=== PATIENT | male | born 1955 | race Hispanic/Latino ===

== ENCOUNTER 2017-11-28 17:10 | Inpatient (IN) | payer MEDICARE ==
[2017-11-28] MEDS ORDERED: Albuterol-Ipratrop 3 mg / 0.5 (3 ml) UD INH STA (17:42)
--- NOTE | 2017-11-28 18:03 | ED PDOC ---
HPI: SOB/CHF/COPD Time Seen by Provider: 11/28/17 17:31 Chief Complaint (Nursing): Shortness Of Breath Chief Complaint (Provider): Shortness of Breath History Per: Patient History/Exam Limitations: no limitations Onset/Duration Of Symptoms: Days (1 day ago) Current Symptoms Are (Timing): Still Present Current Respiratory Medications: Diuretic Additional Complaint(s): 62 y/o male with a history of asthma, CHF, heart block, HTN, and anxiety, presents to the ED complaining of worsened shortness of breath with associated dry cough, fever, chils, leg swelling, and malaise, onset of 1 day ago. Patient reports of using albuterol pump with minimal relief. Of note, patient saw his doctor earlier this week, who increased his diuretic due to the patient's leg edema. Past Medical History Reviewed: Historical Data, Nursing Documentation, Vital Signs Vital Signs: Last Vital Signs Temp 100.7 F H 11/28/17 17:15 Pulse 97 H 11/28/17 17:15 Resp 18 11/28/17 17:15 BP 140/63 11/28/17 17:15 Pulse Ox 100 11/28/17 17:45 - Medical History PMH: Anxiety, Asthma, Cardia Arrhythmia, CHF, HTN Denies: Chronic Kidney Disease - Surgical History Surgical History: Pacemaker Other surgeries: right hip replacement - Family History Other Family History: acute coronary syndrome - Social History Current smoker - smoking cessation education provided: No (tobacco) Ex-Smoker (has not smoked in the last 12 months): No Alcohol: > 2 Drinks/Day (3-4 beers daily) Drugs: Cannabis (occasional) - Home Medications Home Medications: Ambulatory Orders Medication Instructions Recorded Albuterol HFA [Ventolin HFA 90 2 puff IH BID 11/19/16 mcg/actuation (8 g)] Enalapril Maleate [Vasotec] 5 mg PO DAILY 11/19/16 clonazePAM [Klonopin] 0.5 mg PO TID PRN 11/19/16 Mometasone/Formoterol [Dulera] 2 puff IH BID 11/28/17 - Allergies Allergies/Adverse Reactions: Allergies Allergy/AdvReac Type Severity Reaction Status Date / Time No Known Allergies Allergy Verified 11/24/16 07:21 Review of Systems ROS Statement: Except As Marked, All Systems Reviewed And Found Negative Constitutional: Positive for: Fever, Chills, Malaise Respiratory: Positive for: Cough (dry ) Musculoskeletal: Positive for: Leg Pain (swelling) - ECG O2 Sat by Pulse Oximetry: 100 (RA) Pulse Ox Interpretation: Normal Medical Decision Making Medical Decision Making: Time: --17:41 Impression: --Shortness of Breath Differential: --Asthma Exacerbation, Pneumonia, CHF Exacerbation, Influena, Viral Syndrome, Acute Coronary Syndrome, Sepsis, Plan: --Blood Type and Screen --Venous blood gas shock panel --ECG --b-type natriuretic --labs --magnesium --phosphorous --Troponin I --Troponin I Q8H --ED urine Dip --prothrombin Time --PTT --Chest X-ray --Albuterol 9ml iNH --methylprednisolone 125 mg IVP --Tamiflu Cap 75 mg PO --Blood Culture --Welding Machine Operator Thermit --IV insertion --Glucose, blood, PoC --Peak flow pre/post tx --Influenza A B Reassess -- Scribe Attestation: Documented by Gregory Meza acting as a scribe for Sloane Edwards MD. Provider Attestation: All medical record entries made by the Scribe were at my direction and personally dictated by me. I have reviewed the chart and agree that the record accurately reflects my personal performance of the history, physical exam, medical decision making, and the department course for this patient. I have also personally directed, reviewed, and agree with the discharge instructions and disposition. Disposition - Disposition Condition: STABLE
[2017-11-28 18:08] LABS: VENOUS BLOOD GAS BASE EXCESS 4.5 mmol/L (0.0-2.0); VENOUS BLOOD GAS PCO2 50 mmHg (40-60); VENOUS BLOOD GAS PO2 17 mm/Hg (30-55); VENOUS BLOOD PH 7.39 (7.32-7.43)
[2017-11-28] MEDS ORDERED: Albuterol-Ipratrop 3 mg / 0.5 (3 ml) UD ONE ×2 (18:11→18:15)
[2017-11-28 18:19] LABS: BASO % 0.7 % (0.0-2.0); EOS % 0.7 % (0.0-4.0); HEMOGLOBIN 10.3 g/dL (12.0-18.0); LYMPH # 0.4 K/uL (1.0-4.3); LYMPH % 6.7 % (20.0-40.0); MEAN CELL VOLUME 109.8 fl (80.0-94.0); MEAN CORPUSCULAR HEMOGLOBIN 36.4 pg (27.0-31.0); MEAN CORPUSCULAR HGB CONC 33.1 g/dL (33.0-37.0); MONO # 0.4 K/uL (0.0-0.8); MONO % 6.7 % (0.0-10.0); NEUT # 5.5 K/uL (1.8-7.0); NEUT % 85.2 % (50.0-75.0); PLATELET COUNT 148 K/uL (130-400); RBC 2.82 Mil/uL (4.40-5.90); RED CELL DISTRIBUTION WIDTH 13.9 % (11.5-14.5); WHITE BLOOD COUNT 6.4 K/uL (4.8-10.8)
[2017-11-28 18:55] LABS: BLOOD UREA NITROGEN 19 mg/dl (9-20); GFR AFRICAN-AMERICAN > 60; GFR NON-AFRICAN AMERICAN > 60
[2017-11-28 18:56] LABS: ALB/GLOB RATIO 1.3 (1.0-2.1); ALBUMIN 4.3 g/dL (3.5-5.0); ALT/SGPT 54 U/L (21-72); AST/SGOT 48 U/L (17-59); B-TYPE NATRIURETIC PEPTIDE 4490 pg/ml (0-900); CALCIUM 10.2 mg/dL (8.4-10.2); MAGNESIUM 1.3 MG/DL (1.6-2.3)
[2017-11-28] MEDS ORDERED: Azithromycin 500 MG in Sodium Chloride 0.9% 250 ML IVPB ONE (19:30)
[2017-11-28] MEDS ORDERED: Piperacillin/Tazobact 4.5 GM in Sodium Chloride 0.9% 100 ML IVPB ONE (19:30)
[2017-11-28 19:34] LABS: PARTIAL THROMBOPLASTIN TIME 29.1 Seconds (25.6-37.1)
[2017-11-28] MEDS ORDERED: Azithromycin 500 MG IV IVPB ONE (19:37)
--- NOTE | 2017-11-28 20:46 | CP.PCM.CON ---
History of Present Illness - History of Present Illness History of Present Illness: CC: SOB, fever, cough, LE edema HPI: This is a 62 y/o male with asthma/COPD, CHF, HTN, and CHB s/p PPM who comes in with c/o SOB, f/c, and LE edema. Patient states symptoms started about a day ago. Patient has tried to use albuterol inh, but that did not help with his breathing. Patient did see his physician earlier this week, and his lasix dose was increased due to LE edema. Patient denies CP. Patient denies n/v/d. PCP: Juliana MHx: Asthma/COPD, CHF, HTN, Hx Hodgkins Lymphoma, b/l Avascular Necrosis of Femur SHx: R Hip replacement Allergies: NKDA Medications: As per med rec Family Hx: Reviewed, no relevant findings Social Hx: lives with, occ tobacco, quit tobacco > 10 years ago Past Patient History - Infectious Disease Hx of Infectious Diseases: None - Past Medical History & Family History Past Medical History?: Yes - Past Social History Alcohol: > 2 Drinks/Day (3-4 beers daily) Drugs: Cannabis (occasional) - CARDIAC Hx Cardia Arrhythmia: Yes Hx Congestive Heart Failure: Yes Hx Hypertension: Yes Hx Pacemaker: Yes - PULMONARY Hx Asthma: Yes - NEUROLOGICAL Hx Neurological Disorder: No - HEENT Hx HEENT Problems: No - RENAL Hx Chronic Kidney Disease: No - ENDOCRINE/METABOLIC Hx Endocrine Disorders: No - HEMATOLOGICAL/ONCOLOGICAL Hx Blood Disorders: Yes Hx Cancer: Yes (Hodgkin's) Other/Comment: Hodgkin's Lymphoma Stage 1- 1972- Radiation treatment. Hodgkin' s Lymphoma Stage 4- 1987- Chemo & Stem cell transplant - INTEGUMENTARY Hx Dermatological Problems: No - MUSCULOSKELETAL/RHEUMATOLOGICAL Hx Musculoskeletal Disorders: No Hx Falls: No - GASTROINTESTINAL Hx Hemorrhoids: Yes - GENITOURINARY/GYNECOLOGICAL Hx Genitourinary Disorders: No - PSYCHIATRIC Hx Anxiety: Yes - SURGICAL HISTORY Hx Surgeries: Yes Other/Comment: right hip replacement - ANESTHESIA Hx Anesthesia: No Meds Allergies/Adverse Reactions: Allergies Allergy/AdvReac Type Severity Reaction Status Date / Time No Known Allergies Allergy Verified 11/24/16 07:21 Physical Exam - Constitutional Appears: No Acute Distress - Head Exam Head Exam: ATRAUMATIC, NORMOCEPHALIC - Eye Exam Eye Exam: EOMI, PERRL - ENT Exam ENT Exam: Mucous Membranes Moist - Neck Exam Neck exam: Positive for: Full Rom - Respiratory Exam Respiratory Exam: Rales, Wheezes - Cardiovascular Exam Cardiovascular Exam: REGULAR RHYTHM, +S1, +S2 - GI/Abdominal Exam GI & Abdominal Exam: Normal Bowel Sounds, Soft - Extremities Exam Extremities exam: Positive for: full ROM, pedal edema - Neurological Exam Neurological exam: Alert, CN II-XII Intact, Oriented x3 - Psychiatric Exam Psychiatric exam: Normal Affect, Normal Mood - Skin Skin Exam: Dry, Warm Results - Vital Signs Recent Vital Signs: Last Vital Signs Temp 100.7 F H 11/28/17 17:15 Pulse 97 H 11/28/17 17:15 Resp 18 11/28/17 17:15 BP 140/63 11/28/17 17:15 Pulse Ox 100 11/28/17 18:16 - Labs Result Diagrams: 11/28/17 18:09 11/28/17 18:09 Labs: Laboratory Results - last 24 hr 11/28/17 11/28/17 11/28/17 17:56 18:06 18:09 WBC RBC Hgb Hct MCV MCH MCHC RDW Plt Count MPV Neut % (Auto) Lymph % (Auto) Kleberg % (Auto) Eos % (Auto) Baso % (Auto) Neut # Lymph # Kleberg # Eos # Baso # APTT pO2 17 L VBG pH 7.39 VBG pCO2 50 VBG HCO3 26.9 VBG Total CO2 31.8 H VBG O2 Sat (Calc) 27.6 L VBG Base Excess 4.5 H VBG Potassium 4.3 Sodium 128.0 L 131 L Chloride 90.0 L 88 L Glucose 160 H Lactate 2.6 H FiO2 21.0 Potassium 4.4 Carbon Dioxide 27 Anion Gap 20 BUN 19 Creatinine 0.7 L Est GFR ( Amer) > 60 Est GFR (Non-Af Amer) > 60 Random Glucose 157 H Calcium 10.2 Phosphorus 3.5 Magnesium 1.3 L Total Bilirubin 1.5 H AST 48 ALT 54 Alkaline Phosphatase 124 Troponin I < 0.0120 NT-Pro-B Natriuret Pep 4490 H Total Protein 7.7 Albumin 4.3 Globulin 3.4 Albumin/Globulin Ratio 1.3 Venous Blood Potassium 4.3 Influenza Typ A,B (EIA) BBK History Checked No verified bt 11/28/17 11/28/17 11/28/17 18:09 18:09 18:09 WBC 6.4 RBC 2.82 L Hgb 10.3 L D Hct 30.9 L MCV 109.8 H MCH 36.4 H MCHC 33.1 RDW 13.9 Plt Count 148 MPV 9.0 Neut % (Auto) 85.2 H Lymph % (Auto) 6.7 L Kleberg % (Auto) 6.7 Eos % (Auto) 0.7 Baso % (Auto) 0.7 Neut # 5.5 Lymph # 0.4 L Kleberg # 0.4 Eos # 0.0 Baso # 0.0 APTT 29.1 pO2 VBG pH VBG pCO2 VBG HCO3 VBG Total CO2 VBG O2 Sat (Calc) VBG Base Excess VBG Potassium Sodium Chloride Glucose Lactate FiO2 Potassium Carbon Dioxide Anion Gap BUN Creatinine Est GFR ( Amer) Est GFR (Non-Af Amer) Random Glucose Calcium Phosphorus Magnesium Total Bilirubin AST ALT Alkaline Phosphatase Troponin I NT-Pro-B Natriuret Pep Total Protein Albumin Globulin Albumin/Globulin Ratio Venous Blood Potassium Influenza Typ A,B (EIA) Negative for flu a/b BBK History Checked - EKG Data EKG Interpreted by: Myself - EKG Data EKG comments: A and V paced - Imaging and Cardiology Chest x-ray Status: Image reviewed by me (Volume overload, R sided effusion, ?infiltrate) Assessment & Plan (1) COPD exacerbation Assessment and Plan: 62 y/o male with multiple medical conditions who presents with fever, cough, SOB , and worsening LE edema. -Admit to ICU -Continue Ceftriaxone and Azithromycin IV -Continue duonebs q4h PRN -Patient rec'd 125 mg of Solumedrol in ER, reassess in AM and decide whether necessary to continue IV or switch PO -1 dose of Lasix IV 40 mg if BP is sufficient -Tylenol for fever -Lovenox for DVT PPx -Pulm consult (Joseph) AM -Card consult (Dallin) AM -Echo for AM Status: Acute (2) CAP (community acquired pneumonia) Status: Acute (3) Pleural effusion associated with pulmonary infection Status: Acute (4) CHF exacerbation Status: Acute (5) DVT prophylaxis Status: Acute
[2017-11-28 21:49] LABS: INR 1.35 (0.92-1.08); PROTHROMBIN TIME 15.3 SECONDS (9.7-12.2)
--- NOTE | 2017-11-28 22:06 | CT ---
EXAM: CT Chest Without Intravenous Contrast EXAM DATE/TIME: 11/28/2017 7:13 PM CLINICAL HISTORY: 62 years old, male; Signs and symptoms; Shortness of breath; Prior surgery; Surgery date: 6+ months; Surgery type: Pacemaker; Additional info: Right pleural effusion v empyema TECHNIQUE: Axial computed tomography images of the chest without intravenous contrast. All CT scans at this facility use one or more dose reduction techniques, viz.: automated exposure control; ma/kV adjustment per patient size (including targeted exams where dose is matched to indication; i.e. head); or iterative reconstruction technique. Coronal and sagittal reformatted images were created and reviewed. COMPARISON: CR - CHEST PORTABLE 2017-11-28 18:08 FINDINGS: Lungs and pleural spaces: Trachea and main bronchi are patent. There is a large right pleural effusion. There is a moderate left pleural effusion. Compressive atelectatic changes in the right upper lobe. There are peripheral right upper lobe calcifications. The There is partial right middle lobe atelectasis. There is almost complete right lower lobe atelectasis. There is compressive atelectasis in the left upper lobe. There is medial left upper lobe volume loss and just superior to the left hilum adjacent to the aorta. There is more extensive compressive atelectasis of the left lower lobe. Heart and vasculature: Heart size is normal. There are coronary artery calcifications. There is extensive calcification in the aorta. Aorta and main pulmonary artery are normal in caliber. Mediastinum: Esophagus is partially distended with air. There is a small hiatal hernia. There are shotty calcified and noncalcified mediastinal nodes. There are small calcified right hilar nodes Thyroid: Thyroid is not optimally demonstrated. Right lobe appears heterogeneous and nodular. Bones/joints: Bony structures are osteopenic. There degenerative changes. There are bridging osteophytes and syndesmophytes. There are Schmorl's nodes at multiple levels. Soft tissues: unremarkable Upper abdomen: There are no acute abnormalities in the visualized portion of the abdomen. There is a small amount of fluid in the left upper quadrant. Tubes, lines and devices: There is streak artifact from a pacemaker in the left chest wall. There is streak artifact from pacemaker There is streak artifact from pacemaker leads. IMPRESSION: Large right pleural effusion with almost complete right lower lobe atelectasis and less extensive right middle and upper lobe atelectasis; moderate left effusion with atelectatic changes greatest at the left base; extensive atherosclerotic disease; prior granulomatous disease Right empyema is suspected, suggest thoracentesis
--- NOTE | 2017-11-28 22:18 | CP.PCM.PN ---
Objective - Vital Signs/Intake and Output Vital Signs (last 24 hours): Temp Pulse Resp BP Pulse Ox 99 F 61 20 99/44 L 96 11/28/17 22:06 11/28/17 22:06 11/28/17 22:06 11/28/17 22:06 11/28/17 22:06 - Medications Medications: Current Medications Acetaminophen (Tylenol 325mg Tab) 650 mg PO Q6H PRN PRN Reason: Fever >100.4 F Albuterol/Ipratropium (Duoneb 3 Mg/0.5 Mg (3 Ml) Ud) 3 ml INH RQ4 PRN PRN Reason: Shortness of Breath Enoxaparin Sodium (Lovenox) 40 mg SC DAILY CLAUDIA PRN Reason: Protocol Azithromycin 500 mg/ Sodium (Chloride) 250 mls @ 250 mls/hr IVPB DAILY CLAUDIA PRN Reason: Protocol Ceftriaxone Sodium 1 gm/ (Sodium Chloride) 100 mls @ 100 mls/hr IVPB DAILY CLAUDIA PRN Reason: Protocol - Labs Labs: 11/28/17 18:09 11/28/17 18:09 PT 15.3 SECONDS (9.7-12.2) H 11/28/17 18:09 INR 1.35 (0.92-1.08) H 11/28/17 18:09 APTT 29.1 Seconds (25.6-37.1) 11/28/17 18:09
[2017-11-28 23:05] VITALS: BMI 22.4
[2017-11-28] MEDS: Albuterol-Ipratrop 3 mg / 0.5 (3 ml) UD INH PRN (23:41)
[2017-11-29 02:06] LABS: EOSINOPHIL 1 % (0-7); LYMPHOCYTE 3 % (20-50); MONOCYTE 6 % (0-10); NEUTROPHIL 90 % (42-75); NUCLEATED RED BLOOD CELL 1 % (0-0); PLATELET ESTIMATE NORMAL (NORMAL); TOTAL CELLS COUNTED 100
[2017-11-29 02:08] LABS: TARGET CELLS SLIGHT
[2017-11-29] MEDS: Albuterol-Ipratrop 3 mg / 0.5 (3 ml) UD INH PRN ×2 (04:13→07:20)
--- NOTE | 2017-11-29 04:22 | CP.PCM.HP ---
History of Present Illness - History of Present Illness History of Present Illness: 62 yo ,m, PMhx/o Asthma/COPD, HTN, Hx of Bilateral Avascular Necrosis of Femur, Anxiety, Hx of Hodgkin Lymphoma, Complete Heart Block s/p pacemeker 11/2016 presents to ED c/o SOB started 1 day ago, associated with wheezing, dry cough that does note alleviates with Ventolin pum used every 4 hours. Patient reports that he has chronic fatigue syndrome for about 1 year, weakness and states that his asthma and SOB has got worse since he was placed the pacemaker 11/2016, associated with orthopnea , SCOTT after walking 1 block and pedal edema. He denies fever, n,v,d, abd pain, chest pain. Patient was recent seen by his PMD and reports that Lasix was increase to 40 mg daily. PMD: Dr. Iglesias PMHx: Asthma/COPD, HTN, Hx of Bilateral Avascular Necrosis of Femur, Anxiety, Hx of Hodgkin Lymphoma PSHx: Rt. Hip replacement Social Hx: TOB- quit more than 10 years ago ETOH- 3-4 beers daily DRUG- Occasional Marijuana Allergies: NKDA Home Meds: Symbicort, Ventolin, Pulmicort, Lasix 40 mg daily Pharmacy: [facility] ED Course VS: Temp 100.7 BP 140/63 RR:18 O2 sat 100 Labs: CBC 6.4 >10.3/30.9<148 INR 1.35 CMP: 131/4.4 M.3, total bili 1.5 ProBMP 4490 influenza neg trop x 1 neg VBG PH: 7.39 PO2 17 PCO2 31,8 Imaging: CXR: righ pleural effusion, pending final report CTchest: Large pleural efusion with almost complete right lower lobe atelectasis and less extensive right middle and upper lobe atelectasis, moderate left effusion atelectatic changes greatest at the left base, extensive atherosclerotic disease, prior granulomatous diesease. right empyema is suspected, suggest thracentesis Meds: Vanco/Zosyn, tamiflu, methylprednisone 125 mg daily , lasix 40 mg 1 dosis , duoneb x 3 Present on Admission - Present on Admission Any Indicators Present on Admission: No History of DVT/PE: No History of Uncontrolled Diabetes: No Review of Systems - Cardiovascular Cardiovascular: As Per HPI - Respiratory Respiratory: As Per HPI - Gastrointestinal Gastrointestinal: As Per HPI Past Patient History - Infectious Disease Hx of Infectious Diseases: None - Past Medical History & Family History Past Medical History?: Yes - Past Social History Smoking Status: Former Smoker - CARDIAC Hx Cardia Arrhythmia: Yes Hx Congestive Heart Failure: Yes Hx Hypertension: Yes Hx Pacemaker: Yes - PULMONARY Hx Asthma: Yes Hx Bronchitis: Yes Hx Pneumonia: Yes Hx Respiratory Tract Infection: Yes - NEUROLOGICAL Hx Neurological Disorder: No - HEENT Hx HEENT Problems: No - RENAL Hx Chronic Kidney Disease: No - ENDOCRINE/METABOLIC Hx Endocrine Disorders: No - HEMATOLOGICAL/ONCOLOGICAL Hx Blood Disorders: Yes Hx AIDS: No Hx Cancer: Yes (Hodgkin's) Hx Human Immunodeficiency Virus (HIV): No Other/Comment: Hodgkin's Lymphoma Stage 1- 1972- Radiation treatment. Hodgkin' s Lymphoma Stage 4- 1987- Chemo & Stem cell transplant - INTEGUMENTARY Hx Dermatological Problems: No - MUSCULOSKELETAL/RHEUMATOLOGICAL Hx Musculoskeletal Disorders: No Hx Falls: Yes Other/Comment: Avascular necrosis led to right hip replacement - GASTROINTESTINAL Hx Hemorrhoids: Yes - GENITOURINARY/GYNECOLOGICAL Hx Genitourinary Disorders: No - PSYCHIATRIC Hx Anxiety: Yes Hx Substance Use: No - SURGICAL HISTORY Hx Surgeries: Yes Hx Orthopedic Surgery: Yes (Right THR) Hx Thyroidectomy: Yes (Left Lobe) Other/Comment: Left Pacemaker - ANESTHESIA Hx Anesthesia: No Hx Anesthesia Reactions: No Hx Malignant Hyperthermia: No Has any member of the family had a problem w/ anesthesia?: No Meds Allergies/Adverse Reactions: Allergies Allergy/AdvReac Type Severity Reaction Status Date / Time No Known Allergies Allergy Verified 11/24/16 07:21 Physical Exam - Constitutional Appears: Non-toxic, No Acute Distress - Head Exam Head Exam: ATRAUMATIC, NORMOCEPHALIC - Eye Exam Eye Exam: Normal appearance - ENT Exam ENT Exam: Mucous Membranes Moist - Neck Exam Neck exam: Positive for: Normal Inspection - Respiratory Exam Respiratory Exam: Decreased Breath Sounds, Rales, Wheezes Additional comments: decrease breath sound right lung base, scattered rales b/l scattered wheezing - Cardiovascular Exam Cardiovascular Exam: REGULAR RHYTHM, +S1, +S2 - GI/Abdominal Exam GI & Abdominal Exam: Normal Bowel Sounds, Soft. absent: Tenderness - Extremities Exam Extremities exam: Positive for: pedal edema (B/L 2+ legs) - Neurological Exam Neurological exam: Alert, Oriented x3 - Psychiatric Exam Psychiatric exam: Normal Affect, Normal Mood - Skin Skin Exam: Intact Results - Vital Signs Recent Vital Signs: Last Vital Signs Temp 98.5 F 11/29/17 00:00 Pulse 66 11/29/17 00:00 Resp 25 H 11/29/17 00:00 BP 127/57 L 11/29/17 00:00 Pulse Ox 96 11/29/17 00:00 - Labs Result Diagrams: 11/28/17 18:09 11/28/17 18:09 Labs: Laboratory Results - last 24 hr 11/28/17 11/28/17 11/28/17 17:56 18:06 18:09 WBC RBC Hgb Hct MCV MCH MCHC RDW Plt Count MPV Neut % (Auto) Lymph % (Auto) Vance % (Auto) Eos % (Auto) Baso % (Auto) Neut # Lymph # Vance # Eos # Baso # Neutrophils % (Manual) Lymphocytes % (Manual) Monocytes % (Manual) Eosinophils % (Manual) Nucleated RBC % Platelet Estimate Macrocytosis (manual) Target Cells PT INR APTT pO2 17 L VBG pH 7.39 VBG pCO2 50 VBG HCO3 26.9 VBG Total CO2 31.8 H VBG O2 Sat (Calc) 27.6 L VBG Base Excess 4.5 H VBG Potassium 4.3 Sodium 128.0 L 131 L Chloride 90.0 L 88 L Glucose 160 H Lactate 2.6 H FiO2 21.0 Potassium 4.4 Carbon Dioxide 27 Anion Gap 20 BUN 19 Creatinine 0.7 L Est GFR ( Amer) > 60 Est GFR (Non-Af Amer) > 60 Random Glucose 157 H Lactic Acid Calcium 10.2 Phosphorus 3.5 Magnesium 1.3 L Total Bilirubin 1.5 H AST 48 ALT 54 Alkaline Phosphatase 124 Troponin I < 0.0120 NT-Pro-B Natriuret Pep 4490 H Total Protein 7.7 Albumin 4.3 Globulin 3.4 Albumin/Globulin Ratio 1.3 Venous Blood Potassium 4.3 Influenza Typ A,B (EIA) Blood Type O POSITIVE Antibody Screen Negative BBK History Checked No verified bt 11/28/17 11/28/17 11/28/17 18:09 18:09 18:09 WBC 6.4 RBC 2.82 L Hgb 10.3 L D Hct 30.9 L MCV 109.8 H MCH 36.4 H MCHC 33.1 RDW 13.9 Plt Count 148 MPV 9.0 Neut % (Auto) 85.2 H Lymph % (Auto) 6.7 L Vance % (Auto) 6.7 Eos % (Auto) 0.7 Baso % (Auto) 0.7 Neut # 5.5 Lymph # 0.4 L Vance # 0.4 Eos # 0.0 Baso # 0.0 Neutrophils % (Manual) 90 H Lymphocytes % (Manual) 3 L Monocytes % (Manual) 6 Eosinophils % (Manual) 1 Nucleated RBC % 1 H Platelet Estimate Normal Macrocytosis (manual) Slight Target Cells Slight PT 15.3 H INR 1.35 H APTT 29.1 pO2 VBG pH VBG pCO2 VBG HCO3 VBG Total CO2 VBG O2 Sat (Calc) VBG Base Excess VBG Potassium Sodium Chloride Glucose Lactate FiO2 Potassium Carbon Dioxide Anion Gap BUN Creatinine Est GFR ( Amer) Est GFR (Non-Af Amer) Random Glucose Lactic Acid Calcium Phosphorus Magnesium Total Bilirubin AST ALT Alkaline Phosphatase Troponin I NT-Pro-B Natriuret Pep Total Protein Albumin Globulin Albumin/Globulin Ratio Venous Blood Potassium Influenza Typ A,B (EIA) Negative for flu a/b Blood Type Antibody Screen BBK History Checked 11/29/17 11/29/17 01:00 01:00 WBC RBC Hgb Hct MCV MCH MCHC RDW Plt Count MPV Neut % (Auto) Lymph % (Auto) Vance % (Auto) Eos % (Auto) Baso % (Auto) Neut # Lymph # Vance # Eos # Baso # Neutrophils % (Manual) Lymphocytes % (Manual) Monocytes % (Manual) Eosinophils % (Manual) Nucleated RBC % Platelet Estimate Macrocytosis (manual) Target Cells PT INR APTT pO2 VBG pH VBG pCO2 VBG HCO3 VBG Total CO2 VBG O2 Sat (Calc) VBG Base Excess VBG Potassium Sodium Chloride Glucose Lactate FiO2 Potassium Carbon Dioxide Anion Gap BUN Creatinine Est GFR ( Amer) Est GFR (Non-Af Amer) Random Glucose Lactic Acid 1.7 Calcium Phosphorus Magnesium Total Bilirubin AST ALT Alkaline Phosphatase Troponin I 0.0530 NT-Pro-B Natriuret Pep Total Protein Albumin Globulin Albumin/Globulin Ratio Venous Blood Potassium Influenza Typ A,B (EIA) Blood Type Antibody Screen BBK History Checked Assessment & Plan - Assessment and Plan (Free Text) Plan: 62 yo ,m, PMhx/o Asthma/COPD, HTN, Hx of Bilateral Avascular Necrosis of Femur, Anxiety, Hx of Hodgkin Lymphoma, Complete Heart Block s/p pacemeker 11/2016 admitted for CHF exacerbation, PNA, Plerural effusion. Assessment/Plan 1) CHF exacerbation -Orthopnea, SCOTT -ProBMP 4490 11/2017 -ProBnP 1030 11/2016 -Hx/o complete AV block and s/p pascemaker 2017 -f/u Echo -s/p Lasix 40 mg IV ED -Lasix 60 mg daily -Assembler Tubing consult suggested 2) COPD exacerbation -CXR right pleural effusion and right lobe atelectasia -s/p methylprednisone 125 mg daily -s/p duoneb x 3 -continue douneb Q4h PRN -solumedrol 40 mg IV BID -c/w symbicort -Coil Binder consult suggested 3) Pleural effusion associated with pulmonary infection -CXR 11/2017 right pleural effusion -CXR 11/21/16 normal -CT Chest CTchest: Large pleural efusion with almost complete right lower lobe atelectasis and less extensive right middle and upper lobe atelectasis, moderate left effusion atelectatic changes greatest at the left base, extensive atherosclerotic disease, prior granulomatous diesease. right empyema is suspected, suggest thoracentesis - s/p Vanco/Zosyn , azyhtromycin ED -continue Ceftriaxone, azythromycin -IR consult for thoracentesis 4) DVT Prophylaxis -Lovenox 40 mg sc daily
[2017-11-29 07:57] LABS: BLOOD UREA NITROGEN 23 mg/dl (9-20); GFR AFRICAN-AMERICAN > 60; GFR NON-AFRICAN AMERICAN > 60
[2017-11-29 07:59] LABS: BASO % 0.2 % (0.0-2.0); LYMPH # 0.1 K/uL (1.0-4.3); LYMPH % 1.7 % (20.0-40.0); MEAN CELL VOLUME 108.5 fl (80.0-94.0); MEAN CORPUSCULAR HEMOGLOBIN 36.9 pg (27.0-31.0); MONO # 0.2 K/uL (0.0-0.8); MONO % 3.4 % (0.0-10.0); NEUT # 4.4 K/uL (1.8-7.0); NEUT % 94.7 % (50.0-75.0); NRBC % 0.1 % (0.0-0.0); PLATELET COUNT 130 K/uL (130-400); RBC 2.72 Mil/uL (4.40-5.90); RED CELL DISTRIBUTION WIDTH 14.6 % (11.5-14.5); WHITE BLOOD COUNT 4.6 K/uL (4.8-10.8)
--- NOTE | 2017-11-29 08:00 | CP.CCUPN ---
CCU Subjective - Physician Review Events Since Last Encounter (Free Text): 11/29/17 07:57 Patient awake, no distress, no fever, no chest pain, on O2 supplement by nasal canula, events reviewed CCU Objective - Vital Signs / Intake & Output Vital Signs (Last 4 hours): Vital Signs Temp Pulse Resp BP Pulse Ox 11/29/17 06:00 67 32 H 109/57 L 97 11/29/17 04:00 98.5 F 66 23 126/53 L 97 Intake and Output (Last 8hrs): Intake & Output 11/28/17 11/29/17 11/29/17 22:59 06:59 14:59 Intake Total 755 Output Total 675 Balance 80 Weight 145 lb 147 lb 8 oz Intake: IV 630 Oral 125 Output: Urine 675 Urine, Voided 675 - Physical Exam Head: Positive for: Atraumatic, Normocephalic Pupils: Positive for: PERRL Extroacular Muscles: Positive for: EOMI Conjunctiva: Positive for: Normal Ears: Positive for: Normal Mouth: Positive for: Moist Mucous Membranes Nose (External): Positive for: Atraumatic Neck: Positive for: Normal Range of Motion Respiratory/Chest: Positive for: Rales Cardiovascular: Positive for: Regular Rate and Rhythm Abdomen: Positive for: Normal Bowel Sounds Upper Extremity: Positive for: Normal Inspection Lower Extremity: Positive for: Edema Neurological: Positive for: GCS=15, Speech Normal Psychiatric: Positive for: Alert, Oriented x 3 - Medications Active Medications: Active Medications Generic Name Dose Route Start Last Admin Trade Name Freq PRN Reason Stop Dose Admin Acetaminophen 650 mg 11/28/17 21:18 Tylenol 325mg Tab PO Q6H PRN Fever >100.4 F Albuterol/Ipratropium 3 ml 11/28/17 21:20 11/29/17 07:20 Duoneb 3 Mg/0.5 Mg (3 Ml) Ud INH 3 ml RQ4 PRN Administration Shortness of Breath Enoxaparin Sodium 40 mg 11/29/17 09:00 Lovenox SC DAILY [facility] Protocol Furosemide 60 mg 11/29/17 09:00 Lasix IV DAILY CLAUDIA Azithromycin 500 mg/ Sodium 250 mls @ 250 mls/hr 11/29/17 09:00 Chloride IVPB DAILY [facility] Protocol Ceftriaxone Sodium 1 gm/ 100 mls @ 100 mls/hr 11/29/17 09:00 Sodium Chloride IVPB DAILY CLAUDIA Protocol Methylprednisolone 40 mg 11/29/17 09:00 Solu-Medrol IVP BID CLAUDIA Fluticasone/Salmeterol 1 puff 11/29/17 09:00 Advair Diskus 250/50 INH Q12 CLAUDIA - Patient Studies Lab Studies: Lab Studies 11/29/17 11/29/17 11/28/17 Range/Units 01:00 01:00 18:09 WBC (4.8-10.8) K/uL RBC (4.40-5.90) Mil/uL Hgb (12.0-18.0) g/dL Hct (35.0-51.0) % MCV (80.0-94.0) fl MCH (27.0-31.0) pg MCHC (33.0-37.0) g/dL RDW (11.5-14.5) % Plt Count (130-400) K/uL MPV (7.2-11.7) fl Neut % (Auto) (50.0-75.0) % Lymph % (Auto) (20.0-40.0) % [place] % (Auto) (0.0-10.0) % Eos % (Auto) (0.0-4.0) % Baso % (Auto) (0.0-2.0) % Neut # (1.8-7.0) K/uL Lymph # (1.0-4.3) K/uL [place] # (0.0-0.8) K/uL Eos # (0.0-0.7) K/uL Baso # (0.0-0.2) K/uL Neutrophils % (Manual) (42-75) % Lymphocytes % (Manual) (20-50) % Monocytes % (Manual) (0-10) % Eosinophils % (Manual) (0-7) % Nucleated RBC % (0-0) % Platelet Estimate (NORMAL) Macrocytosis (manual) Target Cells PT (9.7-12.2) SECONDS INR (0.92-1.08) APTT (25.6-37.1) Seconds pO2 (30-55) mm/Hg VBG pH (7.32-7.43) VBG pCO2 (40-60) mmHg VBG HCO3 mmol/L VBG Total CO2 (22-28) mmol/L VBG O2 Sat (Calc) (40-65) % VBG Base Excess (0.0-2.0) mmol/L VBG Potassium (3.6-5.2) mmol/L Sodium (132-148) mmol/L Chloride (98-107) mmol/L Glucose (75-110) mg/dL Lactate (0.7-2.1) mmol/L FiO2 % Potassium (3.6-5.0) MMOL/L Carbon Dioxide (22-30) mmol/L Anion Gap (10-20) BUN (9-20) mg/dl Creatinine (0.8-1.5) mg/dl Est GFR ( Amer) Est GFR (Non-Af Amer) Random Glucose (75-110) mg/dL Lactic Acid 1.7 (0.7-2.1) MMOL/L Calcium (8.4-10.2) mg/dL Phosphorus (2.5-4.5) mg/dl Magnesium (1.6-2.3) MG/DL Total Bilirubin (0.2-1.3) mg/dl AST (17-59) U/L ALT (21-72) U/L Alkaline Phosphatase (38-126) U/L Troponin I 0.0530 (0.00-0.120) ng/mL NT-Pro-B Natriuret Pep (0-900) pg/ml Total Protein (6.3-8.2) G/DL Albumin (3.5-5.0) g/dL Globulin (2.2-3.9) gm/dL Albumin/Globulin Ratio (1.0-2.1) Venous Blood Potassium (3.6-5.2) mmol/L Influenza Typ A,B (EIA) Negative for flu a/b (NEGATIVE) Blood Type Blood Type Confirm Antibody Screen BBK History Checked 11/28/17 11/28/17 11/28/17 Range/Units 18:09 18:09 18:09 WBC 6.4 (4.8-10.8) K/uL RBC 2.82 L (4.40-5.90) Mil/uL Hgb 10.3 L D (12.0-18.0) g/dL Hct 30.9 L (35.0-51.0) % MCV 109.8 H (80.0-94.0) fl MCH 36.4 H (27.0-31.0) pg MCHC 33.1 (33.0-37.0) g/dL RDW 13.9 (11.5-14.5) % Plt Count 148 (130-400) K/uL MPV 9.0 (7.2-11.7) fl Neut % (Auto) 85.2 H (50.0-75.0) % Lymph % (Auto) 6.7 L (20.0-40.0) % [place] % (Auto) 6.7 (0.0-10.0) % Eos % (Auto) 0.7 (0.0-4.0) % Baso % (Auto) 0.7 (0.0-2.0) % Neut # 5.5 (1.8-7.0) K/uL Lymph # 0.4 L (1.0-4.3) K/uL [place] # 0.4 (0.0-0.8) K/uL Eos # 0.0 (0.0-0.7) K/uL Baso # 0.0 (0.0-0.2) K/uL Neutrophils % (Manual) 90 H (42-75) % Lymphocytes % (Manual) 3 L (20-50) % Monocytes % (Manual) 6 (0-10) % Eosinophils % (Manual) 1 (0-7) % Nucleated RBC % 1 H (0-0) % Platelet Estimate Normal (NORMAL) Macrocytosis (manual) Slight Target Cells Slight PT 15.3 H (9.7-12.2) SECONDS INR 1.35 H (0.92-1.08) APTT 29.1 (25.6-37.1) Seconds pO2 (30-55) mm/Hg VBG pH (7.32-7.43) VBG pCO2 (40-60) mmHg VBG HCO3 mmol/L VBG Total CO2 (22-28) mmol/L VBG O2 Sat (Calc) (40-65) % VBG Base Excess (0.0-2.0) mmol/L VBG Potassium (3.6-5.2) mmol/L Sodium 131 L (132-148) mmol/L Chloride 88 L (98-107) mmol/L Glucose (75-110) mg/dL Lactate (0.7-2.1) mmol/L FiO2 % Potassium 4.4 (3.6-5.0) MMOL/L Carbon Dioxide 27 (22-30) mmol/L Anion Gap 20 (10-20) BUN 19 (9-20) mg/dl Creatinine 0.7 L (0.8-1.5) mg/dl Est GFR ( Amer) > 60 Est GFR (Non-Af Amer) > 60 Random Glucose 157 H (75-110) mg/dL Lactic Acid (0.7-2.1) MMOL/L Calcium 10.2 (8.4-10.2) mg/dL Phosphorus 3.5 (2.5-4.5) mg/dl Magnesium 1.3 L (1.6-2.3) MG/DL Total Bilirubin 1.5 H (0.2-1.3) mg/dl AST 48 (17-59) U/L ALT 54 (21-72) U/L Alkaline Phosphatase 124 (38-126) U/L Troponin I < 0.0120 (0.00-0.120) ng/mL NT-Pro-B Natriuret Pep 4490 H (0-900) pg/ml Total Protein 7.7 (6.3-8.2) G/DL Albumin 4.3 (3.5-5.0) g/dL Globulin 3.4 (2.2-3.9) gm/dL Albumin/Globulin Ratio 1.3 (1.0-2.1) Venous Blood Potassium (3.6-5.2) mmol/L Influenza Typ A,B (EIA) (NEGATIVE) Blood Type Blood Type Confirm Antibody Screen BBK History Checked 11/28/17 11/28/17 11/28/17 Range/Units 18:06 17:56 16:24 WBC (4.8-10.8) K/uL RBC (4.40-5.90) Mil/uL Hgb (12.0-18.0) g/dL Hct (35.0-51.0) % MCV (80.0-94.0) fl MCH (27.0-31.0) pg MCHC (33.0-37.0) g/dL RDW (11.5-14.5) % Plt Count (130-400) K/uL MPV (7.2-11.7) fl Neut % (Auto) (50.0-75.0) % Lymph % (Auto) (20.0-40.0) % [place] % (Auto) (0.0-10.0) % Eos % (Auto) (0.0-4.0) % Baso % (Auto) (0.0-2.0) % Neut # (1.8-7.0) K/uL Lymph # (1.0-4.3) K/uL [place] # (0.0-0.8) K/uL Eos # (0.0-0.7) K/uL Baso # (0.0-0.2) K/uL Neutrophils % (Manual) (42-75) % Lymphocytes % (Manual) (20-50) % Monocytes % (Manual) (0-10) % Eosinophils % (Manual) (0-7) % Nucleated RBC % (0-0) % Platelet Estimate (NORMAL) Macrocytosis (manual) Target Cells PT (9.7-12.2) SECONDS INR (0.92-1.08) APTT (25.6-37.1) Seconds pO2 17 L (30-55) mm/Hg VBG pH 7.39 (7.32-7.43) VBG pCO2 50 (40-60) mmHg VBG HCO3 26.9 mmol/L VBG Total CO2 31.8 H (22-28) mmol/L VBG O2 Sat (Calc) 27.6 L (40-65) % VBG Base Excess 4.5 H (0.0-2.0) mmol/L VBG Potassium 4.3 (3.6-5.2) mmol/L Sodium 128.0 L (132-148) mmol/L Chloride 90.0 L (98-107) mmol/L Glucose 160 H (75-110) mg/dL Lactate 2.6 H (0.7-2.1) mmol/L FiO2 21.0 % Potassium (3.6-5.0) MMOL/L Carbon Dioxide (22-30) mmol/L Anion Gap (10-20) BUN (9-20) mg/dl Creatinine (0.8-1.5) mg/dl Est GFR ( Amer) Est GFR (Non-Af Amer) Random Glucose (75-110) mg/dL Lactic Acid (0.7-2.1) MMOL/L Calcium (8.4-10.2) mg/dL Phosphorus (2.5-4.5) mg/dl Magnesium (1.6-2.3) MG/DL Total Bilirubin (0.2-1.3) mg/dl AST (17-59) U/L ALT (21-72) U/L Alkaline Phosphatase (38-126) U/L Troponin I (0.00-0.120) ng/mL NT-Pro-B Natriuret Pep (0-900) pg/ml Total Protein (6.3-8.2) G/DL Albumin (3.5-5.0) g/dL Globulin (2.2-3.9) gm/dL Albumin/Globulin Ratio (1.0-2.1) Venous Blood Potassium 4.3 (3.6-5.2) mmol/L Influenza Typ A,B (EIA) (NEGATIVE) Blood Type O POSITIVE Blood Type Confirm O POSITIVE Antibody Screen Negative BBK History Checked No verified bt Laboratory Results - last 24 hr 11/28/17 11/28/17 11/28/17 16:24 17:56 18:06 WBC RBC Hgb Hct MCV MCH MCHC RDW Plt Count MPV Neut % (Auto) Lymph % (Auto) [place] % (Auto) Eos % (Auto) Baso % (Auto) Neut # Lymph # [place] # Eos # Baso # Neutrophils % (Manual) Lymphocytes % (Manual) Monocytes % (Manual) Eosinophils % (Manual) Nucleated RBC % Platelet Estimate Macrocytosis (manual) Target Cells PT INR APTT pO2 17 L VBG pH 7.39 VBG pCO2 50 VBG HCO3 26.9 VBG Total CO2 31.8 H VBG O2 Sat (Calc) 27.6 L VBG Base Excess 4.5 H VBG Potassium 4.3 Sodium 128.0 L Chloride 90.0 L Glucose 160 H Lactate 2.6 H FiO2 21.0 Potassium Carbon Dioxide Anion Gap BUN Creatinine Est GFR ( Amer) Est GFR (Non-Af Amer) Random Glucose Lactic Acid Calcium Phosphorus Magnesium Total Bilirubin AST ALT Alkaline Phosphatase Troponin I NT-Pro-B Natriuret Pep Total Protein Albumin Globulin Albumin/Globulin Ratio Venous Blood Potassium 4.3 Influenza Typ A,B (EIA) Blood Type O POSITIVE Blood Type Confirm O POSITIVE Antibody Screen Negative BBK History Checked No verified bt 11/28/17 11/28/17 11/28/17 18:09 18:09 18:09 WBC 6.4 RBC 2.82 L Hgb 10.3 L D Hct 30.9 L MCV 109.8 H MCH 36.4 H MCHC 33.1 RDW 13.9 Plt Count 148 MPV 9.0 Neut % (Auto) 85.2 H Lymph % (Auto) 6.7 L [place] % (Auto) 6.7 Eos % (Auto) 0.7 Baso % (Auto) 0.7 Neut # 5.5 Lymph # 0.4 L [place] # 0.4 Eos # 0.0 Baso # 0.0 Neutrophils % (Manual) 90 H Lymphocytes % (Manual) 3 L Monocytes % (Manual) 6 Eosinophils % (Manual) 1 Nucleated RBC % 1 H Platelet Estimate Normal Macrocytosis (manual) Slight Target Cells Slight PT 15.3 H INR 1.35 H APTT 29.1 pO2 VBG pH VBG pCO2 VBG HCO3 VBG Total CO2 VBG O2 Sat (Calc) VBG Base Excess VBG Potassium Sodium 131 L Chloride 88 L Glucose Lactate FiO2 Potassium 4.4 Carbon Dioxide 27 Anion Gap 20 BUN 19 Creatinine 0.7 L Est GFR ( Amer) > 60 Est GFR (Non-Af Amer) > 60 Random Glucose 157 H Lactic Acid Calcium 10.2 Phosphorus 3.5 Magnesium 1.3 L Total Bilirubin 1.5 H AST 48 ALT 54 Alkaline Phosphatase 124 Troponin I < 0.0120 NT-Pro-B Natriuret Pep 4490 H Total Protein 7.7 Albumin 4.3 Globulin 3.4 Albumin/Globulin Ratio 1.3 Venous Blood Potassium Influenza Typ A,B (EIA) Blood Type Blood Type Confirm Antibody Screen BBK History Checked 11/28/17 11/29/17 11/29/17 18:09 01:00 01:00 WBC RBC Hgb Hct MCV MCH MCHC RDW Plt Count MPV Neut % (Auto) Lymph % (Auto) [place] % (Auto) Eos % (Auto) Baso % (Auto) Neut # Lymph # [place] # Eos # Baso # Neutrophils % (Manual) Lymphocytes % (Manual) Monocytes % (Manual) Eosinophils % (Manual) Nucleated RBC % Platelet Estimate Macrocytosis (manual) Target Cells PT INR APTT pO2 VBG pH VBG pCO2 VBG HCO3 VBG Total CO2 VBG O2 Sat (Calc) VBG Base Excess VBG Potassium Sodium Chloride Glucose Lactate FiO2 Potassium Carbon Dioxide Anion Gap BUN Creatinine Est GFR ( Amer) Est GFR (Non-Af Amer) Random Glucose Lactic Acid 1.7 Calcium Phosphorus Magnesium Total Bilirubin AST ALT Alkaline Phosphatase Troponin I 0.0530 NT-Pro-B Natriuret Pep Total Protein Albumin Globulin Albumin/Globulin Ratio Venous Blood Potassium Influenza Typ A,B (EIA) Negative for flu a/b Blood Type Blood Type Confirm Antibody Screen BBK History Checked EKG/Cardiology Studies: Cardiology / EKG Studies 11/28/17 17:41 ELECTROCARDIOGRAM Stat Comment: Mode Of Transportation: Reason For Exam: sob Critical Care Progress Note - Nutrition Nutrition: Nutrition Category Date Time Status Heart Healthy Diet [DIET] Diets 11/28/17 Breakfast Active Assessment/Plan - Assessment and Plan (Free Text) Assessment: A/P Respiratory insufficiency, pneumonia, COPD/asthma, pleural effusion, CHF, s/p pacemaker, h/o HTN - O2 supplement - Continue meds - Pulmonary toilets - DVT prophylaxis
[2017-11-29] MEDS ORDERED: Albuterol 0.083% Inhal Sol (2.5 mg/3 mL) UD INH PRN (08:26)
--- NOTE | 2017-11-29 08:48 | CP.PCM.PN ---
Subjective - Date & Time of Evaluation Date of Evaluation: 11/29/17 Time of Evaluation: 08:48 - Subjective Subjective: Pt seen and examined at bedside with attending. 62M admitted for worsening SOB and peripheral edema. Currently he is denying any chest pain but has mild SOB and reports overall "feeling better" since admission. Otherwise, he has no complaints. Objective - Vital Signs/Intake and Output Vital Signs (last 24 hours): Temp Pulse Resp BP Pulse Ox 36.6 C 64 31 H 116/51 L 97 11/29/17 08:00 11/29/17 08:00 11/29/17 08:00 11/29/17 08:00 11/29/17 08:00 Intake and Output: 11/29/17 11/29/17 06:59 18:59 Intake Total 755 Output Total 675 Balance 80 - Medications Medications: Current Medications Acetaminophen (Tylenol 325mg Tab) 650 mg PO Q6H PRN PRN Reason: Fever >100.4 F Albuterol Sulfate (Albuterol 0.083% Inhal Vanesa (2.5 Mg/3 Ml) Ud) 2.5 mg INH RQ4 PRN PRN Reason: Shortness of Breath Albuterol/Ipratropium (Duoneb 3 Mg/0.5 Mg (3 Ml) Ud) 3 ml INH RQID CLAUDIA Enoxaparin Sodium (Lovenox) 40 mg SC DAILY CLAUDIA PRN Reason: Protocol Furosemide (Lasix) 60 mg IV DAILY [facility] Azithromycin 500 mg/ Sodium (Chloride) 250 mls @ 250 mls/hr IVPB DAILY CLAUDIA PRN Reason: Protocol Ceftriaxone Sodium 1 gm/ (Sodium Chloride) 100 mls @ 100 mls/hr IVPB DAILY CLAUDIA PRN Reason: Protocol Methylprednisolone (Solu-Medrol) 30 mg IVP Q12 CLAUDIA - Labs Labs: 11/29/17 06:55 11/29/17 06:55 PT 15.3 SECONDS (9.7-12.2) H 11/28/17 18:09 INR 1.35 (0.92-1.08) H 11/28/17 18:09 APTT 29.1 Seconds (25.6-37.1) 11/28/17 18:09 - Constitutional Appears: Non-toxic, No Acute Distress - Head Exam Head Exam: ATRAUMATIC, NORMAL INSPECTION - Eye Exam Eye Exam: EOMI, Normal appearance - ENT Exam ENT Exam: Mucous Membranes Dry, Normal Exam - Neck Exam Neck Exam: Normal Inspection. absent: Lymphadenopathy - Respiratory Exam Respiratory Exam: Decreased Breath Sounds (RLL), NORMAL BREATHING PATTERN. absent: Wheezes - Cardiovascular Exam Cardiovascular Exam: REGULAR RHYTHM (PACED) - GI/Abdominal Exam GI & Abdominal Exam: Soft, Normal Bowel Sounds. absent: Tenderness - Extremities Exam Extremities Exam: Normal Capillary Refill, Normal Inspection. absent: Pedal Edema Additional comments: 1+ pitting edema to proximal thighs bilaterally - Neurological Exam Neurological Exam: Alert, Awake - Psychiatric Exam Psychiatric exam: Normal Affect, Normal Mood - Skin Skin Exam: Dry, Warm Assessment and Plan - Assessment and Plan (Free Text) Assessment: 62M admitted for worsening shortness of breath with an elevated BNP and imaging significant for large RIGHT pleural effusion. Plan for IR tomorrow morning, echo to evaluate heart, and continue with empiric treatment for pneumonia. Discussed patient's wishes regarding resuscitation status and he was clear in indicating DNR/DNI. Plan: Pulmonary: Acute on chronic respiratory decompensation likely multi-factorial. Patient found to have a large right pleural effusion with infiltrate and atelectatic changes. These changes may have led to some mild volume overload. Leukocytosis increased from admission. - Pulmonary Consult (Dr Ruiz) appreciated: IR with pleural effusion studies, steroids, abx, diuretics, and bronchodilators - Comm Acq Pneumonia: Rocephin, Azithromycin - Sepsis due to pneumonia: Rocephin, Azithromycin, judicious fluid resuscitation as indicated - Right pleural effusion: Lasix, IR for thoracentesis w/ studies - COPD: steroids, bronchodilators Cardiovascular: Asymptomatic, stable with possible mild heart failure. - Cardiology Consult (Dr Zamarripa) appreciated: No anti-hypertensive, Echo, Nitropaste - Acute on Chronic diastolic HF: Lasix, repeat echo - HTN: controlled, medication held at this time GI: Stable - NPO after midnight - Resume Heart Healthy diet after IR procedure /Integumentary: No current problems Endocrine: Elevated glucose levels likely due to steroids. Will monitor DVT Prophylaxis: Lovenox 40mg, SC, Daily (held for IR procedure), SCDs, continuous bilateral
[2017-11-29] MEDS ORDERED: methylPREDNISolone 40 MG in Sodium Chloride 0.9% 50 ML IV SCH (09:00)
[2017-11-29] MEDS ORDERED: methylPREDNISolone 30 MG in Sodium Chloride 0.9% 50 ML IV SCH (09:00)
[2017-11-29] MEDS ORDERED: MethylPREDNISolone 40 mg Vial IVP SCH (09:00)
[2017-11-29] MEDS ORDERED: Enoxaparin 40 mg Syringe SC SCH (09:00)
[2017-11-29] MEDS ORDERED: Fluticasone-Salmeterol 250-50mcg Diskus INH SCH (09:00)
--- NOTE | 2017-11-29 09:10 | CP.PCM.CON ---
History of Present Illness - History of Present Illness History of Present Illness: This 62 year old male is known to me from the outpatient setting. He has a past history of asthma, but likely has an overla[ syndrome with COPD because of a history of heavy tobacco use, discontinued in 1993. He has noted increasing shortness of breath which has become less responsive to his traditional bronchodilator use. He was unaware of fever, but did have chills when he presented to the ER. He has had some cough which was dry, and there has been no hemoptysis. There has been some recent substernal burning discomfort recently as well as increasing dependant edema without calf tenderness. There has been discomfort in the posterior knees and thighs. He continues to take all his medications at home as prescribed. He hqs remained able to carruy out ADL's, but with more and more difficulty. He has had nocturnal awakenings with SOB. Review of Systems - Review of Systems All systems: reviewed and no additional remarkable complaints except - Constitutional Constitutional: Fatigue - Cardiovascular Cardiovascular: Chest Pain, Dyspnea on Exertion, Leg Edema - Respiratory Respiratory: Cough, Dyspnea on Exertion, Wheezing Past Patient History - Infectious Disease Hx of Infectious Diseases: None - Past Medical History & Family History Past Medical History?: Yes - Past Social History Smoking Status: Former Smoker Chewing Tobacco Use: No Cigar Use: No Alcohol: Social (was heavy in the past) Drugs: Cannabis Home Situation {Lives}: Alone - CARDIAC Hx Cardia Arrhythmia: Yes Hx Congestive Heart Failure: Yes Hx Hypertension: Yes Hx Pacemaker: Yes - PULMONARY Hx Asthma: Yes Hx Bronchitis: Yes Hx Pneumonia: Yes (1999) - NEUROLOGICAL Hx Neurological Disorder: No - HEENT Hx HEENT Problems: No - RENAL Hx Chronic Kidney Disease: No - ENDOCRINE/METABOLIC Hx Endocrine Disorders: No Other/Comment: Hyponatremia 2013 - HEMATOLOGICAL/ONCOLOGICAL Hx Blood Disorders: Yes Hx AIDS: No Hx Cancer: Yes (Hodgkin's lymphoma) Hx Chemotherapy: Yes Hx Human Immunodeficiency Virus (HIV): No Other/Comment: Hodgkin's Lymphoma Stage 1- 1972- Radiation treatment. Hodgkin' s Lymphoma Stage 4- 1987- Chemo & Stem cell transplant - INTEGUMENTARY Hx Dermatological Problems: No - MUSCULOSKELETAL/RHEUMATOLOGICAL Hx Falls: Yes Other/Comment: Avascular necrosis led to right hip replacement - GASTROINTESTINAL Hx Hemorrhoids: Yes - GENITOURINARY/GYNECOLOGICAL Hx Genitourinary Disorders: No - PSYCHIATRIC Hx Anxiety: Yes Hx Substance Use: Yes (cannabis) - SURGICAL HISTORY Hx Orthopedic Surgery: Yes (Right THR) Hx Thyroidectomy: Yes (Left Lobe) Other/Comment: Pacemaker - ANESTHESIA Hx Anesthesia: Yes Hx Anesthesia Reactions: No Hx Malignant Hyperthermia: No Has any member of the family had a problem w/ anesthesia?: No Meds Allergies/Adverse Reactions: Allergies Allergy/AdvReac Type Severity Reaction Status Date / Time No Known Allergies Allergy Verified 11/24/16 07:21 - Medications Medications: Current Medications Acetaminophen (Tylenol 325mg Tab) 650 mg PO Q6H PRN PRN Reason: Fever >100.4 F Albuterol Sulfate (Albuterol 0.083% Inhal Vanesa (2.5 Mg/3 Ml) Ud) 2.5 mg INH RQ4 PRN PRN Reason: Shortness of Breath Albuterol/Ipratropium (Duoneb 3 Mg/0.5 Mg (3 Ml) Ud) 3 ml INH RQID [facility] Enoxaparin Sodium (Lovenox) 40 mg SC DAILY [facility] PRN Reason: Protocol Furosemide (Lasix) 80 mg IV DAILY [facility] Azithromycin 500 mg/ Sodium (Chloride) 250 mls @ 250 mls/hr IVPB DAILY [facility] PRN Reason: Protocol Ceftriaxone Sodium 1 gm/ (Sodium Chloride) 100 mls @ 100 mls/hr IVPB DAILY [facility] PRN Reason: Protocol Methylprednisolone (Solu-Medrol) 30 mg IVP Q12 [facility] Physical Exam - Additional Findings Additional findings: Seated upright in bed, appears mildly dyspneic with simple conversation. 1+ ankle and foot edema bilaterally extending up to the mid-thighs posteriorly. DP/PT pulses feeble but present. Capillary refill ~ 2 sec. No cyanosis or palpable venous cords. No palpable lymphadenopathy. Neck is supple and trachea midline. No visible JVD. Pharynx is pink, mucous membranes moist, no exudate. Dullness on chest percussion posteriorly lower 1/3 right hemithorax. No bronchial breath sounds or egophony. Scattered expiratory wheezes on the right. Breath sounds are absent in the right lower chest and diminished at the left base. Heart sounds are distant, regular rhythm with systolic murmur at the apex. Abdomen is soft and non-tender with normal bowel sounds. No HJR, no CVA tenderness. Results - Vital Signs Recent Vital Signs: Last Vital Signs Temp 97.9 F 11/29/17 08:00 Pulse 64 11/29/17 08:00 Resp 31 H 11/29/17 08:00 BP 116/51 L 11/29/17 08:00 Pulse Ox 97 11/29/17 08:00 - Labs Result Diagrams: 11/29/17 06:55 11/29/17 06:55 Labs: Laboratory Results - last 24 hr 11/28/17 11/28/17 11/28/17 16:24 17:56 18:06 WBC RBC Hgb Hct MCV MCH MCHC RDW Plt Count MPV Neut % (Auto) Lymph % (Auto) Wheeler % (Auto) Eos % (Auto) Baso % (Auto) Neut # Lymph # Wheeler # Eos # Baso # Neutrophils % (Manual) Lymphocytes % (Manual) Monocytes % (Manual) Eosinophils % (Manual) Nucleated RBC % Platelet Estimate Macrocytosis (manual) Target Cells PT INR APTT pO2 17 L VBG pH 7.39 VBG pCO2 50 VBG HCO3 26.9 VBG Total CO2 31.8 H VBG O2 Sat (Calc) 27.6 L VBG Base Excess 4.5 H VBG Potassium 4.3 Sodium 128.0 L Chloride 90.0 L Glucose 160 H Lactate 2.6 H FiO2 21.0 Potassium Carbon Dioxide Anion Gap BUN Creatinine Est GFR ( Amer) Est GFR (Non-Af Amer) Random Glucose Lactic Acid Calcium Phosphorus Magnesium Total Bilirubin AST ALT Alkaline Phosphatase Troponin I NT-Pro-B Natriuret Pep Total Protein Albumin Globulin Albumin/Globulin Ratio Venous Blood Potassium 4.3 Influenza Typ A,B (EIA) Blood Type O POSITIVE Blood Type Confirm O POSITIVE Antibody Screen Negative BBK History Checked No verified bt 11/28/17 11/28/17 11/28/17 18:09 18:09 18:09 WBC 6.4 RBC 2.82 L Hgb 10.3 L D Hct 30.9 L MCV 109.8 H MCH 36.4 H MCHC 33.1 RDW 13.9 Plt Count 148 MPV 9.0 Neut % (Auto) 85.2 H Lymph % (Auto) 6.7 L Wheeler % (Auto) 6.7 Eos % (Auto) 0.7 Baso % (Auto) 0.7 Neut # 5.5 Lymph # 0.4 L Wheeler # 0.4 Eos # 0.0 Baso # 0.0 Neutrophils % (Manual) 90 H Lymphocytes % (Manual) 3 L Monocytes % (Manual) 6 Eosinophils % (Manual) 1 Nucleated RBC % 1 H Platelet Estimate Normal Macrocytosis (manual) Slight Target Cells Slight PT 15.3 H INR 1.35 H APTT 29.1 pO2 VBG pH VBG pCO2 VBG HCO3 VBG Total CO2 VBG O2 Sat (Calc) VBG Base Excess VBG Potassium Sodium 131 L Chloride 88 L Glucose Lactate FiO2 Potassium 4.4 Carbon Dioxide 27 Anion Gap 20 BUN 19 Creatinine 0.7 L Est GFR ( Amer) > 60 Est GFR (Non-Af Amer) > 60 Random Glucose 157 H Lactic Acid Calcium 10.2 Phosphorus 3.5 Magnesium 1.3 L Total Bilirubin 1.5 H AST 48 ALT 54 Alkaline Phosphatase 124 Troponin I < 0.0120 NT-Pro-B Natriuret Pep 4490 H Total Protein 7.7 Albumin 4.3 Globulin 3.4 Albumin/Globulin Ratio 1.3 Venous Blood Potassium Influenza Typ A,B (EIA) Blood Type Blood Type Confirm Antibody Screen BBK History Checked 11/28/17 11/29/17 11/29/17 18:09 01:00 01:00 WBC RBC Hgb Hct MCV MCH MCHC RDW Plt Count MPV Neut % (Auto) Lymph % (Auto) Wheeler % (Auto) Eos % (Auto) Baso % (Auto) Neut # Lymph # Wheeler # Eos # Baso # Neutrophils % (Manual) Lymphocytes % (Manual) Monocytes % (Manual) Eosinophils % (Manual) Nucleated RBC % Platelet Estimate Macrocytosis (manual) Target Cells PT INR APTT pO2 VBG pH VBG pCO2 VBG HCO3 VBG Total CO2 VBG O2 Sat (Calc) VBG Base Excess VBG Potassium Sodium Chloride Glucose Lactate FiO2 Potassium Carbon Dioxide Anion Gap BUN Creatinine Est GFR ( Amer) Est GFR (Non-Af Amer) Random Glucose Lactic Acid 1.7 Calcium Phosphorus Magnesium Total Bilirubin AST ALT Alkaline Phosphatase Troponin I 0.0530 NT-Pro-B Natriuret Pep Total Protein Albumin Globulin Albumin/Globulin Ratio Venous Blood Potassium Influenza Typ A,B (EIA) Negative for flu a/b Blood Type Blood Type Confirm Antibody Screen BBK History Checked 11/29/17 11/29/17 06:55 06:55 WBC 4.6 L RBC 2.72 L Hgb 10.0 L Hct 29.5 L MCV 108.5 H MCH 36.9 H MCHC 34.0 RDW 14.6 H Plt Count 130 MPV 9.0 Neut % (Auto) 94.7 H Lymph % (Auto) 1.7 L Wheeler % (Auto) 3.4 Eos % (Auto) 0.0 Baso % (Auto) 0.2 Neut # 4.4 Lymph # 0.1 L Wheeler # 0.2 Eos # 0.0 Baso # 0.0 Neutrophils % (Manual) Lymphocytes % (Manual) Monocytes % (Manual) Eosinophils % (Manual) Nucleated RBC % Platelet Estimate Macrocytosis (manual) Target Cells PT INR APTT pO2 VBG pH VBG pCO2 VBG HCO3 VBG Total CO2 VBG O2 Sat (Calc) VBG Base Excess VBG Potassium Sodium 130 L Chloride 90 L Glucose Lactate FiO2 Potassium 3.7 Carbon Dioxide 27 Anion Gap 17 BUN 23 H Creatinine 0.8 Est GFR ( Amer) > 60 Est GFR (Non-Af Amer) > 60 Random Glucose 192 H Lactic Acid Calcium 10.0 Phosphorus Magnesium Total Bilirubin AST ALT Alkaline Phosphatase Troponin I NT-Pro-B Natriuret Pep Total Protein Albumin Globulin Albumin/Globulin Ratio Venous Blood Potassium Influenza Typ A,B (EIA) Blood Type Blood Type Confirm Antibody Screen BBK History Checked Assessment & Plan (1) Pleural effusion Status: Acute Priority: High (2) Asthma Status: Chronic Priority: High Comment: 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 (3) Atelectasis Status: Acute Priority: High Comment: Right lower lobe. (4) Dependent edema Status: Acute Priority: High Comment: Both LE's. (5) Hyperglycemia Status: Acute Priority: High Comment: Likely a secondary effect of steroid treatment. - Assessment and Plan (Free Text) Plan: Continue current regimen with diuretics, bronchodilators but reduced dose of corticosteroids. Wheezing in large part is secondary to airways narrowing from the pleural effusion. Thoracentesis requested, non-emergent. Fluid analysis as routine. Empiric antibiotics for possible underlying pneumonia. Doubt presence of empyema. Discussed case with cardiology this morning. - Date & Time Date: 11/29/17 Time: 09:38
[2017-11-29] MEDS: MethylPREDNISolone 40 mg Vial IVP SCH ×2 (09:13→23:24)
[2017-11-29] MEDS: Azithromycin 500 MG in Sodium Chloride 0.9% 250 ML IVPB SCH (09:14)
--- NOTE | 2017-11-29 09:51 | RAD ---
HISTORY: sob COMPARISON: Comparison chest 11/20/2016 FINDINGS: LUNGS: Opacification right mid to lower lung field likely representing some combination of atelectasis or infiltrate and large effusion. Mild left basilar atelectasis with small left effusion. There appears to be mild cephalization of the pulmonary vasculature is well PLEURA: No significant pleural effusion identified, no pneumothorax apparent. CARDIOVASCULAR: Heart size is difficult to assess due to silhouetting right cardiac border. No change bipolar pacemaker OSSEOUS STRUCTURES: No significant abnormalities. VISUALIZED UPPER ABDOMEN: Normal. OTHER FINDINGS: None. IMPRESSION: Opacification right mid to lower lung field likely representing some combination of atelectasis or infiltrate and large effusion. Mild left basilar atelectasis with small left effusion. There appears to be mild cephalization of the pulmonary vasculature is well
--- NOTE | 2017-11-29 10:15 | CP.PCM.CON ---
History of Present Illness - History of Present Illness History of Present Illness: THE PATIENT IS A 62 YEAR OLD MALE WITH A HISTORY OF ASTHMA AND COPD FROM SMOKING , HYPERTENSION, HODGKIN'S LYMPHOMA IN THE PAST, SSS WITH COMPLETE HEART BLOCK NOVEMBER 2016 WITH INSERTION OF A DUAL CHAMBER PACEMAKER. HE ALSO HAS HAD LEG EDEMA FOR AT LEAST THE PAST YEAR BUT HE IS NOT VERY ACTIVE. HE HAS BEEN COMPLAINING OF INCREASED SOB LATELY BUT HE CLAIMS IT WAS WORSE YESTERDAY AND HE ALSO HAD CHILLS SO HE CAME TO THE ER AND WAS FOUND TO HAVE A LARGE RIGHT PLEURAL EFFUSION AND HE HAD AN ELEVATED PBNP SO HE WAS ADMITTED. HE HAS RECEIVE O2, IV FUROSEMIDE, BRONCHODILATORS AND ANTIBIOTICS AND STATES HE FEELS A LITTLE LESS SOB THIS AM. HE DENIES TYPICAL CHEST PAIN BUT STATES HE HAD SOME HEARTBURN YESTERDAY. CARDIOLOGY WAS ASKED TO SEE HIM. Past Patient History - Infectious Disease Hx of Infectious Diseases: None - Past Medical History & Family History Past Medical History?: Yes - Past Social History Smoking Status: Former Smoker Chewing Tobacco Use: No Cigar Use: No Alcohol: Social (was heavy in the past) Drugs: Cannabis Home Situation {Lives}: Alone - CARDIAC Hx Cardia Arrhythmia: Yes Hx Congestive Heart Failure: Yes Hx Hypertension: Yes Hx Pacemaker: Yes - PULMONARY Hx Asthma: Yes Hx Bronchitis: Yes Hx Pneumonia: Yes (1999) - NEUROLOGICAL Hx Neurological Disorder: No - HEENT Hx HEENT Problems: No - RENAL Hx Chronic Kidney Disease: No - ENDOCRINE/METABOLIC Hx Endocrine Disorders: No Other/Comment: Hyponatremia 2013 - HEMATOLOGICAL/ONCOLOGICAL Hx Blood Disorders: Yes Hx AIDS: No Hx Cancer: Yes (Hodgkin's lymphoma) Hx Chemotherapy: Yes Hx Human Immunodeficiency Virus (HIV): No Other/Comment: Hodgkin's Lymphoma Stage 1- 1972- Radiation treatment. Hodgkin' s Lymphoma Stage 4- 1987- Chemo & Stem cell transplant - INTEGUMENTARY Hx Dermatological Problems: No - MUSCULOSKELETAL/RHEUMATOLOGICAL Hx Falls: Yes Other/Comment: Avascular necrosis led to right hip replacement - GASTROINTESTINAL Hx Hemorrhoids: Yes - GENITOURINARY/GYNECOLOGICAL Hx Genitourinary Disorders: No - PSYCHIATRIC Hx Anxiety: Yes Hx Substance Use: Yes (cannabis) - SURGICAL HISTORY Hx Orthopedic Surgery: Yes (Right THR) Hx Thyroidectomy: Yes (Left Lobe) Other/Comment: Pacemaker - ANESTHESIA Hx Anesthesia: Yes Hx Anesthesia Reactions: No Hx Malignant Hyperthermia: No Has any member of the family had a problem w/ anesthesia?: No Meds Allergies/Adverse Reactions: Allergies Allergy/AdvReac Type Severity Reaction Status Date / Time No Known Allergies Allergy Verified 11/24/16 07:21 - Medications Medications: Current Medications Acetaminophen (Tylenol 325mg Tab) 650 mg PO Q6H PRN PRN Reason: Fever >100.4 F Albuterol Sulfate (Albuterol 0.083% Inhal Vanesa (2.5 Mg/3 Ml) Ud) 2.5 mg INH RQ4 PRN PRN Reason: Shortness of Breath Albuterol/Ipratropium (Duoneb 3 Mg/0.5 Mg (3 Ml) Ud) 3 ml INH RQID CLAUDIA Enoxaparin Sodium (Lovenox) 40 mg SC DAILY [facility] PRN Reason: Protocol Last Admin: 11/29/17 09:12 Dose: 40 mg Furosemide (Lasix) 80 mg IV DAILY [facility] Last Admin: 11/29/17 09:11 Dose: 80 mg Azithromycin 500 mg/ Sodium (Chloride) 250 mls @ 250 mls/hr IVPB DAILY [facility] PRN Reason: Protocol Last Admin: 11/29/17 09:14 Dose: 250 mls/hr Ceftriaxone Sodium 1 gm/ (Sodium Chloride) 100 mls @ 100 mls/hr IVPB DAILY [facility] PRN Reason: Protocol Last Admin: 11/29/17 09:12 Dose: 100 mls/hr Methylprednisolone (Solu-Medrol) 30 mg IVP Q12 [facility] Last Admin: 11/29/17 09:13 Dose: 30 mg Physical Exam - Respiratory Exam Additional comments: DECREASED BREATH SOUNDS AT THE RIGHT LOWER LUNG FIELD BILATERAL WHEEZING - Cardiovascular Exam Cardiovascular Exam: REGULAR RHYTHM, +S1, +S2 - Extremities Exam Extremities exam: Positive for: pedal edema - Additional Findings Additional findings: 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 NORMAL AV PACEMAKER FUNCTION TROPONIN NORMAL X2 PBNP [address] REPORTS REVIEWED PULMONARY NOTE REVIEWED Results - Vital Signs Recent Vital Signs: Last Vital Signs Temp 97.9 F 11/29/17 08:00 Pulse 64 11/29/17 08:00 Resp 31 H 11/29/17 08:00 BP 122/53 L 11/29/17 09:11 Pulse Ox 97 11/29/17 08:00 - Labs Result Diagrams: 12/01/17 05:00 12/01/17 05:00 Labs: Laboratory Results - last 24 hr 11/28/17 11/28/17 11/28/17 16:24 17:56 18:06 WBC RBC Hgb Hct MCV MCH MCHC RDW Plt Count MPV Neut % (Auto) Lymph % (Auto) [place] % (Auto) Eos % (Auto) Baso % (Auto) Neut # Lymph # [place] # Eos # Baso # Neutrophils % (Manual) Lymphocytes % (Manual) Monocytes % (Manual) Eosinophils % (Manual) Nucleated RBC % Platelet Estimate Macrocytosis (manual) Target Cells PT INR APTT pO2 17 L VBG pH 7.39 VBG pCO2 50 VBG HCO3 26.9 VBG Total CO2 31.8 H VBG O2 Sat (Calc) 27.6 L VBG Base Excess 4.5 H VBG Potassium 4.3 Sodium 128.0 L Chloride 90.0 L Glucose 160 H Lactate 2.6 H FiO2 21.0 Potassium Carbon Dioxide Anion Gap BUN Creatinine Est GFR ( Amer) Est GFR (Non-Af Amer) Random Glucose Lactic Acid Calcium Phosphorus Magnesium Total Bilirubin AST ALT Alkaline Phosphatase Troponin I NT-Pro-B Natriuret Pep Total Protein Albumin Globulin Albumin/Globulin Ratio Venous Blood Potassium 4.3 Influenza Typ A,B (EIA) Blood Type O POSITIVE Blood Type Confirm O POSITIVE Antibody Screen Negative BBK History Checked No verified bt 11/28/17 11/28/17 11/28/17 18:09 18:09 18:09 WBC 6.4 RBC 2.82 L Hgb 10.3 L D Hct 30.9 L MCV 109.8 H MCH 36.4 H MCHC 33.1 RDW 13.9 Plt Count 148 MPV 9.0 Neut % (Auto) 85.2 H Lymph % (Auto) 6.7 L [place] % (Auto) 6.7 Eos % (Auto) 0.7 Baso % (Auto) 0.7 Neut # 5.5 Lymph # 0.4 L [place] # 0.4 Eos # 0.0 Baso # 0.0 Neutrophils % (Manual) 90 H Lymphocytes % (Manual) 3 L Monocytes % (Manual) 6 Eosinophils % (Manual) 1 Nucleated RBC % 1 H Platelet Estimate Normal Macrocytosis (manual) Slight Target Cells Slight PT 15.3 H INR 1.35 H APTT 29.1 pO2 VBG pH VBG pCO2 VBG HCO3 VBG Total CO2 VBG O2 Sat (Calc) VBG Base Excess VBG Potassium Sodium 131 L Chloride 88 L Glucose Lactate FiO2 Potassium 4.4 Carbon Dioxide 27 Anion Gap 20 BUN 19 Creatinine 0.7 L Est GFR ( Amer) > 60 Est GFR (Non-Af Amer) > 60 Random Glucose 157 H Lactic Acid Calcium 10.2 Phosphorus 3.5 Magnesium 1.3 L Total Bilirubin 1.5 H AST 48 ALT 54 Alkaline Phosphatase 124 Troponin I < 0.0120 NT-Pro-B Natriuret Pep 4490 H Total Protein 7.7 Albumin 4.3 Globulin 3.4 Albumin/Globulin Ratio 1.3 Venous Blood Potassium Influenza Typ A,B (EIA) Blood Type Blood Type Confirm Antibody Screen BBK History Checked 11/28/17 11/29/17 11/29/17 18:09 01:00 01:00 WBC RBC Hgb Hct MCV MCH MCHC RDW Plt Count MPV Neut % (Auto) Lymph % (Auto) [place] % (Auto) Eos % (Auto) Baso % (Auto) Neut # Lymph # [place] # Eos # Baso # Neutrophils % (Manual) Lymphocytes % (Manual) Monocytes % (Manual) Eosinophils % (Manual) Nucleated RBC % Platelet Estimate Macrocytosis (manual) Target Cells PT INR APTT pO2 VBG pH VBG pCO2 VBG HCO3 VBG Total CO2 VBG O2 Sat (Calc) VBG Base Excess VBG Potassium Sodium Chloride Glucose Lactate FiO2 Potassium Carbon Dioxide Anion Gap BUN Creatinine Est GFR ( Amer) Est GFR (Non-Af Amer) Random Glucose Lactic Acid 1.7 Calcium Phosphorus Magnesium Total Bilirubin AST ALT Alkaline Phosphatase Troponin I 0.0530 NT-Pro-B Natriuret Pep Total Protein Albumin Globulin Albumin/Globulin Ratio Venous Blood Potassium Influenza Typ A,B (EIA) Negative for flu a/b Blood Type Blood Type Confirm Antibody Screen BBK History Checked 11/29/17 11/29/17 11/29/17 06:55 06:55 08:00 WBC 4.6 L RBC 2.72 L Hgb 10.0 L Hct 29.5 L MCV 108.5 H MCH 36.9 H MCHC 34.0 RDW 14.6 H Plt Count 130 MPV 9.0 Neut % (Auto) 94.7 H Lymph % (Auto) 1.7 L [place] % (Auto) 3.4 Eos % (Auto) 0.0 Baso % (Auto) 0.2 Neut # 4.4 Lymph # 0.1 L [place] # 0.2 Eos # 0.0 Baso # 0.0 Neutrophils % (Manual) Lymphocytes % (Manual) Monocytes % (Manual) Eosinophils % (Manual) Nucleated RBC % Platelet Estimate Macrocytosis (manual) Target Cells PT INR APTT pO2 VBG pH VBG pCO2 VBG HCO3 VBG Total CO2 VBG O2 Sat (Calc) VBG Base Excess VBG Potassium Sodium 130 L Chloride 90 L Glucose Lactate FiO2 Potassium 3.7 Carbon Dioxide 27 Anion Gap 17 BUN 23 H Creatinine 0.8 Est GFR ( Amer) > 60 Est GFR (Non-Af Amer) > 60 Random Glucose 192 H Lactic Acid 2.5 H Calcium 10.0 Phosphorus Magnesium Total Bilirubin AST ALT Alkaline Phosphatase Troponin I NT-Pro-B Natriuret Pep Total Protein Albumin Globulin Albumin/Globulin Ratio Venous Blood Potassium Influenza Typ A,B (EIA) Blood Type Blood Type Confirm Antibody Screen BBK History Checked Assessment & Plan - Assessment and Plan (Free Text) Assessment: LARGE RIGHT PLEURAL EFFUSION AND SMALL LEFT PLEURAL EFFUSION WITH ATELECTASIS AND POSSIBLE PNEUMONIA WITH UNDERLYING COPD POSSIBLE MILD CHF(WILL WAIT FOR ECHOCARDIOGRAM) SSS WITH DUAL CHAMBER PACEMAKER HYPERTENSION HISTORY HISTORY OF HODGKINS DISEASE Plan: THE PATIENT WAS ADMITTED TO THE ICU O2, IV ANTIBIOTICS, BRONCHODILATORS, NITROPASTE, METHYPREDNISOLONE, NITROPASTE WILL HOLD OFF ON ENALAPRIL FOR NOW BLOOD PRESSURE IS LOW NORMAL FOR RIGHT SIDED THORACENTESIS BY IR FOR ECHOCARDIOGRAM TO ASSESS LV FUNCTION AND RIGHT HEART/PULMONARY PRESSURES
[2017-11-29] MEDS: Albuterol-Ipratrop 3 mg / 0.5 (3 ml) UD INH SCH ×3 (11:06→19:10)
[2017-11-29 11:11] LABS: LYMPHOCYTE 5 % (20-50); MONOCYTE 5 % (0-10); NEUTROPHIL 90 % (42-75); PLATELET ESTIMATE SLIGHTLY DECREASED (NORMAL); TOTAL CELLS COUNTED 100
[2017-11-29 11:12] LABS: ANISOCYTOSIS SLIGHT; LARGE PLATELETS PRESENT; OVALOCYTES SLIGHT; SPHEROCYTES SLIGHT
[2017-11-29] MEDS: Nitroglycerin 2% Ointment Foilpak UD TOP SCH ×2 (17:01→21:47)
[2017-11-29] MEDS ORDERED: Magnesium Sulfate 1 gm in D5W 1 GM/100 ML BAG IVPB ONE (18:28)
[2017-11-29] MEDS ORDERED: Sodium Chloride 0.9% 1,000 ML IV SCH (19:30)
[2017-11-30] MEDS: Nitroglycerin 2% Ointment Foilpak UD TOP SCH ×4 (04:11→22:09)
[2017-11-30 05:34] LABS: BASO % 0.1 % (0.0-2.0); HEMOGLOBIN 9.8 g/dL (12.0-18.0); LYMPH # 0.3 K/uL (1.0-4.3); LYMPH % 2.6 % (20.0-40.0); MEAN CELL VOLUME 109.3 fl (80.0-94.0); MEAN CORPUSCULAR HEMOGLOBIN 37.2 pg (27.0-31.0); MEAN PLATELET VOLUME 8.6 fl (7.2-11.7); MONO # 0.6 K/uL (0.0-0.8); MONO % 6.4 % (0.0-10.0); NEUT # 8.8 K/uL (1.8-7.0); NEUT % 90.9 % (50.0-75.0); PLATELET COUNT 132 K/uL (130-400); RBC 2.65 Mil/uL (4.40-5.90); RED CELL DISTRIBUTION WIDTH 14.3 % (11.5-14.5); WHITE BLOOD COUNT 9.7 K/uL (4.8-10.8)
[2017-11-30 06:14] LABS: ALB/GLOB RATIO 1.2 (1.0-2.1); ALBUMIN 3.9 g/dL (3.5-5.0); ALT/SGPT 51 U/L (21-72); AST/SGOT 38 U/L (17-59); BLOOD UREA NITROGEN 32 mg/dl (9-20); GFR AFRICAN-AMERICAN > 60; GFR NON-AFRICAN AMERICAN > 60; MAGNESIUM 1.8 MG/DL (1.6-2.3)
[2017-11-30 06:37] LABS: PROTHROMBIN TIME 15.7 Seconds (9.8-13.1)
[2017-11-30 06:38] LABS: INR 1.4 (0.9-1.2)
[2017-11-30] MEDS: Albuterol-Ipratrop 3 mg / 0.5 (3 ml) UD INH SCH ×5 (08:14→19:08)
[2017-11-30] MEDS: MethylPREDNISolone 40 mg Vial IVP SCH ×2 (10:00→20:03)
[2017-11-30] MEDS: Azithromycin 500 MG in Sodium Chloride 0.9% 250 ML IVPB SCH (10:01)
--- NOTE | 2017-11-30 10:07 | CP.PCM.PN ---
<IdaniaVenkat zuñiga - Last Filed: 11/30/17 14:23> Subjective - Date & Time of Evaluation Date of Evaluation: 11/30/17 Time of Evaluation: 07:15 - Subjective Subjective: Patient seen and examined bedside. Reports mild SOB and occs not productive cough. He denies chest pain, n,v,abd pain, diarrhea. Patient aware will have thoracentesis today. Reports that has not been urinating frequent but legs are less swollen today . afebrile, using 02 NC, sat 94% Objective - Vital Signs/Intake and Output Vital Signs (last 24 hours): Temp Pulse Resp BP Pulse Ox 98.0 F 60 24 134/60 94 L 11/30/17 08:18 11/30/17 09:57 11/30/17 08:18 11/30/17 09:57 11/30/17 08:18 Intake and Output: 11/30/17 11/30/17 06:59 18:59 Intake Total 500 350 Output Total 380 Balance 120 350 - Medications Medications: Current Medications Acetaminophen (Tylenol 325mg Tab) 650 mg PO Q6H PRN PRN Reason: Fever >100.4 F Albuterol Sulfate (Albuterol 0.083% Inhal Vanesa (2.5 Mg/3 Ml) Ud) 2.5 mg INH RQ4 PRN PRN Reason: Shortness of Breath Albuterol/Ipratropium (Duoneb 3 Mg/0.5 Mg (3 Ml) Ud) 3 ml INH RQID [facility] Last Admin: 11/30/17 08:14 Dose: 3 ml Enoxaparin Sodium (Lovenox) 40 mg SC DAILY [facility]IA PRN Reason: Protocol Last Admin: 11/29/17 09:12 Dose: 40 mg Furosemide (Lasix) 40 mg IV Q12 [facility] Last Admin: 11/30/17 09:50 Dose: 40 mg Azithromycin 500 mg/ Sodium (Chloride) 250 mls @ 250 mls/hr IVPB DAILY [facility]UDIA PRN Reason: Protocol Last Admin: 11/30/17 10:01 Dose: 250 mls/hr Ceftriaxone Sodium 1 gm/ (Sodium Chloride) 100 mls @ 100 mls/hr IVPB DAILY [facility] PRN Reason: Protocol Last Admin: 11/30/17 09:58 Dose: 100 mls/hr Methylprednisolone (Solu-Medrol) 30 mg IVP Q12 [facility] Last Admin: 11/30/17 10:00 Dose: 30 mg Nitroglycerin (Nitro-Bid 2% Oint) 0.5 ea TOP Q6 [facility] Last Admin: 11/30/17 09:57 Dose: 0.5 ea - Labs Labs: 11/30/17 04:25 11/30/17 04:25 PT 15.7 Seconds (9.8-13.1) H 11/30/17 04:25 INR 1.4 (0.9-1.2) H 11/30/17 04:25 APTT 29.1 Seconds (25.6-37.1) 11/28/17 18:09 - Constitutional Appears: Non-toxic, No Acute Distress - Head Exam Head Exam: ATRAUMATIC, NORMOCEPHALIC - Eye Exam Eye Exam: Normal appearance - ENT Exam ENT Exam: Normal Exam - Neck Exam Neck Exam: Normal Inspection - Respiratory Exam Respiratory Exam: Decreased Breath Sounds, Rhonchi, Wheezes Additional comments: decreased breath sound right lung base - Cardiovascular Exam Cardiovascular Exam: REGULAR RHYTHM, +S1, +S2 - GI/Abdominal Exam GI & Abdominal Exam: Soft, Normal Bowel Sounds. absent: Tenderness - Extremities Exam Extremities Exam: Pedal Edema (b/l 2+). absent: Calf Tenderness - Neurological Exam Neurological Exam: Alert, Awake, Oriented x3 - Psychiatric Exam Psychiatric exam: Normal Mood - Skin Skin Exam: Intact Assessment and Plan - Assessment and Plan (Free Text) Plan: 62 yo m, admitted for worsening shortness of breath with an elevated BNP and imaging significant for large RIGHT pleural effusion. Plan for IR today early in the afternoon, empiric treatment for pneumonia. Discussed patient's wishes regarding resuscitation status and he was clear in indicating DNR/DNI. Plan: Pulmonary: Acute on chronic respiratory decompensation likely multi-factorial. Patient found to have a large right pleural effusion with infiltrate and atelectatic changes. These changes may have led to some mild volume overload. Leukocytosis increased from admission. - Pulmonary Consult (Dr Ruiz) appreciated: IR with pleural effusion studies, steroids, abx, diuretics, and bronchodilators - Comm Acq Pneumonia: c/w Rocephin, Azithromycin - Sepsis due to pneumonia: ( resolving) : c/w Rocephin, Azithromycin, judicious fluid resuscitation as indicated - Right pleural effusion: Lasix, IR for thoracentesis w/ studies today - COPD: steroids, bronchodilators Cardiovascular: Asymptomatic, stable with possible mild heart failure. - Cardiology Consult (Dr Zamarripa) appreciated: No anti-hypertensive, Echo, Nitropaste - Acute on Chronic diastolic HF: Lasix, repeat echo - HTN: controlled, medication held at this time GI: Stable - NPO - Resume Heart Healthy diet after IR procedure /Integumentary: No current problems Endocrine: Elevated glucose levels likely due to steroids. Will monitor DVT Prophylaxis: Lovenox 40mg, SC, Daily (held for IR procedure), SCDs, continuous bilateral <FavianMayuro A - Last Filed: 12/02/17 06:55> Objective - Vital Signs/Intake and Output Vital Signs (last 24 hours): Temp Pulse Resp BP Pulse Ox 97.8 F 65 33 H 125/64 95 12/02/17 04:00 12/02/17 05:58 12/02/17 05:58 12/02/17 05:58 12/02/17 05:58 Intake and Output: 12/01/17 12/02/17 18:59 06:59 Intake Total 750 100 Output Total 200 1200 Balance 550 -1100 - Medications Medications: Current Medications Acetaminophen (Tylenol 325mg Tab) 650 mg PO Q6H PRN PRN Reason: Fever >100.4 F Albuterol Sulfate (Albuterol 0.083% Inhal Vanesa (2.5 Mg/3 Ml) Ud) 2.5 mg INH RQ4 PRN PRN Reason: Shortness of Breath Albuterol/Ipratropium (Duoneb 3 Mg/0.5 Mg (3 Ml) Ud) 3 ml INH RQID [facility] Last Admin: 12/01/17 19:21 Dose: 3 ml Heparin Sodium (Porcine) (Heparin) 5,000 units SC Q8 [facility]UDIA PRN Reason: Protocol Last Admin: 12/02/17 00:06 Dose: 5,000 units Hydromorphone HCl (Dilaudid) 1 mg IVP Q4 PRN PRN Reason: Pain, moderate (4-7) Last Admin: 12/02/17 05:53 Dose: 1 mg Clindamycin Phosphate (Cleocin In Normal Saline) 600 mg in 50 mls @ 50 mls/hr IVPB Q8 [facility]UDIA PRN Reason: Protocol Last Admin: 12/02/17 00:01 Dose: 50 mls/hr Piperacillin Sod/Tazobactam (Sod 3.375 gm/ Sodium Chloride) 50 mls @ 50 mls/hr IVPB Q8@0200,1000,1800 [facility]UDIA PRN Reason: Protocol Last Admin: 12/02/17 01:08 Dose: 50 mls/hr Methylprednisolone (Solu-Medrol) 30 mg IVP Q12 [facility] Last Admin: 12/01/17 20:54 Dose: 30 mg Ondansetron HCl (Zofran Inj) 4 mg IVP Q6 PRN PRN Reason: Nausea/Vomiting Last Admin: 11/30/17 19:46 Dose: 4 mg - Labs Labs: 12/02/17 04:50 12/02/17 04:50 PT 15.7 Seconds (9.8-13.1) H 11/30/17 04:25 INR 1.4 (0.9-1.2) H 11/30/17 04:25 APTT 29.1 Seconds (25.6-37.1) 11/28/17 18:09 Attending/Attestation - Attestation I have personally seen and examined this patient.: Yes I have fully participated in the care of the patient.: Yes I have reviewed all pertinent clinical information, including history, physical exam and plan: Yes
--- NOTE | 2017-11-30 10:15 | CP.PCM.PN ---
Subjective - Date & Time of Evaluation Date of Evaluation: 11/30/17 Time of Evaluation: 10:12 - Subjective Subjective: Awaiting thoracentesis. There has been no real diuresis thus far, although the dependant edema in his LE 's has decreased. Today's chest x-ray does not show any decrease in the pleural fluid. His vital signs remain stable. His BUN has increased, but creatinine remains the same. No shortness of breath at rest, adequate oxygenation w/o dyspnea. Awaiting today's removal of fluid. Objective - Vital Signs/Intake and Output Vital Signs (last 24 hours): Temp Pulse Resp BP Pulse Ox 98.0 F 86 23 124/67 90 L 11/30/17 08:18 11/30/17 10:00 11/30/17 10:00 11/30/17 10:00 11/30/17 10:00 Intake and Output: 11/29/17 11/30/17 23:59 11:59 Intake Total 440 510 Output Total 680 0 Balance -240 510 - Medications Medications: Current Medications Acetaminophen (Tylenol 325mg Tab) 650 mg PO Q6H PRN PRN Reason: Fever >100.4 F Albuterol Sulfate (Albuterol 0.083% Inhal Vanesa (2.5 Mg/3 Ml) Ud) 2.5 mg INH RQ4 PRN PRN Reason: Shortness of Breath Albuterol/Ipratropium (Duoneb 3 Mg/0.5 Mg (3 Ml) Ud) 3 ml INH RQID [facility] Last Admin: 11/30/17 08:14 Dose: 3 ml Enoxaparin Sodium (Lovenox) 40 mg SC DAILY CLAUDIA PRN Reason: Protocol Last Admin: 11/29/17 09:12 Dose: 40 mg Furosemide (Lasix) 40 mg IV Q12 [facility] Last Admin: 11/30/17 09:50 Dose: 40 mg Azithromycin 500 mg/ Sodium (Chloride) 250 mls @ 250 mls/hr IVPB DAILY [facility] PRN Reason: Protocol Last Admin: 11/30/17 10:01 Dose: 250 mls/hr Ceftriaxone Sodium 1 gm/ (Sodium Chloride) 100 mls @ 100 mls/hr IVPB DAILY [facility] PRN Reason: Protocol Last Admin: 11/30/17 09:58 Dose: 100 mls/hr Methylprednisolone (Solu-Medrol) 30 mg IVP Q12 [facility] Last Admin: 11/30/17 10:00 Dose: 30 mg Nitroglycerin (Nitro-Bid 2% Oint) 0.5 ea TOP Q6 [facility] Last Admin: 11/30/17 09:57 Dose: 0.5 ea - Labs Labs: 11/30/17 04:25 11/30/17 04:25 PT 15.7 Seconds (9.8-13.1) H 11/30/17 04:25 INR 1.4 (0.9-1.2) H 11/30/17 04:25 APTT 29.1 Seconds (25.6-37.1) 11/28/17 18:09 Assessment and Plan (1) Pleural effusion Status: Acute (2) Asthma Status: Chronic (3) Atelectasis Status: Acute (4) Dependent edema Status: Acute (5) Hyperglycemia Status: Acute
[2017-11-30 10:40] LABS: BANDS 5 % (0-2); LYMPHOCYTE 4 % (20-50); MONOCYTE 5 % (0-10); NEUTROPHIL 86 % (42-75); PLATELET ESTIMATE NORMAL (NORMAL); TOTAL CELLS COUNTED 100
[2017-11-30 10:41] LABS: ANISOCYTOSIS SLIGHT; BURR CELLS SLIGHT; LARGE PLATELETS PRESENT; OVALOCYTES SLIGHT; POIKILOCYTOSIS SLIGHT; SCHISTOCYTES SLIGHT; TARGET CELLS SLIGHT
[2017-11-30 10:42] LABS: MICROCYTOSIS SLIGHT
--- NOTE | 2017-11-30 11:30 | CP.PCM.PN ---
Subjective - Date & Time of Evaluation Date of Evaluation: 11/30/17 Time of Evaluation: 11:10 - Subjective Subjective: NO CHEST PAIN STILL SOB BUT BETTER THAN THURSDAY Objective - Vital Signs/Intake and Output Vital Signs (last 24 hours): Temp Pulse Resp BP Pulse Ox 98.0 F 86 23 124/67 90 L 11/30/17 08:18 11/30/17 10:00 11/30/17 10:00 11/30/17 10:00 11/30/17 10:00 Intake and Output: 11/30/17 11/30/17 06:59 18:59 Intake Total 500 350 Output Total 380 Balance 120 350 - Medications Medications: Current Medications Acetaminophen (Tylenol 325mg Tab) 650 mg PO Q6H PRN PRN Reason: Fever >100.4 F Albuterol Sulfate (Albuterol 0.083% Inhal Vanesa (2.5 Mg/3 Ml) Ud) 2.5 mg INH RQ4 PRN PRN Reason: Shortness of Breath Albuterol/Ipratropium (Duoneb 3 Mg/0.5 Mg (3 Ml) Ud) 3 ml INH RQID [facility] Last Admin: 11/30/17 11:26 Dose: 3 ml Enoxaparin Sodium (Lovenox) 40 mg SC DAILY CLAUDIA PRN Reason: Protocol Last Admin: 11/29/17 09:12 Dose: 40 mg Furosemide (Lasix) 40 mg IV Q12 [facility] Last Admin: 11/30/17 09:50 Dose: 40 mg Azithromycin 500 mg/ Sodium (Chloride) 250 mls @ 250 mls/hr IVPB DAILY CLAUDIA PRN Reason: Protocol Last Admin: 11/30/17 10:01 Dose: 250 mls/hr Ceftriaxone Sodium 1 gm/ (Sodium Chloride) 100 mls @ 100 mls/hr IVPB DAILY [facility]UDIA PRN Reason: Protocol Last Admin: 11/30/17 09:58 Dose: 100 mls/hr Methylprednisolone (Solu-Medrol) 30 mg IVP Q12 [facility] Last Admin: 11/30/17 10:00 Dose: 30 mg Nitroglycerin (Nitro-Bid 2% Oint) 0.5 ea TOP Q6 [facility] Last Admin: 11/30/17 09:57 Dose: 0.5 ea - Labs Labs: 11/30/17 04:25 11/30/17 04:25 PT 15.7 Seconds (9.8-13.1) H 11/30/17 04:25 INR 1.4 (0.9-1.2) H 11/30/17 04:25 APTT 29.1 Seconds (25.6-37.1) 11/28/17 18:09 - Respiratory Exam Additional comments: DECREASED BREATH SOUNDS RIGHT LOWER LUNG FIELD - Cardiovascular Exam Cardiovascular Exam: REGULAR RHYTHM, +S1, +S2 - Extremities Exam Additional comments: DECREASE IN LE EDEMA Assessment and Plan - Assessment and Plan (Free Text) Assessment: LARGE RIGHT PLEURAL EFFUSION POSSIBLE CHF COPD S/P HODGKIN'S TREATMENT WITH BOTH RADIATION AND CHEMOTHERAPY(PATIENT DOESN'T KNOW WHAT CHEMO AGENTS WERE USED) HYPERTENSION Plan: FOR RIGHT THORACENTESIS TODAY FOR ECHOCARDIOGRAM TODAY TO ASSESS LV FUNCTION
[2017-11-30] MEDS ORDERED: Lidocaine 1% Inj (20ml) ONE (16:07)
--- NOTE | 2017-11-30 16:51 | RAD ---
PROCEDURE: CHEST RADIOGRAPH, 1 VIEW HISTORY: Rt pleural effusion COMPARISON: 11/28/2017 single-view chest. 11/28/2017 CT thorax FINDINGS: LUNGS: Compressive atelectasis primarily affecting right lower lobe, to lesser extent right middle lobe. PLEURA: Upper large, stable right pleural effusion. Trace left pleural effusion. CARDIOVASCULAR: No radiographic findings to suggest acute or significant cardiovascular disease. Position/ configuration of pacemaker device: Satisfactory. OSSEOUS STRUCTURES: No significant abnormalities. VISUALIZED UPPER ABDOMEN: Normal. OTHER FINDINGS: None. IMPRESSION: No significant interval change compared to the prior examination(s).
[2017-11-30 17:22] LABS: BODY FLUID TYPE PLEURAL/THORACENTESI
[2017-11-30 17:38] LABS: TOTAL PROTEIN,BODY FLUID 3.3 g/dL (NONE ESTABLISHED)
[2017-11-30] MEDS: Piperacillin/Tazobact 3.375 GM in Sodium Chloride 0.9% 100 ML IVPB SCH (18:29)
[2017-11-30 18:40] LABS: BF GROSS APPEARANCE CLEAR (CLEAR)
[2017-11-30 18:53] LABS: BODY FLUID MONO/MACROPHAGE 41 % (0-0)
[2017-11-30 18:54] LABS: BODY FLUID TOTAL COUNT 100 (0-0)
[2017-11-30] MEDS ORDERED: HYDROmorphone 1 mg/ml ISec IVP PRN (19:37)
[2017-12-01] MEDS: Clindamycin 600mg/50ml NS 600 MG/50 ML BAG IVPB SCH ×3 (00:34→16:22)
[2017-12-01] MEDS: Piperacillin/Tazobact 3.375 GM in Sodium Chloride 0.9% 100 ML IVPB SCH ×2 (01:03→09:08)
[2017-12-01] MEDS: Nitroglycerin 2% Ointment Foilpak UD TOP SCH ×2 (03:36→09:07)
[2017-12-01 05:39] LABS: BASO % 0.2 % (0.0-2.0); LYMPH # 0.3 K/uL (1.0-4.3); LYMPH % 1.9 % (20.0-40.0); MEAN CELL VOLUME 110.3 fl (80.0-94.0); MEAN CORPUSCULAR HEMOGLOBIN 36.7 pg (27.0-31.0); MEAN CORPUSCULAR HGB CONC 33.3 g/dL (33.0-37.0); MEAN PLATELET VOLUME 8.8 fl (7.2-11.7); MONO # 0.8 K/uL (0.0-0.8); MONO % 5.8 % (0.0-10.0); NEUT # 12.2 K/uL (1.8-7.0); NEUT % 92.1 % (50.0-75.0); RBC 3.27 Mil/uL (4.40-5.90); WHITE BLOOD COUNT 13.2 K/uL (4.8-10.8)
[2017-12-01 05:44] LABS: BLOOD UREA NITROGEN 35 mg/dl (9-20); CALCIUM 9.4 mg/dL (8.4-10.2); GFR AFRICAN-AMERICAN > 60; GFR NON-AFRICAN AMERICAN > 60
--- NOTE | 2017-12-01 06:07 | CON ---
DATE: INFECTIOUS DISEASE CONSULTATION LOCATION: Patient is presently in room 424, bed 1, in the ICU. HISTORY OF PRESENT ILLNESS: He is a 62-year-old male with a past history of asthma, Hodgkin lymphoma, COPD and a past history of heavy tobacco use. He was having increasing shortness of breath at home and was becoming less responsive to his bronchodilator use. He stated he had fever, but did not have chills. Initially, had a dry cough. Also, history of some substernal burning discomfort and increasing dependent edema without calf tenderness. When I saw the patient, he was immediately post thoracentesis by Interventional Radiology. Apparently, Radiology did not take out all the fluid and when I saw him, there was significant amount of fluid in the Pleur-evac and in fact it was filled and it had to be exchanged. Patient immediately was complaining of pain and significant discomfort. The hospitalist came in to evaluate him also and chest x-ray was ordered, which was improved Of significance, patient is now coughing up significant amount of sputum. Patient is alert and cooperative, but in mild distress and discomfort. PAST MEDICAL HISTORY: Includes cardiac arrhythmia, heart failure, hypertension and has a pacemaker. Also has asthma and bronchitis. 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 PHYSICAL EXAMINATION: GENERAL: Patient seems uncomfortable. HEENT: His pharynx is red. LUNGS: He has decreased breath sounds especially on the right side and mid right lung field and also there is absent breath sounds at the right lobe base. Left base, there are diminished, soon there will be improvement noted as the fluid has been evacuated. HEART: Regular sinus rhythm. ABDOMEN: Soft, nontender, with bowel sounds. EXTREMITIES: He has definitely 1+ to 2+ peripheral edema. LABORATORY DATA: Cultures are all pending. Creatinine is 0.7. GFR is greater than 60. Random glucose 158. LDH is 265. Liver functions are within normal limits. We will be awaiting results of the pleural fluid. He is negative for influenza A and B. IMPRESSION: Obstructive pneumonia with pleural effusion, asthma, atelectasis and dependent edema. I have discontinued azithromycin and Rocephin. I have started clindamycin 600 mg IV piggy back q. 8 and Zosyn 3.375 g IV piggy back q. 8. I have discussed the case with rn first assist, Dr. Khan, and also with career resource specialist, Dr. Ruiz. Cristian Chung MD [facility]
[2017-12-01] MEDS: Albuterol-Ipratrop 3 mg / 0.5 (3 ml) UD INH SCH ×4 (08:07→19:21)
--- NOTE | 2017-12-01 08:26 | CARD ---
APPROVED REPORT EXAM: Two-dimensional and M-mode echocardiogram with Doppler and color Doppler. Other Information Quality : GoodRhythm : Pacemaker INDICATION Dyspnea Peripheral Edema 2D DIMENSIONS IVSd0.79 (0.7-1.1cm)LVDd4.70 (3.9-5.9cm) LVOT Diameter1.79 (1.8-2.4cm)PWd0.90 (0.7-1.1cm) IVSs1.15 (0.8-1.2cm)LVDs3.89 (2.5-4.0cm) FS (%) 17.3 %PWs1.06 (0.8-1.2cm) M-Mode DIMENSIONS Left Atrium (MM)4.44 (2.5-4.0cm)IVSd0.85 (0.7-1.1cm) Aortic Root2.35 (2.2-3.7cm)LVDd5.03 (4.0-5.6cm) PWd0.74 (0.7-1.1cm)IVSs1.03 cm FS (%) 26 %LVDs3.71 (2.0-3.8cm) PWs1.21 cm Aortic Valve AoV Peak Tnwygenf676.2cm/sAoV VTI48.8cmAO Peak GR.19mmHg LVOT Peak Fvogvjvd86.0cm/sLVOT VTI13.69cmAO Mean GR.11mmHg DARIEL (VMAX)0.46uv9LCE (VTI)0.40cm2 Mitral Valve E/A ratio0.0 TDI E/Lateral E'0.0E/Medial E'0.0 Tricuspid Valve TR Peak [id number]/sRAP [id number] Peak Gr.43mmHg [id number] LEFT VENTRICLE The left ventricle is normal size. There is normal left ventricular wall thickness. Left ventricle systolic function is mildly impaired. The Ejection Fraction is 45-50%. Septal motion was abnormal due to V-paced rhythm Other segments had borderline contractility Transmitral Doppler flow pattern is Grade II-pseudonormal filling dynamics. RIGHT VENTRICLE The right ventricle is moderately dilated. There is normal right ventricular wall thickness. Systolic function is moderately reduced. ATRIA The left atrium size is normal. The right atrium is mildly dilated. AORTIC VALVE The aortic valve is moderately sclerotic/calcific. Pacing lead was seen traversing the tricuspid valve. No aortic regurgitation is present. There is mild to moderate valvular aortic stenosis. Calculated aortic valve maximum pressure gradient of 18 mmHg and mean pressure gradient of 11 mmHg. MITRAL VALVE The mitral valve is normal in structure. There is no evidence of mitral valve prolapse. There is no mitral valve stenosis. Mitral regurgitation is moderate. TRICUSPID VALVE The tricuspid valve is normal in structure. There is severe tricuspid regurgitation. Right ventricular systolic pressure is estimated at 55 mmHg. There is severe pulmonary hypertension. PULMONIC VALVE The pulmonary valve is normal in structure. There is no pulmonic valvular regurgitation. GREAT VESSELS The aortic root is normal in size. The IVC is dilated. PERICARDIAL EFFUSION The pericardium appears normal. <Conclusion> The left ventricle is normal size. There is normal left ventricular wall thickness. Septal motion was abnormal due to V-paced rhythm Other segments had borderline contractility Left ventricle systolic function is mildly impaired. The Ejection Fraction is 45-50%. Transmitral Doppler flow pattern is Grade II-pseudonormal filling dynamics. The right ventricle is moderately dilated. Systolic function is moderately reduced. The right atrium is mildly dilated. The aortic valve is moderately sclerotic/calcific. There is mild to moderate valvular aortic stenosis. Mitral regurgitation is moderate. There is severe tricuspid regurgitation. Right ventricular systolic pressure is estimated at 55 mmHg. There is severe pulmonary hypertension. The IVC is dilated.
--- NOTE | 2017-12-01 08:37 | CARD ---
APPROVED REPORT EKG Measurement Heart [id number] NH 170P [id number] <Conclusion> AV dual-paced rhythm Abnormal ECG
--- NOTE | 2017-12-01 08:46 | PN ---
DATE: 11/30/2017 CRITICAL CARE PROGRESS NOTE LOCATION: Patient in ICU, bed 433. TIME SPENT: 35 minutes. SUBJECTIVE: Patient is seen and evaluated at the bedside. Past medical, surgical, social history noted. A 62-year-old male, a reformed smoker, with history significant for chronic asthma/COPD overlap syndrome, status post permanent pacemaker insertion in the past. Known history of non-Hodgkin's lymphoma on the left side of the neck treated with radiation treatment and subsequently with recurrence and is status post treatment with chemo. Patient has been in his usual state of health until recently, noted to have increasing cough associated with chest congestion, and cough nonproductive. Patient was admitted on 11/28 with a large right pleural effusion. CT chest showed a large right pleural effusion, moderate left pleural effusion, compressive atelectasis changes in the right upper lobe, peripheral right upper lobe calcification, partial right middle lobe atelectasis, and near complete right lower lobe atelectasis. Patient was treated with bronchodilator and antibiotic. Overnight afebrile. Normotensive. Less short of breath, but still with persistent cough. PHYSICAL EXAMINATION: VITAL SIGNS: Temperature 97.5, heart rate 82, blood pressure 117/58, oxygen saturation 96% on 2 liters. Intake 1190, output 980, positive balance 210. Weight 147 pounds. HEAD, EYES, EARS, NOSE AND THROAT: Pupils reactive. Conjunctivae pink. Sclerae white. NECK: Supple. No lymphadenopathy. CHEST: Reduced breath sounds on the right. Fine crepitations at the bases. HEART: Rhythm regular. S1, S2 normal intensity. No S3, S4 gallop. No audible murmur. ABDOMEN: Bowel sounds present. Soft. EXTREMITIES: No clubbing, cyanosis. Trace edema, markedly diminished compared to on admission. NEUROLOGIC EXAMINATION: Alert and oriented to name, place, and time. No cranial nerve deficit. No sensory impairment. No motor deficit. CURRENT MEDICATIONS: Include Tylenol 650 q. 6 p.r.n., albuterol/Atrovent inhalation q. 4 p.r.n., ceftriaxone 1 g IV daily, Zithromax 500 mg IV daily, Lovenox 40 subcu daily, Lasix 40 IV q. 12 hours, Solu-Medrol 30 mg IV q. 12 hours, nitroglycerin 2% ointment 0.5 each topically q. 6 hours. LABORATORY DATA: WBC 9.7, hemoglobin 9.8, hematocrit 29, platelet count 132; neutrophils 90.9, lymphocytes 2.6, monocytes 6.4. PT 15.7, INR 1.4. SMA-7: Sodium 132, potassium 4, chloride 90, CO2 of 29, blood urea nitrogen 32, creatinine 0.7, random glucose 158, calcium 10, magnesium 1.8. Total bilirubin 0.9, AST 38, ALT 51, alkaline phosphatase 100, LDH 265. Troponin negative. Chest x-ray done this morning shows large right pleural effusion, minimal effusion on the left. No mediastinal shift. IMPRESSION: 1. Neurological: Alert, oriented to name, place and time. No acute issues noted. 2. Pulmonary: Admitted with cough, progressively worse, associated with shortness of breath. Chest x-ray and a CAT scan shows large right pleural effusion, unclear etiology. CT suggests partial obstruction of the right middle lobe and near total occlusion of right lower lobe. Concern, endobronchial obstruction with obstructive atelectasis. History of non-Hodgkin's lymphoma in the past status post chemo radiation treatment. Concern, recurrence of the tumor and/or a new lung lesion, rule out cardiomyopathy, congestive heart failure with pleural effusion. Echocardiogram done, report pending. Patient is scheduled for thoracentesis with right pigtail catheter insertion. Follow the pleural fluid for total protein, LDH, glucose, cell count with differential, cytology, and acid-fast bacillus. 3. Cardiac: Mild enlargement of the heart, status post permanent pacemaker insertion, probably related to sick sinus syndrome. Appreciate Cardiology followup. 4. GI: Normal liver function test, tolerating p.o. feeds. 5. Renal: Mild prerenal azotemia. We will make further plan of care after the thoracentesis, pleural fluid study, and we will discuss with Pulmonary regarding bronchoscopy and/or biopsy if there is any endobronchial lesion as noted in the CT chest. 6. Continue deep venous thrombosis and gastrointestinal prophylaxis. Darrell Khan MD
--- NOTE | 2017-12-01 09:05 | CP.PCM.PN ---
<Venkat Rogers - Last Filed: 12/01/17 10:54> Subjective - Date & Time of Evaluation Date of Evaluation: 12/01/17 Time of Evaluation: 07:15 - Subjective Subjective: Patient seen and examined bedside with Dr Sterling. Patient reports feeling better today and reports less SOB. Patient s/p thoracentesis yesterday, using O2 NC, sat 99. Denies chest pain, palpitation, n,v,abd pain, diarrhea. pedal edema improving. afebrile Right pigtail chest tube 750 ml drainage yesterday straw color Abx switched to Zosyn/Clinda Objective - Vital Signs/Intake and Output Vital Signs (last 24 hours): Temp Pulse Resp BP Pulse Ox 98.1 F 60 46 H 102/70 96 12/01/17 08:00 12/01/17 08:00 12/01/17 08:00 12/01/17 08:00 12/01/17 08:00 Intake and Output: 12/01/17 12/01/17 06:59 18:59 Intake Total 500 Output Total 2050 Balance -1550 - Medications Medications: Current Medications Acetaminophen (Tylenol 325mg Tab) 650 mg PO Q6H PRN PRN Reason: Fever >100.4 F Albuterol Sulfate (Albuterol 0.083% Inhal Vanesa (2.5 Mg/3 Ml) Ud) 2.5 mg INH RQ4 PRN PRN Reason: Shortness of Breath Albuterol/Ipratropium (Duoneb 3 Mg/0.5 Mg (3 Ml) Ud) 3 ml INH RQID [facility] Last Admin: 12/01/17 08:07 Dose: 3 ml Enoxaparin Sodium (Lovenox) 40 mg SC DAILY CLAUDIA PRN Reason: Protocol Last Admin: 11/29/17 09:12 Dose: 40 mg Furosemide (Lasix) 40 mg IV Q12 CLAUDIA Last Admin: 11/30/17 20:02 Dose: 40 mg Hydromorphone HCl (Dilaudid) 1 mg IVP Q4 PRN PRN Reason: Pain, moderate (4-7) Last Admin: 11/30/17 20:13 Dose: 1 mg Piperacillin Sod/Tazobactam (Sod 3.375 gm/ Sodium Chloride) 100 mls @ 100 mls/ hr IVPB Q8H CLAUDIA PRN Reason: Protocol Last Admin: 12/01/17 01:03 Dose: 100 mls/hr Clindamycin Phosphate (Cleocin In Normal Saline) 600 mg in 50 mls @ 50 mls/hr IVPB Q8 CLAUDIA PRN Reason: Protocol Last Admin: 12/01/17 00:34 Dose: 50 mls/hr Methylprednisolone (Solu-Medrol) 30 mg IVP Q12 CLAUDIA Last Admin: 11/30/17 20:03 Dose: 30 mg Nitroglycerin (Nitro-Bid 2% Oint) 0.5 ea TOP Q6 CLAUDIA Last Admin: 12/01/17 03:36 Dose: 0.5 ea Ondansetron HCl (Zofran Inj) 4 mg IVP Q6 PRN PRN Reason: Nausea/Vomiting Last Admin: 11/30/17 19:46 Dose: 4 mg - Labs Labs: 12/01/17 05:00 12/01/17 05:00 PT 15.7 Seconds (9.8-13.1) H 11/30/17 04:25 INR 1.4 (0.9-1.2) H 11/30/17 04:25 APTT 29.1 Seconds (25.6-37.1) 11/28/17 18:09 - Constitutional Appears: Non-toxic, No Acute Distress - Head Exam Head Exam: ATRAUMATIC, NORMOCEPHALIC - Eye Exam Eye Exam: Normal appearance - ENT Exam ENT Exam: Mucous Membranes Moist - Neck Exam Neck Exam: Normal Inspection - Respiratory Exam Respiratory Exam: Decreased Breath Sounds. absent: Rhonchi, Wheezes Additional comments: diminished breath sound right lung base - Cardiovascular Exam Cardiovascular Exam: REGULAR RHYTHM, +S1, +S2 - GI/Abdominal Exam GI & Abdominal Exam: Soft, Normal Bowel Sounds. absent: Tenderness - Extremities Exam Extremities Exam: Pedal Edema. absent: Calf Tenderness Additional comments: b/l pedal edema improving 1+ today - Neurological Exam Neurological Exam: Alert, Awake, Oriented x3 - Psychiatric Exam Psychiatric exam: Normal Affect, Normal Mood - Skin Skin Exam: absent: Petechiae, Urticaria, Vesicles Assessment and Plan - Assessment and Plan (Free Text) Plan: 62 yo ,m, PMhx/o Asthma/COPD, HTN, Hx of Bilateral Avascular Necrosis of Femur, Anxiety, Hx of Hodgkin Lymphoma, Complete Heart Block s/p pacemeker 11/2016 admitted for CHF exacerbation, PNA, Plerural effusion. Assessment/Plan 1) Diastolic CHF exacerbation -Orthopnea, SCOTT -ProBMP 4490 11/2017 -ProBnP 1030 11/2016 -Hx/o complete AV block and s/p zeus 2016 -Echo: EF: 45-50 %. Mild-mod Ao stenosis, Mod mitral regurgitation. Sev tricuspid regurg. Sev Pulmonary HTN -Lasix 40 mg IV daily -Bus Washer consult appreciated 2) Pleural effusion -CT Chest CTchest: Large pleural efusion with almost complete right lower lobe atelectasis and less extensive right middle and upper lobe atelectasis, moderate left effusion atelectatic changes greatest at the left base, extensive atherosclerotic disease, prior granulomatous diesease. right empyema is suspected, suggest thoracentesis -s/p Pigtail chest tube yesterday and draignage 750 ml -f/u pleural fluids results.so far seems transudate -ID consult appreciated: Azythro/Rocephin switched to Zosyn/Clindamycin. 3) CAP -Patient found to have a large right pleural effusion with infiltrate and atelectatic changes. -s/p Rocephin/Azithromycin -Pulmonology consult appreciated -ID consutl appreciated -Abx switched to Zosyn/Clindamycin 4) Sepsis -SIRS+ Lung infiltrates on admission -resolving -ID Consult appreciated: Zosyn/ Clindamycin 5) COPD exacerbation -CXR right pleural effusion and right lobe atelectasia -continue douneb Q4h PRN -solumedrol 30 mg IV BID -Drugless Doctor consult appreciated 6) Hx/o Hodgking Lymphoma -s/p treatment chemotherapy/radiotherapy -pt does not what agents were used 7) HTN -controlled, medication held at this time 8) DVT Prophylaxis -Heparin 5000 U Sc TID -pt with pigtail chest tube <Cj Sterling - Last Filed: 12/03/17 06:44> Objective - Vital Signs/Intake and Output Vital Signs (last 24 hours): Temp Pulse Resp BP Pulse Ox 98.5 F 60 21 132/63 99 12/03/17 05:00 12/03/17 05:00 12/03/17 01:00 12/03/17 05:00 12/03/17 05:00 Intake and Output: 12/02/17 12/03/17 18:59 06:59 Intake Total 300 150 Output Total 750 845 Balance -450 -695 - Medications Medications: Current Medications Acetaminophen (Tylenol 325mg Tab) 650 mg PO Q6H PRN PRN Reason: Fever >100.4 F Albuterol Sulfate (Albuterol 0.083% Inhal Vanesa (2.5 Mg/3 Ml) Ud) 2.5 mg INH RQ4 PRN PRN Reason: Shortness of Breath Last Admin: 12/03/17 04:40 Dose: 2.5 mg Albuterol/Ipratropium (Duoneb 3 Mg/0.5 Mg (3 Ml) Ud) 3 ml INH RQID [facility]UD[facility] Last Admin: 12/02/17 19:34 Dose: Not Given Heparin Sodium (Porcine) (Heparin) 5,000 units SC Q8 CLAUDIA PRN Reason: Protocol Last Admin: 12/03/17 01:29 Dose: 5,000 units Hydromorphone HCl (Dilaudid) 1 mg IVP Q4 PRN PRN Reason: Pain, moderate (4-7) Last Admin: 12/02/17 05:53 Dose: 1 mg Clindamycin Phosphate (Cleocin In Normal Saline) 600 mg in 50 mls @ 50 mls/hr IVPB Q8 CLAUDIA PRN Reason: Protocol Last Admin: 12/03/17 01:28 Dose: 50 mls/hr Piperacillin Sod/Tazobactam (Sod 3.375 gm/ Sodium Chloride) 50 mls @ 50 mls/hr IVPB Q8@0200,1000,1800 CLAUDIA PRN Reason: Protocol Last Admin: 12/03/17 01:28 Dose: 50 mls/hr Methylprednisolone (Solu-Medrol) 30 mg IVP Q12 [facility] Last Admin: 12/02/17 21:26 Dose: 30 mg Ondansetron HCl (Zofran Inj) 4 mg IVP Q6 PRN PRN Reason: Nausea/Vomiting Last Admin: 11/30/17 19:46 Dose: 4 mg - Labs Labs: 12/03/17 04:40 12/03/17 04:40 PT 15.7 Seconds (9.8-13.1) H 11/30/17 04:25 INR 1.4 (0.9-1.2) H 11/30/17 04:25 APTT 29.1 Seconds (25.6-37.1) 11/28/17 18:09 Attending/Attestation - Attestation I have personally seen and examined this patient.: Yes I have fully participated in the care of the patient.: Yes I have reviewed all pertinent clinical information, including history, physical exam and plan: Yes
[2017-12-01] MEDS: MethylPREDNISolone 40 mg Vial IVP SCH ×2 (09:07→20:54)
--- NOTE | 2017-12-01 09:43 | US ---
PROCEDURE: ULTRASOUND-GUIDED THORACOSTOMY TUBE PLACEMENT CLINICAL HISTORY: 62-year-old male with large symptomatic right pleural effusion is referred to Interventional Radiology for ultrasound-guided pigtail chest tube placement. COMPARISON: Correlations made to CT scan of the chest dated 11/28/2017 PROCEDURE: 1. Ultrasound-guided right pigtail chest tube placement. PRE-PROCEDURE FINDINGS: 1. Large volume pleural effusion. POST-PROCEDURE FINDINGS: 1. No evidence of post-procedural complication. INTERVENTIONAL RADIOLOGIST: Greg Edwards M.D. (the attending was present for the entire procedure) ANESTHESIA: None. MEDICATION: Lidocaine 1% for local subcutaneous analgesia. COMPLICATIONS: None. PROCEDURE DESCRIPTION AND FINDINGS: The risks, benefits, alternatives and possible complications of the procedure were fully discussed; all questions were answered and informed consent was obtained. The patient was brought into the interventional suite and a pre-procedure 'time-out' was performed. The patient was placed in the seated position. Preliminary ultrasound images of the right hemithorax demonstrate a large simple appearing pleural effusion. The right hemithorax was prepped and draped in the usual sterile fashion. Maximum sterile barrier precautions were maintained throughout the entire procedure. Following subcutaneous infiltration of lidocaine 1% for local analgesia, under ultrasound guidance, an 18 gauge single wall needle was advanced into right pleural space with real-time visualization of needle entry. The ultrasound images were permanently recorded and submitted to the PACS. An 0.035 guidewire was advanced via the needle into the pleural space. After serial dilatation, an 8 Syrian all purpose drainage pigtail catheter was advanced over the guidewire and formed within the right pleural space. A sample of fluid was sent to the laboratory for analysis. The drainage catheter was attached to Pleur-evac drainage system. A sterile adhesive bandage was placed over the puncture site. The patient tolerated the procedure well without immediate post-procedure complications and was transferred back to the floor in stable condition. IMPRESSION: SUCCESSFUL ULTRASOUND-GUIDED RIGHT THORACOSTOMY TUBE PLACEMENT.
--- NOTE | 2017-12-01 10:06 | CP.PCM.PN ---
Subjective - Date & Time of Evaluation Date of Evaluation: 12/01/17 Time of Evaluation: 10:04 - Subjective Subjective: Had thoracentesis done yesterday. Almost 3 liters of fluid have drained since. Chemistry suggests transudative effusion. Further labs are pending. WBC has increased to 13, and he was having productive cough last night. There has been no fever since the 100.7 on presentation to the emergency room. There is some residual dullness at the right base posteriorly. No subcutaneous emphysema. Rhonchi are present in the RLL region. No bronchial breath sounds or egophony. No rub. Chest tube appears to be functioning well, pale yellow fluid still draining. Heart sounds are slightly distant, systolic murmur at the apex. Abdomen is soft and non-tender. Trace residual dependant edema w/o cyanosis. Await further test results. Repeat CT chest w/o contrast (BUN 35) now that fluid has drained. Presently on empiric antibiotic therapy; continue. Will request V/Q lung scan as well because of the pulmonary hypertension. He is stable for transfer to telemetry. Objective - Vital Signs/Intake and Output Vital Signs (last 24 hours): Temp Pulse Resp BP Pulse Ox 98.1 F 66 22 132/83 96 12/01/17 08:00 12/01/17 10:00 12/01/17 10:00 12/01/17 10:00 12/01/17 10:00 Intake and Output: 11/30/17 12/01/17 23:59 11:59 Intake Total 50 1200 Output Total 3700 1850 Balance -3650 -650 - Medications Medications: Current Medications Acetaminophen (Tylenol 325mg Tab) 650 mg PO Q6H PRN PRN Reason: Fever >100.4 F Albuterol Sulfate (Albuterol 0.083% Inhal Vanesa (2.5 Mg/3 Ml) Ud) 2.5 mg INH RQ4 PRN PRN Reason: Shortness of Breath Albuterol/Ipratropium (Duoneb 3 Mg/0.5 Mg (3 Ml) Ud) 3 ml INH RQID [facility] Last Admin: 12/01/17 08:07 Dose: 3 ml Enoxaparin Sodium (Lovenox) 40 mg SC DAILY CLAUDIA PRN Reason: Protocol Last Admin: 11/29/17 09:12 Dose: 40 mg Furosemide (Lasix) 40 mg IV Q12 [facility] Last Admin: 12/01/17 09:06 Dose: 40 mg Hydromorphone HCl (Dilaudid) 1 mg IVP Q4 PRN PRN Reason: Pain, moderate (4-7) Last Admin: 11/30/17 20:13 Dose: 1 mg Piperacillin Sod/Tazobactam (Sod 3.375 gm/ Sodium Chloride) 100 mls @ 100 mls/ hr IVPB Q8H CLAUDIA PRN Reason: Protocol Last Admin: 12/01/17 09:08 Dose: 100 mls/hr Clindamycin Phosphate (Cleocin In Normal Saline) 600 mg in 50 mls @ 50 mls/hr IVPB Q8 CLAUDIA PRN Reason: Protocol Last Admin: 12/01/17 09:05 Dose: 50 mls/hr Methylprednisolone (Solu-Medrol) 30 mg IVP Q12 [facility] Last Admin: 12/01/17 09:07 Dose: 30 mg Nitroglycerin (Nitro-Bid 2% Oint) 0.5 ea TOP Q6 [facility] Last Admin: 12/01/17 09:07 Dose: 0.5 ea Ondansetron HCl (Zofran Inj) 4 mg IVP Q6 PRN PRN Reason: Nausea/Vomiting Last Admin: 11/30/17 19:46 Dose: 4 mg - Labs Labs: 12/01/17 05:00 12/01/17 05:00 PT 15.7 Seconds (9.8-13.1) H 11/30/17 04:25 INR 1.4 (0.9-1.2) H 11/30/17 04:25 APTT 29.1 Seconds (25.6-37.1) 11/28/17 18:09 Assessment and Plan (1) Pleural effusion Status: Acute (2) Asthma Status: Chronic (3) Atelectasis Status: Acute (4) Dependent edema Status: Acute (5) Hyperglycemia Status: Acute
--- NOTE | 2017-12-01 10:13 | RAD ---
PROCEDURE: CHEST RADIOGRAPH, 1 VIEW HISTORY: s/p right pigtail catheter insertion COMPARISON: 2017. Time of the most recent examination: 04:37. FINDINGS: LUNGS: Improved aeration of the right lung compared to prior studies. PLEURA: Substantial decrease right pleural effusion following pigtail catheter insertion. CARDIOVASCULAR: No radiographic findings to suggest acute or significant cardiovascular disease. Position/ configuration of pacemaker device: Satisfactory. OSSEOUS STRUCTURES: No significant abnormalities. VISUALIZED UPPER ABDOMEN: Normal. OTHER FINDINGS: None. IMPRESSION: Status post insertion of pigtail catheter right pleural space. Substantial reduction in right pleural effusion, commensurate improved aeration right lung.
--- NOTE | 2017-12-01 10:37 | CP.PCM.PN ---
Subjective - Date & Time of Evaluation Date of Evaluation: 12/01/17 Time of Evaluation: 10:00 - Subjective Subjective: HAD THORACENTESIS AND CATHETER DRAINAGE OF RIGHT PLEURAL EFFUSION AND IS BREATHING BETTER TODAY BROUGHT UP MUCH PHLEGM YESTERDAY AFTERNOON AFTER THE PROCEDURE Objective - Vital Signs/Intake and Output Vital Signs (last 24 hours): Temp Pulse Resp BP Pulse Ox 98.1 F 66 22 132/83 96 12/01/17 08:00 12/01/17 10:00 12/01/17 10:00 12/01/17 10:00 12/01/17 10:00 Intake and Output: 12/01/17 12/01/17 06:59 18:59 Intake Total 500 750 Output Total 2050 200 Balance -1550 550 - Medications Medications: Current Medications Acetaminophen (Tylenol 325mg Tab) 650 mg PO Q6H PRN PRN Reason: Fever >100.4 F Albuterol Sulfate (Albuterol 0.083% Inhal Vanesa (2.5 Mg/3 Ml) Ud) 2.5 mg INH RQ4 PRN PRN Reason: Shortness of Breath Albuterol/Ipratropium (Duoneb 3 Mg/0.5 Mg (3 Ml) Ud) 3 ml INH RQID [facility]UDIA Last Admin: 12/01/17 08:07 Dose: 3 ml Enoxaparin Sodium (Lovenox) 40 mg SC DAILY CLAUDIA PRN Reason: Protocol Last Admin: 11/29/17 09:12 Dose: 40 mg Furosemide (Lasix) 40 mg IVP DAILY [facility] Heparin Sodium (Porcine) (Heparin) 5,000 units SC Q8 CLAUDIA PRN Reason: Protocol Hydromorphone HCl (Dilaudid) 1 mg IVP Q4 PRN PRN Reason: Pain, moderate (4-7) Last Admin: 11/30/17 20:13 Dose: 1 mg Piperacillin Sod/Tazobactam (Sod 3.375 gm/ Sodium Chloride) 100 mls @ 100 mls/ hr IVPB Q8H CLAUDIA PRN Reason: Protocol Last Admin: 12/01/17 09:08 Dose: 100 mls/hr Clindamycin Phosphate (Cleocin In Normal Saline) 600 mg in 50 mls @ 50 mls/hr IVPB Q8 CLAUDIA PRN Reason: Protocol Last Admin: 12/01/17 09:05 Dose: 50 mls/hr Methylprednisolone (Solu-Medrol) 30 mg IVP Q12 CLAUDIA Last Admin: 12/01/17 09:07 Dose: 30 mg Nitroglycerin (Nitro-Bid 2% Oint) 0.5 ea TOP Q6 CLAUDIA Last Admin: 12/01/17 09:07 Dose: 0.5 ea Ondansetron HCl (Zofran Inj) 4 mg IVP Q6 PRN PRN Reason: Nausea/Vomiting Last Admin: 11/30/17 19:46 Dose: 4 mg - Labs Labs: 12/01/17 05:00 12/01/17 05:00 PT 15.7 Seconds (9.8-13.1) H 11/30/17 04:25 INR 1.4 (0.9-1.2) H 11/30/17 04:25 APTT 29.1 Seconds (25.6-37.1) 11/28/17 18:09 - Respiratory Exam Additional comments: RIGHT LUNG AIR ENTRY IS MUCH IMPROVED TODAY STILL WITH SOME DECREASED BREATH SOUNDS AT THE RIGHT BASE - Cardiovascular Exam Cardiovascular Exam: REGULAR RHYTHM, +S1, +S2 - Extremities Exam Additional comments: CLEARING OF LE EDEMA - Additional Findings Additional findings: PLEURAL FLUID IS A CLEAR TRANSUDATE WITH LDH OF 121, 49 LYMPHOCYTES FURTHER STUDIES PENDING POST THORACENTESIS WITH DECREASE IN RIGHT PLEURAL EFFUSION, HAZZINESS AT RIGHT BASE ECHO LVEF ~ 45%, MILD , MILD RVE AND GELA, SEVERE TR, PASP OF 55 BUN/CR 19/0.7 11/28/17 BUN/CR TODAY 35/0.7 Assessment and Plan - Assessment and Plan (Free Text) Assessment: PROBABLE RIGHT PNEUMONIA WITH LARGE PLEURAL EFFUSION SSS WITH DUAL CHAMBER PACEMAKER THE PATIENT PROBABLY DID NOT HAVE CHF THE LVEF IS GOOD AND THE ELEVATED PBNP WAS PROBABLY FROM THE DILATATION OF THE RIGHT HEART COPD PULMONARY HYPERTENSION ~ MODERATE TO HIGH Plan: CONTINUE ANTIBIOTICS, O2, HEPARIN, BRONCHODILATORS WILL STOP FUROSEMIDE LVEF IS GOOD AND PATIENT IS BECOMING PRE-RENAL WILL STOP NITROPASTE ALSO CONTINUE CHEST TUBE DRAINAGE
[2017-12-01] MEDS ORDERED: Piperacillin/Tazobact 3.375 GM in Sodium Chloride 0.9% 50 ML IVPB SCH (11:00)
--- NOTE | 2017-12-01 11:04 | CP.CCUPN ---
<Krys Darling - Last Filed: 12/01/17 11:11> CCU Subjective - Physician Review Subjective (Free Text): 12/01/17 11:02 Patient seen sitting up in bed. Tolerated regular breakfast, swallowing without difficulty. No complaints this morning. No pain or dyspnea reported. Breathing is better. Right Pigtail catheter placement yesterday by IR, drained about 2L upon insertion. Right Pigtail Catheter: 750 cc output overnight. 2750cc total output. All Vital signs, Labs, I/Os and imaging reviewed. CCU Objective - Vital Signs / Intake & Output Vital Signs (Last 4 hours): Vital Signs Temp Pulse Resp BP Pulse Ox 12/01/17 10:00 66 22 132/83 96 12/01/17 09:07 61 122/75 12/01/17 09:06 122/75 12/01/17 08:00 98.1 F 60 46 H 102/70 96 Intake and Output (Last 8hrs): Intake & Output 11/30/17 12/01/17 12/01/17 22:59 06:59 14:59 Intake Total 50 450 750 Output Total 3300 1650 200 Balance -3250 -1200 550 Intake: Intake, Piggyback 150 150 Oral 50 200 600 Tube Feeding 100 Output: Chest Tube Drainage 2000 750 Right Posterior Chest 2000 750 Urine 1300 900 200 Urine, Voided 1300 900 200 Other: # Voids Urine, Voided 1 # Bowel Movements 0 - Physical Exam Head: Positive for: Atraumatic, Normocephalic Pupils: Positive for: PERRL Extroacular Muscles: Positive for: EOMI Conjunctiva: Positive for: Normal Ears: Positive for: Normal Mouth: Positive for: Moist Mucous Membranes Nose (External): Positive for: Atraumatic Neck: Positive for: Normal Range of Motion Respiratory/Chest: Positive for: Clear to Auscultation (left lung), Rales ( right mid lung and base, ant/posteriorly. ). Negative for: Respiratory Distress , Wheezes, Tachypneic Cardiovascular: Positive for: Regular Rate and Rhythm Abdomen: Positive for: Normal Bowel Sounds. Negative for: Tenderness, Distention Upper Extremity: Positive for: Normal Inspection Lower Extremity: Negative for: Edema Neurological: Positive for: GCS=15, Speech Normal Psychiatric: Positive for: Alert, Oriented x 3, Normal Concentration, Normal Mood - Medications Active Medications: Active Medications Generic Name Dose Route Start Last Admin Trade Name Freq PRN Reason Stop Dose Admin Acetaminophen 650 mg 11/28/17 21:18 Tylenol 325mg Tab PO Q6H PRN Fever >100.4 F Albuterol Sulfate 2.5 mg 11/29/17 08:26 Albuterol 0.083% Inhal Vanesa (2.5 Mg/3 Ml) Ud INH RQ4 PRN Shortness of Breath Albuterol/Ipratropium 3 ml 11/29/17 12:00 12/01/17 08:07 Duoneb 3 Mg/0.5 Mg (3 Ml) Ud INH 3 ml RQID CLAUDIA Administration Heparin Sodium (Porcine) 5,000 units 12/01/17 10:32 Heparin SC Q8 CLAUDIA Protocol Hydromorphone HCl 1 mg 11/30/17 20:15 11/30/17 20:13 Dilaudid IVP 1 mg Q4 PRN Administration Pain, moderate (4-7) Clindamycin Phosphate 600 mg in 50 mls @ 50 mls/hr 12/01/17 01:00 12/01/17 09 :05 Cleocin In Normal Saline IVPB 50 mls/hr Q8 CLAUDIA Administration Protocol Piperacillin Sod/Tazobactam 50 mls @ 50 mls/hr 12/01/17 18:00 Sod 3.375 gm/ Sodium Chloride IVPB Q8@0200,1000,1800 CLAUDIA Protocol Methylprednisolone 30 mg 11/29/17 09:00 12/01/17 09:07 Solu-Medrol IVP 30 mg Q12 CLAUDIA Administration Ondansetron HCl 4 mg 11/30/17 19:29 11/30/17 19:46 Zofran Inj IVP 4 mg Q6 PRN Administration Nausea/Vomiting - Patient Studies Lab Studies: Microbiology Studies 11/28/17 18:00 Blood Culture - Preliminary Blood NO GROWTH AFTER 48 HOURS 11/28/17 10:50 MRSA Culture (Admit) - Final Naris MRSA NOT DETECTED Lab Studies 12/01/17 12/01/17 11/30/17 Range/Units 05:00 05:00 17:15 WBC 13.2 H (4.8-10.8) K/uL RBC 3.27 L (4.40-5.90) Mil/uL Hgb 12.0 D (12.0-18.0) g/dL Hct 36.0 (35.0-51.0) % MCV 110.3 H (80.0-94.0) fl MCH 36.7 H (27.0-31.0) pg MCHC 33.3 (33.0-37.0) g/dL RDW 14.0 (11.5-14.5) % Plt Count 157 (130-400) K/uL MPV 8.8 (7.2-11.7) fl Neut % (Auto) 92.1 H (50.0-75.0) % Lymph % (Auto) 1.9 L (20.0-40.0) % Cloud % (Auto) 5.8 (0.0-10.0) % Eos % (Auto) 0.0 (0.0-4.0) % Baso % (Auto) 0.2 (0.0-2.0) % Neut # 12.2 H (1.8-7.0) K/uL Lymph # 0.3 L (1.0-4.3) K/uL Cloud # 0.8 (0.0-0.8) K/uL Eos # 0.0 (0.0-0.7) K/uL Baso # 0.0 (0.0-0.2) K/uL Total Counted Cancelled Neutrophils % (Manual) Cancelled Band Neutrophils % Cancelled Lymphocytes % (Manual) Cancelled Reactive Lymphs % Cancelled Monocytes % (Manual) Cancelled Eosinophils % (Manual) Cancelled Basophils % (Manual) Cancelled Metamyelocytes % Cancelled Myelocytes % Cancelled Promyelocytes % Cancelled Blast Cells % Cancelled Plasma Cell % (Manual) Cancelled Nucleated RBC % Cancelled Hypersegmented Polys Cancelled Smudge Cells Cancelled Toxic Granulation Cancelled Dohle Bodies Cancelled Ammy Rods Cancelled Platelet Estimate Cancelled Plt Clumps, EDTA Cancelled Large Platelets Cancelled Giant Platelets Cancelled RBC Morphology Cancelled Polychromasia Cancelled Hypochromasia (manual) Cancelled Poikilocytosis (manual Cancelled Basophilic Stippling Cancelled Anisocytosis (manual) Cancelled Microcytosis (manual) Cancelled Macrocytosis (manual) Cancelled Spherocytes Cancelled Sickle Cells Cancelled Target Cells Cancelled Tear Drop Cells Cancelled Ovalocytes Cancelled Stomatocytes Cancelled Helmet Cells Cancelled [place] Bodies Cancelled Dylan Cells Cancelled Acanthocytes (Spur) Cancelled Rouleaux Cancelled Schistocytes Cancelled Sodium 136 (132-148) mmol/l Potassium 3.7 (3.6-5.0) MMOL/L Chloride 90 L (98-107) mmol/L Carbon Dioxide 34 H (22-30) mmol/L Anion Gap 16 (10-20) BUN 35 H (9-20) mg/dl Creatinine 0.7 L (0.8-1.5) mg/dl Est GFR ( Amer) > 60 Est GFR (Non-Af Amer) > 60 Random Glucose 165 H (75-110) mg/dL Calcium 9.4 (8.4-10.2) mg/dL Procalcitonin (0.19-0.49) NG/ML Fluid Source Pleural/thoracentesi Fluid Appearance Clear (CLEAR) Fluid WBC 52.0 (0.0-300.0) /mm3 Fluid RBC 450.0 H (0.0-0.0) /mm3 Fluid Tot Cell Count 100 H (0-0) Fluid Neutrophils 10.0 H (0-0) % Fluid Lymphocytes 49.0 H (0-0) % Fld Monocyte/Macrophag 41 H (0-0) % Fluid Glucose (NONE ESTABLISHED) mg/dL Fluid Total Protein (NONE ESTABLISHED) g/dL Fluid LDH (NONE ESTABLISHED) IU Fluid Comment Lt. yellow 11/30/17 11/30/17 11/30/17 Range/Units 17:15 17:15 04:25 WBC (4.8-10.8) K/uL RBC (4.40-5.90) Mil/uL Hgb (12.0-18.0) g/dL Hct (35.0-51.0) % MCV (80.0-94.0) fl MCH (27.0-31.0) pg MCHC (33.0-37.0) g/dL RDW (11.5-14.5) % Plt Count (130-400) K/uL MPV (7.2-11.7) fl Neut % (Auto) (50.0-75.0) % Lymph % (Auto) (20.0-40.0) % Cloud % (Auto) (0.0-10.0) % Eos % (Auto) (0.0-4.0) % Baso % (Auto) (0.0-2.0) % Neut # (1.8-7.0) K/uL Lymph # (1.0-4.3) K/uL Cloud # (0.0-0.8) K/uL Eos # (0.0-0.7) K/uL Baso # (0.0-0.2) K/uL Total Counted Neutrophils % (Manual) Band Neutrophils % Lymphocytes % (Manual) Reactive Lymphs % Monocytes % (Manual) Eosinophils % (Manual) Basophils % (Manual) Metamyelocytes % Myelocytes % Promyelocytes % Blast Cells % Plasma Cell % (Manual) Nucleated RBC % Hypersegmented Polys Smudge Cells Toxic Granulation Dohle Bodies Ammy Rods Platelet Estimate Plt Clumps, EDTA Large Platelets Giant Platelets RBC Morphology Polychromasia Hypochromasia (manual) Poikilocytosis (manual Basophilic Stippling Anisocytosis (manual) Microcytosis (manual) Macrocytosis (manual) Spherocytes Sickle Cells Target Cells Tear Drop Cells Ovalocytes Stomatocytes Helmet Cells [place] Bodies Dylan Cells Acanthocytes (Spur) Rouleaux Schistocytes Sodium (132-148) mmol/l Potassium (3.6-5.0) MMOL/L Chloride (98-107) mmol/L Carbon Dioxide (22-30) mmol/L Anion Gap (10-20) BUN (9-20) mg/dl Creatinine (0.8-1.5) mg/dl Est GFR ( Amer) Est GFR (Non-Af Amer) Random Glucose (75-110) mg/dL Calcium (8.4-10.2) mg/dL Procalcitonin 0.72 H (0.19-0.49) NG/ML Fluid Source Fluid Appearance (CLEAR) Fluid WBC (0.0-300.0) /mm3 Fluid RBC (0.0-0.0) /mm3 Fluid Tot Cell Count (0-0) Fluid Neutrophils (0-0) % Fluid Lymphocytes (0-0) % Fld Monocyte/Macrophag (0-0) % Fluid Glucose 151 (NONE ESTABLISHED) mg/dL Fluid Total Protein 3.3 (NONE ESTABLISHED) g/dL Fluid LDH 121 (NONE ESTABLISHED) IU Fluid Comment Laboratory Results - last 24 hr 11/30/17 11/30/17 11/30/17 04:25 17:15 17:15 WBC RBC Hgb Hct MCV MCH MCHC RDW Plt Count MPV Neut % (Auto) Lymph % (Auto) Cloud % (Auto) Eos % (Auto) Baso % (Auto) Neut # Lymph # Cloud # Eos # Baso # Total Counted Neutrophils % (Manual) Band Neutrophils % Lymphocytes % (Manual) Reactive Lymphs % Monocytes % (Manual) Eosinophils % (Manual) Basophils % (Manual) Metamyelocytes % Myelocytes % Promyelocytes % Blast Cells % Plasma Cell % (Manual) Nucleated RBC % Hypersegmented Polys Smudge Cells Toxic Granulation Dohle Bodies Ammy Rods Platelet Estimate Plt Clumps, EDTA Large Platelets Giant Platelets RBC Morphology Polychromasia Hypochromasia (manual) Poikilocytosis (manual Basophilic Stippling Anisocytosis (manual) Microcytosis (manual) Macrocytosis (manual) Spherocytes Sickle Cells Target Cells Tear Drop Cells Ovalocytes Stomatocytes Helmet Cells [place] Bodies Dylan Cells Acanthocytes (Spur) Rouleaux Schistocytes Sodium Potassium Chloride Carbon Dioxide Anion Gap BUN Creatinine Est GFR ( Amer) Est GFR (Non-Af Amer) Random Glucose Calcium Procalcitonin 0.72 H Fluid Source Fluid Appearance Fluid WBC Fluid RBC Fluid Tot Cell Count Fluid Neutrophils Fluid Lymphocytes Fld Monocyte/Macrophag Fluid Glucose 151 Fluid Total Protein 3.3 Fluid LDH 121 Fluid Comment 11/30/17 12/01/17 12/01/17 17:15 05:00 05:00 WBC 13.2 H RBC 3.27 L Hgb 12.0 D Hct 36.0 MCV 110.3 H MCH 36.7 H MCHC 33.3 RDW 14.0 Plt Count 157 MPV 8.8 Neut % (Auto) 92.1 H Lymph % (Auto) 1.9 L Cloud % (Auto) 5.8 Eos % (Auto) 0.0 Baso % (Auto) 0.2 Neut # 12.2 H Lymph # 0.3 L Cloud # 0.8 Eos # 0.0 Baso # 0.0 Total Counted Cancelled Neutrophils % (Manual) Cancelled Band Neutrophils % Cancelled Lymphocytes % (Manual) Cancelled Reactive Lymphs % Cancelled Monocytes % (Manual) Cancelled Eosinophils % (Manual) Cancelled Basophils % (Manual) Cancelled Metamyelocytes % Cancelled Myelocytes % Cancelled Promyelocytes % Cancelled Blast Cells % Cancelled Plasma Cell % (Manual) Cancelled Nucleated RBC % Cancelled Hypersegmented Polys Cancelled Smudge Cells Cancelled Toxic Granulation Cancelled Dohle Bodies Cancelled Ammy Rods Cancelled Platelet Estimate Cancelled Plt Clumps, EDTA Cancelled Large Platelets Cancelled Giant Platelets Cancelled RBC Morphology Cancelled Polychromasia Cancelled Hypochromasia (manual) Cancelled Poikilocytosis (manual Cancelled Basophilic Stippling Cancelled Anisocytosis (manual) Cancelled Microcytosis (manual) Cancelled Macrocytosis (manual) Cancelled Spherocytes Cancelled Sickle Cells Cancelled Target Cells Cancelled Tear Drop Cells Cancelled Ovalocytes Cancelled Stomatocytes Cancelled Helmet Cells Cancelled [place] Bodies Cancelled [place] Cells Cancelled Acanthocytes (Spur) Cancelled Rouleaux Cancelled Schistocytes Cancelled Sodium 136 Potassium 3.7 Chloride 90 L Carbon Dioxide 34 H Anion Gap 16 BUN 35 H Creatinine 0.7 L Est GFR ( Amer) > 60 Est GFR (Non-Af Amer) > 60 Random Glucose 165 H Calcium 9.4 Procalcitonin Fluid Source Pleural/thoracentesi Fluid Appearance Clear Fluid WBC 52.0 Fluid RBC 450.0 H Fluid Tot Cell Count 100 H Fluid Neutrophils 10.0 H Fluid Lymphocytes 49.0 H Fld Monocyte/Macrophag 41 H Fluid Glucose Fluid Total Protein Fluid LDH Fluid Comment Lt. yellow Critical Care Progress Note - Nutrition Nutrition: Nutrition Category Date Time Status Heart Healthy Diet [DIET] Diets 12/01/17 Breakfast Active Assessment/Plan - Assessment and Plan (Free Text) Assessment: A/P: 62 year old male admitted for right pleural effusion and pneumonia, s/p pigtail catheter placement. Pigtail catheter continues to drain straw colored fluid. He is hemodynamically stable and breathing better since drainage. Able to expectorate phlegm since placement of catheter. He is tolerating a regular diet. Cultures have been negative. Quantiferon pending. Pleural fluid culture is pending. Neuro: Alert awake and oriented. Cardio: Pacemaker, Systolic HF, Cardiology consult: Dr. Zamarripa noted and appreciated. Echo done on admission: LVEF: 45-50%, Systolic dysfunction, severe pulmonary HTN. Pts BP within acceptable limits, Hemodynamically stable. No pedal edema. Pulmonary: Right pleural effusion, PNA, Asthma/COPD : Pigtail catheter on right lung. On Zosyn/Clindnamycin, Solumedrol 30mg q12. Bronchodilators .Pulmonary Consult noted and appreciated. Repeat CT CHEST, V/Q scan as well due to pHTN. GI: Tolerating Heart Healthy diet /Integumentary: No issues. Endocrine: hyperglycemia, likely steroid induced. Monitor FSG. DVT Prophylaxis: Started on Heparin 12/01/17 Stable for transfer to telemetry. Case d/w polisher aluminum. Phong PGY2 <Darrell Khan V - Last Filed: 12/01/17 11:56> CCU Subjective - Physician Review Events Since Last Encounter (Free Text): 12/01/17 11:54 Patient is seen and examined at bedside.case discussed in am rounds. agree with plan of care as detailed in resident's note. CCU Objective - Vital Signs / Intake & Output Vital Signs (Last 4 hours): Vital Signs Temp Pulse Resp BP Pulse Ox 12/01/17 10:00 66 22 132/83 96 12/01/17 09:07 61 122/75 12/01/17 09:06 122/75 12/01/17 08:00 98.1 F 60 46 H 102/70 96 Intake and Output (Last 8hrs): Intake & Output 11/30/17 12/01/17 12/01/17 22:59 06:59 14:59 Intake Total 50 450 750 Output Total 3300 1650 200 Balance -3250 -1200 550 Intake: Intake, Piggyback 150 150 Oral 50 200 600 Tube Feeding 100 Output: Chest Tube Drainage 2000 750 Right Posterior Chest 2000 750 Urine 1300 900 200 Urine, Voided 1300 900 200 Other: # Voids Urine, Voided 1 # Bowel Movements 0 - Medications Active Medications: Active Medications Generic Name Dose Route Start Last Admin Trade Name Freq PRN Reason Stop Dose Admin Acetaminophen 650 mg 11/28/17 21:18 Tylenol 325mg Tab PO Q6H PRN Fever >100.4 F Albuterol Sulfate 2.5 mg 11/29/17 08:26 Albuterol 0.083% Inhal Vanesa (2.5 Mg/3 Ml) Ud INH RQ4 PRN Shortness of Breath Albuterol/Ipratropium 3 ml 11/29/17 12:00 01/30/18 11:26 Duoneb 3 Mg/0.5 Mg (3 Ml) Ud INH 3 ml RQID CLAUDIA Administration Heparin Sodium (Porcine) 5,000 units 12/01/17 10:32 12/01/17 11:45 Heparin SC 5,000 units Q8 CLAUDIA Administration Protocol Hydromorphone HCl 1 mg 11/30/17 20:15 11/30/17 20:13 Dilaudid IVP 1 mg Q4 PRN Administration Pain, moderate (4-7) Clindamycin Phosphate 600 mg in 50 mls @ 50 mls/hr 12/01/17 01:00 12/01/17 09 :05 Cleocin In Normal Saline IVPB 50 mls/hr Q8 [facility] Administration Protocol Piperacillin Sod/Tazobactam 50 mls @ 50 mls/hr 12/01/17 18:00 Sod 3.375 gm/ Sodium Chloride IVPB Q8@0200,1000,1800 [facility] Protocol Methylprednisolone 30 mg 11/29/17 09:00 12/01/17 09:07 Solu-Medrol IVP 30 mg Q12 CLAUDIA Administration Ondansetron HCl 4 mg 11/30/17 19:29 11/30/17 19:46 Zofran Inj IVP 4 mg Q6 PRN Administration Nausea/Vomiting - Patient Studies Lab Studies: Microbiology Studies 11/29/17 11:00 Gram Stain - Final Sputum Sputum Culture - Final NORMAL ORAL JNAEE 11/30/17 17:15 Body Fluid Culture - Preliminary Pleural Fluid NO GROWTH AFTER 24 HOURS 11/28/17 18:00 Blood Culture - Preliminary Blood NO GROWTH AFTER 48 HOURS 11/28/17 10:50 MRSA Culture (Admit) - Final Naris MRSA NOT DETECTED Lab Studies 12/01/17 12/01/17 11/30/17 Range/Units 05:00 05:00 17:15 WBC 13.2 H (4.8-10.8) K/uL RBC 3.27 L (4.40-5.90) Mil/uL Hgb 12.0 D (12.0-18.0) g/dL Hct 36.0 (35.0-51.0) % MCV 110.3 H (80.0-94.0) fl MCH 36.7 H (27.0-31.0) pg MCHC 33.3 (33.0-37.0) g/dL RDW 14.0 (11.5-14.5) % Plt Count 157 (130-400) K/uL MPV 8.8 (7.2-11.7) fl Neut % (Auto) 92.1 H (50.0-75.0) % Lymph % (Auto) 1.9 L (20.0-40.0) % Cloud % (Auto) 5.8 (0.0-10.0) % Eos % (Auto) 0.0 (0.0-4.0) % Baso % (Auto) 0.2 (0.0-2.0) % Neut # 12.2 H (1.8-7.0) K/uL Lymph # 0.3 L (1.0-4.3) K/uL Cloud # 0.8 (0.0-0.8) K/uL Eos # 0.0 (0.0-0.7) K/uL Baso # 0.0 (0.0-0.2) K/uL Total Counted Cancelled Neutrophils % (Manual) Cancelled Band Neutrophils % Cancelled Lymphocytes % (Manual) Cancelled Reactive Lymphs % Cancelled Monocytes % (Manual) Cancelled Eosinophils % (Manual) Cancelled Basophils % (Manual) Cancelled Metamyelocytes % Cancelled Myelocytes % Cancelled Promyelocytes % Cancelled Blast Cells % Cancelled Plasma Cell % (Manual) Cancelled Nucleated RBC % Cancelled Hypersegmented Polys Cancelled Smudge Cells Cancelled Toxic Granulation Cancelled Dohle Bodies Cancelled Ammy Rods Cancelled Platelet Estimate Cancelled Plt Clumps, EDTA Cancelled Large Platelets Cancelled Giant Platelets Cancelled RBC Morphology Cancelled Polychromasia Cancelled Hypochromasia (manual) Cancelled Poikilocytosis (manual Cancelled Basophilic Stippling Cancelled Anisocytosis (manual) Cancelled Microcytosis (manual) Cancelled Macrocytosis (manual) Cancelled Spherocytes Cancelled Sickle Cells Cancelled Target Cells Cancelled Tear Drop Cells Cancelled Ovalocytes Cancelled Stomatocytes Cancelled Helmet Cells Cancelled [place] Bodies Cancelled [place] Cells Cancelled Acanthocytes (Spur) Cancelled Rouleaux Cancelled Schistocytes Cancelled Sodium 136 (132-148) mmol/l Potassium 3.7 (3.6-5.0) MMOL/L Chloride 90 L (98-107) mmol/L Carbon Dioxide 34 H (22-30) mmol/L Anion Gap 16 (10-20) BUN 35 H (9-20) mg/dl Creatinine 0.7 L (0.8-1.5) mg/dl Est GFR ( Amer) > 60 Est GFR (Non-Af Amer) > 60 Random Glucose 165 H (75-110) mg/dL Calcium 9.4 (8.4-10.2) mg/dL Procalcitonin (0.19-0.49) NG/ML Fluid Source Pleural/thoracentesi Fluid Appearance Clear (CLEAR) Fluid WBC 52.0 (0.0-300.0) /mm3 Fluid RBC 450.0 H (0.0-0.0) /mm3 Fluid Tot Cell Count 100 H (0-0) Fluid Neutrophils 10.0 H (0-0) % Fluid Lymphocytes 49.0 H (0-0) % Fld Monocyte/Macrophag 41 H (0-0) % Fluid Glucose (NONE ESTABLISHED) mg/dL Fluid Total Protein (NONE ESTABLISHED) g/dL Fluid LDH (NONE ESTABLISHED) IU Fluid Comment Lt. yellow 11/30/17 11/30/17 11/30/17 Range/Units 17:15 17:15 04:25 WBC (4.8-10.8) K/uL RBC (4.40-5.90) Mil/uL Hgb (12.0-18.0) g/dL Hct (35.0-51.0) % MCV (80.0-94.0) fl MCH (27.0-31.0) pg MCHC (33.0-37.0) g/dL RDW (11.5-14.5) % Plt Count (130-400) K/uL MPV (7.2-11.7) fl Neut % (Auto) (50.0-75.0) % Lymph % (Auto) (20.0-40.0) % Cloud % (Auto) (0.0-10.0) % Eos % (Auto) (0.0-4.0) % Baso % (Auto) (0.0-2.0) % Neut # (1.8-7.0) K/uL Lymph # (1.0-4.3) K/uL Cloud # (0.0-0.8) K/uL Eos # (0.0-0.7) K/uL Baso # (0.0-0.2) K/uL Total Counted Neutrophils % (Manual) Band Neutrophils % Lymphocytes % (Manual) Reactive Lymphs % Monocytes % (Manual) Eosinophils % (Manual) Basophils % (Manual) Metamyelocytes % Myelocytes % Promyelocytes % Blast Cells % Plasma Cell % (Manual) Nucleated RBC % Hypersegmented Polys Smudge Cells Toxic Granulation Dohle Bodies Ammy Rods Platelet Estimate Plt Clumps, EDTA Large Platelets Giant Platelets RBC Morphology Polychromasia Hypochromasia (manual) Poikilocytosis (manual Basophilic Stippling Anisocytosis (manual) Microcytosis (manual) Macrocytosis (manual) Spherocytes Sickle Cells Target Cells Tear Drop Cells Ovalocytes Stomatocytes Helmet Cells [place] Bodies Dylan Cells Acanthocytes (Spur) Rouleaux Schistocytes Sodium (132-148) mmol/l Potassium (3.6-5.0) MMOL/L Chloride (98-107) mmol/L Carbon Dioxide (22-30) mmol/L Anion Gap (10-20) BUN (9-20) mg/dl Creatinine (0.8-1.5) mg/dl Est GFR ( Amer) Est GFR (Non-Af Amer) Random Glucose (75-110) mg/dL Calcium (8.4-10.2) mg/dL Procalcitonin 0.72 H (0.19-0.49) NG/ML Fluid Source Fluid Appearance (CLEAR) Fluid WBC (0.0-300.0) /mm3 Fluid RBC (0.0-0.0) /mm3 Fluid Tot Cell Count (0-0) Fluid Neutrophils (0-0) % Fluid Lymphocytes (0-0) % Fld Monocyte/Macrophag (0-0) % Fluid Glucose 151 (NONE ESTABLISHED) mg/dL Fluid Total Protein 3.3 (NONE ESTABLISHED) g/dL Fluid LDH 121 (NONE ESTABLISHED) IU Fluid Comment Laboratory Results - last 24 hr 11/30/17 11/30/17 11/30/17 04:25 17:15 17:15 WBC RBC Hgb Hct MCV MCH MCHC RDW Plt Count MPV Neut % (Auto) Lymph % (Auto) Cloud % (Auto) Eos % (Auto) Baso % (Auto) Neut # Lymph # Cloud # Eos # Baso # Total Counted Neutrophils % (Manual) Band Neutrophils % Lymphocytes % (Manual) Reactive Lymphs % Monocytes % (Manual) Eosinophils % (Manual) Basophils % (Manual) Metamyelocytes % Myelocytes % Promyelocytes % Blast Cells % Plasma Cell % (Manual) Nucleated RBC % Hypersegmented Polys Smudge Cells Toxic Granulation Dohle Bodies Ammy Rods Platelet Estimate Plt Clumps, EDTA Large Platelets Giant Platelets RBC Morphology Polychromasia Hypochromasia (manual) Poikilocytosis (manual Basophilic Stippling Anisocytosis (manual) Microcytosis (manual) Macrocytosis (manual) Spherocytes Sickle Cells Target Cells Tear Drop Cells Ovalocytes Stomatocytes Helmet Cells [place] Bodies Dylan Cells Acanthocytes (Spur) Rouleaux Schistocytes Sodium Potassium Chloride Carbon Dioxide Anion Gap BUN Creatinine Est GFR ( Amer) Est GFR (Non-Af Amer) Random Glucose Calcium Procalcitonin 0.72 H Fluid Source Fluid Appearance Fluid WBC Fluid RBC Fluid Tot Cell Count Fluid Neutrophils Fluid Lymphocytes Fld Monocyte/Macrophag Fluid Glucose 151 Fluid Total Protein 3.3 Fluid LDH 121 Fluid Comment 11/30/17 12/01/17 12/01/17 17:15 05:00 05:00 WBC 13.2 H RBC 3.27 L Hgb 12.0 D Hct 36.0 MCV 110.3 H MCH 36.7 H MCHC 33.3 RDW 14.0 Plt Count 157 MPV 8.8 Neut % (Auto) 92.1 H Lymph % (Auto) 1.9 L Cloud % (Auto) 5.8 Eos % (Auto) 0.0 Baso % (Auto) 0.2 Neut # 12.2 H Lymph # 0.3 L Cloud # 0.8 Eos # 0.0 Baso # 0.0 Total Counted Cancelled Neutrophils % (Manual) Cancelled Band Neutrophils % Cancelled Lymphocytes % (Manual) Cancelled Reactive Lymphs % Cancelled Monocytes % (Manual) Cancelled Eosinophils % (Manual) Cancelled Basophils % (Manual) Cancelled Metamyelocytes % Cancelled Myelocytes % Cancelled Promyelocytes % Cancelled Blast Cells % Cancelled Plasma Cell % (Manual) Cancelled Nucleated RBC % Cancelled Hypersegmented Polys Cancelled Smudge Cells Cancelled Toxic Granulation Cancelled Dohle Bodies Cancelled Ammy Rods Cancelled Platelet Estimate Cancelled Plt Clumps, EDTA Cancelled Large Platelets Cancelled Giant Platelets Cancelled RBC Morphology Cancelled Polychromasia Cancelled Hypochromasia (manual) Cancelled Poikilocytosis (manual Cancelled Basophilic Stippling Cancelled Anisocytosis (manual) Cancelled Microcytosis (manual) Cancelled Macrocytosis (manual) Cancelled Spherocytes Cancelled Sickle Cells Cancelled Target Cells Cancelled Tear Drop Cells Cancelled Ovalocytes Cancelled Stomatocytes Cancelled Helmet Cells Cancelled [place] Bodies Cancelled [place] Cells Cancelled Acanthocytes (Spur) Cancelled Rouleaux Cancelled Schistocytes Cancelled Sodium 136 Potassium 3.7 Chloride 90 L Carbon Dioxide 34 H Anion Gap 16 BUN 35 H Creatinine 0.7 L Est GFR ( Amer) > 60 Est GFR (Non-Af Amer) > 60 Random Glucose 165 H Calcium 9.4 Procalcitonin Fluid Source Pleural/thoracentesi Fluid Appearance Clear Fluid WBC 52.0 Fluid RBC 450.0 H Fluid Tot Cell Count 100 H Fluid Neutrophils 10.0 H Fluid Lymphocytes 49.0 H Fld Monocyte/Macrophag 41 H Fluid Glucose Fluid Total Protein Fluid LDH Fluid Comment Lt. yellow Critical Care Progress Note - Nutrition Nutrition: Nutrition Category Date Time Status Heart Healthy Diet [DIET] Diets 12/01/17 Breakfast Active
--- NOTE | 2017-12-01 13:39 | CT ---
PROCEDURE: CT Chest without contrast HISTORY: Pleural effusion COMPARISON: Plain radiographs performed earlier the same day. TECHNIQUE: Contiguous axial images were obtained through the chest without intravenous contrast enhancement. Sagittal and coronal reconstructions were performed. Radiation dose (DLP): 394.56 mGy-cm. This CT exam was performed using one or more of the following dose reduction techniques: Automated exposure control, adjustment of the mA and/or kV according to patient size, and/or use of iterative reconstruction technique. FINDINGS: LUNGS: There is dense consolidation in the lower lobes, worse on the right and consolidative changes in the right middle lobe and apical posterior segment of the left upper lobe. MEDIASTINUM: The heart is normal in size. No pericardial effusion. There are extensive atherosclerotic aortic and coronary artery calcifications. No pathologic lymphadenopathy. PLEURA: There is a small right apical pneumothorax. The right chest tube terminates in the costophrenic angle. No left pneumothorax. There are small pleural effusions, larger on the left. BONES: There is diffuse bone demineralization and multilevel degenerative disc disease. There is an age indeterminate but likely chronic superior endplate compression fracture deformity in the T12 vertebral body. UPPER ABDOMEN: Both adrenal glands are. Normal there is small amount of fluid in the left upper quadrant. OTHER FINDINGS: None. IMPRESSION: 1. Right chest tube is stable in position and terminates in the costophrenic angle. Small right apical pneumothorax. 2. Extensive consolidation in both lower lobes, worse on the right and consolidative changes in the right middle lobe and apical posterior segment of the left upper lobe. 3. Small bilateral pleural effusions, larger on the left.
[2017-12-01] MEDS: Piperacillin/Tazobact 3.375 GM in Sodium Chloride 0.9% 50 ML IVPB SCH (17:07)
[2017-12-02] MEDS: Clindamycin 600mg/50ml NS 600 MG/50 ML BAG IVPB SCH ×3 (00:01→17:24)
[2017-12-02] MEDS: Piperacillin/Tazobact 3.375 GM in Sodium Chloride 0.9% 50 ML IVPB SCH ×3 (01:08→17:25)
[2017-12-02 01:50] LABS: TB ANTIGEN MINUS NIL <0.00 IU/mL
[2017-12-02 05:34] LABS: HEMOGLOBIN 11.1 g/dL (12.0-18.0); MEAN CELL VOLUME 109.5 fl (80.0-94.0); MEAN CORPUSCULAR HEMOGLOBIN 36.9 pg (27.0-31.0); MEAN CORPUSCULAR HGB CONC 33.7 g/dL (33.0-37.0); RBC 2.99 Mil/uL (4.40-5.90); RED CELL DISTRIBUTION WIDTH 14.1 % (11.5-14.5); WHITE BLOOD COUNT 7.3 K/uL (4.8-10.8)
[2017-12-02 05:48] LABS: BLOOD UREA NITROGEN 35 mg/dl (9-20); CALCIUM 9.2 mg/dL (8.4-10.2); GFR AFRICAN-AMERICAN > 60; GFR NON-AFRICAN AMERICAN > 60
--- NOTE | 2017-12-02 06:32 | PQF GENQUE ---
This form is a permanent part of the medical record 12/02/17 Dr. Sterling, Please clarify the appropriate diagnosis for this patient after work-up. Is CHF ruled in or ruled out? Documentation of acute on chronic diastolic CHF. Progress note of cardiology done on 12/01 has the following documentation: The patient probably did not have CHF as the LVEF is good and the elevated BNP was probably from the dilatation of the right heart. Clarification of your documentation is requested to better reflect the severity of illness and intensity of treatment of your patient. Indicators present [] Specify: [] [] Specify: [] [] Specify: [] [] Specify: [] Location in the medical record that reflects the above clinical findings: [] Treatment Provided: [] PHYSICIAN'S RESPONSE Based on your medical judgment of the clinical indicators outlined above please clarify the following: [] Practitioner response [] If unable to determine, please check the box, sign and date. Present On Admission (POA) Indicator: [] Present at the time of admission [] Not present at the time of admission [] Clinically Undetermined In responding to this query, please exercise your independent professional judgment. The fact that a question is asked does not imply that any particular answer is desired or expected. Thank you for your clarification on this documentation. If you have any questions please call:ext [phone] * Thank you, Lamar Greene RN [facility]
--- NOTE | 2017-12-02 06:38 | PQF GENQUE ---
This form is a permanent part of the medical record 12/02/17 Dr. Sterling, After work-up would you please clarify the Etiology of the Pleural Effusion if known. Documentation of pleural effusion. S/P thoracentesis/ Pigtail catheter insertion. Please clarify type/underlying cause of pleural effusion: - Bacterial (please specify causative organism if known) - Congestive Heart Failure - Hemothorax - Hydropneumothorax - Malignant (please specify primary malignancy site if known) - Pneumonia - Systemic lupus erythematosus - Other type not specified above (please specify) - Clinically unable to determine - Unknown Clarification of your documentation is requested to better reflect the severity of illness and intensity of treatment of your patient. Indicators present [] Specify: [] [] Specify: [] [] Specify: [] [] Specify: [] Location in the medical record that reflects the above clinical findings: [] Treatment Provided: [] PHYSICIAN'S RESPONSE Based on your medical judgment of the clinical indicators outlined above please clarify the following: [] Practitioner response [] If unable to determine, please check the box, sign and date. Present On Admission (POA) Indicator: [] Present at the time of admission [] Not present at the time of admission [] Clinically Undetermined In responding to this query, please exercise your independent professional judgment. The fact that a question is asked does not imply that any particular answer is desired or expected. Thank you for your clarification on this documentation. If you have any questions please call:ext [phone] * Thank you, Lamar Greene RN [facility]
[2017-12-02] MEDS: Albuterol-Ipratrop 3 mg / 0.5 (3 ml) UD INH SCH ×4 (08:03→19:34)
--- NOTE | 2017-12-02 08:26 | CP.PCM.PN ---
<Venkat Rogers - Last Filed: 12/02/17 11:50> Subjective - Date & Time of Evaluation Date of Evaluation: 12/02/17 Time of Evaluation: 07:15 - Subjective Subjective: Patient seen and examined bedside. Patient reports feeling better today and c/o right side chest pressure over the chest tube that it was alleviated with pain medications. Reports less SOB since admission. Using O2 NC 98%. Denies chest pain now, n,v, abd pain. Improving pedal edema. Right pigtail chest tube 1550 ml drainage straw color -On Zosyn/Clinda Objective - Vital Signs/Intake and Output Vital Signs (last 24 hours): Temp Pulse Resp BP Pulse Ox 98.1 F 61 30 H 133/77 100 12/02/17 08:00 12/02/17 08:00 12/02/17 08:00 12/02/17 08:00 12/02/17 08:00 Intake and Output: 12/02/17 12/02/17 06:59 18:59 Intake Total 100 Output Total 1200 Balance -1100 - Medications Medications: Current Medications Acetaminophen (Tylenol 325mg Tab) 650 mg PO Q6H PRN PRN Reason: Fever >100.4 F Albuterol Sulfate (Albuterol 0.083% Inhal Vanesa (2.5 Mg/3 Ml) Ud) 2.5 mg INH RQ4 PRN PRN Reason: Shortness of Breath Albuterol/Ipratropium (Duoneb 3 Mg/0.5 Mg (3 Ml) Ud) 3 ml INH RQID [facility] Last Admin: 12/02/17 08:03 Dose: 3 ml Heparin Sodium (Porcine) (Heparin) 5,000 units SC Q8 [facility] PRN Reason: Protocol Last Admin: 12/02/17 00:06 Dose: 5,000 units Hydromorphone HCl (Dilaudid) 1 mg IVP Q4 PRN PRN Reason: Pain, moderate (4-7) Last Admin: 12/02/17 05:53 Dose: 1 mg Clindamycin Phosphate (Cleocin In Normal Saline) 600 mg in 50 mls @ 50 mls/hr IVPB Q8 [facility] PRN Reason: Protocol Last Admin: 12/02/17 00:01 Dose: 50 mls/hr Piperacillin Sod/Tazobactam (Sod 3.375 gm/ Sodium Chloride) 50 mls @ 50 mls/hr IVPB Q8@0200,1000,1800 [facility] PRN Reason: Protocol Last Admin: 12/02/17 01:08 Dose: 50 mls/hr Methylprednisolone (Solu-Medrol) 30 mg IVP Q12 [facility] Last Admin: 12/01/17 20:54 Dose: 30 mg Ondansetron HCl (Zofran Inj) 4 mg IVP Q6 PRN PRN Reason: Nausea/Vomiting Last Admin: 11/30/17 19:46 Dose: 4 mg - Labs Labs: 12/02/17 04:50 12/02/17 04:50 PT 15.7 Seconds (9.8-13.1) H 11/30/17 04:25 INR 1.4 (0.9-1.2) H 11/30/17 04:25 APTT 29.1 Seconds (25.6-37.1) 11/28/17 18:09 - Constitutional Appears: Non-toxic, No Acute Distress - Head Exam Head Exam: ATRAUMATIC, NORMOCEPHALIC - Eye Exam Eye Exam: Normal appearance - ENT Exam ENT Exam: Mucous Membranes Moist - Neck Exam Neck Exam: Normal Inspection - Respiratory Exam Respiratory Exam: Decreased Breath Sounds, Rhonchi, Wheezes. absent: Rales Additional comments: Decreased breath sound right lung base. rhonchi and wheezing upper ant and upper post chest Right pigtail chest tube 1550 ml drainage straw color - Cardiovascular Exam Cardiovascular Exam: REGULAR RHYTHM, +S1, +S2 - GI/Abdominal Exam GI & Abdominal Exam: Soft, Normal Bowel Sounds. absent: Tenderness - Extremities Exam Extremities Exam: Pedal Edema Additional comments: no pedal edema left leg. mild pedal edema right leg 1+ improving - Neurological Exam Neurological Exam: Alert, Awake, Oriented x3 - Psychiatric Exam Psychiatric exam: Normal Affect, Normal Mood - Skin Skin Exam: absent: Petechiae, Urticaria Assessment and Plan - Assessment and Plan (Free Text) Plan: 62 yo ,m, PMhx/o Asthma/COPD, HTN, Hx of Bilateral Avascular Necrosis of Femur, Anxiety, Hx of Hodgkin Lymphoma, Complete Heart Block s/p pacemeker 11/2016 admitted for CHF exacerbation, PNA, Plerural effusion. Assessment/Plan 1) Pleural effusion -transudate unspecified -CT Chest CTchest: Large pleural efusion with almost complete right lower lobe atelectasis and less extensive right middle and upper lobe atelectasis, moderate left effusion atelectatic changes greatest at the left base, extensive atherosclerotic disease, prior granulomatous diesease. right empyema is suspected, suggest thoracentesis -s/p Pigtail chest tube yesterday and draignage 750 ml -f/u pleural fluids results.so far seems transudate -ID consult appreciated: Azythro/Rocephin switched to Zosyn/Clindamycin. -Human Resources Coordinator consult appreciated: persists infiltrated RLL after throacenteis. may need bronchoscopy 2) Diastolic CHF -not on acute exacerbation as per Fire Investigation Lieutenant note -Orthopnea, SCOTT -ProBnP 1030- > 4490 11/2017 . may be secondary to right side heart dilation as per concrete smoother -Hx/o complete AV block and s/p pascemaker 2016 -Echo: EF: 45-50 %. Mild-mod Ao stenosis, Mod mitral regurgitation. Sev tricuspid regurg. Sev Pulmonary HTN -Lasix 40 mg IV daily -Fire Investigation Lieutenant consult appreciated 3) Hypokalemia -secondary to diuretics -K 3.3 -Kdur 40 once. -f/u CMP 4) CAP -Patient found to have a large right pleural effusion with infiltrate and atelectatic changes. -s/p Rocephin/Azithromycin -Pulmonology consult appreciated:persists infiltrated RLL after throacenteis. may need bronchoscopy -ID consutl appreciated: Abx switched to Zosyn/Clindamycin day 2 today 5) Sepsis -SIRS+ Lung infiltrates on admission -resolving -ID Consult appreciated: Zosyn/ Clindamycin 6) COPD exacerbation -CXR right pleural effusion and right lobe atelectasia -continue douneb Q4h PRN -solumedrol 30 mg IV BID -Human Resources Coordinator consult appreciated 7) Hx/o Hodgking Lymphoma -s/p treatment chemotherapy/radiotherapy -pt does not what agents were used 8) HTN -controlled, medication held at this time 9) DVT Prophylaxis -Heparin 5000 U Sc TID -pt with pigtail chest tube <Carlos Enrique Ballesteros - Last Filed: 12/04/17 06:48> Objective - Vital Signs/Intake and Output Vital Signs (last 24 hours): Temp Pulse Resp BP Pulse Ox 98.3 F 61 18 163/64 H 99 12/04/17 05:23 12/04/17 05:23 12/04/17 05:23 12/04/17 05:23 12/04/17 05:23 Intake and Output: 12/03/17 12/04/17 18:59 06:59 Intake Total 350 270 Output Total 661 570 Balance -311 -300 - Medications Medications: Current Medications Acetaminophen (Tylenol 325mg Tab) 650 mg PO Q6H PRN PRN Reason: Fever >100.4 F Albuterol Sulfate (Albuterol 0.083% Inhal Vanesa (2.5 Mg/3 Ml) Ud) 2.5 mg INH RQ4 PRN PRN Reason: Shortness of Breath Last Admin: 12/03/17 04:40 Dose: 2.5 mg Albuterol/Ipratropium (Duoneb 3 Mg/0.5 Mg (3 Ml) Ud) 3 ml INH RQID [facility] Last Admin: 12/03/17 19:47 Dose: 3 ml Ascorbic Acid (Vitamin C 500 Mg Tab) 500 mg PO DAILY [facility] Famotidine (Pepcid) 20 mg PO BID [facility] Last Admin: 12/03/17 18:17 Dose: 20 mg Heparin Sodium (Porcine) (Heparin) 5,000 units SC Q8 [facility] PRN Reason: Protocol Last Admin: 12/04/17 00:49 Dose: 5,000 units Hydromorphone HCl (Dilaudid) 1 mg IVP Q4 PRN PRN Reason: Pain, moderate (4-7) Last Admin: 12/02/17 05:53 Dose: 1 mg Clindamycin Phosphate (Cleocin In Normal Saline) 600 mg in 50 mls @ 50 mls/hr IVPB Q8 [facility] PRN Reason: Protocol Last Admin: 12/04/17 00:42 Dose: 50 mls/hr Piperacillin Sod/Tazobactam (Sod 3.375 gm/ Sodium Chloride) 50 mls @ 50 mls/hr IVPB Q8@0200,1000,1800 [facility] PRN Reason: Protocol Last Admin: 12/04/17 01:54 Dose: 50 mls/hr Ondansetron HCl (Zofran Inj) 4 mg IVP Q6 PRN PRN Reason: Nausea/Vomiting Last Admin: 11/30/17 19:46 Dose: 4 mg Saccharomyces Boulardii (Florastor) 250 mg PO BID [facility] Last Admin: 12/03/17 18:16 Dose: 250 mg - Labs Labs: 12/04/17 04:24 12/04/17 04:24 PT 15.7 Seconds (9.8-13.1) H 11/30/17 04:25 INR 1.4 (0.9-1.2) H 11/30/17 04:25 APTT 29.1 Seconds (25.6-37.1) 11/28/17 18:09 Attending/Attestation - Attestation I have personally seen and examined this patient.: Yes I have fully participated in the care of the patient.: Yes I have reviewed all pertinent clinical information, including history, physical exam and plan: Yes
--- NOTE | 2017-12-02 09:13 | CP.PCM.PN ---
Subjective - Date & Time of Evaluation Date of Evaluation: 12/02/17 Time of Evaluation: 09:05 - Subjective Subjective: Seen on morning rounds in the ICU. Continues to have significant drainage from his chest tube, but down from 2L to 750cc's, and now 500cc's over the last 24 hrs. Fluid was transudative by chemistry, gram stain negative and culture negative at 24 hrs. AFB smear was negative as well. Large area of consolidation seen in the RLL on CT scan of the chest. Likely scattered areas of post-RT fibrosis noted in both lungs. No cough or sputum production, no chest pain. Dependant edema has decreased significantly. No cyanosis. Extremities are warm to the touch. Neck is supple and trachea midline, no JVD. Chest tube site has a clean and dry dressing covering. Dullness to percussion noted over the right lower lobe, no subcut emphysema. Coarse rales and rhonchi are present in the lower lobes, R>>L. No wheezes. Heart sounds are distant and rhythm regular. Abdomen is soft and non-tender. WBC 7.3, Hgb 11.1 and Plts 128. Potassium and chloride are both low and CO2 is elevated (?contraction). Continue present approach with antibiotic coverage for CAP. Maintain chest tube drainage, hopefully continuing decrease in drainage. Small pneumo is present on the right, will monitor. Daily CXR to check on expected resolution of the RLL infiltrate. Explained possibility of flexible bronchoscopy with biopsy if infiltrate persists. Needs to be mobilized OOB, and may be transferred out of ICU. Objective - Vital Signs/Intake and Output Vital Signs (last 24 hours): Temp Pulse Resp BP Pulse Ox 98.1 F 61 30 H 133/77 100 12/02/17 08:00 12/02/17 08:00 12/02/17 08:00 12/02/17 08:00 12/02/17 08:00 Intake and Output: 12/01/17 12/02/17 23:59 11:59 Intake Total 100 Output Total 500 700 Balance -400 -700 - Medications Medications: Current Medications Acetaminophen (Tylenol 325mg Tab) 650 mg PO Q6H PRN PRN Reason: Fever >100.4 F Albuterol Sulfate (Albuterol 0.083% Inhal Vanesa (2.5 Mg/3 Ml) Ud) 2.5 mg INH RQ4 PRN PRN Reason: Shortness of Breath Albuterol/Ipratropium (Duoneb 3 Mg/0.5 Mg (3 Ml) Ud) 3 ml INH RQID [facility] Last Admin: 12/02/17 08:03 Dose: 3 ml Heparin Sodium (Porcine) (Heparin) 5,000 units SC Q8 [facility] PRN Reason: Protocol Last Admin: 12/02/17 00:06 Dose: 5,000 units Hydromorphone HCl (Dilaudid) 1 mg IVP Q4 PRN PRN Reason: Pain, moderate (4-7) Last Admin: 12/02/17 05:53 Dose: 1 mg Clindamycin Phosphate (Cleocin In Normal Saline) 600 mg in 50 mls @ 50 mls/hr IVPB Q8 [facility] PRN Reason: Protocol Last Admin: 12/02/17 00:01 Dose: 50 mls/hr Piperacillin Sod/Tazobactam (Sod 3.375 gm/ Sodium Chloride) 50 mls @ 50 mls/hr IVPB Q8@0200,1000,1800 [facility] PRN Reason: Protocol Last Admin: 12/02/17 01:08 Dose: 50 mls/hr Methylprednisolone (Solu-Medrol) 30 mg IVP Q12 [facility] Last Admin: 12/01/17 20:54 Dose: 30 mg Ondansetron HCl (Zofran Inj) 4 mg IVP Q6 PRN PRN Reason: Nausea/Vomiting Last Admin: 11/30/17 19:46 Dose: 4 mg - Labs Labs: 12/02/17 04:50 12/02/17 04:50 PT 15.7 Seconds (9.8-13.1) H 11/30/17 04:25 INR 1.4 (0.9-1.2) H 11/30/17 04:25 APTT 29.1 Seconds (25.6-37.1) 11/28/17 18:09 Assessment and Plan (1) Pleural effusion Status: Acute (2) Asthma Status: Chronic (3) Atelectasis Status: Acute (4) Dependent edema Status: Acute (5) Hyperglycemia Status: Acute
--- NOTE | 2017-12-02 10:07 | CP.PCM.PN ---
Subjective - Date & Time of Evaluation Date of Evaluation: 12/02/17 Time of Evaluation: 09:30 - Subjective Subjective: NO CHEST PAIN LESS SOB Objective - Vital Signs/Intake and Output Vital Signs (last 24 hours): Temp Pulse Resp BP Pulse Ox 98.1 F 61 30 H 133/77 100 12/02/17 08:00 12/02/17 08:00 12/02/17 08:00 12/02/17 08:00 12/02/17 08:00 Intake and Output: 12/02/17 12/02/17 06:59 18:59 Intake Total 100 Output Total 1200 Balance -1100 - Medications Medications: Current Medications Acetaminophen (Tylenol 325mg Tab) 650 mg PO Q6H PRN PRN Reason: Fever >100.4 F Albuterol Sulfate (Albuterol 0.083% Inhal Vanesa (2.5 Mg/3 Ml) Ud) 2.5 mg INH RQ4 PRN PRN Reason: Shortness of Breath Albuterol/Ipratropium (Duoneb 3 Mg/0.5 Mg (3 Ml) Ud) 3 ml INH RQID [facility] Last Admin: 12/02/17 08:03 Dose: 3 ml Heparin Sodium (Porcine) (Heparin) 5,000 units SC Q8 [facility] PRN Reason: Protocol Last Admin: 12/02/17 00:06 Dose: 5,000 units Hydromorphone HCl (Dilaudid) 1 mg IVP Q4 PRN PRN Reason: Pain, moderate (4-7) Last Admin: 12/02/17 05:53 Dose: 1 mg Clindamycin Phosphate (Cleocin In Normal Saline) 600 mg in 50 mls @ 50 mls/hr IVPB Q8 [facility] PRN Reason: Protocol Last Admin: 12/02/17 00:01 Dose: 50 mls/hr Piperacillin Sod/Tazobactam (Sod 3.375 gm/ Sodium Chloride) 50 mls @ 50 mls/hr IVPB Q8@0200,1000,1800 [facility] PRN Reason: Protocol Last Admin: 12/02/17 01:08 Dose: 50 mls/hr Methylprednisolone (Solu-Medrol) 30 mg IVP Q12 [facility] Last Admin: 12/01/17 20:54 Dose: 30 mg Ondansetron HCl (Zofran Inj) 4 mg IVP Q6 PRN PRN Reason: Nausea/Vomiting Last Admin: 11/30/17 19:46 Dose: 4 mg - Labs Labs: 12/02/17 04:50 12/02/17 04:50 PT 15.7 Seconds (9.8-13.1) H 11/30/17 04:25 INR 1.4 (0.9-1.2) H 11/30/17 04:25 APTT 29.1 Seconds (25.6-37.1) 11/28/17 18:09 - Respiratory Exam Additional comments: DECREASED BREATH SOUNDS RIGHT BASE RALES AND RONCHI BOTH BASES - Extremities Exam Additional comments: LE EDEMA HAS ESSENTIALLY CLEARED - Additional Findings Additional findings: CT BILATERAL CONSOLIDATION GREATEST AT RIGHT LOWER LOBE CXR SHOWS A AND V LEADS IN GOOD POSITION WITH ATRIAL LEAD IN RA WITH THE TIP CURVED UPWARDS THE PACEMAKER WAS INTERROGATED AT BEDSIDE YESTERDAY. THE VENTRICULAR LEAD IS WORKING WELL WITH GOOD PACING AND SENSING PARAMETERS. THE ATRIAL LEAD PARAMETERS WERE NOT VERY GOOD. THIS WAS DISCUSSED BY ME AND DR Barak ALVAREZ AND THE PACEMAKER WILL AUTOMATICALLY SWITCH TO VVI PACING IF THERE IS A PROBLEM WITH THE ATRIAL LEAD AND THIS IS MORE THAN SUFFICIENT FOR THIS PATIENT(THE PACEMAKER WAS INSERTED IN NOVEMBER OF 2016 FOR [facility]). RIGHT CT TUBE WITH CONTINUED DRAINAGE Assessment and Plan - Assessment and Plan (Free Text) Assessment: BILATEL PNEUMONIA, GREATEST AT RLL COPD HODGKINS DISEASE TREATMENT IN THE PAST SSS WITH PERMANENT PACEMAKER Plan: CONTINUE O2, ANTIBIOTICS, BRONCHODILATORS, STEROIDS AND CT TUBE DRAINAGE OK TO TRANSFER OUT OF ICU
[2017-12-02] MEDS: MethylPREDNISolone 40 mg Vial IVP SCH ×2 (10:47→21:26)
[2017-12-02] MEDS ORDERED: Potassium Chloride 20 mEq ER Tab PO ONE (11:00)
--- NOTE | 2017-12-02 12:07 | RAD ---
HISTORY: Chest tube in the right pleural space. COMPARISON: Multiple serial examinations preceding the most recent study: November 30, 2017. Time of the most recent examination: 17:40 FINDINGS: LUNGS: Improved aeration of the right lung/ right lower lobe. Dense consolidative changes right lower lobe similar to that seen previously family for differences in technique. PLEURA: Chest tube in satisfactory position in the right pleural space. Small left pleural effusion persists. Small right apical pneumothorax. The finding is marked on the study for review. CARDIOVASCULAR: No radiographic findings to suggest acute or significant cardiovascular disease. Position/ configuration of pacemaker device: Satisfactory. OSSEOUS STRUCTURES: No significant abnormalities. VISUALIZED UPPER ABDOMEN: Normal. OTHER FINDINGS: None. IMPRESSION: Chest tube in satisfactory position in the right pleural space. Small right apical pneumothorax. No appreciable right pleural effusion, small left pleural effusion. Consolidative changes with improved aeration, expansion of the right lung.
--- NOTE | 2017-12-02 13:53 | RAD ---
HISTORY: rt pig tail chest tube COMPARISON: Multiple serial examinations preceding the most recent study: December 01, 2017. FINDINGS: LUNGS: Dense consolidative changes right lower lobe approximately stable. Suggestion of right upper lobe infiltrate. PLEURA: Stable small apical pneumothorax. CARDIOVASCULAR: No radiographic findings to suggest acute or significant cardiovascular disease. Position/ configuration of pacemaker device: Satisfactory. OSSEOUS STRUCTURES: No significant abnormalities. VISUALIZED UPPER ABDOMEN: Normal. OTHER FINDINGS: None. IMPRESSION: New left upper lobe infiltrate. Stable findings right john thorax.
[2017-12-03] MEDS: Clindamycin 600mg/50ml NS 600 MG/50 ML BAG IVPB SCH ×3 (01:28→18:11)
[2017-12-03] MEDS: Piperacillin/Tazobact 3.375 GM in Sodium Chloride 0.9% 50 ML IVPB SCH ×3 (01:28→18:21)
[2017-12-03 05:15] LABS: HEMOGLOBIN 11.1 g/dL (12.0-18.0); MEAN CELL VOLUME 109.4 fl (80.0-94.0); MEAN CORPUSCULAR HEMOGLOBIN 36.7 pg (27.0-31.0); MEAN CORPUSCULAR HGB CONC 33.6 g/dL (33.0-37.0); RBC 3.03 Mil/uL (4.40-5.90); RED CELL DISTRIBUTION WIDTH 14.1 % (11.5-14.5); WHITE BLOOD COUNT 7.6 K/uL (4.8-10.8)
[2017-12-03 05:26] LABS: BLOOD UREA NITROGEN 32 mg/dl (9-20); CALCIUM 9.6 mg/dL (8.4-10.2); GFR AFRICAN-AMERICAN > 60; GFR NON-AFRICAN AMERICAN > 60
[2017-12-03] MEDS: Albuterol-Ipratrop 3 mg / 0.5 (3 ml) UD INH SCH ×4 (08:38→19:47)
--- NOTE | 2017-12-03 09:27 | CP.PCM.PN ---
Subjective - Date & Time of Evaluation Date of Evaluation: 12/03/17 Time of Evaluation: 09:23 - Subjective Subjective: Remains afebrile with stable vital signs. Only occasional cough w/o sputum production. Chest x-ray this morning shows persistent small apical pneumothorax and RLL infiltrate. The infiltrate may have some degree of improvement, but this could be technique. There is still a good amount of pleural fluid drainage over the lasr 24hrs ( 795mls). No new data from pleural fluid exam. Seated up in bed, just finished breakfast. Pharynx is pink and moist. Neck is supple and trachea midline. Large dressing applied to the posterior right chest. Pale, clear yellow fluid draining in chest tube. Coarse rales over the RLL region and rhonchi bilaterally (R>>L). No bronchial breathing or wheezing. Heart sounds are distant with regular rhythm. No cyanosis or dependant edema. Will continue current antibiotic regimen. Monitor fluid drainage and repeat CXR i8n the AM. If no further improvement will schedule flexible bronchoscopy for BAL and TBLB. Add Florastor, H2 sal and ascorbic acid to regimen. Objective - Vital Signs/Intake and Output Vital Signs (last 24 hours): Temp Pulse Resp BP Pulse Ox 98.4 F 60 18 131/61 98 12/03/17 08:00 12/03/17 08:00 12/03/17 08:00 12/03/17 08:00 12/03/17 08:00 Intake and Output: 12/02/17 12/03/17 23:59 11:59 Intake Total 100 150 Output Total 795 400 Balance -695 -250 - Medications Medications: Current Medications Acetaminophen (Tylenol 325mg Tab) 650 mg PO Q6H PRN PRN Reason: Fever >100.4 F Albuterol Sulfate (Albuterol 0.083% Inhal Vanesa (2.5 Mg/3 Ml) Ud) 2.5 mg INH RQ4 PRN PRN Reason: Shortness of Breath Last Admin: 12/03/17 04:40 Dose: 2.5 mg Albuterol/Ipratropium (Duoneb 3 Mg/0.5 Mg (3 Ml) Ud) 3 ml INH RQID [facility] Last Admin: 12/03/17 08:38 Dose: 3 ml Heparin Sodium (Porcine) (Heparin) 5,000 units SC Q8 [facility] PRN Reason: Protocol Last Admin: 12/03/17 01:29 Dose: 5,000 units Hydromorphone HCl (Dilaudid) 1 mg IVP Q4 PRN PRN Reason: Pain, moderate (4-7) Last Admin: 12/02/17 05:53 Dose: 1 mg Clindamycin Phosphate (Cleocin In Normal Saline) 600 mg in 50 mls @ 50 mls/hr IVPB Q8 [facility] PRN Reason: Protocol Last Admin: 12/03/17 01:28 Dose: 50 mls/hr Piperacillin Sod/Tazobactam (Sod 3.375 gm/ Sodium Chloride) 50 mls @ 50 mls/hr IVPB Q8@0200,1000,1800 [facility] PRN Reason: Protocol Last Admin: 12/03/17 01:28 Dose: 50 mls/hr Methylprednisolone (Solu-Medrol) 30 mg IVP Q12 [facility] Last Admin: 12/02/17 21:26 Dose: 30 mg Ondansetron HCl (Zofran Inj) 4 mg IVP Q6 PRN PRN Reason: Nausea/Vomiting Last Admin: 11/30/17 19:46 Dose: 4 mg - Labs Labs: 12/03/17 04:40 12/03/17 04:40 PT 15.7 Seconds (9.8-13.1) H 11/30/17 04:25 INR 1.4 (0.9-1.2) H 11/30/17 04:25 APTT 29.1 Seconds (25.6-37.1) 11/28/17 18:09 Assessment and Plan (1) Pleural effusion Status: Acute (2) Asthma Status: Chronic (3) Atelectasis Status: Acute (4) Dependent edema Status: Acute (5) Hyperglycemia Status: Acute
[2017-12-03] MEDS ORDERED: Sodium Chloride 3% for Inhalation 4 ML VIAL.NEB IH PRN (09:40)
[2017-12-03] MEDS ORDERED: Ascorbic Acid 500 mg/5 ml Liq(50 ml) PO SCH (09:45)
--- NOTE | 2017-12-03 10:07 | CP.PCM.PN ---
Subjective - Date & Time of Evaluation Date of Evaluation: 12/03/17 Time of Evaluation: 09:00 - Subjective Subjective: NO CHEST PAIN BREATHING A LITTLE BETTER COUGH WITHOUT SPUTUM Objective - Vital Signs/Intake and Output Vital Signs (last 24 hours): Temp Pulse Resp BP Pulse Ox 98.4 F 60 18 131/61 98 12/03/17 08:00 12/03/17 08:00 12/03/17 08:00 12/03/17 08:00 12/03/17 08:00 Intake and Output: 12/03/17 12/03/17 06:59 18:59 Intake Total 150 Output Total 845 Balance -695 - Medications Medications: Current Medications Acetaminophen (Tylenol 325mg Tab) 650 mg PO Q6H PRN PRN Reason: Fever >100.4 F Albuterol Sulfate (Albuterol 0.083% Inhal Vanesa (2.5 Mg/3 Ml) Ud) 2.5 mg INH RQ4 PRN PRN Reason: Shortness of Breath Last Admin: 12/03/17 04:40 Dose: 2.5 mg Albuterol/Ipratropium (Duoneb 3 Mg/0.5 Mg (3 Ml) Ud) 3 ml INH RQID CLAUDIA Last Admin: 12/03/17 08:38 Dose: 3 ml Ascorbic Acid (Vitamin C Liq) 500 mg PO DAILY [facility]UD[facility] Famotidine (Pepcid) 20 mg PO BID [facility]UDIA Heparin Sodium (Porcine) (Heparin) 5,000 units SC Q8 CLAUDIA PRN Reason: Protocol Last Admin: 12/03/17 09:40 Dose: 5,000 units Hydromorphone HCl (Dilaudid) 1 mg IVP Q4 PRN PRN Reason: Pain, moderate (4-7) Last Admin: 12/02/17 05:53 Dose: 1 mg Clindamycin Phosphate (Cleocin In Normal Saline) 600 mg in 50 mls @ 50 mls/hr IVPB Q8 CLAUDIA PRN Reason: Protocol Last Admin: 12/03/17 09:35 Dose: 50 mls/hr Piperacillin Sod/Tazobactam (Sod 3.375 gm/ Sodium Chloride) 50 mls @ 50 mls/hr IVPB Q8@0200,1000,1800 [facility] PRN Reason: Protocol Last Admin: 12/03/17 09:43 Dose: 50 mls/hr Methylprednisolone 30 mg/ (Sodium Chloride) 50 mls @ 100 mls/hr IV DAILY [facility] Ondansetron HCl (Zofran Inj) 4 mg IVP Q6 PRN PRN Reason: Nausea/Vomiting Last Admin: 11/30/17 19:46 Dose: 4 mg Saccharomyces Boulardii (Florastor) 250 mg PO BID CLAUDIA - Labs Labs: 12/03/17 04:40 12/03/17 04:40 PT 15.7 Seconds (9.8-13.1) H 11/30/17 04:25 INR 1.4 (0.9-1.2) H 11/30/17 04:25 APTT 29.1 Seconds (25.6-37.1) 11/28/17 18:09 - Respiratory Exam Respiratory Exam: Decreased Breath Sounds, Rales, Rhonchi - Cardiovascular Exam Cardiovascular Exam: REGULAR RHYTHM, +S1, +S2 - Extremities Exam Additional comments: NO LE EDEMA - Additional Findings Additional findings: EKG MOMITOR AV SEQUENTIAL PACING CXR ABOUT THE SAME PULMONARY NOTE SEEN [address] DRAINAGE LAST 24 HOURS Assessment and Plan - Assessment and Plan (Free Text) Assessment: PNEUMONIA WITH RIGHT PLEURAL EFFUSION COPD WITH MODERATE PULMONARY HYPERTENSION SSS WITH PACEMAKER Plan: CONTINUE O2, ANTIBIOTICS, BRONCHODILATORS, STEROIDS AND CT DRAINAGE
--- NOTE | 2017-12-03 10:18 | RAD ---
HISTORY: pneumonia COMPARISON: Chest radiograph dated 12/02/2017. FINDINGS: LUNGS: Slightly improved aeration involving the right mid/ lower lung consolidative changes. Increased conspicuity of left upper lobe infiltrate. PLEURA: No significant pleural effusion identified, no pneumothorax apparent. CARDIOVASCULAR: Left subclavian access to lead pacemaker redemonstrated. Atherosclerotic aortic calcifications. Cardiomediastinal silhouette stably enlarged. OSSEOUS STRUCTURES: No significant abnormalities. VISUALIZED UPPER ABDOMEN: Normal. OTHER FINDINGS: Right basilar pigtail chest tube, unchanged. IMPRESSION: Increased conspicuity of left upper lobe infiltrate. Slightly improved aeration involving the right mid/ lower lung consolidative changes. No other significant interval changes.
--- NOTE | 2017-12-03 10:21 | CP.PCM.PN ---
<Reginaldo Hermosillo - Last Filed: 12/03/17 15:21> Subjective - Date & Time of Evaluation Date of Evaluation: 12/03/17 Time of Evaluation: 10:44 - Subjective Subjective: Patient seen and examined bedside. Patient expresses discontent with delay of transfer out of ICU. Patient desires to use bathroom without being exposed. Patient also wants to increase mobility. Patient reports improvement and c/o right side chest pressure over the chest tube that it was alleviated with pain medications. Reports less SOB since admission. Using O2 NC 98%. Denies chest pain, nausea,vomiting, abdominal pain. Improving pedal edema. Right pigtail chest tube 795 ml drainage straw colored. On Zosyn/Clinda day 3 Objective - Vital Signs/Intake and Output Vital Signs (last 24 hours): Temp Pulse Resp BP Pulse Ox 98.4 F 60 18 131/61 98 12/03/17 08:00 12/03/17 08:00 12/03/17 08:00 12/03/17 08:00 12/03/17 08:00 Intake and Output: 12/03/17 12/03/17 06:59 18:59 Intake Total 150 Output Total 845 Balance -695 - Medications Medications: Current Medications Acetaminophen (Tylenol 325mg Tab) 650 mg PO Q6H PRN PRN Reason: Fever >100.4 F Albuterol Sulfate (Albuterol 0.083% Inhal Vanesa (2.5 Mg/3 Ml) Ud) 2.5 mg INH RQ4 PRN PRN Reason: Shortness of Breath Last Admin: 12/03/17 04:40 Dose: 2.5 mg Albuterol/Ipratropium (Duoneb 3 Mg/0.5 Mg (3 Ml) Ud) 3 ml INH RQID CLAUDIA Last Admin: 12/03/17 08:38 Dose: 3 ml Ascorbic Acid (Vitamin C Liq) 500 mg PO DAILY [facility] Famotidine (Pepcid) 20 mg PO BID CLAUDIA Heparin Sodium (Porcine) (Heparin) 5,000 units SC Q8 CLAUDIA PRN Reason: Protocol Last Admin: 12/03/17 09:40 Dose: 5,000 units Hydromorphone HCl (Dilaudid) 1 mg IVP Q4 PRN PRN Reason: Pain, moderate (4-7) Last Admin: 12/02/17 05:53 Dose: 1 mg Clindamycin Phosphate (Cleocin In Normal Saline) 600 mg in 50 mls @ 50 mls/hr IVPB Q8 CLAUDIA PRN Reason: Protocol Last Admin: 12/03/17 09:35 Dose: 50 mls/hr Piperacillin Sod/Tazobactam (Sod 3.375 gm/ Sodium Chloride) 50 mls @ 50 mls/hr IVPB Q8@0200,1000,1800 [facility] PRN Reason: Protocol Last Admin: 12/03/17 09:43 Dose: 50 mls/hr Methylprednisolone 30 mg/ (Sodium Chloride) 50 mls @ 100 mls/hr IV DAILY [facility] Ondansetron HCl (Zofran Inj) 4 mg IVP Q6 PRN PRN Reason: Nausea/Vomiting Last Admin: 11/30/17 19:46 Dose: 4 mg Saccharomyces Boulardii (Florastor) 250 mg PO BID CLAUDIA - Labs Labs: 12/03/17 04:40 12/03/17 04:40 PT 15.7 Seconds (9.8-13.1) H 11/30/17 04:25 INR 1.4 (0.9-1.2) H 11/30/17 04:25 APTT 29.1 Seconds (25.6-37.1) 11/28/17 18:09 - Constitutional Appears: No Acute Distress - Head Exam Head Exam: ATRAUMATIC, NORMAL INSPECTION, NORMOCEPHALIC - Eye Exam Eye Exam: Normal appearance - ENT Exam ENT Exam: Mucous Membranes Moist - Neck Exam Neck Exam: Full ROM, Normal Inspection - Respiratory Exam Respiratory Exam: Decreased Breath Sounds, Rhonchi, Wheezes. absent: Rales Additional comments: Right pigtail chest tube 795 ml drainage straw colored - Cardiovascular Exam Cardiovascular Exam: REGULAR RHYTHM, +S1, +S2 - GI/Abdominal Exam GI & Abdominal Exam: Soft, Normal Bowel Sounds. absent: Distended, Tenderness - Extremities Exam Extremities Exam: Pedal Edema Additional comments: right lower extremity +1 improved - Neurological Exam Neurological Exam: Alert, Awake, Oriented x3 - Skin Skin Exam: absent: Rash Assessment and Plan - Assessment and Plan (Free Text) Assessment: 62 y/o man w/ pmh Asthma/COPD, HTN, Hx of Bilateral Avascular Necrosis of Femur , Anxiety, Hx of Hodgkin Lymphoma, Complete Heart Block s/p pacemeker 11/2016 admitted for CHF exacerbation, PNA, Plerural effusion. Plan: 1) Pleural effusion -transudate unspecified -CT Chest CTchest: Large pleural efusion with almost complete right lower lobe atelectasis and less extensive right middle and upper lobe atelectasis, moderate left effusion atelectatic changes greatest at the left base, extensive atherosclerotic disease, prior granulomatous diesease. right empyema is suspected, suggest thoracentesis -s/p Pigtail chest tube 11/30/2017 -drained 795 cc -f/u pleural fluids results.so far seems transudate -ID consult appreciated, Zosyn/Clindamycin. -Pulmonology consult appreciated: persists infiltrated RLL after throacenteis. Considering flexible bronchoscopy 2) Diastolic CHF -not on acute exacerbation as per Trading Specialist note -Orthopnea, SCOTT -ProBnP 1030- > 4490 11/2017 . may be secondary to right side heart dilation as per sodium chlorite operator -Hx/o complete AV block and s/p pacemaker 2016 -Echo: EF: 45-50 %. Mild-mod Aortic stenosis, Mod mitral regurgitation. Severe tricuspid regurg. Severe Pulmonary HTN -Lasix 40 mg IV daily -Trading Specialist consult appreciated 3) Hypokalemia - resolved -resolved -K 4.1 -s/p dur 40 once. -f/u CMP 4) CAP -Patient found to have a large right pleural effusion with infiltrate and atelectatic changes. -s/p Rocephin/Azithromycin -Pulmonology consult appreciated:persists infiltrated RLL after throacenteis. may need bronchoscopy -ID consult appreciated: Zosyn/Clindamycin day 3 5) Sepsis -SIRS+ Lung infiltrates on admission -resolving -ID Consult appreciated: Zosyn/ Clindamycin 6) COPD exacerbation -CXR right pleural effusion and right lobe atelectasia -continue douneb Q4h PRN -solumedrol 30 mg IV BID -Adjunct Physics Instructor consult appreciated 7) Hx/o Hodgking Lymphoma -s/p treatment chemotherapy/radiotherapy -pt does not know what agents were used 8) HTN -controlled, medication held at this time 9) Diet -soft heart healthy diet -building energy consultant referral ordered -uses dentures 10) DVT Prophylaxis -Heparin 5000 U SC Q8h -pt with pigtail chest tube 11) deconditioning -PT/OT consulted and following patient dispo: pending transfer to [facility] <Cj Sterling - Last Filed: 12/07/17 06:47> Objective - Vital Signs/Intake and Output Vital Signs (last 24 hours): Temp Pulse Resp BP Pulse Ox 98 F 67 18 161/63 H 97 12/07/17 04:58 12/07/17 04:58 12/07/17 04:58 12/07/17 04:58 12/07/17 04:58 Intake and Output: 12/06/17 12/07/17 18:59 06:59 Intake Total 300 Output Total 1600 Balance -1300 - Medications Medications: Current Medications Acetaminophen (Tylenol 325mg Tab) 650 mg PO Q6H PRN PRN Reason: Fever >100.4 F Albuterol Sulfate (Albuterol 0.083% Inhal Vanesa (2.5 Mg/3 Ml) Ud) 2.5 mg INH RQ4 PRN PRN Reason: Shortness of Breath Last Admin: 12/03/17 04:40 Dose: 2.5 mg Albuterol/Ipratropium (Duoneb 3 Mg/0.5 Mg (3 Ml) Ud) 3 ml INH RQID [facility] Last Admin: 12/06/17 20:25 Dose: 3 ml Ascorbic Acid (Vitamin C 500 Mg Tab) 500 mg PO DAILY [facility] Last Admin: 12/06/17 09:50 Dose: 500 mg Enalapril Maleate (Vasotec) 5 mg PO DAILY [facility] Last Admin: 12/06/17 09:50 Dose: 5 mg Famotidine (Pepcid) 20 mg PO BID [facility] Last Admin: 12/06/17 17:05 Dose: 20 mg Heparin Sodium (Porcine) (Heparin) 5,000 units SC Q8 [facility]UDIA PRN Reason: Protocol Last Admin: 12/07/17 00:00 Dose: 5,000 units Hydromorphone HCl (Dilaudid) 1 mg IVP Q4 PRN PRN Reason: Pain, moderate (4-7) Last Admin: 12/02/17 05:53 Dose: 1 mg Clindamycin Phosphate (Cleocin In Normal Saline) 600 mg in 50 mls @ 50 mls/hr IVPB Q8 [facility]UDIA PRN Reason: Protocol Last Admin: 12/07/17 00:02 Dose: 50 mls/hr Piperacillin Sod/Tazobactam (Sod 3.375 gm/ Sodium Chloride) 100 mls @ 100 mls/ hr IVPB Q8@0200,1000,1800 [facility] PRN Reason: Protocol Last Admin: 12/07/17 01:06 Dose: 100 mls/hr Multivitamins/Minerals (Therapeutic-M Tab) 1 tab PO DAILY [facility] Last Admin: 12/06/17 09:50 Dose: 1 tab Ondansetron HCl (Zofran Inj) 4 mg IVP Q6 PRN PRN Reason: Nausea/Vomiting Last Admin: 11/30/17 19:46 Dose: 4 mg Saccharomyces Boulardii (Florastor) 250 mg PO BID [facility] Last Admin: 12/06/17 17:05 Dose: 250 mg - Labs Labs: 12/06/17 07:10 12/07/17 05:20 PT 15.7 Seconds (9.8-13.1) H 11/30/17 04:25 INR 1.4 (0.9-1.2) H 11/30/17 04:25 APTT 29.1 Seconds (25.6-37.1) 11/28/17 18:09 Attending/Attestation - Attestation I have personally seen and examined this patient.: Yes I have fully participated in the care of the patient.: Yes I have reviewed all pertinent clinical information, including history, physical exam and plan: Yes
[2017-12-03] MEDS ORDERED: MethylPREDNISolone 40 mg Vial IVP ONE (10:30)
[2017-12-03] MEDS: Saccharomyces Boulardi 250 mg Cap PO SCH ×2 (13:10→18:16)
--- NOTE | 2017-12-03 15:32 | CP.CCUPN ---
CCU Subjective - Physician Review Subjective (Free Text): Uneventful night, awake and alert, tolerated OOB to chair, denies any chest discomfort nor any dyspnea on exertion, CT remains in place. Approx 795 ml output last 24H. Other vitals and I/O's reviewed. No fever spikes last 24-48H. ROS: No other pertinent negs or positives on 10+ system review. PMSFH: All other Nursing and physician documentation reviewed to date; no new pertinent info noted relevant to current medical problems. CXR: (my interp)- no new chnages, RLL infiltartive disease remains, pigtail CT intact, no PTX. IMPRESSION / MAJOR PROBLEMS NOW: 1. Acute Resp insufficiency 2 R effusion / pneumonitis ( atypical etiology/ organisms) 2. Lactic Acidosis 2 Hypoxemia- resolved 3. Chronic Disease Anemia- stable 4. Azotemia / Dehydration, r/o THEE: resolved. 5. h/o Hodgkins Lymphoma- in remission PLAN: 1. Ongoing empiric abx coverage. 2. Chest tube still has significant daily drainage. Last fluid analysis indicates transudative etiology. ECHO results reviewed: 45% EF, Mod MR, , Severe TR, Pulm HTN. 3. Patient tolerating Physical Therapy well, able to ambulate around and within ICU with good tolerance. 4. Indeterminate QFT Gold testing: repeat?? 5. Otherwise, stable awaiting Tele bed, could be downgraded to regular med / surg for further mgmt if no further interventions anticipated from Cardiac / Pulm perspective. CCU Objective - Vital Signs / Intake & Output Vital Signs (Last 4 hours): Vital Signs Pulse 12/03/17 13:00 88 Intake and Output (Last 8hrs): Intake & Output 12/03/17 12/03/17 12/03/17 06:59 14:59 22:59 Intake Total 150 200 Output Total 400 200 Balance -250 0 Intake: Intake, Piggyback 150 200 Output: Urine 400 200 Urine, Voided 400 200 - Physical Exam Head: Positive for: Atraumatic, Normocephalic Pupils: Positive for: PERRL Extroacular Muscles: Positive for: EOMI Conjunctiva: Positive for: Normal Ears: Positive for: Normal Mouth: Positive for: Moist Mucous Membranes Nose (External): Positive for: Atraumatic Neck: Positive for: Normal Range of Motion Respiratory/Chest: Positive for: Decreased Breath Sounds, Rales (right mid lung and base, ant/posteriorly. ). Negative for: Accessory Muscle Use, Wheezes, Tachypneic Cardiovascular: Positive for: Regular Rate and Rhythm, Murmurs Abdomen: Positive for: Normal Bowel Sounds. Negative for: Tenderness, Distention, Mass/Organomegaly Lower Extremity: Positive for: NORMAL PULSES. Negative for: Edema, CALF TENDERNESS, Cyanosis Neurological: Positive for: GCS=15, Speech Normal Skin: Positive for: Warm, Dry. Negative for: Rashes Psychiatric: Positive for: Alert, Oriented x 3, Normal Concentration, Normal Mood - Medications Active Medications: Active Medications Generic Name Dose Route Start Last Admin Trade Name Freq PRN Reason Stop Dose Admin Acetaminophen 650 mg 11/28/17 21:18 Tylenol 325mg Tab PO Q6H PRN Fever >100.4 F Albuterol Sulfate 2.5 mg 11/29/17 08:26 12/03/17 04:40 Albuterol 0.083% Inhal Vanesa (2.5 Mg/3 Ml) Ud INH 2.5 mg RQ4 PRN Administration Shortness of Breath Albuterol/Ipratropium 3 ml 11/29/17 12:00 12/03/17 15:27 Duoneb 3 Mg/0.5 Mg (3 Ml) Ud INH 3 ml RQID CLAUDIA Administration Ascorbic Acid 500 mg 12/04/17 09:00 Vitamin C 500 Mg Tab PO DAILY [facility]UDIA Famotidine 20 mg 12/03/17 09:45 12/03/17 13:13 Pepcid PO 20 mg BID CLAUDIA Administration Heparin Sodium (Porcine) 5,000 units 12/01/17 10:32 12/03/17 09:40 Heparin SC 5,000 units Q8 CLAUDIA Administration Protocol Hydromorphone HCl 1 mg 11/30/17 20:15 12/02/17 05:53 Dilaudid IVP 1 mg Q4 PRN Administration Pain, moderate (4-7) Clindamycin Phosphate 600 mg in 50 mls @ 50 mls/hr 12/01/17 01:00 12/03/17 09 :35 Cleocin In Normal Saline IVPB 50 mls/hr Q8 CLAUDIA Administration Protocol Piperacillin Sod/Tazobactam 50 mls @ 50 mls/hr 12/01/17 18:00 12/03/17 09:43 Sod 3.375 gm/ Sodium Chloride IVPB 50 mls/hr Q8@0200,1000,1800 CLAUDIA Administration Protocol Ondansetron HCl 4 mg 11/30/17 19:29 11/30/17 19:46 Zofran Inj IVP 4 mg Q6 PRN Administration Nausea/Vomiting Saccharomyces Geraldoi 250 mg 12/03/17 09:45 12/03/17 13:10 Florastor PO 250 mg BID CLAUDIA Administration - Patient Studies Lab Studies: Microbiology Studies 11/30/17 17:15 Gram Stain - Final Pleural Fluid Body Fluid Culture - Preliminary NO GROWTH AFTER 3 DAYS 11/28/17 18:00 Blood Culture - Preliminary Blood NO GROWTH AFTER 4 DAYS Lab Studies 12/03/17 12/03/17 Range/Units 04:40 04:40 WBC 7.6 (4.8-10.8) K/uL RBC 3.03 L (4.40-5.90) Mil/uL Hgb 11.1 L (12.0-18.0) g/dL Hct 33.1 L (35.0-51.0) % MCV 109.4 H (80.0-94.0) fl MCH 36.7 H (27.0-31.0) pg MCHC 33.6 (33.0-37.0) g/dL RDW 14.1 (11.5-14.5) % Plt Count 130 (130-400) K/uL Sodium 133 (132-148) mmol/l Potassium 4.1 (3.6-5.0) MMOL/L Chloride 91 L (98-107) mmol/L Carbon Dioxide 38 H (22-30) mmol/L Anion Gap 8 L (10-20) BUN 32 H (9-20) mg/dl Creatinine 0.6 L (0.8-1.5) mg/dl Est GFR ( Amer) > 60 Est GFR (Non-Af Amer) > 60 Random Glucose 166 H (75-110) mg/dL Calcium 9.6 (8.4-10.2) mg/dL Laboratory Results - last 24 hr 12/03/17 12/03/17 04:40 04:40 WBC 7.6 RBC 3.03 L Hgb 11.1 L Hct 33.1 L MCV 109.4 H MCH 36.7 H MCHC 33.6 RDW 14.1 Plt Count 130 Sodium 133 Potassium 4.1 Chloride 91 L Carbon Dioxide 38 H Anion Gap 8 L BUN 32 H Creatinine 0.6 L Est GFR ( Amer) > 60 Est GFR (Non-Af Amer) > 60 Random Glucose 166 H Calcium 9.6 Radiology Interpretations (Free Text): see above Review of Systems - Review of Systems All systems: reviewed and no additional remarkable complaints except (as above) Critical Care Progress Note - Nutrition Nutrition: Nutrition Category Date Time Status Heart Healthy Diet [DIET] Diets 12/01/17 Breakfast Active Regular Diet [DIET] Diets 12/03/17 Dinner Active
[2017-12-04] MEDS: Clindamycin 600mg/50ml NS 600 MG/50 ML BAG IVPB SCH ×3 (00:42→17:23)
[2017-12-04] MEDS: Piperacillin/Tazobact 3.375 GM in Sodium Chloride 0.9% 50 ML IVPB SCH ×3 (01:54→17:06)
[2017-12-04 06:19] LABS: BLOOD UREA NITROGEN 27 mg/dl (9-20); CALCIUM 9.7 mg/dL (8.4-10.2); GFR AFRICAN-AMERICAN > 60; GFR NON-AFRICAN AMERICAN > 60
[2017-12-04 06:23] LABS: HEMOGLOBIN 11.9 g/dL (12.0-18.0); MEAN CELL VOLUME 107.8 fl (80.0-94.0); MEAN CORPUSCULAR HGB CONC 34.3 g/dL (33.0-37.0); RBC 3.21 Mil/uL (4.40-5.90); WHITE BLOOD COUNT 9.7 K/uL (4.8-10.8)
--- NOTE | 2017-12-04 08:03 | CP.PCM.PN ---
<Reginaldo Hermosillo - Last Filed: 12/04/17 13:03> Subjective - Date & Time of Evaluation Date of Evaluation: 12/04/17 Time of Evaluation: 08:03 - Subjective Subjective: Patient seen and examined bedside. Patient is in better spirits since transfer out of ICU. Patient participating in PT. Patient reports improvement and c/o right side chest pressure over the chest tube that it was alleviated with pain medications. Reports less SOB since admission. Using O2 98% NC 2L. Denies chest pain, nausea,vomiting, abdominal pain. Pedal edema resolving. Right pigtail chest tube 580 ml drainage straw colored. On Zosyn/Clinda day 4 Objective - Vital Signs/Intake and Output Vital Signs (last 24 hours): Temp Pulse Resp BP Pulse Ox 98.3 F 61 18 163/64 H 99 12/04/17 05:23 12/04/17 05:23 12/04/17 05:23 12/04/17 05:23 12/04/17 05:23 Intake and Output: 12/04/17 12/04/17 06:59 18:59 Intake Total 270 Output Total 570 Balance -300 - Medications Medications: Current Medications Acetaminophen (Tylenol 325mg Tab) 650 mg PO Q6H PRN PRN Reason: Fever >100.4 F Albuterol Sulfate (Albuterol 0.083% Inhal Vanesa (2.5 Mg/3 Ml) Ud) 2.5 mg INH RQ4 PRN PRN Reason: Shortness of Breath Last Admin: 12/03/17 04:40 Dose: 2.5 mg Albuterol/Ipratropium (Duoneb 3 Mg/0.5 Mg (3 Ml) Ud) 3 ml INH RQID [facility] Last Admin: 12/03/17 19:47 Dose: 3 ml Ascorbic Acid (Vitamin C 500 Mg Tab) 500 mg PO DAILY [facility] Famotidine (Pepcid) 20 mg PO BID [facility] Last Admin: 12/03/17 18:17 Dose: 20 mg Heparin Sodium (Porcine) (Heparin) 5,000 units SC Q8 [facility] PRN Reason: Protocol Last Admin: 12/04/17 00:49 Dose: 5,000 units Hydromorphone HCl (Dilaudid) 1 mg IVP Q4 PRN PRN Reason: Pain, moderate (4-7) Last Admin: 12/02/17 05:53 Dose: 1 mg Clindamycin Phosphate (Cleocin In Normal Saline) 600 mg in 50 mls @ 50 mls/hr IVPB Q8 [facility] PRN Reason: Protocol Last Admin: 12/04/17 00:42 Dose: 50 mls/hr Piperacillin Sod/Tazobactam (Sod 3.375 gm/ Sodium Chloride) 50 mls @ 50 mls/hr IVPB Q8@0200,1000,1800 [facility] PRN Reason: Protocol Last Admin: 12/04/17 01:54 Dose: 50 mls/hr Ondansetron HCl (Zofran Inj) 4 mg IVP Q6 PRN PRN Reason: Nausea/Vomiting Last Admin: 11/30/17 19:46 Dose: 4 mg Saccharomyces Boulardii (Florastor) 250 mg PO BID [facility] Last Admin: 12/03/17 18:16 Dose: 250 mg - Labs Labs: 12/04/17 04:24 12/04/17 04:24 PT 15.7 Seconds (9.8-13.1) H 11/30/17 04:25 INR 1.4 (0.9-1.2) H 11/30/17 04:25 APTT 29.1 Seconds (25.6-37.1) 11/28/17 18:09 - Constitutional Appears: No Acute Distress - Head Exam Head Exam: ATRAUMATIC, NORMAL INSPECTION, NORMOCEPHALIC - Eye Exam Eye Exam: Normal appearance - ENT Exam ENT Exam: Mucous Membranes Moist - Neck Exam Neck Exam: Full ROM, Normal Inspection. absent: Tenderness - Respiratory Exam Respiratory Exam: Decreased Breath Sounds, Rhonchi, Wheezes. absent: Rales, Respiratory Distress Additional comments: Right pigtail chest tube 580 ml drainage straw colored - Cardiovascular Exam Cardiovascular Exam: REGULAR RHYTHM, +S1, +S2 - GI/Abdominal Exam GI & Abdominal Exam: Soft, Normal Bowel Sounds. absent: Distended, Tenderness - Extremities Exam Extremities Exam: absent: Calf Tenderness, Pedal Edema, Tenderness Additional comments: pedal edema right lower extremity resolved - Neurological Exam Neurological Exam: Alert, Awake, Oriented x3 - Skin Skin Exam: absent: Rash Assessment and Plan - Assessment and Plan (Free Text) Assessment: 62 y/o man w/ pmh Asthma/COPD, HTN, Hx of Bilateral Avascular Necrosis of Femur , Anxiety, Hx of Hodgkin Lymphoma, Complete Heart Block s/p pacemeker 11/2016 admitted for CHF exacerbation, PNA, Plerural effusion. Plan: 1) Pleural effusion -transudate unspecified -CT Chest CTchest: Large pleural effusion with almost complete right lower lobe atelectasis and less extensive right middle and upper lobe atelectasis, moderate left effusion atelectatic changes greatest at the left base, extensive atherosclerotic disease, prior granulomatous diesease. right empyema is suspected, suggest thoracentesis -s/p Pigtail chest tube 11/30/2017 -today drained 580 cc -pleural fluids results, transudate -ID consult, Dr. Chung, recommendations appreciated; Zosyn/Clindamycin. -Pulmonology consult appreciated: persists infiltrated RLL after thoracocenteis. Considering flexible bronchoscopy 2) Chronic reduced ejection CHF -not on acute exacerbation as per Coating Operator note -Orthopnea, SCOTT -ProBnP 1030- > 4490 11/2017 . 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 Mild-mod Aortic stenosis, Mod mitral regurgitation. Severe tricuspid regurg. Severe Pulmonary HTN -Lasix 40 mg IV daily -Coating Operator consult, Dr. Zamarripa, recommendations appreciated 3) Hypokalemia - resolved -resolved -K 4.0 -s/p dur 40 once. -f/u CMP 4) CAP -Patient found to have a large right pleural effusion with infiltrate and atelectatic changes. -s/p Rocephin/Azithromycin -Pulmonology consult appreciated:persists infiltrated RLL after throacenteis. may need bronchoscopy -ID consult appreciated: Zosyn/Clindamycin day 4 5) Sepsis -SIRS+ Lung infiltrates on admission -resolving -ID Consult appreciated: Zosyn/ Clindamycin 6) COPD exacerbation -CXR right pleural effusion and right lobe atelectasia -continue douneb Q4h PRN -solumedrol 30 mg IV BID -Demonstrator Knitting consult appreciated 7) Hx/o Hodgking Lymphoma -s/p treatment chemotherapy/radiotherapy -pt does not know what agents were used 8) HTN -controlled, medication held at this time 9) Diet -soft heart healthy diet -vulnerability researcher referral ordered -uses dentures 10) DVT Prophylaxis -Heparin 5000 U SC Q8h -pt with pigtail chest tube 11) deconditioning -PT/OT consulted and following patient <Carlos Enrique Ballesteros - Last Filed: 12/07/17 07:01> Objective - Vital Signs/Intake and Output Vital Signs (last 24 hours): Temp Pulse Resp BP Pulse Ox 98 F 67 18 161/63 H 97 12/07/17 04:58 12/07/17 04:58 12/07/17 04:58 12/07/17 04:58 12/07/17 04:58 Intake and Output: 12/07/17 12/07/17 06:59 18:59 Intake Total 300 Output Total 1600 Balance -1300 - Medications Medications: Current Medications Acetaminophen (Tylenol 325mg Tab) 650 mg PO Q6H PRN PRN Reason: Fever >100.4 F Albuterol Sulfate (Albuterol 0.083% Inhal Vanesa (2.5 Mg/3 Ml) Ud) 2.5 mg INH RQ4 PRN PRN Reason: Shortness of Breath Last Admin: 12/03/17 04:40 Dose: 2.5 mg Albuterol/Ipratropium (Duoneb 3 Mg/0.5 Mg (3 Ml) Ud) 3 ml INH RQID [facility] Last Admin: 12/06/17 20:25 Dose: 3 ml Ascorbic Acid (Vitamin C 500 Mg Tab) 500 mg PO DAILY [facility] Last Admin: 12/06/17 09:50 Dose: 500 mg Enalapril Maleate (Vasotec) 5 mg PO DAILY [facility] Last Admin: 12/06/17 09:50 Dose: 5 mg Famotidine (Pepcid) 20 mg PO BID [facility] Last Admin: 12/06/17 17:05 Dose: 20 mg Heparin Sodium (Porcine) (Heparin) 5,000 units SC Q8 [facility] PRN Reason: Protocol Last Admin: 12/07/17 00:00 Dose: 5,000 units Hydromorphone HCl (Dilaudid) 1 mg IVP Q4 PRN PRN Reason: Pain, moderate (4-7) Last Admin: 12/02/17 05:53 Dose: 1 mg Clindamycin Phosphate (Cleocin In Normal Saline) 600 mg in 50 mls @ 50 mls/hr IVPB Q8 [facility]IA PRN Reason: Protocol Last Admin: 12/07/17 00:02 Dose: 50 mls/hr Piperacillin Sod/Tazobactam (Sod 3.375 gm/ Sodium Chloride) 100 mls @ 100 mls/ hr IVPB Q8@0200,1000,1800 [facility] PRN Reason: Protocol Last Admin: 12/07/17 01:06 Dose: 100 mls/hr Multivitamins/Minerals (Therapeutic-M Tab) 1 tab PO DAILY [facility] Last Admin: 12/06/17 09:50 Dose: 1 tab Ondansetron HCl (Zofran Inj) 4 mg IVP Q6 PRN PRN Reason: Nausea/Vomiting Last Admin: 11/30/17 19:46 Dose: 4 mg Saccharomyces Boulardii (Florastor) 250 mg PO BID [facility] Last Admin: 12/06/17 17:05 Dose: 250 mg - Labs Labs: 12/07/17 06:40 12/07/17 05:20 PT 15.7 Seconds (9.8-13.1) H 11/30/17 04:25 INR 1.4 (0.9-1.2) H 11/30/17 04:25 APTT 29.1 Seconds (25.6-37.1) 11/28/17 18:09 Attending/Attestation - Attestation I have personally seen and examined this patient.: Yes I have fully participated in the care of the patient.: Yes I have reviewed all pertinent clinical information, including history, physical exam and plan: Yes
[2017-12-04] MEDS: Albuterol-Ipratrop 3 mg / 0.5 (3 ml) UD INH SCH ×4 (08:05→19:43)
[2017-12-04] MEDS ORDERED: methylPREDNISolone 30 MG in Sodium Chloride 0.9% 50 ML IV SCH (09:00)
[2017-12-04] MEDS: Saccharomyces Boulardi 250 mg Cap PO SCH ×2 (09:39→17:07)
--- NOTE | 2017-12-04 09:52 | CP.PCM.PN ---
Subjective - Date & Time of Evaluation Date of Evaluation: 12/04/17 Time of Evaluation: 09:30 - Subjective Subjective: BREATHING SOMEWHAT BETTER Objective - Vital Signs/Intake and Output Vital Signs (last 24 hours): Temp Pulse Resp BP Pulse Ox 98.2 F 69 18 152/69 H 99 12/04/17 08:00 12/04/17 08:00 12/04/17 08:00 12/04/17 08:00 12/04/17 08:00 Intake and Output: 12/04/17 12/04/17 06:59 18:59 Intake Total 270 Output Total 570 Balance -300 - Medications Medications: Current Medications Acetaminophen (Tylenol 325mg Tab) 650 mg PO Q6H PRN PRN Reason: Fever >100.4 F Albuterol Sulfate (Albuterol 0.083% Inhal Vanesa (2.5 Mg/3 Ml) Ud) 2.5 mg INH RQ4 PRN PRN Reason: Shortness of Breath Last Admin: 12/03/17 04:40 Dose: 2.5 mg Albuterol/Ipratropium (Duoneb 3 Mg/0.5 Mg (3 Ml) Ud) 3 ml INH RQID [facility] Last Admin: 12/04/17 08:05 Dose: 3 ml Ascorbic Acid (Vitamin C 500 Mg Tab) 500 mg PO DAILY [facility] Last Admin: 12/04/17 09:39 Dose: 500 mg Famotidine (Pepcid) 20 mg PO BID [facility] Last Admin: 12/04/17 09:39 Dose: 20 mg Heparin Sodium (Porcine) (Heparin) 5,000 units SC Q8 CLAUDIA PRN Reason: Protocol Last Admin: 12/04/17 09:38 Dose: 5,000 units Hydromorphone HCl (Dilaudid) 1 mg IVP Q4 PRN PRN Reason: Pain, moderate (4-7) Last Admin: 12/02/17 05:53 Dose: 1 mg Clindamycin Phosphate (Cleocin In Normal Saline) 600 mg in 50 mls @ 50 mls/hr IVPB Q8 [facility]UDIA PRN Reason: Protocol Last Admin: 12/04/17 09:38 Dose: 50 mls/hr Piperacillin Sod/Tazobactam (Sod 3.375 gm/ Sodium Chloride) 50 mls @ 50 mls/hr IVPB Q8@0200,1000,1800 [facility] PRN Reason: Protocol Last Admin: 12/04/17 09:38 Dose: 50 mls/hr Ondansetron HCl (Zofran Inj) 4 mg IVP Q6 PRN PRN Reason: Nausea/Vomiting Last Admin: 11/30/17 19:46 Dose: 4 mg Saccharomyces Boulardii (Florastor) 250 mg PO BID [facility] Last Admin: 12/04/17 09:39 Dose: 250 mg - Labs Labs: 12/04/17 04:24 12/04/17 04:24 PT 15.7 Seconds (9.8-13.1) H 11/30/17 04:25 INR 1.4 (0.9-1.2) H 11/30/17 04:25 APTT 29.1 Seconds (25.6-37.1) 11/28/17 18:09 - Respiratory Exam Additional comments: DECREASED BREATH SOUND RIGHT BASE RALES AND COARSE BREATH SOUNDS RIGHT BASE - Cardiovascular Exam Cardiovascular Exam: +S1, +S2 - Extremities Exam Additional comments: NO SIGNIFICANT EDEMA - Additional Findings Additional findings: TODAYS CXR APPEARS CLEARED AT RT BASE IN MY OPINION BP 163/64 CT DRAINAGE LAST 24 HOURS WAS 460 ML Assessment and Plan - Assessment and Plan (Free Text) Assessment: PNEUMONIA WITH RIGHT PLEURAL EFFUSION SSS WITH PERMANENT PACEMAKER HYPERTENSION COPD Plan: CONTINUE ANTIBIOTICS, BRONCHODILATORS, HEPARIN AND CT DRAINAGE WILL RESUME ENALAPRIL AT 5 MGS PO DAILY
--- NOTE | 2017-12-04 10:33 | CP.PCM.PN ---
Subjective - Date & Time of Evaluation Date of Evaluation: 12/04/17 Time of Evaluation: 10:30 - Subjective Subjective: Seated upright in bed. Appears comfortable, offers no complaint of chest pain or SOB. Vital signs remain stable, he continues to be afebrile. WBC stable at 9.7 and Hgb around 12. Today's chest x-ray shows gradual decrease in the residual pneumothorax at the apex. Right lower lobe infiltrate appears to be slowly resolving. Cytology shows no malignant cells with very few mesothelial cells seen. On exan there are rhonchi heard throughout the right chest and a few also on the left. No audible wheezing or bronchial breathing. Pleural fluid drainage continues at a moderate amount with 580mls documented. Dependant edema is minimal, no cyanosis noted, no calf tenderness. Will continue in the present mode for now. Monitor the chest x-ray daily and track the volume of pleural fluid. Objective - Vital Signs/Intake and Output Vital Signs (last 24 hours): Temp Pulse Resp BP Pulse Ox 98.2 F 69 18 152/69 H 99 12/04/17 08:00 12/04/17 08:00 12/04/17 08:00 12/04/17 08:00 12/04/17 08:00 Intake and Output: 12/03/17 12/04/17 23:59 11:59 Intake Total 350 270 Output Total 461 570 Balance -111 -300 - Medications Medications: Current Medications Acetaminophen (Tylenol 325mg Tab) 650 mg PO Q6H PRN PRN Reason: Fever >100.4 F Albuterol Sulfate (Albuterol 0.083% Inhal Vanesa (2.5 Mg/3 Ml) Ud) 2.5 mg INH RQ4 PRN PRN Reason: Shortness of Breath Last Admin: 12/03/17 04:40 Dose: 2.5 mg Albuterol/Ipratropium (Duoneb 3 Mg/0.5 Mg (3 Ml) Ud) 3 ml INH RQID [facility] Last Admin: 12/04/17 08:05 Dose: 3 ml Ascorbic Acid (Vitamin C 500 Mg Tab) 500 mg PO DAILY [facility] Last Admin: 12/04/17 09:39 Dose: 500 mg Enalapril Maleate (Vasotec) 5 mg PO DAILY [facility] Famotidine (Pepcid) 20 mg PO BID [facility] Last Admin: 12/04/17 09:39 Dose: 20 mg Heparin Sodium (Porcine) (Heparin) 5,000 units SC Q8 [facility] PRN Reason: Protocol Last Admin: 12/04/17 09:38 Dose: 5,000 units Hydromorphone HCl (Dilaudid) 1 mg IVP Q4 PRN PRN Reason: Pain, moderate (4-7) Last Admin: 12/02/17 05:53 Dose: 1 mg Clindamycin Phosphate (Cleocin In Normal Saline) 600 mg in 50 mls @ 50 mls/hr IVPB Q8 [facility] PRN Reason: Protocol Last Admin: 12/04/17 09:38 Dose: 50 mls/hr Piperacillin Sod/Tazobactam (Sod 3.375 gm/ Sodium Chloride) 50 mls @ 50 mls/hr IVPB Q8@0200,1000,1800 [facility] PRN Reason: Protocol Last Admin: 12/04/17 09:38 Dose: 50 mls/hr Ondansetron HCl (Zofran Inj) 4 mg IVP Q6 PRN PRN Reason: Nausea/Vomiting Last Admin: 11/30/17 19:46 Dose: 4 mg Saccharomyces Boulardii (Florastor) 250 mg PO BID [facility] Last Admin: 12/04/17 09:39 Dose: 250 mg - Labs Labs: 12/04/17 04:24 12/04/17 04:24 PT 15.7 Seconds (9.8-13.1) H 11/30/17 04:25 INR 1.4 (0.9-1.2) H 11/30/17 04:25 APTT 29.1 Seconds (25.6-37.1) 11/28/17 18:09 Assessment and Plan (1) Pleural effusion Status: Acute (2) Asthma Status: Chronic (3) Atelectasis Status: Acute (4) Dependent edema Status: Acute (5) Hyperglycemia Status: Acute
--- NOTE | 2017-12-04 12:34 | RAD ---
HISTORY: pneumonia COMPARISON: Comparison chest 12/03/2017 FINDINGS: LUNGS: Patchy infiltrate again seen right mid to lower lung arora slightly with questionable slight improvement from prior study. Patchy left upper and lower lobe infiltrates. . Suspect small bilateral effusions. PLEURA: As above. No apparent pneumothorax CARDIOVASCULAR: Cardiac silhouette stable. No change right OSSEOUS STRUCTURES: No significant abnormalities. VISUALIZED UPPER ABDOMEN: Normal. OTHER FINDINGS: None. IMPRESSION: Patchy infiltrate again seen right mid to lower lung arora slightly with questionable slight improvement from prior study. Patchy left upper and lower lobe infiltrates. Suspect small bilateral effusions
[2017-12-05] MEDS: Clindamycin 600mg/50ml NS 600 MG/50 ML BAG IVPB SCH ×3 (00:19→17:22)
[2017-12-05] MEDS: Piperacillin/Tazobact 3.375 GM in Sodium Chloride 0.9% 50 ML IVPB SCH ×3 (01:26→17:22)
[2017-12-05] MEDS: Albuterol-Ipratrop 3 mg / 0.5 (3 ml) UD INH SCH ×4 (07:46→19:17)
[2017-12-05 08:08] LABS: BLOOD UREA NITROGEN 13 mg/dl (9-20); CALCIUM 8.6 mg/dL (8.4-10.2); GFR AFRICAN-AMERICAN > 60; GFR NON-AFRICAN AMERICAN > 60
[2017-12-05 09:23] LABS: HEMOGLOBIN 11.8 g/dL (12.0-18.0); MEAN CELL VOLUME 107.8 fl (80.0-94.0); MEAN CORPUSCULAR HGB CONC 34.3 g/dL (33.0-37.0); RBC 3.18 Mil/uL (4.40-5.90); WHITE BLOOD COUNT 8.8 K/uL (4.8-10.8)
[2017-12-05] MEDS: Saccharomyces Boulardi 250 mg Cap PO SCH ×2 (09:39→17:23)
[2017-12-05] MEDS ORDERED: Sodium Chloride 3% for Inhalation 4 ML VIAL.NEB IH PRN (09:45)
--- NOTE | 2017-12-05 10:03 | CP.PCM.PN ---
Subjective - Date & Time of Evaluation Date of Evaluation: 12/05/17 Time of Evaluation: 09:47 - Subjective Subjective: Sitting up in bed, appears comfortable. Right chest tube continues to drain a significant amount of fluid. Cytologies (2) show reactive mesothelial cells and poly's and few lymphs suggestive of a parapneumonic effusion. Today's chest x-ray continues to show clearing of the right lower lobe infiltrate and gradual further expansion of the right lung. There is noticeable patchy infiltrates in the left upper lobe, more clearly noted now. His vital signs remain stable, afebrile, well oxygenated. His sputum, noted in a bedside container appears more purulent than what he had been initially expectorating. The earlier sputum culture had been reported as 'normal inge', and this will be repeated now. On exam there are moderate sonorous rhonchi heard bilaterally, decreasing from earlier. No audible wheezing or bronchial breathing. Rales are difficult to hear because of the noisy breathing. Heart sounds are somewhat distant with regular rhythm. Trace dependant edema in both ankles. No cyanosis. The slow resolution of the small pneumothorax is troubling, but indeed continues to decrease. This may reflect some degree of pleural thickening from his radiation therapy for Hodgkins in the remote past. The continued pleural fluid drainage may have similar etiology considering lymphatic disruption from the RT as well. Hopefully both of these will continue to resolve without need for other therapy. Since the right lower lobe infiltrate is resolving now there seems little need for bronchoscopy at this time. This could still be necessary though with the LOYDA infiltrate and the purulent appearing sputum. Sputum for routine culture as well as fungus have been requested. Objective - Vital Signs/Intake and Output Vital Signs (last 24 hours): Temp Pulse Resp BP Pulse Ox 97.7 F 64 18 137/66 100 12/05/17 08:00 12/05/17 08:00 12/05/17 08:00 12/05/17 08:00 12/05/17 08:00 Intake and Output: 12/04/17 12/05/17 23:59 11:59 Intake Total 1210 350 Output Total 300 1450 Balance 910 -1100 - Medications Medications: Current Medications Acetaminophen (Tylenol 325mg Tab) 650 mg PO Q6H PRN PRN Reason: Fever >100.4 F Albuterol Sulfate (Albuterol 0.083% Inhal Vanesa (2.5 Mg/3 Ml) Ud) 2.5 mg INH RQ4 PRN PRN Reason: Shortness of Breath Last Admin: 12/03/17 04:40 Dose: 2.5 mg Albuterol/Ipratropium (Duoneb 3 Mg/0.5 Mg (3 Ml) Ud) 3 ml INH RQID [facility] Last Admin: 12/05/17 07:46 Dose: 3 ml Ascorbic Acid (Vitamin C 500 Mg Tab) 500 mg PO DAILY [facility] Last Admin: 12/05/17 09:39 Dose: 500 mg Enalapril Maleate (Vasotec) 5 mg PO DAILY [facility] Last Admin: 12/05/17 09:39 Dose: 5 mg Famotidine (Pepcid) 20 mg PO BID [facility] Last Admin: 12/05/17 09:39 Dose: 20 mg Heparin Sodium (Porcine) (Heparin) 5,000 units SC Q8 [facility] PRN Reason: Protocol Last Admin: 12/05/17 09:39 Dose: 5,000 units Hydromorphone HCl (Dilaudid) 1 mg IVP Q4 PRN PRN Reason: Pain, moderate (4-7) Last Admin: 12/02/17 05:53 Dose: 1 mg Piperacillin Sod/Tazobactam (Sod 3.375 gm/ Sodium Chloride) 50 mls @ 50 mls/hr IVPB Q8@0200,1000,1800 [facility] PRN Reason: Protocol Last Admin: 12/05/17 09:38 Dose: 50 mls/hr Clindamycin Phosphate (Cleocin In Normal Saline) 600 mg in 50 mls @ 50 mls/hr IVPB Q8 [facility] PRN Reason: Protocol Last Admin: 12/05/17 09:37 Dose: 50 mls/hr Ondansetron HCl (Zofran Inj) 4 mg IVP Q6 PRN PRN Reason: Nausea/Vomiting Last Admin: 11/30/17 19:46 Dose: 4 mg Saccharomyces Boulardii (Florastor) 250 mg PO BID [facility] Last Admin: 12/05/17 09:39 Dose: 250 mg - Labs Labs: 12/05/17 06:15 12/05/17 06:15 PT 15.7 Seconds (9.8-13.1) H 11/30/17 04:25 INR 1.4 (0.9-1.2) H 11/30/17 04:25 APTT 29.1 Seconds (25.6-37.1) 11/28/17 18:09 Assessment and Plan (1) Pleural effusion Status: Acute (2) Asthma Status: Chronic (3) Atelectasis Status: Resolved (4) Dependent edema Status: Acute (5) Hyperglycemia Status: Acute (6) CAP (community acquired pneumonia) Status: Acute
--- NOTE | 2017-12-05 10:46 | CP.PCM.PN ---
Subjective - Date & Time of Evaluation Date of Evaluation: 12/05/17 Time of Evaluation: 09:30 - Subjective Subjective: Patient seen and examined bedside. Patient is laying in bed comfortably, NAD. Patient participating in PT. Patient reports improvement and c/o right side chest pressure over the chest tube that it was alleviated with pain medications. Patient reports breathing has improved. Using O2 98% NC 2L. Denies chest pain, nausea, vomiting, abdominal pain. Pedal edema resolved. Right pigtail chest tube 950 ml drainage straw colored. On Zosyn/Clinda day 5 Objective - Vital Signs/Intake and Output Vital Signs (last 24 hours): Temp Pulse Resp BP Pulse Ox 97.7 F 64 18 137/66 100 12/05/17 08:00 12/05/17 08:00 12/05/17 08:00 12/05/17 08:00 12/05/17 08:00 Intake and Output: 12/05/17 12/05/17 06:59 18:59 Intake Total 1560 Output Total 1750 Balance -190 - Medications Medications: Current Medications Acetaminophen (Tylenol 325mg Tab) 650 mg PO Q6H PRN PRN Reason: Fever >100.4 F Albuterol Sulfate (Albuterol 0.083% Inhal Vanesa (2.5 Mg/3 Ml) Ud) 2.5 mg INH RQ4 PRN PRN Reason: Shortness of Breath Last Admin: 12/03/17 04:40 Dose: 2.5 mg Albuterol/Ipratropium (Duoneb 3 Mg/0.5 Mg (3 Ml) Ud) 3 ml INH RQID [facility] Last Admin: 12/05/17 07:46 Dose: 3 ml Ascorbic Acid (Vitamin C 500 Mg Tab) 500 mg PO DAILY [facility] Last Admin: 12/05/17 09:39 Dose: 500 mg Enalapril Maleate (Vasotec) 5 mg PO DAILY [facility] Last Admin: 12/05/17 09:39 Dose: 5 mg Famotidine (Pepcid) 20 mg PO BID [facility] Last Admin: 12/05/17 09:39 Dose: 20 mg Heparin Sodium (Porcine) (Heparin) 5,000 units SC Q8 [facility] PRN Reason: Protocol Last Admin: 12/05/17 09:39 Dose: 5,000 units Hydromorphone HCl (Dilaudid) 1 mg IVP Q4 PRN PRN Reason: Pain, moderate (4-7) Last Admin: 12/02/17 05:53 Dose: 1 mg Piperacillin Sod/Tazobactam (Sod 3.375 gm/ Sodium Chloride) 50 mls @ 50 mls/hr IVPB Q8@0200,1000,1800 [facility] PRN Reason: Protocol Last Admin: 12/05/17 09:38 Dose: 50 mls/hr Clindamycin Phosphate (Cleocin In Normal Saline) 600 mg in 50 mls @ 50 mls/hr IVPB Q8 [facility] PRN Reason: Protocol Last Admin: 12/05/17 09:37 Dose: 50 mls/hr Multivitamins/Minerals (Therapeutic-M Tab) 1 tab PO DAILY [facility] Ondansetron HCl (Zofran Inj) 4 mg IVP Q6 PRN PRN Reason: Nausea/Vomiting Last Admin: 11/30/17 19:46 Dose: 4 mg Saccharomyces Boulardii (Florastor) 250 mg PO BID [facility] Last Admin: 12/05/17 09:39 Dose: 250 mg - Labs Labs: 12/05/17 06:15 12/05/17 06:15 PT 15.7 Seconds (9.8-13.1) H 11/30/17 04:25 INR 1.4 (0.9-1.2) H 11/30/17 04:25 APTT 29.1 Seconds (25.6-37.1) 11/28/17 18:09 - Constitutional Appears: No Acute Distress - Head Exam Head Exam: ATRAUMATIC, NORMAL INSPECTION, NORMOCEPHALIC - Eye Exam Eye Exam: Normal appearance - ENT Exam ENT Exam: Mucous Membranes Moist - Neck Exam Neck Exam: Full ROM - Respiratory Exam Respiratory Exam: Decreased Breath Sounds, Rales, Wheezes. absent: Rhonchi, Respiratory Distress - Cardiovascular Exam Cardiovascular Exam: absent: Tachycardia Additional comments: pacemaker on left upper chest - GI/Abdominal Exam GI & Abdominal Exam: Soft, Normal Bowel Sounds. absent: Distended, Tenderness - Extremities Exam Extremities Exam: Normal Inspection. absent: Calf Tenderness, Pedal Edema, Tenderness - Neurological Exam Neurological Exam: Alert, Awake, Oriented x3 - Skin Skin Exam: Dry, Intact, Normal Color, Warm Assessment and Plan - Assessment and Plan (Free Text) Assessment: 62 y/o man w/ pmh Asthma/COPD, HTN, Hx of Bilateral Avascular Necrosis of Femur , Anxiety, Hx of Hodgkin Lymphoma, Complete Heart Block s/p pacemeker 11/2016 admitted for CHF exacerbation, PNA, Plerural effusion. Plan: 1) Pleural effusion -transudate unspecified -CT Chest CTchest: Large pleural effusion with almost complete right lower lobe atelectasis and less extensive right middle and upper lobe atelectasis, moderate left effusion atelectatic changes greatest at the left base, extensive atherosclerotic disease, prior granulomatous diesease. right empyema is suspected, suggest thoracentesis -s/p Pigtail chest tube 11/30/2017 -today drained 950 cc -pleural fluids results, transudate -ID consult, Dr. Chung, recommendations appreciated; Zosyn/Clindamycin. -Pulmonology consult appreciated: persists infiltrated RLL after thoracocenteis. Considering flexible bronchoscopy 2) Chronic reduced ejection CHF -not on acute exacerbation as per Orthotist/Prosthetist note -Orthopnea, SCOTT -ProBnP 1030- > 4490 11/2017 . may be secondary to right side heart dilation as per veneer splicer -Hx/o complete AV block and s/p pacemaker 2016 -Echo: EF: 45-50 %. Mild-mod Aortic stenosis, Mod mitral regurgitation. Severe tricuspid regurg. Severe Pulmonary HTN -Lasix 40 mg IV daily -Orthotist/Prosthetist consult, Dr. Zamarripa, recommendations appreciated 3) Hypokalemia - resolved -resolved -K 4.0 -s/p dur 40 once. -f/u CMP 4) CAP -Patient found to have a large right pleural effusion with infiltrate and atelectatic changes. -s/p Rocephin/Azithromycin -Pulmonology consult appreciated:persists infiltrated RLL after throacenteis. may need bronchoscopy -ID consult appreciated: Zosyn/Clindamycin day 5 5) Sepsis -SIRS+ Lung infiltrates on admission -resolved -ID Consult appreciated: Zosyn/ Clindamycin 6) COPD exacerbation -CXR: clearing of the right lower lobe infiltrate and gradual further expansion of the right lung, noticeable patchy infiltrates in the left upper lobe, improvement of pleural effusion -continue duoneb Q4h PRN -solumedrol 30 mg IV BID -Metal Wire Technician consult appreciated 7) Hx/o Hodgking Lymphoma -s/p treatment chemotherapy/radiotherapy -pt does not know what agents were used 8) HTN -controlled, medication held at this time 9) Diet -soft heart healthy diet -roof cement and paint maker referral ordered -uses dentures 10) DVT Prophylaxis -Heparin 5000 U SC Q8h -pt with pigtail chest tube 11) deconditioning -PT/OT consulted and following patient
--- NOTE | 2017-12-05 11:04 | RAD ---
HISTORY: pneumonia COMPARISON: Chest radiograph dated 12/04/2017. FINDINGS: LUNGS: Improved right basilar aeration with near complete resolution of right basilar hazy opacity. Improved left upper lobe aeration. PLEURA: No significant right pleural effusion. Trace/small left pleural effusion. No pneumothorax apparent. CARDIOVASCULAR: Left subclavian access pacemaker redemonstrated. Atherosclerotic aortic calcifications. Cardiomediastinal silhouette within normal limits. OSSEOUS STRUCTURES: Unchanged. VISUALIZED UPPER ABDOMEN: Normal. OTHER FINDINGS: Right basilar pigtail chest tube, unchanged. IMPRESSION: Improved right basilar aeration with near complete resolution of hazy opacity. Improved left upper lobe aeration. Trace/small left pleural effusion. No significant right pleural effusion.
[2017-12-05] MEDS: Multivitamin With Minerals Tab PO SCH (12:14)
[2017-12-06] MEDS: Clindamycin 600mg/50ml NS 600 MG/50 ML BAG IVPB SCH ×3 (00:58→17:20)
[2017-12-06] MEDS: Albuterol-Ipratrop 3 mg / 0.5 (3 ml) UD INH SCH ×4 (07:30→20:25)
--- NOTE | 2017-12-06 08:20 | CP.PCM.PN ---
Subjective - Date & Time of Evaluation Date of Evaluation: 12/06/17 Time of Evaluation: 09:30 - Subjective Subjective: Pt seen and examined, sitting comfortably in chair. States continued productive sputum, though decreased from previous days. He also states an increased thirst over previous 24 hours. Denies fevers/chills, n/v/d, chest pain, abdominal pain , hematuria, or dysuria. Objective - Vital Signs/Intake and Output Vital Signs (last 24 hours): Temp Pulse Resp BP Pulse Ox 98.4 F 59 L 18 136/46 L 100 12/06/17 07:55 12/06/17 07:55 12/06/17 07:55 12/06/17 07:55 12/06/17 07:55 Intake and Output: 12/06/17 12/06/17 06:59 18:59 Intake Total 400 Output Total 700 Balance -300 - Medications Medications: Current Medications Acetaminophen (Tylenol 325mg Tab) 650 mg PO Q6H PRN PRN Reason: Fever >100.4 F Albuterol Sulfate (Albuterol 0.083% Inhal Vanesa (2.5 Mg/3 Ml) Ud) 2.5 mg INH RQ4 PRN PRN Reason: Shortness of Breath Last Admin: 12/03/17 04:40 Dose: 2.5 mg Albuterol/Ipratropium (Duoneb 3 Mg/0.5 Mg (3 Ml) Ud) 3 ml INH RQID [facility] Last Admin: 12/06/17 07:30 Dose: 3 ml Ascorbic Acid (Vitamin C 500 Mg Tab) 500 mg PO DAILY [facility] Last Admin: 12/05/17 09:39 Dose: 500 mg Enalapril Maleate (Vasotec) 5 mg PO DAILY [facility] Last Admin: 12/05/17 09:39 Dose: 5 mg Famotidine (Pepcid) 20 mg PO BID [facility] Last Admin: 12/05/17 17:23 Dose: 20 mg Heparin Sodium (Porcine) (Heparin) 5,000 units SC Q8 [facility] PRN Reason: Protocol Last Admin: 12/06/17 00:59 Dose: 5,000 units Hydromorphone HCl (Dilaudid) 1 mg IVP Q4 PRN PRN Reason: Pain, moderate (4-7) Last Admin: 12/02/17 05:53 Dose: 1 mg Piperacillin Sod/Tazobactam (Sod 3.375 gm/ Sodium Chloride) 50 mls @ 50 mls/hr IVPB Q8@0200,1000,1800 [facility] PRN Reason: Protocol Last Admin: 12/05/17 17:22 Dose: 50 mls/hr Clindamycin Phosphate (Cleocin In Normal Saline) 600 mg in 50 mls @ 50 mls/hr IVPB Q8 [facility] PRN Reason: Protocol Last Admin: 12/06/17 00:58 Dose: 50 mls/hr Multivitamins/Minerals (Therapeutic-M Tab) 1 tab PO DAILY [facility] Last Admin: 12/05/17 12:14 Dose: 1 tab Ondansetron HCl (Zofran Inj) 4 mg IVP Q6 PRN PRN Reason: Nausea/Vomiting Last Admin: 11/30/17 19:46 Dose: 4 mg Saccharomyces Boulardii (Florastor) 250 mg PO BID [facility] Last Admin: 12/05/17 17:23 Dose: 250 mg - Labs Labs: 12/05/17 06:15 12/05/17 06:15 PT 15.7 Seconds (9.8-13.1) H 11/30/17 04:25 INR 1.4 (0.9-1.2) H 11/30/17 04:25 APTT 29.1 Seconds (25.6-37.1) 11/28/17 18:09 - Constitutional Appears: Non-toxic, No Acute Distress - Head Exam Head Exam: ATRAUMATIC, NORMAL INSPECTION, NORMOCEPHALIC - ENT Exam ENT Exam: Mucous Membranes Moist - Respiratory Exam Respiratory Exam: Clear to Ausculation Bilateral - Cardiovascular Exam Cardiovascular Exam: absent: Bradycardia, Tachycardia Additional comments: left sided pacemaker - GI/Abdominal Exam GI & Abdominal Exam: Soft, Normal Bowel Sounds. absent: Tenderness - Extremities Exam Extremities Exam: absent: Calf Tenderness, Pedal Edema - Skin Skin Exam: Dry, Intact, Normal Color, Warm Assessment and Plan - Assessment and Plan (Free Text) Plan: 62 yo M w PMHx of Asthma/COPD, HTN, Hx of Bilateral Avascular Necrosis of Femur , Anxiety, Hx of Hodgkin Lymphoma, Complete Heart Block s/p pacemeker 11/2016 admitted for CHF exacerbation, PNA, Plerural effusion. 1) Pleural effusion -s/p Pigtail chest tube 11/30/2017 -CT Chest: Large pleural effusion with almost complete right lower lobe atelectasis and less extensive right middle and upper lobe atelectasis, moderate left effusion atelectatic changes greatest at the left base, extensive atherosclerotic disease, prior granulomatous diesease. right empyema is suspected, suggest thoracentesis -previous 24 hours drained 100 cc -pleural fluids results, transudate -ID consult, Dr. Chung, recommendations appreciated; Zosyn/Clindamycin. -Pulmonology consult for persists infiltrated RLL after thoracocenteis. 2) Chronic reduced ejection CHF -not on acute exacerbation as per Six Sigma Black Belt Engineer note -Orthopnea, SCOTT -ProBnP 1030- > 4490 11/2017 . may be secondary to right side heart dilation as per calibration checker -Hx/o complete AV block and s/p pacemaker 2016 -Echo: EF: 45-50 %. Mild-mod Aortic stenosis, Mod mitral regurgitation. Severe tricuspid regurg. Severe Pulmonary HTN -Lasix 40 mg IV daily -[employer] Black Belt Engineer consult, Dr. Zamarripa, recommendations appreciated 3) Hyponatremia -Na: 128 today, previously 134 -Pt states drinking increased fluid for thirst over previous 24 hrs -Noted increase of previous day's Intake total; ~900mL increase -Restrict fluid next 24 hours -f/u FENa (within urine lytes) -f/u patient symptoms tomorrow 4) CAP -Patient found to have a large right pleural effusion with infiltrate and atelectatic changes. -s/p Rocephin/Azithromycin -Pulmonology consult appreciated:persists infiltrated RLL after throacenteis. may need bronchoscopy -ID consult appreciated: Zosyn/Clindamycin day 6 5) Sepsis -resolved -SIRS+ Lung infiltrates on admission 6) COPD exacerbation -CXR: clearing of the right lower lobe infiltrate and gradual further expansion of the right lung, noticeable patchy infiltrates in the left upper lobe, improvement of pleural effusion -continue duoneb Q4h PRN -solumedrol 30 mg IV BID -Pulm onboard 7) Hx/o Hodgking Lymphoma -s/p treatment chemotherapy/radiotherapy -pt does not know what agents were used 8) HTN -controlled, medication held at this time 9) Diet -soft heart healthy diet -manufacturing technologist referral ordered -fluid restriction for next 24 hrs -uses dentures -f/u and re evaluate restriction status in 24 hrs 10) DVT Prophylaxis -Heparin 5000 U SC Q8h -pt with pigtail chest tube 11) deconditioning -PT/OT consulted and following patient
[2017-12-06 08:53] LABS: HEMOGLOBIN 11.9 g/dL (12.0-18.0); MEAN CELL VOLUME 106.3 fl (80.0-94.0); MEAN CORPUSCULAR HEMOGLOBIN 37.2 pg (27.0-31.0); RBC 3.2 Mil/uL (4.40-5.90); WHITE BLOOD COUNT 6.3 K/uL (4.8-10.8)
[2017-12-06 09:07] LABS: BLOOD UREA NITROGEN 15 mg/dl (9-20); CALCIUM 9.1 mg/dL (8.4-10.2); GFR AFRICAN-AMERICAN > 60; GFR NON-AFRICAN AMERICAN > 60
[2017-12-06] MEDS: Piperacillin/Tazobact 3.375 GM in Sodium Chloride 0.9% 50 ML IVPB SCH (09:48)
[2017-12-06] MEDS: Saccharomyces Boulardi 250 mg Cap PO SCH ×2 (09:49→17:05)
[2017-12-06] MEDS: Multivitamin With Minerals Tab PO SCH (09:50)
--- NOTE | 2017-12-06 10:14 | CP.PCM.PN ---
Subjective - Date & Time of Evaluation Date of Evaluation: 12/06/17 Time of Evaluation: 10:00 - Subjective Subjective: BREATHING MUCH BETTER COUGH WITH PHLEGM PERSISTS Objective - Vital Signs/Intake and Output Vital Signs (last 24 hours): Temp Pulse Resp BP Pulse Ox 98.4 F 59 L 18 136/46 L 100 12/06/17 07:55 12/06/17 07:55 12/06/17 07:55 12/06/17 07:55 12/06/17 07:55 Intake and Output: 12/06/17 12/06/17 06:59 18:59 Intake Total 400 Output Total 700 Balance -300 - Medications Medications: Current Medications Acetaminophen (Tylenol 325mg Tab) 650 mg PO Q6H PRN PRN Reason: Fever >100.4 F Albuterol Sulfate (Albuterol 0.083% Inhal Vanesa (2.5 Mg/3 Ml) Ud) 2.5 mg INH RQ4 PRN PRN Reason: Shortness of Breath Last Admin: 12/03/17 04:40 Dose: 2.5 mg Albuterol/Ipratropium (Duoneb 3 Mg/0.5 Mg (3 Ml) Ud) 3 ml INH RQID [facility] Last Admin: 12/06/17 07:30 Dose: 3 ml Ascorbic Acid (Vitamin C 500 Mg Tab) 500 mg PO DAILY [facility] Last Admin: 12/06/17 09:50 Dose: 500 mg Enalapril Maleate (Vasotec) 5 mg PO DAILY [facility] Last Admin: 12/06/17 09:50 Dose: 5 mg Famotidine (Pepcid) 20 mg PO BID [facility] Last Admin: 12/06/17 09:50 Dose: 20 mg Heparin Sodium (Porcine) (Heparin) 5,000 units SC Q8 [facility] PRN Reason: Protocol Last Admin: 12/06/17 09:49 Dose: 5,000 units Hydromorphone HCl (Dilaudid) 1 mg IVP Q4 PRN PRN Reason: Pain, moderate (4-7) Last Admin: 12/02/17 05:53 Dose: 1 mg Piperacillin Sod/Tazobactam (Sod 3.375 gm/ Sodium Chloride) 50 mls @ 50 mls/hr IVPB Q8@0200,1000,1800 [facility] PRN Reason: Protocol Last Admin: 02/04/18 09:48 Dose: 50 mls/hr Clindamycin Phosphate (Cleocin In Normal Saline) 600 mg in 50 mls @ 50 mls/hr IVPB Q8 [facility] PRN Reason: Protocol Last Admin: 12/06/17 09:42 Dose: 50 mls/hr Multivitamins/Minerals (Therapeutic-M Tab) 1 tab PO DAILY [facility] Last Admin: 12/06/17 09:50 Dose: 1 tab Ondansetron HCl (Zofran Inj) 4 mg IVP Q6 PRN PRN Reason: Nausea/Vomiting Last Admin: 11/30/17 19:46 Dose: 4 mg Saccharomyces Boulardii (Florastor) 250 mg PO BID [facility] Last Admin: 12/06/17 09:49 Dose: 250 mg - Labs Labs: 12/06/17 07:10 12/06/17 07:10 PT 15.7 Seconds (9.8-13.1) H 11/30/17 04:25 INR 1.4 (0.9-1.2) H 11/30/17 04:25 APTT 29.1 Seconds (25.6-37.1) 11/28/17 18:09 - Respiratory Exam Additional comments: BETTER AERATION BILATERALLY BILATERAL RONCHI - Cardiovascular Exam Cardiovascular Exam: REGULAR RHYTHM, +S1, +S2 - Extremities Exam Additional comments: NO LE EDEMA - Additional Findings Additional findings: WBC 6.3 BUN/CR 15/0.6 CXR SIGNIFICANT IMPROVEMENT IN RLL PNEUMONIA CT DRAINAGE LAST 24 HOURS 100 MLS Assessment and Plan - Assessment and Plan (Free Text) Assessment: COPD WITH BILATERAL PNEUMONIA AND RIGHT PLEURAL EFFUSION-IMPROVING SSS WITH PERMANENT PACEMAKER HYPERTENSION HISTORY OF HODGKINS'S DISEASE Plan: CONTINUE O2, IV ANTIBIOTICS, BRONCHODILATORS, ENALAPRIL AND HEPARIN CONTINUE CT DRAINAGE
[2017-12-06] MEDS: Piperacillin/Tazobact 3.375 GM in Sodium Chloride 0.9% 100 ML IVPB SCH (17:01)
[2017-12-06 20:00] VITALS: RESP 18
[2017-12-07] MEDS: Clindamycin 600mg/50ml NS 600 MG/50 ML BAG IVPB SCH ×2 (00:02→09:45)
[2017-12-07] MEDS: Piperacillin/Tazobact 3.375 GM in Sodium Chloride 0.9% 100 ML IVPB SCH ×2 (01:06→09:52)
[2017-12-07 06:21] LABS: BLOOD UREA NITROGEN 13 mg/dl (9-20); CALCIUM 9.1 mg/dL (8.4-10.2); GFR AFRICAN-AMERICAN > 60; GFR NON-AFRICAN AMERICAN > 60
[2017-12-07 06:26] LABS: B-TYPE NATRIURETIC PEPTIDE 4520 pg/ml (0-900)
[2017-12-07 06:55] LABS: HEMOGLOBIN 11.6 g/dL (12.0-18.0); MEAN CORPUSCULAR HEMOGLOBIN 36.6 pg (27.0-31.0); MEAN CORPUSCULAR HGB CONC 33.9 g/dL (33.0-37.0); RBC 3.18 Mil/uL (4.40-5.90); RED CELL DISTRIBUTION WIDTH 13.8 % (11.5-14.5); WHITE BLOOD COUNT 6.1 K/uL (4.8-10.8)
[2017-12-07 07:00] LABS: MEAN CELL VOLUME 107.8 fl (80.0-94.0)
[2017-12-07] MEDS: Albuterol-Ipratrop 3 mg / 0.5 (3 ml) UD INH SCH ×2 (07:34→11:19)
[2017-12-07 08:41] VITALS: BP 113/75; PULSE 69; TEMP 98.4; O2SAT 98
--- NOTE | 2017-12-07 09:11 | CP.PCM.PN ---
Subjective - Date & Time of Evaluation Date of Evaluation: 12/07/17 Time of Evaluation: 09:05 - Subjective Subjective: Informed by the patient of his intent to leave AM today. He is presently awaiting the radiologist to remove his pigtail catheter. He appears frustrated with the care and cannot sleep here or eat this food. Warned of the risks involved in this decision. His sputum container remains at the bedside, purulent appearing sputum in it. He has not developed any febrile pattern. His electrolytes are in a poor state with low sodium and chloride. He continues to have a large amount of pleural fluid drainage, but it has decreased. His breath sounds are improved though, and there are much fewer rhonchi auscultated. No audible wheezing or bronchial breathing. No dependant edema or cyanosis. A chest x-ray is being done now. If he insists on leaving I have asked him to call me in the next 24-48 hrs. I would continue him on an empiric antibiotic for a few days more (levoflox). Multivitamin and probiotic for home as well. Cardiology follow up as well. Objective - Vital Signs/Intake and Output Vital Signs (last 24 hours): Temp Pulse Resp BP Pulse Ox 98.4 F 69 18 113/75 98 12/07/17 08:00 12/07/17 08:00 12/07/17 08:00 12/07/17 08:00 12/07/17 08:00 Intake and Output: 12/06/17 12/07/17 23:59 11:59 Intake Total 300 Output Total 200 1400 Balance -200 -1100 - Medications Medications: Current Medications Acetaminophen (Tylenol 325mg Tab) 650 mg PO Q6H PRN PRN Reason: Fever >100.4 F Albuterol Sulfate (Albuterol 0.083% Inhal Vanesa (2.5 Mg/3 Ml) Ud) 2.5 mg INH RQ4 PRN PRN Reason: Shortness of Breath Last Admin: 12/03/17 04:40 Dose: 2.5 mg Albuterol/Ipratropium (Duoneb 3 Mg/0.5 Mg (3 Ml) Ud) 3 ml INH RQID [facility] Last Admin: 12/07/17 07:34 Dose: 3 ml Ascorbic Acid (Vitamin C 500 Mg Tab) 500 mg PO DAILY [facility] Last Admin: 12/06/17 09:50 Dose: 500 mg Enalapril Maleate (Vasotec) 5 mg PO DAILY [facility] Last Admin: 12/06/17 09:50 Dose: 5 mg Famotidine (Pepcid) 20 mg PO BID [facility] Last Admin: 12/06/17 17:05 Dose: 20 mg Heparin Sodium (Porcine) (Heparin) 5,000 units SC Q8 [facility] PRN Reason: Protocol Last Admin: 12/07/17 00:00 Dose: 5,000 units Hydromorphone HCl (Dilaudid) 1 mg IVP Q4 PRN PRN Reason: Pain, moderate (4-7) Last Admin: 12/02/17 05:53 Dose: 1 mg Clindamycin Phosphate (Cleocin In Normal Saline) 600 mg in 50 mls @ 50 mls/hr IVPB Q8 [facility] PRN Reason: Protocol Last Admin: 12/07/17 00:02 Dose: 50 mls/hr Piperacillin Sod/Tazobactam (Sod 3.375 gm/ Sodium Chloride) 100 mls @ 100 mls/ hr IVPB Q8@0200,1000,1800 [facility] PRN Reason: Protocol Last Admin: 12/07/17 01:06 Dose: 100 mls/hr Multivitamins/Minerals (Therapeutic-M Tab) 1 tab PO DAILY [facility] Last Admin: 12/06/17 09:50 Dose: 1 tab Ondansetron HCl (Zofran Inj) 4 mg IVP Q6 PRN PRN Reason: Nausea/Vomiting Last Admin: 11/30/17 19:46 Dose: 4 mg Saccharomyces Boulardii (Florastor) 250 mg PO BID [facility] Last Admin: 12/06/17 17:05 Dose: 250 mg - Labs Labs: 12/07/17 06:40 12/07/17 05:20 PT 15.7 Seconds (9.8-13.1) H 11/30/17 04:25 INR 1.4 (0.9-1.2) H 11/30/17 04:25 APTT 29.1 Seconds (25.6-37.1) 11/28/17 18:09 Assessment and Plan (1) Pleural effusion Status: Acute (2) Asthma Status: Chronic (3) Atelectasis Status: Resolved (4) Dependent edema Status: Acute (5) Hyperglycemia Status: Acute (6) CAP (community acquired pneumonia) Status: Acute
[2017-12-07] MEDS: Multivitamin With Minerals Tab PO SCH (09:43)
[2017-12-07] MEDS: Saccharomyces Boulardi 250 mg Cap PO SCH (09:43)
--- NOTE | 2017-12-07 10:50 | RAD ---
PROCEDURE: CHEST RADIOGRAPH, 1 VIEW HISTORY: pleural effusion COMPARISON: Comparison chest dated 12/05/2017 FINDINGS: LUNGS: Hazy opacity left lower lung field consistent with some combination of atelectasis and or infiltrate with effusion. Minimal right basilar atelectasis improved from prior exam. In situ right-sided pigtail chest tube catheter again noted. Vague patchy opacity in the left upper lung field seen on prior exam also improved. . PLEURA: No pneumothorax or pleural fluid seen. CARDIOVASCULAR: Normal. No change bipolar pacemaker OSSEOUS STRUCTURES: No significant abnormalities. VISUALIZED UPPER ABDOMEN: Normal. OTHER FINDINGS: None. IMPRESSION: Hazy opacity left lower lung field consistent with some combination of atelectasis and or infiltrate with effusion. Minimal right basilar atelectasis improved from prior exam. In situ right-sided pigtail chest tube catheter again noted. Vague patchy opacity in the left upper lung field seen on prior exam also improved. .
--- NOTE | 2017-12-07 11:28 | CP.PCM.PN ---
Subjective - Date & Time of Evaluation Date of Evaluation: 12/07/17 Time of Evaluation: 11:15 - Subjective Subjective: NO CHEST PAIN BREATHING A LITTLE BETTER PATIENT STATES HE WANTS TO GO HOME HE CAN'T EAT OR SLEEP WELL IN THE HOSPITAL AND DOESN'T BELIEVE HE ACTIVE HE SHOULD BE Objective - Vital Signs/Intake and Output Vital Signs (last 24 hours): Temp Pulse Resp BP Pulse Ox 98.4 F 69 18 113/75 98 12/07/17 08:00 12/07/17 08:00 12/07/17 08:00 12/07/17 08:00 12/07/17 08:00 Intake and Output: 12/07/17 12/07/17 06:59 18:59 Intake Total 300 Output Total 1600 Balance -1300 - Medications Medications: Current Medications Acetaminophen (Tylenol 325mg Tab) 650 mg PO Q6H PRN PRN Reason: Fever >100.4 F Albuterol Sulfate (Albuterol 0.083% Inhal Vanesa (2.5 Mg/3 Ml) Ud) 2.5 mg INH RQ4 PRN PRN Reason: Shortness of Breath Last Admin: 12/03/17 04:40 Dose: 2.5 mg Albuterol/Ipratropium (Duoneb 3 Mg/0.5 Mg (3 Ml) Ud) 3 ml INH RQID [facility] Last Admin: 12/07/17 11:19 Dose: 3 ml Ascorbic Acid (Vitamin C 500 Mg Tab) 500 mg PO DAILY [facility] Last Admin: 12/07/17 09:50 Dose: 500 mg Enalapril Maleate (Vasotec) 5 mg PO DAILY [facility] Last Admin: 12/07/17 09:50 Dose: 5 mg Famotidine (Pepcid) 20 mg PO BID [facility] Last Admin: 12/07/17 09:43 Dose: 20 mg Heparin Sodium (Porcine) (Heparin) 5,000 units SC Q8 [facility] PRN Reason: Protocol Last Admin: 12/07/17 09:43 Dose: 5,000 units Hydromorphone HCl (Dilaudid) 1 mg IVP Q4 PRN PRN Reason: Pain, moderate (4-7) Last Admin: 12/02/17 05:53 Dose: 1 mg Clindamycin Phosphate (Cleocin In Normal Saline) 600 mg in 50 mls @ 50 mls/hr IVPB Q8 [facility] PRN Reason: Protocol Last Admin: 12/07/17 09:45 Dose: 50 mls/hr Piperacillin Sod/Tazobactam (Sod 3.375 gm/ Sodium Chloride) 100 mls @ 100 mls/ hr IVPB Q8@0200,1000,1800 [facility] PRN Reason: Protocol Last Admin: 12/07/17 09:52 Dose: 100 mls/hr Multivitamins/Minerals (Therapeutic-M Tab) 1 tab PO DAILY [facility] Last Admin: 12/07/17 09:43 Dose: 1 tab Ondansetron HCl (Zofran Inj) 4 mg IVP Q6 PRN PRN Reason: Nausea/Vomiting Last Admin: 11/30/17 19:46 Dose: 4 mg Saccharomyces Boulardii (Florastor) 250 mg PO BID [facility] Last Admin: 12/07/17 09:43 Dose: 250 mg - Labs Labs: 12/07/17 06:40 12/07/17 05:20 PT 15.7 Seconds (9.8-13.1) H 11/30/17 04:25 INR 1.4 (0.9-1.2) H 11/30/17 04:25 APTT 29.1 Seconds (25.6-37.1) 11/28/17 18:09 - Respiratory Exam Respiratory Exam: Decreased Breath Sounds, Rales, Rhonchi - Cardiovascular Exam Cardiovascular Exam: REGULAR RHYTHM, +S1, +S2 - Extremities Exam Additional comments: NO SIGNIFICANT LE EDEMA - Additional Findings Additional findings: CT DRAINAGE 700 ML IN LAST 24 HOURS PULMONARY NOTE REVIEWED Assessment and Plan - Assessment and Plan (Free Text) Assessment: PNEMONIA RIGHT PLEURAL EFFUSUION COPD SSS WITH PERMANENT PACEMAKER Plan: CONTINUE ANTIBIOTICS, BRONCHODILATORS, ENALAPRIL AND HEPARIN THE PATIENT WAS URGED TO STAY IN THE HOSPITAL SINCE THE CT IS STILL DRAINING A CONSIDERABLE AMOUNT OF FLUID
--- NOTE | 2017-12-07 12:05 | PCM.SURG1 ---
Surgeon's Initial Post Op Note - Surgeon's Notes Surgeon: Greg Edwards MD Document Controller: None Type of Anesthesia: None Pre-Operative Diagnosis: pleural effusion Operative Findings: indwelling right chest tube Post-Operative Diagnosis: same Operation Performed: Right chest tube removal Specimen/Specimens Removed: n/a Estimated Blood Loss: EBL {In ML}: 0 Date of Surgery/Procedure: 12/07/17 Time of Surgery/Procedure: 12:00
--- NOTE | 2017-12-07 12:58 | CP.PCM.PN ---
<Reginaldo Hermosillo - Last Filed: 12/07/17 12:50> Subjective - Date & Time of Evaluation Date of Evaluation: 12/07/17 Time of Evaluation: 07:00 - Subjective Subjective: Patient seen and examined bedside this morning. Patient laying comfortably in bed. States continued productive sputum, though decreased from previous days. Patient reports that he wants to sign out AMA. Risks of leaving AMA were explained thoroughly, patient understands, and still desires to leave willingly. Patient denies headaches, dizziness, chest pain, abdominal pain, nausea, vomiting, diarrhea, hematuria, dysuria, fever, or chills. Objective - Vital Signs/Intake and Output Vital Signs (last 24 hours): Temp Pulse Resp BP Pulse Ox 98.4 F 69 18 113/75 98 12/07/17 08:00 12/07/17 08:00 12/07/17 08:00 12/07/17 08:00 12/07/17 08:00 Intake and Output: 12/07/17 12/07/17 06:59 18:59 Intake Total 300 Output Total 1600 Balance -1300 - Medications Medications: Current Medications Acetaminophen (Tylenol 325mg Tab) 650 mg PO Q6H PRN PRN Reason: Fever >100.4 F Albuterol Sulfate (Albuterol 0.083% Inhal Vanesa (2.5 Mg/3 Ml) Ud) 2.5 mg INH RQ4 PRN PRN Reason: Shortness of Breath Last Admin: 12/03/17 04:40 Dose: 2.5 mg Albuterol/Ipratropium (Duoneb 3 Mg/0.5 Mg (3 Ml) Ud) 3 ml INH RQID [facility] Last Admin: 12/07/17 11:19 Dose: 3 ml Ascorbic Acid (Vitamin C 500 Mg Tab) 500 mg PO DAILY [facility] Last Admin: 12/07/17 09:50 Dose: 500 mg Enalapril Maleate (Vasotec) 5 mg PO DAILY [facility] Last Admin: 12/07/17 09:50 Dose: 5 mg Famotidine (Pepcid) 20 mg PO BID [facility] Last Admin: 12/07/17 09:43 Dose: 20 mg Heparin Sodium (Porcine) (Heparin) 5,000 units SC Q8 CLAUDIA PRN Reason: Protocol Last Admin: 12/07/17 09:43 Dose: 5,000 units Hydromorphone HCl (Dilaudid) 1 mg IVP Q4 PRN PRN Reason: Pain, moderate (4-7) Last Admin: 12/02/17 05:53 Dose: 1 mg Clindamycin Phosphate (Cleocin In Normal Saline) 600 mg in 50 mls @ 50 mls/hr IVPB Q8 CLAUDIA PRN Reason: Protocol Last Admin: 12/07/17 09:45 Dose: 50 mls/hr Piperacillin Sod/Tazobactam (Sod 3.375 gm/ Sodium Chloride) 100 mls @ 100 mls/ hr IVPB Q8@0200,1000,1800 CLAUDIA PRN Reason: Protocol Last Admin: 12/07/17 09:52 Dose: 100 mls/hr Multivitamins/Minerals (Therapeutic-M Tab) 1 tab PO DAILY [facility] Last Admin: 12/07/17 09:43 Dose: 1 tab Ondansetron HCl (Zofran Inj) 4 mg IVP Q6 PRN PRN Reason: Nausea/Vomiting Last Admin: 11/30/17 19:46 Dose: 4 mg Saccharomyces Boulardii (Florastor) 250 mg PO BID [facility] Last Admin: 12/07/17 09:43 Dose: 250 mg - Labs Labs: 12/07/17 06:40 12/07/17 05:20 PT 15.7 Seconds (9.8-13.1) H 11/30/17 04:25 INR 1.4 (0.9-1.2) H 11/30/17 04:25 APTT 29.1 Seconds (25.6-37.1) 11/28/17 18:09 - Constitutional Appears: No Acute Distress - Head Exam Head Exam: ATRAUMATIC, NORMAL INSPECTION, NORMOCEPHALIC - Eye Exam Eye Exam: Normal appearance - ENT Exam ENT Exam: Mucous Membranes Moist - Neck Exam Neck Exam: Full ROM. absent: Tenderness - Respiratory Exam Respiratory Exam: Decreased Breath Sounds, Rales, Wheezes. absent: Rhonchi, Respiratory Distress - Cardiovascular Exam Cardiovascular Exam: absent: Tachycardia Additional comments: pacemaker on left upper chest - GI/Abdominal Exam GI & Abdominal Exam: Soft, Normal Bowel Sounds. absent: Distended, Tenderness - Extremities Exam Extremities Exam: absent: Calf Tenderness, Pedal Edema, Tenderness - Neurological Exam Neurological Exam: Alert, Awake, Oriented x3 - Skin Skin Exam: Dry, Intact, Normal Color, Warm Assessment and Plan - Assessment and Plan (Free Text) Assessment: 62 yo M w PMHx of Asthma/COPD, HTN, Hx of Bilateral Avascular Necrosis of Femur , Anxiety, Hx of Hodgkin Lymphoma, Complete Heart Block s/p pacemeker 11/2016 admitted for CHF exacerbation, PNA, Plerural effusion. Plan: 1) Pleural effusion -s/p Pigtail chest tube 11/30/2017 -CT Chest: Large pleural effusion with almost complete right lower lobe atelectasis and less extensive right middle and upper lobe atelectasis, moderate left effusion atelectatic changes greatest at the left base, extensive atherosclerotic disease, prior granulomatous diesease. right empyema is suspected, suggest thoracentesis -previous 24 hours drained 700 cc -pleural fluids results, transudate -ID consult, Dr. Chung, recommendations appreciated; Zosyn/Clindamycin. -Pulmonology consult for persists infiltrated RLL after thoracocenteis. -IR to remove pigtail catheter due to desire to leave AMA 2) Chronic reduced ejection CHF -not on acute exacerbation as per Operational Intelligence Officer note -Orthopnea, SCOTT -ProBnP 1030- > 4490 11/2017 . 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 Mild-mod Aortic stenosis, Mod mitral regurgitation. Severe tricuspid regurg. Severe Pulmonary HTN -Lasix 40 mg IV daily -Operational Intelligence Officer consult, Dr. Zamarripa, recommendations appreciated 3) Hyponatremia -Na: 127 today, previously 128 -Pt states drinking increased fluid for thirst over previous 24 hrs -Restricted fluid for 24 hours -Urine sodium 133 4) CAP -Patient found to have a large right pleural effusion with infiltrate and atelectatic changes. -s/p Rocephin/Azithromycin -Pulmonology consult appreciated:persists infiltrated RLL after throacenteis. may need bronchoscopy -ID consult appreciated: Zosyn/Clindamycin day 7 5) Sepsis -resolved -SIRS+ Lung infiltrates on admission 6) COPD exacerbation -CXR: clearing of the right lower lobe infiltrate and gradual further expansion of the right lung, noticeable patchy infiltrates in the left upper lobe, improvement of pleural effusion -continue duoneb Q4h PRN -solumedrol 30 mg IV BID -Pulm onboard 7) Hx/o Hodgking Lymphoma -s/p treatment chemotherapy/radiotherapy -pt does not know what agents were used 8) HTN -controlled, medication held at this time 9) Diet -soft heart healthy diet -numberer and wirer referral ordered -fluid restriction for next 24 hrs -uses dentures -f/u and re evaluate restriction status in 24 hrs 10) DVT Prophylaxis -Heparin 5000 U SC Q8h -pt with pigtail chest tube 11) deconditioning -PT/OT consulted and following patient Dispo: Patient expresses desire to leave AMA, despite risks of which were thoroughly explained <Cj Sterling - Last Filed: 12/08/17 06:45> Objective - Vital Signs/Intake and Output Vital Signs (last 24 hours): Temp Pulse Resp BP Pulse Ox 98.4 F 69 18 113/75 98 12/07/17 08:00 12/07/17 08:00 12/07/17 08:00 12/07/17 08:00 12/07/17 08:00 - Labs Labs: 12/07/17 06:40 12/07/17 05:20 PT 15.7 Seconds (9.8-13.1) H 11/30/17 04:25 INR 1.4 (0.9-1.2) H 11/30/17 04:25 APTT 29.1 Seconds (25.6-37.1) 11/28/17 18:09 Attending/Attestation - Attestation I have personally seen and examined this patient.: Yes I have fully participated in the care of the patient.: Yes I have reviewed all pertinent clinical information, including history, physical exam and plan: Yes
--- NOTE | 2017-12-07 13:31 | RAD ---
HISTORY: s/p right chest tube removal, please do at 1pm COMPARISON: No prior. FINDINGS: LUNGS: Pulmonary vascular congestion. Bibasilar atelectasis. PLEURA: Small left pleural effusion. Trace right pleural effusion. Chronic small right apical pneumothorax (calcified pleural margin). CARDIOVASCULAR: Left subclavian access pacemaker redemonstrated. Atherosclerotic aortic calcifications. Cardiomediastinal silhouette within normal limits. OSSEOUS STRUCTURES: No significant abnormalities. VISUALIZED UPPER ABDOMEN: Normal. OTHER FINDINGS: Interval removal of right basilar pigtail chest tube. IMPRESSION: Interval removal right basilar pigtail chest tube.
--- NOTE | 2017-12-07 14:43 | CP.PCM.DIS ---
<Reginaldo Hermosillo - Last Filed: 12/07/17 14:41> Provider - Provider Date of Admission: 11/28/17 20:26 Attending physician: Cj Sterling MD Time Spent in preparation of Discharge (in minutes): 15 Hospital Course - Lab Results Lab Results: Micro Results 12/03/17 09:02 Naris MRSA Culture (Admit) - Final MRSA NOT DETECTED 11/30/17 17:15 Pleural Fluid Gram Stain - Final 11/30/17 17:15 Pleural Fluid Body Fluid Culture - Final No growth. 11/28/17 18:00 Blood Blood Culture - Final NO GROWTH AFTER 5 DAYS 11/28/17 18:00 Blood Gram Stain - Final TEST NOT PERFORMED 11/30/17 17:15 Other: Please Indicate Mycobacterial Culture - Preliminary 11/29/17 11:00 Sputum Gram Stain - Final 11/29/17 11:00 Sputum Sputum Culture - Final NORMAL ORAL JANEE 11/28/17 10:50 Naris MRSA Culture (Admit) - Final MRSA NOT DETECTED Most Recent Lab Values WBC 6.1 K/uL (4.8-10.8) 12/07/17 06:40 RBC 3.18 Mil/uL (4.40-5.90) L 12/07/17 06:40 Hgb 11.6 g/dL (12.0-18.0) L 12/07/17 06:40 Hct 34.2 % (35.0-51.0) L 12/07/17 06:40 MCV 107.8 fl (80.0-94.0) H 12/07/17 06:40 MCH 36.6 pg (27.0-31.0) H 12/07/17 06:40 MCHC 33.9 g/dL (33.0-37.0) 12/07/17 06:40 RDW 13.8 % (11.5-14.5) 12/07/17 06:40 Plt Count 133 K/uL (130-400) 12/07/17 06:40 MPV 8.8 fl (7.2-11.7) 12/01/17 05:00 Neut % (Auto) 92.1 % (50.0-75.0) H 12/01/17 05:00 Lymph % (Auto) 1.9 % (20.0-40.0) L 12/01/17 05:00 Cuming % (Auto) 5.8 % (0.0-10.0) 12/01/17 05:00 Eos % (Auto) 0.0 % (0.0-4.0) 12/01/17 05:00 Baso % (Auto) 0.2 % (0.0-2.0) 12/01/17 05:00 Neut # 12.2 K/uL (1.8-7.0) H 12/01/17 05:00 Lymph # 0.3 K/uL (1.0-4.3) L 12/01/17 05:00 Cuming # 0.8 K/uL (0.0-0.8) 12/01/17 05:00 Eos # 0.0 K/uL (0.0-0.7) 12/01/17 05:00 Baso # 0.0 K/uL (0.0-0.2) 12/01/17 05:00 Total Counted Cancelled 12/01/17 05:00 Neutrophils % (Manual) 86 % (42-75) H 11/30/17 04:25 Band Neutrophils % 5 % (0-2) H 11/30/17 04:25 Lymphocytes % (Manual) 4 % (20-50) L 11/30/17 04:25 Reactive Lymphs % Cancelled 12/01/17 05:00 Monocytes % (Manual) 5 % (0-10) 11/30/17 04:25 Eosinophils % (Manual) 1 % (0-7) 11/28/17 18:09 Basophils % (Manual) Cancelled 12/01/17 05:00 Metamyelocytes % Cancelled 12/01/17 05:00 Myelocytes % Cancelled 12/01/17 05:00 Promyelocytes % Cancelled 12/01/17 05:00 Blast Cells % Cancelled 12/01/17 05:00 Plasma Cell % (Manual) Cancelled 12/01/17 05:00 Nucleated RBC % 1 % (0-0) H 11/28/17 18:09 Hypersegmented Polys Cancelled 12/01/17 05:00 Smudge Cells Cancelled 12/01/17 05:00 Toxic Granulation Cancelled 12/01/17 05:00 Dohle Bodies Cancelled 12/01/17 05:00 Ammy Rods Cancelled 12/01/17 05:00 Platelet Estimate Normal (NORMAL) 11/30/17 04:25 Plt Clumps, EDTA Cancelled 12/01/17 05:00 Large Platelets Present 11/30/17 04:25 Giant Platelets Cancelled 12/01/17 05:00 RBC Morphology Cancelled 12/01/17 05:00 Polychromasia Cancelled 12/01/17 05:00 Hypochromasia (manual) Cancelled 12/01/17 05:00 Poikilocytosis (manual Slight 11/30/17 04:25 Basophilic Stippling Cancelled 12/01/17 05:00 Anisocytosis (manual) Slight 11/30/17 04:25 Microcytosis (manual) Slight 11/30/17 04:25 Macrocytosis (manual) Slight 11/30/17 04:25 Spherocytes Slight 11/29/17 06:55 Sickle Cells Cancelled 12/01/17 05:00 Target Cells Slight 11/30/17 04:25 Tear Drop Cells Cancelled 12/01/17 05:00 Ovalocytes Slight 11/30/17 04:25 Stomatocytes Cancelled 12/01/17 05:00 Helmet Cells Cancelled 12/01/17 05:00 [place] Dezza Bodies Cancelled 12/01/17 05:00 Dylan Cells Slight 11/30/17 04:25 Acanthocytes (Spur) Cancelled 12/01/17 05:00 Rouleaux Cancelled 12/01/17 05:00 Schistocytes Slight 11/30/17 04:25 PT 15.7 Seconds (9.8-13.1) H 11/30/17 04:25 INR 1.4 (0.9-1.2) H 11/30/17 04:25 APTT 29.1 Seconds (25.6-37.1) 11/28/17 18:09 pO2 17 mm/Hg (30-55) L 11/28/17 17:56 VBG pH 7.39 (7.32-7.43) 11/28/17 17:56 VBG pCO2 50 mmHg (40-60) 11/28/17 17:56 VBG HCO3 26.9 mmol/L 11/28/17 17:56 VBG Total CO2 31.8 mmol/L (22-28) H 11/28/17 17:56 VBG O2 Sat (Calc) 27.6 % (40-65) L 11/28/17 17:56 VBG Base Excess 4.5 mmol/L (0.0-2.0) H 11/28/17 17:56 VBG Potassium 4.3 mmol/L (3.6-5.2) 11/28/17 17:56 Sodium 128.0 mmol/L (132-148) L 11/28/17 17:56 Chloride 90.0 mmol/L (98-107) L 11/28/17 17:56 Glucose 160 mg/dL (75-110) H 11/28/17 17:56 Lactate 2.6 mmol/L (0.7-2.1) H 11/28/17 17:56 FiO2 21.0 % 11/28/17 17:56 Sodium 127 mmol/l (132-148) L 12/07/17 05:20 Potassium 4.4 MMOL/L (3.6-5.0) 12/07/17 05:20 Chloride 89 mmol/L (98-107) L 12/07/17 05:20 Carbon Dioxide 31 mmol/L (22-30) H 12/07/17 05:20 Anion Gap 11 (10-20) 12/07/17 05:20 BUN 13 mg/dl (9-20) 12/07/17 05:20 Creatinine 0.6 mg/dl (0.8-1.5) L 12/07/17 05:20 Est GFR ( Amer) > 60 12/07/17 05:20 Est GFR (Non-Af Amer) > 60 12/07/17 05:20 POC Glucose (mg/dL) 149 mg/dL (65-110) H 12/05/17 10:41 Random Glucose 107 mg/dL (75-110) 12/07/17 05:20 Lactic Acid 2.5 MMOL/L (0.7-2.1) H 11/29/17 08:00 Calcium 9.1 mg/dL (8.4-10.2) 12/07/17 05:20 Phosphorus 3.5 mg/dl (2.5-4.5) 11/28/17 18:09 Magnesium 1.8 MG/DL (1.6-2.3) 11/30/17 04:25 Total Bilirubin 0.9 mg/dl (0.2-1.3) 11/30/17 04:25 AST 38 U/L (17-59) 11/30/17 04:25 ALT 51 U/L (21-72) 11/30/17 04:25 Alkaline Phosphatase 100 U/L (38-126) 11/30/17 04:25 Lactate Dehydrogenase 265 U/L (313-618) L 11/30/17 04:25 Troponin I 0.0840 ng/mL (0.00-0.120) 11/29/17 16:30 Total Protein 7.2 G/DL (6.3-8.2) 11/30/17 04:25 Albumin 3.9 g/dL (3.5-5.0) 11/30/17 04:25 Globulin 3.3 gm/dL (2.2-3.9) 11/30/17 04:25 Albumin/Globulin Ratio 1.2 (1.0-2.1) 11/30/17 04:25 NT-Pro-B Natriuret Pep 4520 pg/ml (0-900) H 12/07/17 05:20 Procalcitonin 0.72 NG/ML (0.19-0.49) H 11/30/17 04:25 Venous Blood Potassium 4.3 mmol/L (3.6-5.2) 11/28/17 17:56 Ur Random Sodium 133 meq/L 12/07/17 01:40 Ur Random Potassium 17.3 mmol/L 12/07/17 01:40 Fluid Source Pleural/thoracentesi 11/30/17 17:15 Fluid Appearance Clear (CLEAR) 11/30/17 17:15 Fluid WBC 52.0 /mm3 (0.0-300.0) 11/30/17 17:15 Fluid RBC 450.0 /mm3 (0.0-0.0) H 11/30/17 17:15 Fluid Tot Cell Count 100 (0-0) H 11/30/17 17:15 Fluid Neutrophils 10.0 % (0-0) H 11/30/17 17:15 Fluid Lymphocytes 49.0 % (0-0) H 11/30/17 17:15 Fld Monocyte/Macrophag 41 % (0-0) H 11/30/17 17:15 Fluid Glucose 151 mg/dL (NONE ESTABLISHED) 11/30/17 17:15 Fluid Total Protein 3.3 g/dL (NONE ESTABLISHED) 11/30/17 17:15 Fluid LDH 121 IU (NONE ESTABLISHED) 11/30/17 17:15 Fluid Comment Lt. yellow 11/30/17 17:15 Influenza Typ A,B (EIA) Negative for flu a/b (NEGATIVE) 11/28/17 18:09 TB Test (QFT) Nil 0.01 IU/mL 11/30/17 11:40 TB Test Mitogen - Nil 0.14 IU/mL 11/30/17 11:40 TB Test TB - Nil <0.00 IU/mL 11/30/17 11:40 TB Test (QFT) Indeterminate (Negative) H 11/30/17 11:40 Blood Type O POSITIVE 11/28/17 18:06 Blood Type Confirm O POSITIVE 11/28/17 16:24 Antibody Screen Negative 11/28/17 18:06 BBK History Checked No verified bt 11/28/17 18:06 - Hospital Course Hospital Course: 62 y/o man w/ pmh of Asthma/COPD, HTN, Hx of Bilateral Avascular Necrosis of Femur, Anxiety, Hx of Hodgkin Lymphoma, Complete Heart Block s/p pacemeker 2016 admitted for CHF exacerbation, PNA, Plerural effusion. Patient was admitted to ICU for severe pleural effusion requiring chest tube placement, done by IR. Initially draining 2-3 L and continues to drain 500-800cc. Patient has pneumonia treated w/ IV zosyn and clindamycin. Patient requires soft diet due to ill-fitting dentures. Patient was downgraded to Tele on 12/04 where patient started PT. Patient seen by cardiology and pulmonary consults. Patient expresses discontent and desires to leave AMA. Patient unfit for discharge at this time. All risks were thoroughly explained, patient understands, and still desired to leave AMA. Discharge Exam - Head Exam Head Exam: ATRAUMATIC, NORMAL INSPECTION, NORMOCEPHALIC - Eye Exam Eye Exam: Normal appearance - ENT Exam ENT Exam: Mucous Membranes Moist - Respiratory Exam Respiratory Exam: Decreased Breath Sounds, Rales, Wheezes. absent: Rhonchi, Respiratory Distress - Cardiovascular Exam Cardiovascular Exam: REGULAR RHYTHM - GI/Abdominal Exam GI & Abdominal Exam: Normal Bowel Sounds, Soft. absent: Distended, Tenderness - Extremities Exam Extremities exam: normal inspection - Neurological Exam Neurological exam: Alert, Oriented x3 - Skin Skin Exam: Dry, Intact, Normal Color, Warm Discharge Plan - Follow Up Plan Condition: SERIOUS Disposition: AGAINST MEDICAL ADVICE Patient education suggested?: Yes Instructions: Heart Failure (DC), Heart Failure (GEN), Pacemaker (DC), Pacemaker (GEN), Pulmonary Edema (DC), Pulmonary Edema (GEN), Ascites (DC), Ascites (GEN) <Cj Sterling - Last Filed: 12/08/17 06:45> Provider - Provider Date of Admission: 11/28/17 20:26 Attending physician: Cj Sterling MD Hospital Course - Lab Results Lab Results: Micro Results 12/03/17 09:02 Naris MRSA Culture (Admit) - Final MRSA NOT DETECTED 11/30/17 17:15 Pleural Fluid Gram Stain - Final 11/30/17 17:15 Pleural Fluid Body Fluid Culture - Final No growth. 11/28/17 18:00 Blood Blood Culture - Final NO GROWTH AFTER 5 DAYS 11/28/17 18:00 Blood Gram Stain - Final TEST NOT PERFORMED 11/30/17 17:15 Other: Please Indicate Mycobacterial Culture - Preliminary 11/29/17 11:00 Sputum Gram Stain - Final 11/29/17 11:00 Sputum Sputum Culture - Final NORMAL ORAL JANEE 11/28/17 10:50 Naris MRSA Culture (Admit) - Final MRSA NOT DETECTED Most Recent Lab Values WBC 6.1 K/uL (4.8-10.8) 12/07/17 06:40 RBC 3.18 Mil/uL (4.40-5.90) L 12/07/17 06:40 Hgb 11.6 g/dL (12.0-18.0) L 12/07/17 06:40 Hct 34.2 % (35.0-51.0) L 12/07/17 06:40 MCV 107.8 fl (80.0-94.0) H 12/07/17 06:40 MCH 36.6 pg (27.0-31.0) H 12/07/17 06:40 MCHC 33.9 g/dL (33.0-37.0) 12/07/17 06:40 RDW 13.8 % (11.5-14.5) 12/07/17 06:40 Plt Count 133 K/uL (130-400) 12/07/17 06:40 MPV 8.8 fl (7.2-11.7) 12/01/17 05:00 Neut % (Auto) 92.1 % (50.0-75.0) H 12/01/17 05:00 Lymph % (Auto) 1.9 % (20.0-40.0) L 12/01/17 05:00 Cuming % (Auto) 5.8 % (0.0-10.0) 12/01/17 05:00 Eos % (Auto) 0.0 % (0.0-4.0) 12/01/17 05:00 Baso % (Auto) 0.2 % (0.0-2.0) 12/01/17 05:00 Neut # 12.2 K/uL (1.8-7.0) H 12/01/17 05:00 Lymph # 0.3 K/uL (1.0-4.3) L 12/01/17 05:00 Cuming # 0.8 K/uL (0.0-0.8) 12/01/17 05:00 Eos # 0.0 K/uL (0.0-0.7) 12/01/17 05:00 Baso # 0.0 K/uL (0.0-0.2) 12/01/17 05:00 Total Counted Cancelled 12/01/17 05:00 Neutrophils % (Manual) 86 % (42-75) H 11/30/17 04:25 Band Neutrophils % 5 % (0-2) H 11/30/17 04:25 Lymphocytes % (Manual) 4 % (20-50) L 11/30/17 04:25 Reactive Lymphs % Cancelled 12/01/17 05:00 Monocytes % (Manual) 5 % (0-10) 11/30/17 04:25 Eosinophils % (Manual) 1 % (0-7) 11/28/17 18:09 Basophils % (Manual) Cancelled 12/01/17 05:00 Metamyelocytes % Cancelled 12/01/17 05:00 Myelocytes % Cancelled 12/01/17 05:00 Promyelocytes % Cancelled 12/01/17 05:00 Blast Cells % Cancelled 12/01/17 05:00 Plasma Cell % (Manual) Cancelled 12/01/17 05:00 Nucleated RBC % 1 % (0-0) H 11/28/17 18:09 Hypersegmented Polys Cancelled 12/01/17 05:00 Smudge Cells Cancelled 12/01/17 05:00 Toxic Granulation Cancelled 12/01/17 05:00 Dohle Bodies Cancelled 12/01/17 05:00 Ammy Rods Cancelled 12/01/17 05:00 Platelet Estimate Normal (NORMAL) 11/30/17 04:25 Plt Clumps, EDTA Cancelled 12/01/17 05:00 Large Platelets Present 11/30/17 04:25 Giant Platelets Cancelled 12/01/17 05:00 RBC Morphology Cancelled 12/01/17 05:00 Polychromasia Cancelled 12/01/17 05:00 Hypochromasia (manual) Cancelled 12/01/17 05:00 Poikilocytosis (manual Slight 11/30/17 04:25 Basophilic Stippling Cancelled 12/01/17 05:00 Anisocytosis (manual) Slight 11/30/17 04:25 Microcytosis (manual) Slight 11/30/17 04:25 Macrocytosis (manual) Slight 11/30/17 04:25 Spherocytes Slight 11/29/17 06:55 Sickle Cells Cancelled 12/01/17 05:00 Target Cells Slight 11/30/17 04:25 Tear Drop Cells Cancelled 12/01/17 05:00 Ovalocytes Slight 11/30/17 04:25 Stomatocytes Cancelled 12/01/17 05:00 Helmet Cells Cancelled 12/01/17 05:00 [place] Dezza Bodies Cancelled 12/01/17 05:00 Manquin Cells Slight 11/30/17 04:25 Acanthocytes (Spur) Cancelled 12/01/17 05:00 Rouleaux Cancelled 12/01/17 05:00 Schistocytes Slight 11/30/17 04:25 PT 15.7 Seconds (9.8-13.1) H 11/30/17 04:25 INR 1.4 (0.9-1.2) H 11/30/17 04:25 APTT 29.1 Seconds (25.6-37.1) 11/28/17 18:09 pO2 17 mm/Hg (30-55) L 11/28/17 17:56 VBG pH 7.39 (7.32-7.43) 11/28/17 17:56 VBG pCO2 50 mmHg (40-60) 11/28/17 17:56 VBG HCO3 26.9 mmol/L 11/28/17 17:56 VBG Total CO2 31.8 mmol/L (22-28) H 11/28/17 17:56 VBG O2 Sat (Calc) 27.6 % (40-65) L 11/28/17 17:56 VBG Base Excess 4.5 mmol/L (0.0-2.0) H 11/28/17 17:56 VBG Potassium 4.3 mmol/L (3.6-5.2) 11/28/17 17:56 Sodium 128.0 mmol/L (132-148) L 11/28/17 17:56 Chloride 90.0 mmol/L (98-107) L 11/28/17 17:56 Glucose 160 mg/dL (75-110) H 11/28/17 17:56 Lactate 2.6 mmol/L (0.7-2.1) H 11/28/17 17:56 FiO2 21.0 % 11/28/17 17:56 Sodium 127 mmol/l (132-148) L 12/07/17 05:20 Potassium 4.4 MMOL/L (3.6-5.0) 12/07/17 05:20 Chloride 89 mmol/L (98-107) L 12/07/17 05:20 Carbon Dioxide 31 mmol/L (22-30) H 12/07/17 05:20 Anion Gap 11 (10-20) 12/07/17 05:20 BUN 13 mg/dl (9-20) 12/07/17 05:20 Creatinine 0.6 mg/dl (0.8-1.5) L 12/07/17 05:20 Est GFR ( Amer) > 60 12/07/17 05:20 Est GFR (Non-Af Amer) > 60 12/07/17 05:20 POC Glucose (mg/dL) 149 mg/dL (65-110) H 12/05/17 10:41 Random Glucose 107 mg/dL (75-110) 12/07/17 05:20 Lactic Acid 2.5 MMOL/L (0.7-2.1) H 11/29/17 08:00 Calcium 9.1 mg/dL (8.4-10.2) 12/07/17 05:20 Phosphorus 3.5 mg/dl (2.5-4.5) 11/28/17 18:09 Magnesium 1.8 MG/DL (1.6-2.3) 11/30/17 04:25 Total Bilirubin 0.9 mg/dl (0.2-1.3) 11/30/17 04:25 AST 38 U/L (17-59) 11/30/17 04:25 ALT 51 U/L (21-72) 11/30/17 04:25 Alkaline Phosphatase 100 U/L (38-126) 11/30/17 04:25 Lactate Dehydrogenase 265 U/L (313-618) L 11/30/17 04:25 Troponin I 0.0840 ng/mL (0.00-0.120) 11/29/17 16:30 Total Protein 7.2 G/DL (6.3-8.2) 11/30/17 04:25 Albumin 3.9 g/dL (3.5-5.0) 11/30/17 04:25 Globulin 3.3 gm/dL (2.2-3.9) 11/30/17 04:25 Albumin/Globulin Ratio 1.2 (1.0-2.1) 11/30/17 04:25 NT-Pro-B Natriuret Pep 4520 pg/ml (0-900) H 12/07/17 05:20 Procalcitonin 0.72 NG/ML (0.19-0.49) H 11/30/17 04:25 Venous Blood Potassium 4.3 mmol/L (3.6-5.2) 11/28/17 17:56 Ur Random Sodium 133 meq/L 12/07/17 01:40 Ur Random Potassium 17.3 mmol/L 12/07/17 01:40 Fluid Source Pleural/thoracentesi 11/30/17 17:15 Fluid Appearance Clear (CLEAR) 11/30/17 17:15 Fluid WBC 52.0 /mm3 (0.0-300.0) 11/30/17 17:15 Fluid RBC 450.0 /mm3 (0.0-0.0) H 11/30/17 17:15 Fluid Tot Cell Count 100 (0-0) H 11/30/17 17:15 Fluid Neutrophils 10.0 % (0-0) H 11/30/17 17:15 Fluid Lymphocytes 49.0 % (0-0) H 11/30/17 17:15 Fld Monocyte/Macrophag 41 % (0-0) H 11/30/17 17:15 Fluid Glucose 151 mg/dL (NONE ESTABLISHED) 11/30/17 17:15 Fluid Total Protein 3.3 g/dL (NONE ESTABLISHED) 11/30/17 17:15 Fluid LDH 121 IU (NONE ESTABLISHED) 11/30/17 17:15 Fluid Comment Lt. yellow 11/30/17 17:15 Influenza Typ A,B (EIA) Negative for flu a/b (NEGATIVE) 11/28/17 18:09 TB Test (QFT) Nil 0.01 IU/mL 11/30/17 11:40 TB Test Mitogen - Nil 0.14 IU/mL 11/30/17 11:40 TB Test TB - Nil <0.00 IU/mL 11/30/17 11:40 TB Test (QFT) Indeterminate (Negative) H 11/30/17 11:40 Blood Type O POSITIVE 11/28/17 18:06 Blood Type Confirm O POSITIVE 11/28/17 16:24 Antibody Screen Negative 11/28/17 18:06 BBK History Checked No verified bt 11/28/17 18:06 Attending/Attestation - Attestation I have personally seen and examined this patient.: Yes I have fully participated in the care of the patient.: Yes I have reviewed all pertinent clinical information, including history, physical exam and plan: Yes
== END 2017-12-07 14:56 | disposition left against medical advice (07) | DRG 871 ==
LOC: H.ER 17:10 → H.ERHOLD 20:26 → H.ICU/CCU 22:13 → H.TEL 12-03 20:37
PROVIDERS: ADMIT Family Medicine; ATTEND Family Medicine
PROC: 0W9930Z Drainage of Right Pleural Cavity with Drainage Device, Percutaneous Approach (ICD-10-PCS; principal; 2017-11-30)
PROC: 0WP930Z Removal of Drainage Device from Right Pleural Cavity, Percutaneous Approach (ICD-10-PCS; 2017-12-07)
DX: A41.9 Sepsis, unspecified organism (principal); J18.9 Pneumonia, unspecified organism; I50.33 Acute on chronic diastolic (congestive) heart failure; E87.1 Hypo-osmolality and hyponatremia; I11.0 Hypertensive heart disease with heart failure; I27.20 Pulmonary hypertension, unspecified; J44.0 Chronic obstructive pulmonary disease with (acute) lower respiratory infection; J44.1 Chronic obstructive pulmonary disease with (acute) exacerbation; J93.9 Pneumothorax, unspecified; J98.11 Atelectasis; M87.9 Osteonecrosis, unspecified; Z85.71 Personal history of Hodgkin lymphoma; E87.6 Hypokalemia; F12.90 Cannabis use, unspecified, uncomplicated; I34.0 Nonrheumatic mitral (valve) insufficiency; R53.82 Chronic fatigue, unspecified; T38.0X5A Adverse effect of glucocorticoids and synthetic analogues, initial encounter; T50.2X5A Adverse effect of carbonic-anhydrase inhibitors, benzothiadiazides and other diuretics, initial encounter; Z66 Do not resuscitate; Z87.01 Personal history of pneumonia (recurrent); Z87.891 Personal history of nicotine dependence; Z92.21 Personal history of antineoplastic chemotherapy; Z92.3 Personal history of irradiation; Z95.0 Presence of cardiac pacemaker; Z96.641 Presence of right artificial hip joint; F41.9 Anxiety disorder, unspecified; K64.9 Unspecified hemorrhoids; R73.9 Hyperglycemia, unspecified; I49.9 Cardiac arrhythmia, unspecified

== ENCOUNTER 2018-04-27 03:40 | Inpatient (IN) | payer MEDICARE ==
[2018-04-27 03:41] VITALS: BMI 22.4
[2018-04-27] MEDS ORDERED: Albuterol-Ipratrop 3 mg / 0.5 (3 ml) UD INH STA (04:12)
[2018-04-27] MEDS ORDERED: Albuterol-Ipratrop 3 mg / 0.5 (3 ml) UD ONE (04:19)
--- NOTE | 2018-04-27 04:34 | ED PDOC ---
HPI: SOB/CHF/COPD Time Seen by Provider: 04/27/18 03:48 Chief Complaint (Nursing): Shortness Of Breath Chief Complaint (Provider): Shortness of Breath History Per: Patient History/Exam Limitations: no limitations (CORE MAN ) Additional Complaint(s): Marcelo Montanez is 62 y/o male with past medical history of CHF, COPD, and aortic valvular disease, who presents to the ED with complaints of shortness of breath with associated BREWER, orthopnea, and paroxysmal nocturnal dyspnea via EMS at 03:44. Patient had been admitted to [facility] on (03/29/18) and signed out AMA. He states that he was advised that he may need surgery for his aortic valvular disease. Patient is currently taking diuretics and reports that he is compliant with mediation. He says that despite medication he is still retaining fluid. He denies any fever, nausea, vomiting or other medical concerns. PMD: Cj Sterling Past Medical History Reviewed: Historical Data, Nursing Documentation, Vital Signs Vital Signs: Last Vital Signs Temp 98.2 F 04/28/18 01:00 Pulse 104 H 04/28/18 01:00 Resp 16 04/28/18 01:00 BP 88/40 L 04/28/18 01:00 Pulse Ox 95 04/28/18 01:00 - Medical History PMH: Anxiety, Asthma, Bronchitis, Cardia Arrhythmia, CHF, HTN, Pneumonia (1999) Denies: HIV, Chronic Kidney Disease - Surgical History Surgical History: Pacemaker - Family History Family History: States: Unknown Family Hx - Social History Current smoker - smoking cessation education provided: No Ex-Smoker (has not smoked in the last 12 months): Yes Alcohol: None Drugs: Denies - Home Medications Home Medications: Ambulatory Orders Medication Instructions Recorded Albuterol HFA [Ventolin HFA 90 2 puff IH BID 11/19/16 mcg/actuation (8 g)] Budesonide/Formoterol Fumarate 2 spray PO BID 11/28/17 [Symbicort 160-4.5 Mcg Inhaler] Furosemide [Lasix] 40 mg PO DAILY 11/28/17 Albuterol 0.083% [Albuterol 0.083% 3 ml NEB TID 04/27/18 Inhal Vanesa (2.5 mg/3 ml) UD] Enalapril Maleate [Vasotec] 10 mg PO DAILY 04/27/18 Furosemide [Lasix] 40 mg PO BID 04/27/18 Sildenafil [Revatio] 20 mg PO TID 04/27/18 clonazePAM [Klonopin] 0.5 mg PO PRN PRN 04/27/18 metOLazone [Zaroxolyn] 5 mg PO BID 04/27/18 - Allergies Allergies/Adverse Reactions: Allergies Allergy/AdvReac Type Severity Reaction Status Date / Time No Known Allergies Allergy Verified 04/27/18 04:41 Review of Systems ROS Statement: Except As Marked, All Systems Reviewed And Found Negative Constitutional: Negative for: Fever Cardiovascular: Positive for: Orthopnea, Paroxysmal Noc. Dyspnea Respiratory: Positive for: Shortness of Breath, SOB with Exertion (dyspnea on exertion) Gastrointestinal: Negative for: Nausea, Vomiting Physical Exam - Reviewed Nursing Documentation Reviewed: Yes Vital Signs Reviewed: Yes - Physical Exam Appears: Positive for: Non-toxic, No Acute Distress Head Exam: Positive for: ATRAUMATIC, NORMOCEPHALIC Skin: Positive for: Normal Color, Warm, Dry Eye Exam: Positive for: EOMI, Normal appearance, PERRL Neck: Positive for: Normal, Painless ROM Cardiovascular/Chest: Positive for: JVD (+1), Murmur (4/6 hollow systolic) Respiratory: Positive for: Rales (bilaterally), Rhonchi (bilaterally), Respiratory Distress (mild) Extremity: Positive for: Pedal Edema (2+ bilateral lower extremities) - Laboratory Results Result Diagrams: 04/27/18 04:20 04/27/18 04:20 - ECG O2 Sat by Pulse Oximetry: 97 (RA) Medical Decision Making Medical Decision Making: Time: 04:11 Initial Impression: 62 y/o male with shortness of breath in setting of CHF and valvular heart disease. Initial Plan: * EKG * BNP * CMP * Troponin I * CBC * PTT * Prothrombin Time * Duoneb 3 mg/0.5 mg 9 ml INH * Lasix 40 mg IV * Peak flow pre/post Time 05:00 CXR shows evidence for cardiomegaly, large pleural effusion on the right side, and pulmonary vascular congestion. Time 05:11 Disposition --Labs reviewed no clinical significant abnormalities with exception of marked elevation of proBNP and elevated Troponin. The patient is admitted for treatment of ACS, CHF under Dr. Sterling as discussed with Dr. Hermosillo. Scribe Attestation: Documented by Otto Jarquin, acting as a scribe for Dany Hernadez Provider Scribe Attestation: All medical record entries made by the Scribe were at my direction and personally dictated by me. I have reviewed the chart and agree that the record accurately reflects my personal performance of the history, physical exam, medical decision making, and the department course for this patient. I have also personally directed, reviewed, and agree with the discharge instructions and disposition. Disposition - Clinical Impression Clinical Impression: CHF (congestive heart failure), Pleural effusion, ACS (acute coronary syndrome) - Patient ED Disposition Is Patient to be Admitted: Yes - Disposition Disposition Time: 05:16 Condition: GUARDED - Pt Status Changed To: Hospital Disposition Of: Inpatient - Admit Certification Admit to Inpatient:: After my assessment, the patient will require hospitalization for at least two midnights. This is because of the severity of symptoms shown, intensity of services needed, and/or the medical risk in this patient being treated as an outpatient.
[2018-04-27 04:46] LABS: BASO % 0.5 % (0.0-2.0); EOS % 0.5 % (0.0-4.0); HEMOGLOBIN 10.1 g/dL (12.0-18.0); LYMPH # 0.3 K/uL (1.0-4.3); LYMPH % 4.8 % (20.0-40.0); MEAN CELL VOLUME 110.3 fl (80.0-94.0); MEAN CORPUSCULAR HEMOGLOBIN 37.2 pg (27.0-31.0); MEAN CORPUSCULAR HGB CONC 33.7 g/dL (33.0-37.0); MEAN PLATELET VOLUME 8.6 fl (7.2-11.7); MONO # 0.5 K/uL (0.0-0.8); MONO % 7.8 % (0.0-10.0); NEUT # 5.8 K/uL (1.8-7.0); NEUT % 86.4 % (50.0-75.0); NRBC % 0.1 % (0.0-0.0); PLATELET COUNT 216 K/uL (130-400); RBC 2.72 Mil/uL (4.40-5.90); RED CELL DISTRIBUTION WIDTH 13.8 % (11.5-14.5); WHITE BLOOD COUNT 6.8 K/uL (4.8-10.8)
[2018-04-27 05:04] LABS: ALB/GLOB RATIO 1.1 (1.0-2.1); ALBUMIN 3.6 g/dL (3.5-5.0); CALCIUM 9.5 mg/dL (8.4-10.2)
[2018-04-27 05:08] LABS: INR 1.2 (0.9-1.2); PARTIAL THROMBOPLASTIN TIME 35.7 Seconds (25.6-37.1); PROTHROMBIN TIME 13.8 Seconds (9.8-13.1)
[2018-04-27 05:30] LABS: TROPONIN I 0.15 ng/mL (0.00-0.120)
--- NOTE | 2018-04-27 05:59 | CP.PCM.HP ---
<Reginaldo Hermosillo - Last Filed: 04/27/18 05:43> History of Present Illness - History of Present Illness History of Present Illness: CC: dyspnea HPI: 62 y/o man w/ pmh of COPD, reduced EF CHF, HTN, Hx of Bilateral Avascular Necrosis of Femur, Anxiety, Hx of Hodgkin Lymphoma, Complete Heart Block s/p pacemeker 11/2016 presents to ED c/o SOB started 1 day ago, associated with wheezing. 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 Patient reports visit to [facility] for evaluation for open heart surgery which did not occur and he signed out AMA. Patient reports poor appetite, fatigue, dyspnea on exertion, orthopnea. Patient reports taking medications but continues to retain fluid. Patient denies headaches, chest pain, abdominal pain, nausea, vomiting, diarrhea, or fever. ED Course VS: 98.2 F, 62 bpm, 105/56 mm Hg, resp 16, O2 97% NC 3L CBC 6.8>10.1/30.0<216 CMP: 131/5.1, 94/24, 84/1.5, glucose 115, AST 24, ALT 29, alk phos 114 PT: 13.8 INR 1.2 aPTT: 35.7 ProBMP 22518 troponin 0.1500 CXR: (preliminary) right pleural effusion given duoneb, lasix 40 mg IV PMD: Dr. Iglesias PMHx: COPD, reduced EF CHF, HTN, Hx of Bilateral Avascular Necrosis of Femur, Anxiety, Hx of Hodgkin Lymphoma meds: see med list Allergies: NKDA PSH: Rt. Hip replacement, pacemaker Fam: denies SOC: TOB- quit more than 10 years ago, denies alcohol and drugs ROS: 12 points assessed and negative unless otherwise reported in HPI Present on Admission - Present on Admission Any Indicators Present on Admission: No History of DVT/PE: No History of Uncontrolled Diabetes: No Urinary Catheter: No Decubitus Ulcer Present: No Review of Systems - Review of Systems All systems: reviewed and no additional remarkable complaints except - Constitutional Constitutional: absent: Fever, Headache - EENT Eyes: absent: Change in Vision - Cardiovascular Cardiovascular: absent: Chest Pain - Respiratory Respiratory: As Per HPI, Dyspnea - Gastrointestinal Gastrointestinal: absent: Abdominal Pain, Diarrhea, Nausea, Vomiting - Integumentary Integumentary: absent: Rash Past Patient History - Infectious Disease Hx of Infectious Diseases: None - Past Medical History & Family History Past Medical History?: Yes - Past Social History Alcohol: None Drugs: Denies - CARDIAC Hx Cardia Arrhythmia: Yes Hx Congestive Heart Failure: Yes Hx Hypertension: Yes Hx Pacemaker: Yes - PULMONARY Hx Asthma: Yes Hx Bronchitis: Yes Hx Pneumonia: Yes (1999) - NEUROLOGICAL Hx Neurological Disorder: No - HEENT Hx HEENT Problems: No - RENAL Hx Chronic Kidney Disease: No - ENDOCRINE/METABOLIC Hx Endocrine Disorders: No Other/Comment: Hyponatremia 2014 - HEMATOLOGICAL/ONCOLOGICAL Hx Human Immunodeficiency Virus (HIV): No - INTEGUMENTARY Hx Dermatological Problems: No - MUSCULOSKELETAL/RHEUMATOLOGICAL Hx Falls: Yes Other/Comment: Avascular necrosis led to right hip replacement - GASTROINTESTINAL Hx Hemorrhoids: Yes - GENITOURINARY/GYNECOLOGICAL Hx Genitourinary Disorders: No - PSYCHIATRIC Hx Anxiety: Yes - SURGICAL HISTORY Hx Orthopedic Surgery: Yes (Right THR) Hx Thyroidectomy: Yes (Left Lobe) Other/Comment: Pacemaker - ANESTHESIA Hx Anesthesia: Yes Hx Anesthesia Reactions: No Hx Malignant Hyperthermia: No Meds Allergies/Adverse Reactions: Allergies Allergy/AdvReac Type Severity Reaction Status Date / Time No Known Allergies Allergy Verified 04/27/18 04:41 Physical Exam - Constitutional Appears: Non-toxic, No Acute Distress - Head Exam Head Exam: ATRAUMATIC, NORMAL INSPECTION, NORMOCEPHALIC - Eye Exam Eye Exam: Normal appearance - ENT Exam ENT Exam: Mucous Membranes Moist - Respiratory Exam Respiratory Exam: Accessory Muscle Use, Decreased Breath Sounds, Rales, Wheezes. absent: Respiratory Distress - Cardiovascular Exam Cardiovascular Exam: REGULAR RHYTHM - GI/Abdominal Exam GI & Abdominal Exam: Normal Bowel Sounds, Soft. absent: Distended, Tenderness - Extremities Exam Extremities exam: Negative for: calf tenderness - Neurological Exam Neurological exam: Alert, Oriented x3 - Skin Skin Exam: Dry, Normal Color, Warm Results - Vital Signs Recent Vital Signs: Last Vital Signs Temp 98.2 F 04/27/18 03:58 Pulse 62 04/27/18 03:58 Resp 20 04/27/18 04:35 BP 105/56 L 04/27/18 04:38 Pulse Ox 97 04/27/18 05:21 - Labs Result Diagrams: 04/27/18 04:20 04/27/18 04:20 Labs: Laboratory Results - last 24 hr 04/27/18 04/27/18 04/27/18 04:20 04:20 04:20 WBC 6.8 RBC 2.72 L Hgb 10.1 L Hct 30.0 L MCV 110.3 H D MCH 37.2 H MCHC 33.7 RDW 13.8 Plt Count 216 MPV 8.6 Neut % (Auto) 86.4 H Lymph % (Auto) 4.8 L [place] % (Auto) 7.8 Eos % (Auto) 0.5 Baso % (Auto) 0.5 Neut # (Auto) 5.8 Lymph # (Auto) 0.3 L [place] # (Auto) 0.5 Eos # (Auto) 0.0 Baso # (Auto) 0.0 PT 13.8 H INR 1.2 APTT 35.7 Sodium 131 L Potassium 5.1 H Chloride 94 L Carbon Dioxide 24 Anion Gap 18 BUN 84 H Creatinine 1.5 Est GFR ( Amer) 57 Est GFR (Non-Af Amer) 47 Random Glucose 115 H Calcium 9.5 Total Bilirubin 1.0 AST 24 ALT 29 Alkaline Phosphatase 114 Troponin I 0.1500 H* NT-Pro-B Natriuret Pep 14249 H Total Protein 7.0 Albumin 3.6 Globulin 3.4 Albumin/Globulin Ratio 1.1 Assessment & Plan - Assessment and Plan (Free Text) Assessment: 62 y/o man w/ pmh of COPD, reduced EF CHF, HTN, Hx of Bilateral Avascular Necrosis of Femur, Anxiety, Hx of Hodgkin Lymphoma, Complete Heart Block s/p pacemeker 11/2016 presents to ED c/o SOB started 1 day ago, associated with wheezing Plan: 1) CHF exacerbation - Orthopnea, SCOTT - ProBMP 4490 11/2017 - Hx/o complete AV block and s/p zeus 2017 - Echo 11/2017: 45-50%, severe pulmonary hypertension - VS: 98.2 F, 62 bpm, 105/56 mm Hg, resp 16, O2 97% NC 3L - CBC 6.8>10.1/30.0<216 - CMP: 131/5.1, 94/24, 84/1.5, glucose 115, AST 24, ALT 29, alk phos 114 - PT: 13.8 - INR 1.2 - aPTT: 35.7 - ProBMP 21372 - troponin 0.1500 - CXR: (preliminary) right pleural effusion - given duoneb, lasix 40 mg IV - monitor for acute changes - admit to Tele 2) COPD exacerbation - CXR: (preliminary) right pleural effusion - duonebs QID raudel - albuterol prn 3) Prophylactic measures - DVT: Lovenox 40 mg SC daily <HallieCjmerritt Robledo - Last Filed: 04/27/18 06:52> Results - Vital Signs Recent Vital Signs: Last Vital Signs Temp 98.2 F 04/27/18 03:58 Pulse 65 04/27/18 05:46 Resp 19 04/27/18 05:46 BP 120/72 04/27/18 05:46 Pulse Ox 98 04/27/18 05:46 - Labs Result Diagrams: 04/27/18 04:20 04/27/18 04:20 Labs: Laboratory Results - last 24 hr 04/27/18 04/27/18 04/27/18 04:20 04:20 04:20 WBC 6.8 RBC 2.72 L Hgb 10.1 L Hct 30.0 L MCV 110.3 H D MCH 37.2 H MCHC 33.7 RDW 13.8 Plt Count 216 MPV 8.6 Neut % (Auto) 86.4 H Lymph % (Auto) 4.8 L [place] % (Auto) 7.8 Eos % (Auto) 0.5 Baso % (Auto) 0.5 Neut # (Auto) 5.8 Lymph # (Auto) 0.3 L [place] # (Auto) 0.5 Eos # (Auto) 0.0 Baso # (Auto) 0.0 PT 13.8 H INR 1.2 APTT 35.7 Sodium 131 L Potassium 5.1 H Chloride 94 L Carbon Dioxide 24 Anion Gap 18 BUN 84 H Creatinine 1.5 Est GFR ( Amer) 57 Est GFR (Non-Af Amer) 47 Random Glucose 115 H Calcium 9.5 Total Bilirubin 1.0 AST 24 ALT 29 Alkaline Phosphatase 114 Troponin I 0.1500 H* NT-Pro-B Natriuret Pep 67419 H Total Protein 7.0 Albumin 3.6 Globulin 3.4 Albumin/Globulin Ratio 1.1 Attending/Attestation - Attestation I have personally seen and examined this patient.: Yes I have fully participated in the care of the patient.: Yes I have reviewed all pertinent clinical information: Yes
[2018-04-27 07:17] LABS: EOSINOPHIL 3 % (0-7); LYMPHOCYTE 6 % (20-50); MONOCYTE 3 % (0-10); NEUTROPHIL 88 % (42-75); TOTAL CELLS COUNTED 100
[2018-04-27 07:19] LABS: ANISOCYTOSIS SLIGHT; PLATELET ESTIMATE NORMAL (NORMAL)
[2018-04-27] MEDS: Albuterol-Ipratrop 3 mg / 0.5 (3 ml) UD INH SCH ×2 (07:36→11:57)
--- NOTE | 2018-04-27 07:45 | CP.PCM.PCO ---
Assessment/Plan - Assessment and Plan (Free Text) Assessment: S: pt seen and examined this AM with Dr. Sterling. Pt states that he is not feeling well. Endorsing swelling all over his body and having a hard time with his medical condition. O: GEN: NAD, NC w/ 2 L Cardio: S1S2 Resp: mild wheezing, decrease breath sounds in the R lower/mid lobes Abdomen: NT, BS+ Ext: 2+pitting edema up to the knees Neuro: AAOx3 A/P: 62 y/o man w/ pmh of COPD, reduced EF CHF, HTN, Hx of Bilateral Avascular Necrosis of Femur, Anxiety, Hx of Hodgkin Lymphoma, Complete Heart Block s/p pacemeker 11/2016 is admitted CHF exacerbation, with R pleural effusion. CHFrEF, exacerbation -Cardiology consulted, Dr. Pa -trops x 1 pos, with no acute ST changes on EKG -c/w meds -repeat EKG today -follow up Trops R pleural effusion -Pulmonary Consulted -CT of chest pending -O2 via NC to keep O2 > 92 -follow up recs Code status -pt states that he is DNR/DNI, as noted by Dr. Sterling -[email or web address]
[2018-04-27] MEDS ORDERED: Fluticasone-Salmeterol 250-50mcg Diskus INH SCH (09:00)
[2018-04-27] MEDS ORDERED: Albuterol 0.083% Inhal Sol (2.5 mg/3 mL) UD INH SCH (09:00)
[2018-04-27] MEDS ORDERED: Albuterol HFA 90 mcg/actuation (8 g) IH SCH (09:00)
[2018-04-27] MEDS ORDERED: Enoxaparin 40 mg Syringe SC SCH (09:00)
--- NOTE | 2018-04-27 10:00 | CP.PCM.CON ---
History of Present Illness - History of Present Illness History of Present Illness: This 62 year old male is well known to me from prior hospitalization as well as the outpatient setting. He has recently been hospitalized at [facility] [place] because of intractable heart failure and valvular heart disease. No surgical interventions were done and he had tube drainage of his recurrent pleural effusion. He has been home for about 4 weeks and has developed progressive worsening of dyspnea and dependant edema leading up to his presentation to the emergency room and admission because of decompensated CHF and large right pleural effusion. At this time the troponin is positive, low levels, and BNP is >10, 000. CT chest shows a large right pleural effusion with atelectasis of the RLL. Review of Systems - Constitutional Constitutional: Fatigue - Cardiovascular Cardiovascular: Dyspnea on Exertion, Leg Edema - Respiratory Respiratory: Dyspnea on Exertion Past Patient History - Infectious Disease Hx of Infectious Diseases: None - Past Medical History & Family History Past Medical History?: Yes - Past Social History Smoking Status: Former Smoker Chewing Tobacco Use: No Cigar Use: No Alcohol: Social Drugs: Cannabis Home Situation {Lives}: Alone - CARDIAC Hx Cardia Arrhythmia: Yes Hx Congestive Heart Failure: Yes Hx Hypertension: Yes Hx Pacemaker: Yes Hx Peripheral Edema: Yes Other/Comment: tricuspid regurgitation. pulmonary hypertension - PULMONARY Hx Asthma: Yes Hx Bronchitis: Yes Hx Chronic Obstructive Pulmonary Disease (COPD): Yes Hx Pneumonia: Yes - NEUROLOGICAL Hx Neurological Disorder: No - HEENT Hx HEENT Problems: No - RENAL Hx Chronic Kidney Disease: No - ENDOCRINE/METABOLIC Hx Endocrine Disorders: No - HEMATOLOGICAL/ONCOLOGICAL Hx Chemotherapy: Yes Hx Human Immunodeficiency Virus (HIV): No Hx Lymphoma: Yes (Hodgkin's lymphoma 1972 - RT, recurrent disease 1987 chemo/SCT ) - INTEGUMENTARY Hx Dermatological Problems: No - MUSCULOSKELETAL/RHEUMATOLOGICAL Hx Falls: Yes Other/Comment: Avascular necrosis led to right hip replacement - GASTROINTESTINAL Hx Hemorrhoids: Yes - GENITOURINARY/GYNECOLOGICAL Hx Genitourinary Disorders: No - PSYCHIATRIC Hx Anxiety: Yes - SURGICAL HISTORY Hx Orthopedic Surgery: Yes (Right THR) Hx Thyroidectomy: Yes (Left Lobe) Other/Comment: Pacemaker - ANESTHESIA Hx Anesthesia: Yes Hx Anesthesia Reactions: No Hx Malignant Hyperthermia: No Has any member of the family had a problem w/ anesthesia?: No Meds Allergies/Adverse Reactions: Allergies Allergy/AdvReac Type Severity Reaction Status Date / Time No Known Allergies Allergy Verified 04/27/18 04:41 - Medications Medications: Current Medications Albuterol Sulfate (Albuterol 0.083% Inhal Vnaesa (2.5 Mg/3 Ml) Ud) 2.5 mg INH RQ4 PRN PRN Reason: Shortness of Breath Albuterol/Ipratropium (Duoneb 3 Mg/0.5 Mg (3 Ml) Ud) 3 ml INH RQID [facility] Last Admin: 04/27/18 07:36 Dose: 3 ml Clonazepam (Klonopin) 0.5 mg PO DAILY PRN PRN Reason: Anxiety Enalapril Maleate (Vasotec) 10 mg PO DAILY CLAUDIA Enoxaparin Sodium (Lovenox) 40 mg SC DAILY CLAUDIA PRN Reason: Protocol Metolazone (Zaroxolyn) 5 mg PO BID CLAUDIA Fluticasone/Salmeterol (Advair Diskus 250/50) 1 puff INH RBID [facility] Last Admin: 04/27/18 08:23 Dose: 1 puff Physical Exam - Additional Findings Additional findings: Lying in bed, awake and conversant. No acute distress. Conjunctivae are pink and there is no scleral icterus. Speech is fluent and memory is intact. Pharynx is pink and mucous membranes are moist. No exudate. Neck is supple and trachea is midline. Dullness to percussion over the entire right hemithorax in the left base. Breath sounds are present in the right apex but absent in remainder of the right lung field. Breath sounds rash in the left base. No audible wheezing. No bronchial breath sounds are heard. No rales. Heart sounds are distant. Rhythm is regular. A systolic murmur at the apex is present. Abdomen is soft and nontender with normal bowel sounds. No CVA tenderness. 2+ edema is noted in the lower extremities, more right than left. No cyanosis. Results - Vital Signs Recent Vital Signs: Last Vital Signs Temp 97.7 F 04/27/18 08:00 Pulse 70 04/27/18 09:36 Resp 18 04/27/18 09:36 BP 113/66 04/27/18 08:00 Pulse Ox 100 04/27/18 08:00 - Labs Result Diagrams: 04/27/18 04:20 04/27/18 04:20 Labs: Laboratory Results - last 24 hr 04/27/18 04/27/1804/27/18 04:20 04:20 04:20 WBC 6.8 RBC 2.72 L Hgb 10.1 L Hct 30.0 L MCV 110.3 H D MCH 37.2 H MCHC 33.7 RDW 13.8 Plt Count 216 MPV 8.6 Neut % (Auto) 86.4 H Lymph % (Auto) 4.8 L [place] % (Auto) 7.8 Eos % (Auto) 0.5 Baso % (Auto) 0.5 Neut # (Auto) 5.8 Lymph # (Auto) 0.3 L [place] # (Auto) 0.5 Eos # (Auto) 0.0 Baso # (Auto) 0.0 Neutrophils % (Manual) 88 H Lymphocytes % (Manual) 6 L Monocytes % (Manual) 3 Eosinophils % (Manual) 3 Platelet Estimate Normal Anisocytosis (manual) Slight Macrocytosis (manual) Slight PT 13.8 H INR 1.2 APTT 35.7 Sodium 131 L Potassium 5.1 H Chloride 94 L Carbon Dioxide 24 Anion Gap 18 BUN 84 H Creatinine 1.5 Est GFR ( Amer) 57 Est GFR (Non-Af Amer) 47 Random Glucose 115 H Calcium 9.5 Total Bilirubin 1.0 AST 24 ALT 29 Alkaline Phosphatase 114 Troponin I 0.1500 H* NT-Pro-B Natriuret Pep 95038 H Total Protein 7.0 Albumin 3.6 Globulin 3.4 Albumin/Globulin Ratio 1.1 Assessment & Plan (1) Pleural effusion due to congestive heart failure Status: Acute Priority: High (2) Atelectasis Status: Acute Priority: High (3) Pulmonary hypertension Status: Chronic Priority: High - Assessment and Plan (Free Text) Plan: Will discuss with cardiology the different options for drainage of the effusion and the longer term plan for continued management. Agree with current medical management. - Date & Time Date: 04/27/18 Time: 10:01
[2018-04-27] MEDS: metOLazone 5 MG TAB PO SCH ×2 (10:06→17:49)
--- NOTE | 2018-04-27 10:27 | RAD ---
HISTORY: chest pain COMPARISON: Comparison made with chest radiograph 12/07/2017. FINDINGS: LUNGS: There is near complete opacification of the right hemidiaphragm consistent with large right-sided effusion and presumed atelectasis. Minor left basilar atelectasis and or infiltrate with moderate-sized left-sided effusion PLEURA: As above. No pneumothorax apparent. CARDIOVASCULAR: Heart size difficult to assess due to silhouetting of the right cardiac border. . No change bipolar pacemaker/defibrillator OSSEOUS STRUCTURES: No significant abnormalities. VISUALIZED UPPER ABDOMEN: Normal. OTHER FINDINGS: None. IMPRESSION: There is near complete opacification of the right hemidiaphragm consistent with large right-sided effusion and presumed atelectasis. Minor left basilar atelectasis and or infiltrate with moderate-sized left-sided effusion
--- NOTE | 2018-04-27 11:00 | CT ---
PROCEDURE: CT Chest without contrast HISTORY: Right pleural effusion COMPARISON: Comparison made with chest radiograph obtained earlier same day and prior CT scan chest dated 12/01/2017. TECHNIQUE: Contiguous helical/transaxial images were obtained through the chest without intravenous contrast enhancement. Sagittal and coronal reconstructions were performed. Radiation dose (DLP): 431.83 mGy-cm. This CT exam was performed using one or more of the following dose reduction techniques: Automated exposure control, adjustment of the mA and/or kV according to patient size, and/or use of iterative reconstruction technique. FINDINGS: LUNGS: There is a very large right-sided effusion with atelectasis seen in the right lower middle and to a lesser degree right upper lobes. The right middle and upper lobes remain partially aerated. There is occlusion of the right lower lobe bronchus as well as narrowing of the right middle lobe and right upper lobe bronchi. There is a moderate size left-sided effusion with mild left basilar atelectasis. MEDIASTINUM: Heart size is within range of normal. There is a small pericardial effusion. The ascending thoracic aorta measures approximately 3.0 cm and descending thoracic aorta measures approximately 2.2 cm. Pulmonary trunk measures approximately 3.1 cm. There are a few small nonspecific mediastinal lymph nodes. Evaluation for hilar adenopathy is limited due to the lack of circulating intravenous contrast material. The trachea and left name bronchus patent. There appears to be a small hiatal hernia. PLEURA: As above. No pneumothorax. BONES: Mild multilevel degenerative spondylosis of the thoracic spine. Mild chronic anterior wedge deformities of T12 and to a lesser degree T11 and L1 segments. UPPER ABDOMEN: There is moderate amount of upper abdominal ascites surrounding the liver. . There is a small calcification along the lateral surface right lobe liver nonspecific. OTHER FINDINGS: None. IMPRESSION: There is a very large right-sided effusion and mild atelectasis in the right lower middle and to a lesser degree right upper lobes. Moderate size left-sided effusion with mild left basilar atelectasis. Upper abdominal ascites. See above discussion for additional details
--- NOTE | 2018-04-27 12:06 | CARD ---
APPROVED REPORT EKG Measurement Heart [id number] [place] 200P [id number] <Conclusion> AV dual-paced rhythm with frequent premature ventricular complexes Abnormal ECG
--- NOTE | 2018-04-27 16:20 | CP.PCM.PCO ---
<Marah Alexis - Last Filed: 04/27/18 16:21> Physician Communication Note - Physician Communication Note Physician Communication Note: Marah Alexis Addendum Addendum: 04/27/18 15:44 CC: Low blood pressure; Nurse called regarding persistently low blood pressure but reports patient is otherwise asymptomatic. 62M seen and examined at bedside at approximately [id number]. He denies any SOB , dizziness, headache, chest pain, palpitations, numbness/tingling into upper extremities. He says "I feel fine". BP RIGHT ARM (manual): 88/36, HR- 62, Regular BP LEFT ARM (manual): 86/42, HR- 60, Regular GEN: NAD, resting comfortably with hat pulled over his eyes, easily aroused and verbally appropriate PULM: Good effort, symmetric, no rhonchi, no wheeze, trace breath sounds appreciated Rt lung and breath sounds noted throughout LEFT lung NECK: trachea midline, supple CARD: no JVD noted, RR, noted, heart sounds not muffled CVS: UE radial/brachial pulses 2+ 62M with severe HF, large RIGHT pleural effusion found to have asymptomatic hypotension after receiving vasotec/Zaroxolyn and otherwise asymptomatic. - Case d/w Pulmonary consult - Continue to monitor patient - Instructed nurse to call [facility] should anything clinically change with the above blood pressure - HELD Vasotec, but continued diuretic - c/w Telemetry - Dr Sterling notified as well <Cj Sterling - Last Filed: 04/29/18 07:01> Attending/Attestation - Attestation I have personally seen and examined this patient.: Yes I have fully participated in the care of the patient.: Yes I have reviewed all pertinent clinical information: Yes
[2018-04-28 05:45] LABS: BASO % 0.6 % (0.0-2.0); EOS % 0.7 % (0.0-4.0); HEMOGLOBIN 9.7 g/dL (12.0-18.0); LYMPH # 0.4 K/uL (1.0-4.3); LYMPH % 6.1 % (20.0-40.0); MEAN CORPUSCULAR HGB CONC 33.6 g/dL (33.0-37.0); MEAN PLATELET VOLUME 8.4 fl (7.2-11.7); MONO # 0.7 K/uL (0.0-0.8); MONO % 10.3 % (0.0-10.0); NEUT % 82.3 % (50.0-75.0); NRBC % 0.1 % (0.0-0.0); RBC 2.62 Mil/uL (4.40-5.90); RED CELL DISTRIBUTION WIDTH 13.4 % (11.5-14.5); WHITE BLOOD COUNT 7.3 K/uL (4.8-10.8)
[2018-04-28 05:47] LABS: CALCIUM 9.2 mg/dL (8.4-10.2)
[2018-04-28] MEDS: Enoxaparin 40 mg Syringe SC SCH ×2 (05:47→21:04)
--- NOTE | 2018-04-28 06:32 | CP.PCM.CON ---
History of Present Illness - History of Present Illness History of Present Illness: Consultation for evaluation of CHF exacerbation HPI: 62 year old male with hx of whole body radiation for lymphoma x 2 , severe calcified CAD , severe pulmonary HTN , porcelain aorta and mixed valvular heart disease was admitted to [facility] last month at which time he was declined for any invasive procedure due to severe calcifications and extremely high risk for surgery now presents with worsening SOB and edema. Review of Systems - Review of Systems Systems not reviewed;Unavailable: Acuity of Condition - Constitutional Constitutional: As Per HPI - EENT Eyes: As Per HPI Ears: As Per HPI Nose/Mouth/Throat: As Per HPI - Cardiovascular Cardiovascular: As Per HPI - Respiratory Respiratory: As Per HPI - Gastrointestinal Gastrointestinal: As Per HPI - Genitourinary Genitourinary: As Per HPI - Reproductive: Male Reproductive:Male: As Per HPI - Musculoskeletal Musculoskeletal: As Per HPI - Integumentary Integumentary: As Per HPI - Neurological Neurological: As Per HPI - Psychiatric Psychiatric: As Per HPI - Endocrine Endocrine: As Per HPI - Hematologic/Lymphatic Hematologic: As Per HPI Past Patient History - Infectious Disease Hx of Infectious Diseases: None - Past Medical History & Family History Past Medical History?: Yes - Past Social History Alcohol: None Drugs: Denies - CARDIAC Hx Cardia Arrhythmia: Yes Hx Congestive Heart Failure: Yes Hx Hypertension: Yes Hx Pacemaker: Yes - PULMONARY Hx Asthma: Yes Hx Bronchitis: Yes Hx Pneumonia: Yes (1999) - NEUROLOGICAL Hx Neurological Disorder: No - HEENT Hx HEENT Problems: No - RENAL Hx Chronic Kidney Disease: No - ENDOCRINE/METABOLIC Hx Endocrine Disorders: No - HEMATOLOGICAL/ONCOLOGICAL Hx Human Immunodeficiency Virus (HIV): No - INTEGUMENTARY Hx Dermatological Problems: No - MUSCULOSKELETAL/RHEUMATOLOGICAL Hx Falls: Yes Other/Comment: Avascular necrosis led to right hip replacement - GASTROINTESTINAL Hx Hemorrhoids: Yes - GENITOURINARY/GYNECOLOGICAL Hx Genitourinary Disorders: No - PSYCHIATRIC Hx Anxiety: Yes - SURGICAL HISTORY Hx Orthopedic Surgery: Yes (Right THR) Hx Thyroidectomy: Yes (Left Lobe) Other/Comment: Pacemaker - ANESTHESIA Hx Anesthesia: Yes Hx Anesthesia Reactions: No Hx Malignant Hyperthermia: No Has any member of the family had a problem w/ anesthesia?: No Meds Allergies/Adverse Reactions: Allergies Allergy/AdvReac Type Severity Reaction Status Date / Time No Known Allergies Allergy Verified 04/27/18 04:41 - Medications Medications: Current Medications Albuterol Sulfate (Albuterol 0.083% Inhal Vanesa (2.5 Mg/3 Ml) Ud) 2.5 mg INH RQ4 PRN PRN Reason: Shortness of Breath Albuterol/Ipratropium (Duoneb 3 Mg/0.5 Mg (3 Ml) Ud) 3 ml INH RQID [facility] Last Admin: 04/27/18 11:57 Dose: 3 ml Clonazepam (Klonopin) 0.5 mg PO DAILY PRN PRN Reason: Anxiety Enalapril Maleate (Vasotec) 10 mg PO DAILY [facility] Last Admin: 04/27/18 10:07 Dose: 10 mg Enoxaparin Sodium (Lovenox) 40 mg SC [facility] PRN Reason: Protocol Last Admin: 04/28/18 05:47 Dose: Not Given Metolazone (Zaroxolyn) 5 mg PO BID [facility] Last Admin: 04/27/18 17:49 Dose: 5 mg Physical Exam - Constitutional Appears: Well - Head Exam Head Exam: ATRAUMATIC, NORMAL INSPECTION, NORMOCEPHALIC - Eye Exam Eye Exam: EOMI, Normal appearance, PERRL Pupil Exam: NORMAL ACCOMODATION, PERRL - ENT Exam ENT Exam: Mucous Membranes Moist, Normal Exam - Neck Exam Neck exam: Positive for: Normal Inspection - Respiratory Exam Respiratory Exam: Accessory Muscle Use, Rales, Rhonchi, NORMAL BREATHING PATTERN - Cardiovascular Exam Cardiovascular Exam: Diastolic murmur, REGULAR RHYTHM, RRR, +S1, +S2, Systolic Murmur - GI/Abdominal Exam GI & Abdominal Exam: Normal Bowel Sounds, Soft. absent: Tenderness - Extremities Exam Extremities exam: Positive for: pedal edema - Neurological Exam Neurological exam: Alert, CN II-XII Intact, Oriented x3, Reflexes Normal - Psychiatric Exam Psychiatric exam: Normal Affect, Normal Mood - Skin Skin Exam: Dry, Intact, Normal Color, Warm Results - Vital Signs Recent Vital Signs: Last Vital Signs Temp 97.7 F 04/28/18 04:57 Pulse 63 04/28/18 04:57 Resp 18 04/28/18 04:57 BP 88/44 L 04/28/18 04:57 Pulse Ox 96 04/28/18 04:57 - Labs Result Diagrams: 04/28/18 05:10 06/27/18 05:10 Labs: Laboratory Results - last 24 hr 04/27/18 04/27/18 04/27/18 04:20 14:55 21:31 WBC RBC Hgb Hct MCV MCH MCHC RDW Plt Count MPV Neut % (Auto) Lymph % (Auto) [place] % (Auto) Eos % (Auto) Baso % (Auto) Neut # (Auto) Lymph # (Auto) [place] # (Auto) Eos # (Auto) Baso # (Auto) Neutrophils % (Manual) 88 H Lymphocytes % (Manual) 6 L Monocytes % (Manual) 3 Eosinophils % (Manual) 3 Platelet Estimate Normal Anisocytosis (manual) Slight Macrocytosis (manual) Slight Sodium Potassium Chloride Carbon Dioxide Anion Gap BUN Creatinine Est GFR ( Amer) Est GFR (Non-Af Amer) Random Glucose Calcium Troponin I 0.1470 H* 0.1370 H* 04/28/18 04/28/18 05:10 05:10 WBC 7.3 RBC 2.62 L Hgb 9.7 L Hct 28.8 L MCV 110.0 H MCH 37.0 H MCHC 33.6 RDW 13.4 Plt Count 208 MPV 8.4 Neut % (Auto) 82.3 H Lymph % (Auto) 6.1 L [place] % (Auto) 10.3 H Eos % (Auto) 0.7 Baso % (Auto) 0.6 Neut # (Auto) 6.0 Lymph # (Auto) 0.4 L [place] # (Auto) 0.7 Eos # (Auto) 0.0 Baso # (Auto) 0.0 Neutrophils % (Manual) Lymphocytes % (Manual) Monocytes % (Manual) Eosinophils % (Manual) Platelet Estimate Anisocytosis (manual) Macrocytosis (manual) Sodium 129 L Potassium 5.0 Chloride 94 L Carbon Dioxide 27 Anion Gap 13 BUN 88 H Creatinine 1.8 H Est GFR ( Amer) 46 Est GFR (Non-Af Amer) 38 Random Glucose 122 H Calcium 9.2 Troponin I Assessment & Plan (1) CHF (congestive heart failure) Status: Acute (2) Pleural effusion due to congestive heart failure Status: Acute Priority: High (3) Pulmonary hypertension Status: Chronic Priority: High (4) Dependent edema Status: Acute Priority: High
--- NOTE | 2018-04-28 07:59 | CP.PCM.PN ---
<Marbella Quigley - Last Filed: 04/28/18 17:16> Subjective - Date & Time of Evaluation Date of Evaluation: 04/28/18 Time of Evaluation: 07:59 - Subjective Subjective: No acute overnight events. Pts remains low but pt is asymptomatic. Pt is dyspneic when speaking, no dyspnea at rest. States that he did not eat his dinner well due to nausea. No episode of emesis. Denies chest pain, palpitations, and remains afebrile. Objective - Vital Signs/Intake and Output Vital Signs (last 24 hours): Temp Pulse Resp BP Pulse Ox 97.7 F 63 18 88/44 L 96 04/28/18 04:57 04/28/18 04:57 04/28/18 04:57 04/28/18 04:57 04/28/18 04:57 - Medications Medications: Current Medications Albuterol Sulfate (Albuterol 0.083% Inhal Vanesa (2.5 Mg/3 Ml) Ud) 2.5 mg INH RQ4 PRN PRN Reason: Shortness of Breath Albuterol/Ipratropium (Duoneb 3 Mg/0.5 Mg (3 Ml) Ud) 3 ml INH RQID [facility] Last Admin: 04/27/18 11:57 Dose: 3 ml Clonazepam (Klonopin) 0.5 mg PO DAILY PRN PRN Reason: Anxiety Enalapril Maleate (Vasotec) 10 mg PO DAILY [facility] Last Admin: 04/27/18 10:07 Dose: 10 mg Enoxaparin Sodium (Lovenox) 40 mg SC [facility] PRN Reason: Protocol Last Admin: 04/28/18 05:47 Dose: Not Given Metolazone (Zaroxolyn) 5 mg PO BID [facility] Last Admin: 04/27/18 17:49 Dose: 5 mg - Labs Labs: 04/28/18 05:10 04/28/18 05:10 PT 13.8 Seconds (9.8-13.1) H 04/27/18 04:20 INR 1.2 (0.9-1.2) 04/27/18 04:20 APTT 35.7 Seconds (25.6-37.1) 04/27/18 04:20 - Constitutional Appears: No Acute Distress, Other (dyspneic) - Head Exam Head Exam: NORMAL INSPECTION - Eye Exam Eye Exam: EOMI - ENT Exam ENT Exam: Mucous Membranes Moist - Respiratory Exam Respiratory Exam: NORMAL BREATHING PATTERN Additional comments: No breath sounds appreciated in the right lobe; [id number] Breath sounds appreciated in the L lobe, mild crackles in the lower lobe - Cardiovascular Exam Cardiovascular Exam: REGULAR RHYTHM, +S1, +S2 - GI/Abdominal Exam GI & Abdominal Exam: Soft, Normal Bowel Sounds. absent: Tenderness - Extremities Exam Extremities Exam: Normal Inspection - Back Exam Back Exam: NORMAL INSPECTION - Neurological Exam Neurological Exam: Alert, Awake, Oriented x3 - Psychiatric Exam Psychiatric exam: Normal Affect, Normal Mood Assessment and Plan - Assessment and Plan (Free Text) Assessment: Assessment/Plan: 62 YO male with PMHx of COPD, CHFrEF, HTN, Hx of Bilateral Avascular Necrosis of Femur, Anxiety, Hx of Hodgkin Lymphoma, Complete Heart Block s/p pacemeker 2016 is admitted for CHF exacerbation, with R pleural effusion. CHFrEF, exacerbation -chronic, with cardiomyopathy -Cardiology consulted, Dr. Pa -trops x 3 elevated; with no acute ST changes on EKG -BNP 19373 -c/w meds -cardiology consulted; follow up recs R pleural effusion -stable, chronic -CT of chest; large right sided effusion and mild atelectasis in right lower middle lobe and to a lesser degree in right upper lobes -O2 via NC to keep O2 > 92 -pulmonary on board; tunnelled catheter in the right allowing periodic drainage at home after discharge. Home hospice. -IR consulted HTN -currently hypotensive -HTN meds on hold -pt asymptomatic Nausea -Zofran PRN Hyponatremia -mild -cont to monitor -replace as needed COPD -c/w home meds Code status -pt states that he is DNR/DNI, as noted by Dr. Sterling <Carlos Enrique Ballesteros - Last Filed: 04/30/18 06:44> Objective - Vital Signs/Intake and Output Vital Signs (last 24 hours): Temp Pulse Resp BP Pulse Ox 98 F 60 22 90/38 L 96 04/30/18 05:00 04/30/18 05:00 04/30/18 05:00 04/30/18 05:00 04/30/18 05:00 Intake and Output: 04/29/18 04/30/18 18:59 06:59 Intake Total 200 Balance 200 - Medications Medications: Current Medications Albuterol Sulfate (Albuterol 0.083% Inhal Vanesa (2.5 Mg/3 Ml) Ud) 2.5 mg INH RQ4 PRN PRN Reason: Shortness of Breath Last Admin: 04/30/18 04:34 Dose: 2.5 mg Albuterol/Ipratropium (Duoneb 3 Mg/0.5 Mg (3 Ml) Ud) 3 ml INH RQID [facility] Last Admin: 04/27/18 11:57 Dose: 3 ml Clonazepam (Klonopin) 0.5 mg PO DAILY PRN PRN Reason: Anxiety Enalapril Maleate (Vasotec) 10 mg PO DAILY [facility] Last Admin: 04/27/18 10:07 Dose: 10 mg Enoxaparin Sodium (Lovenox) 40 mg SC HS [facility] PRN Reason: Protocol Last Admin: 04/28/18 21:04 Dose: 40 mg Lactated Ringer's (Lactated Ringer's 500ml) 500 mls @ 75 mls/hr IV .Q6H40M [facility] Metolazone (Zaroxolyn) 5 mg PO BID [facility] Last Admin: 04/29/18 10:51 Dose: Not Given Ondansetron HCl (Zofran Tab) 4 mg PO Q6 PRN PRN Reason: Nausea/Vomiting - Labs Labs: 04/29/18 05:33 04/30/18 05:11 PT 13.8 Seconds (9.8-13.1) H 04/27/18 04:20 INR 1.2 (0.9-1.2) 04/27/18 04:20 APTT 35.7 Seconds (25.6-37.1) 04/27/18 04:20 Attending/Attestation - Attestation I have personally seen and examined this patient.: Yes I have fully participated in the care of the patient.: Yes I have reviewed all pertinent clinical information, including history, physical exam and plan: Yes
[2018-04-28] MEDS: metOLazone 5 MG TAB PO SCH ×2 (08:56→16:12)
--- NOTE | 2018-04-28 09:54 | CP.PCM.PN ---
Subjective - Date & Time of Evaluation Date of Evaluation: 04/28/18 Time of Evaluation: 09:47 - Subjective Subjective: Have discussed present plan with the patient this morning. He appears fatigued and is dyspneic with conversation. His SpO2 is in the mid-80's on room air today. He does have generalized dependant edema w/o cyanosis. There is dullness over almost the entire right hemithorax. Breath sounds are only heard in the apex on the right side. The plan is to implant a tunnelled catheter in the right allowing periodic drainage at home after discharge. This will hopefully eliminate the need for frequent repeat hospitalizations because of increasing pleural effusion. His renal status is gradually declining as a result of the need for more and more diuretic therapy. Fluid accumulation in the chest has been too rapid to allow effective pleurodesis to be done. There should be consideration for Home Hospice if there is no available remedy for his cardiac status. Objective - Vital Signs/Intake and Output Vital Signs (last 24 hours): Temp Pulse Resp BP Pulse Ox 97.5 F L 67 20 94/47 L 93 L 04/28/18 08:00 04/28/18 08:00 04/28/18 08:00 04/28/18 08:00 04/28/18 08:00 - Medications Medications: Current Medications Albuterol Sulfate (Albuterol 0.083% Inhal Vanesa (2.5 Mg/3 Ml) Ud) 2.5 mg INH RQ4 PRN PRN Reason: Shortness of Breath Albuterol/Ipratropium (Duoneb 3 Mg/0.5 Mg (3 Ml) Ud) 3 ml INH RQID [facility] Last Admin: 04/27/18 11:57 Dose: 3 ml Clonazepam (Klonopin) 0.5 mg PO DAILY PRN PRN Reason: Anxiety Enalapril Maleate (Vasotec) 10 mg PO DAILY [facility] Last Admin: 04/27/18 10:07 Dose: 10 mg Enoxaparin Sodium (Lovenox) 40 mg SC HS [facility] PRN Reason: Protocol Last Admin: 04/28/18 05:47 Dose: Not Given Metolazone (Zaroxolyn) 5 mg PO BID [facility] Last Admin: 04/28/18 08:56 Dose: 5 mg Ondansetron HCl (Zofran Tab) 4 mg PO Q6 PRN PRN Reason: Nausea/Vomiting - Labs Labs: 04/28/18 05:10 04/28/18 05:10 PT 13.8 Seconds (9.8-13.1) H 04/27/18 04:20 INR 1.2 (0.9-1.2) 04/27/18 04:20 APTT 35.7 Seconds (25.6-37.1) 04/27/18 04:20 Assessment and Plan (1) Pleural effusion due to congestive heart failure Status: Acute (2) Atelectasis Status: Acute (3) Pulmonary hypertension Status: Chronic
[2018-04-28] MEDS: Albuterol 0.083% Inhal Sol (2.5 mg/3 mL) UD INH PRN (19:30)
[2018-04-29] MEDS: Albuterol 0.083% Inhal Sol (2.5 mg/3 mL) UD INH PRN (02:48)
[2018-04-29 05:42] LABS: BASO # 0.1 K/uL (0.0-0.2); BASO % 0.8 % (0.0-2.0); EOS % 0.4 % (0.0-4.0); HEMOGLOBIN 9.9 g/dL (12.0-18.0); LYMPH # 0.3 K/uL (1.0-4.3); LYMPH % 4.9 % (20.0-40.0); MEAN CELL VOLUME 110.4 fl (80.0-94.0); MEAN CORPUSCULAR HEMOGLOBIN 36.8 pg (27.0-31.0); MEAN CORPUSCULAR HGB CONC 33.4 g/dL (33.0-37.0); MEAN PLATELET VOLUME 8.3 fl (7.2-11.7); MONO # 0.8 K/uL (0.0-0.8); MONO % 11.8 % (0.0-10.0); NEUT # 5.5 K/uL (1.8-7.0); NEUT % 82.1 % (50.0-75.0); NRBC % 0.1 % (0.0-0.0); RBC 2.68 Mil/uL (4.40-5.90); RED CELL DISTRIBUTION WIDTH 13.6 % (11.5-14.5); WHITE BLOOD COUNT 6.7 K/uL (4.8-10.8)
[2018-04-29 06:02] LABS: CALCIUM 9.2 mg/dL (8.4-10.2)
--- NOTE | 2018-04-29 06:45 | CP.PCM.PN ---
<Marbella Quigley - Last Filed: 04/29/18 11:15> Subjective - Date & Time of Evaluation Date of Evaluation: 04/29/18 Time of Evaluation: 08:30 - Subjective Subjective: NPO for cath today. No acute overnight events. BP remains low, pt is currently asymptomatic. States that he just does feel well, not as strong as he use to. Denies dyspnea at rest , no chest pain. Nausea resolved today. Objective - Vital Signs/Intake and Output Vital Signs (last 24 hours): Temp Pulse Resp BP Pulse Ox 97.5 F L 75 20 91/49 L 99 04/29/18 04:52 04/29/18 04:52 04/29/18 04:52 04/29/18 04:52 04/29/18 04:52 - Medications Medications: Current Medications Albuterol Sulfate (Albuterol 0.083% Inhal Vanesa (2.5 Mg/3 Ml) Ud) 2.5 mg INH RQ4 PRN PRN Reason: Shortness of Breath Last Admin: 04/29/18 02:48 Dose: 2.5 mg Albuterol/Ipratropium (Duoneb 3 Mg/0.5 Mg (3 Ml) Ud) 3 ml INH RQID [facility] Last Admin: 04/27/18 11:57 Dose: 3 ml Clonazepam (Klonopin) 0.5 mg PO DAILY PRN PRN Reason: Anxiety Enalapril Maleate (Vasotec) 10 mg PO DAILY [facility] Last Admin: 04/27/18 10:07 Dose: 10 mg Enoxaparin Sodium (Lovenox) 40 mg SC HS [facility] PRN Reason: Protocol Last Admin: 04/28/18 21:04 Dose: 40 mg Metolazone (Zaroxolyn) 5 mg PO BID [facility] Last Admin: 04/28/18 16:12 Dose: 5 mg Ondansetron HCl (Zofran Tab) 4 mg PO Q6 PRN PRN Reason: Nausea/Vomiting - Labs Labs: 04/29/18 05:33 04/29/18 05:33 PT 13.8 Seconds (9.8-13.1) H 04/27/18 04:20 INR 1.2 (0.9-1.2) 04/27/18 04:20 APTT 35.7 Seconds (25.6-37.1) 04/27/18 04:20 - Constitutional Appears: No Acute Distress, Cachectic, Other (NL on 4L ) - Eye Exam Eye Exam: EOMI - ENT Exam ENT Exam: Mucous Membranes Moist - Respiratory Exam Respiratory Exam: Rales (mild in the left lower lobes), Wheezes (in the lower lobes ), NORMAL BREATHING PATTERN (no breath sounds in the R side. ) - Cardiovascular Exam Cardiovascular Exam: REGULAR RHYTHM, +S1, +S2 - GI/Abdominal Exam GI & Abdominal Exam: Soft, Normal Bowel Sounds. absent: Guarding, Tenderness - Extremities Exam Extremities Exam: Pedal Edema (2+ pitting edema up to the knees). absent: Calf Tenderness - Neurological Exam Neurological Exam: Alert, Awake, Oriented x3 - Psychiatric Exam Psychiatric exam: Flat Affect Assessment and Plan - Assessment and Plan (Free Text) Assessment: Assessment/Plan: 62 YO male with PMHx of COPD, CHFrEF, HTN, Hx of Bilateral Avascular Necrosis of Femur, Anxiety, Hx of Hodgkin Lymphoma, Complete Heart Block s/p pacemeker 2016 is admitted for CHF exacerbation, with R pleural effusion. CHFrEF, exacerbation -chronic, with cardiomyopathy and valvular disease likely 2/2 to chemotherapy -trops x 3 elevated; with no acute ST changes on EKG, likely due to cardiac strain from chronic conditions and increase work due to R effusion -BNP 76521 -metalazone on hold due to low bp -cardiology consulted; follow up recs R pleural effusion -stable, chronic -CT of chest; large right sided effusion and mild atelectasis in right lower middle lobe and to a lesser degree in right upper lobes -O2 via NC to keep O2 > 92 -pulmonary on board; tunnelled catheter in the right allowing periodic drainage at home after discharge. Home hospice. Nephrology consult -IR consulted; tunnel cath today -NPO for procedure today HTN -currently hypotensive -HTN meds on hold -pt asymptomatic CKD -stage 3B -acute on chronic, with declining functionality -bun/cr 92/2.2 -metalazone on hold -Nephrology consulted; follow up recs Nausea -resolved -Zofran PRN Hyponatremia -mild -cont to monitor -replace as needed COPD -c/w home meds Prophylax -Lovenox sc -PT Code status -pt states that he is DNR/DNI, as noted by Dr. Sterling <Cj Sterling - Last Filed: 04/30/18 06:49> Objective - Vital Signs/Intake and Output Vital Signs (last 24 hours): Temp Pulse Resp BP Pulse Ox 98 F 60 22 90/38 L 96 04/30/18 05:00 04/30/18 05:00 04/30/18 05:00 04/30/18 05:00 04/30/18 05:00 Intake and Output: 04/29/18 04/30/18 18:59 06:59 Intake Total 200 Balance 200 - Medications Medications: Current Medications Albuterol Sulfate (Albuterol 0.083% Inhal Vanesa (2.5 Mg/3 Ml) Ud) 2.5 mg INH RQ4 PRN PRN Reason: Shortness of Breath Last Admin: 04/30/18 04:34 Dose: 2.5 mg Albuterol/Ipratropium (Duoneb 3 Mg/0.5 Mg (3 Ml) Ud) 3 ml INH RQID [facility] Last Admin: 04/27/18 11:57 Dose: 3 ml Budesonide (Pulmicort Respules) 0.25 mg INH RBID [facility] Clonazepam (Klonopin) 0.5 mg PO DAILY PRN PRN Reason: Anxiety Enalapril Maleate (Vasotec) 10 mg PO DAILY [facility] Last Admin: 04/27/18 10:07 Dose: 10 mg Enoxaparin Sodium (Lovenox) 40 mg SC HS [facility] PRN Reason: Protocol Last Admin: 04/28/18 21:04 Dose: 40 mg Metolazone (Zaroxolyn) 5 mg PO BID [facility] Last Admin: 04/29/18 10:51 Dose: Not Given Ondansetron HCl (Zofran Tab) 4 mg PO Q6 PRN PRN Reason: Nausea/Vomiting - Labs Labs: 04/29/18 05:33 04/30/18 05:11 PT 13.8 Seconds (9.8-13.1) H 04/27/18 04:20 INR 1.2 (0.9-1.2) 04/27/18 04:20 APTT 35.7 Seconds (25.6-37.1) 04/27/18 04:20
--- NOTE | 2018-04-29 09:40 | CP.PCM.PN ---
Subjective - Date & Time of Evaluation Date of Evaluation: 04/29/18 Time of Evaluation: 09:37 - Subjective Subjective: Awaiting placement of tunnelled catheter today. Has become more symptomatic over the last day. Has continued to show declining renal function. Will need Nephrology consultation and reduced diuretic medication. Overall clinical status is slowly declining. Objective - Vital Signs/Intake and Output Vital Signs (last 24 hours): Temp Pulse Resp BP Pulse Ox 97.6 F 60 20 85/45 L 98 04/29/18 08:00 04/29/18 08:00 04/29/18 08:00 04/29/18 08:00 04/29/18 08:00 - Medications Medications: Current Medications Albuterol Sulfate (Albuterol 0.083% Inhal Vanesa (2.5 Mg/3 Ml) Ud) 2.5 mg INH RQ4 PRN PRN Reason: Shortness of Breath Last Admin: 04/29/18 02:48 Dose: 2.5 mg Albuterol/Ipratropium (Duoneb 3 Mg/0.5 Mg (3 Ml) Ud) 3 ml INH RQID [facility] Last Admin: 04/27/18 11:57 Dose: 3 ml Clonazepam (Klonopin) 0.5 mg PO DAILY PRN PRN Reason: Anxiety Enalapril Maleate (Vasotec) 10 mg PO DAILY [facility] Last Admin: 04/27/18 10:07 Dose: 10 mg Enoxaparin Sodium (Lovenox) 40 mg SC HS [facility] PRN Reason: Protocol Last Admin: 04/28/18 21:04 Dose: 40 mg Metolazone (Zaroxolyn) 5 mg PO BID [facility] Last Admin: 04/28/18 16:12 Dose: 5 mg Ondansetron HCl (Zofran Tab) 4 mg PO Q6 PRN PRN Reason: Nausea/Vomiting - Labs Labs: 04/29/18 05:33 04/29/18 05:33 PT 13.8 Seconds (9.8-13.1) H 04/27/18 04:20 INR 1.2 (0.9-1.2) 04/27/18 04:20 APTT 35.7 Seconds (25.6-37.1) 04/27/18 04:20 Assessment and Plan (1) Pleural effusion due to congestive heart failure Status: Acute (2) Atelectasis Status: Acute (3) Pulmonary hypertension Status: Chronic
--- NOTE | 2018-04-29 10:19 | PQF ---
PROVIDER RESPONSE TEXT: Cardiomyopathy and valvular disease (calcifications) 2/2 to chemotherapy in the past. Likely restrictive cardiomyopathy. CHF exacerbation 2/2 to effusion in R lung. REVIEWER QUERY TEXT: Cardiomyopathy Type Cardiomyopathy is documented in the Medical Record. Please specify the type Such as: -- Alcoholic -- Congestive -- Constrictive -- Dilated -- Hypertensive -- Ischemic -- Obstructive Hypertrophic - IHSS -- Other Hypertrophic -- Other, please specify 04/28 I Signed Resident note; CHFrEF, exacerbation -chronic, with cardiomyopathy -Cardiology consulted, Dr. Pa -apple x 3 elevated; with no acute ST changes on EKG -BNP 25803 -c/w meds -cardiology consulted; follow up recs The patient's Clinical Indicators include: xxx Query created by: Mary Oliver on 04/29/2018 9:47 AM Electronically signed by: Marbella Quigley 04/29/2018 10:17 AM RUBIN
--- NOTE | 2018-04-29 10:42 | PQF ---
PROVIDER RESPONSE TEXT: Elevated trops likely 2/2 to increase work of heart and cardiac compression from pleural effusion on R REVIEWER QUERY TEXT: Clarification of Clinical Diagnostic Findings Please clarify if there is an associated dx. to go along with the following clinical labs:04/27: tropn inins: 0.1500->0.1470->0.1370? OR: Other explanation of clinical finding OR:Unable to determine ER : Disposition: Labs reviewed no clinical significant abnormalities with exception of marked elevat ion of proBNP and elevated Troponin. Clinical Impression: CHF, Pleural effusion, ACS (acute coronary syndrome) 04/27 Pulmonary consult: HPI: At this time the troponin is positive, low levels, and BNP is >10,000. 04/27 Cardiology consult: Plan : (1) CHF (congestive heart failure) Status: Acute (2) Pleural effusion due to congestive heart failure Status: Acute Priority: High (3) Pulmonary hypertension Status: Chronic Priority: High (4) Dependent edema Status: Acute Priority: High 04/28 Resident progress note dxs. include: CHFrEF, exacerbation -chronic, with cardiomyopathy -Cardi ology consulted, -trops x 3 elevated; with no acute ST changes on EKG -BNP 55208 -c/w meds -cardiology consulted; follow up recs The patient's Clinical Indicators include: xxx Query created by: Mary Oliver on 04/29/2018 10:18 AM Electronically signed by: Marbella Quigley 04/29/2018 10:38 AM
[2018-04-29] MEDS: metOLazone 5 MG TAB PO SCH (10:51)
[2018-04-29] MEDS ORDERED: Midazolam 2 MG/2 ML VIAL ONE (11:10)
--- NOTE | 2018-04-29 11:58 | PCM.SURG1 ---
Surgeon's Initial Post Op Note - Surgeon's Notes Surgeon: Omar Johnston MD Network Security Analyst: NONE Type of Anesthesia: IV Sedation Pre-Operative Diagnosis: Pleural effusion, dyspnea Operative Findings: US showed large right pleural effusion Post-Operative Diagnosis: Pleural effusion, dyspnea Operation Performed: ASPIRA pleural drainage catheter placed right lung. Specimen/Specimens Removed: 1 liters of straw colored fluid Estimated Blood Loss: EBL {In ML}: 2 Blood Products Given: N/A Drains Used: No Drains, Chest Tubes Post-Op Condition: Fair Date of Surgery/Procedure: 04/29/18 Time of Surgery/Procedure: 11:55
[2018-04-29] MEDS ORDERED: Sodium Chloride 0.9% 1,000 ML IV ONE (12:05)
[2018-04-29] MEDS ORDERED: Lactated Ringer's 500 ML IV SCH (12:15)
[2018-04-30] MEDS: Albuterol 0.083% Inhal Sol (2.5 mg/3 mL) UD INH PRN ×2 (04:34→16:24)
[2018-04-30 06:10] LABS: CALCIUM 9.2 mg/dL (8.4-10.2)
[2018-04-30] MEDS: Budesonide 0.25 mg/2 ml Inhal Susp UD INH SCH ×2 (07:34→19:17)
--- NOTE | 2018-04-30 08:20 | CP.PCM.PN ---
Subjective - Date & Time of Evaluation Date of Evaluation: 04/30/18 Time of Evaluation: 08:17 Objective - Vital Signs/Intake and Output Vital Signs (last 24 hours): Temp Pulse Resp BP Pulse Ox 98 F 60 22 90/38 L 96 04/30/18 05:00 04/30/18 05:00 04/30/18 05:00 04/30/18 05:00 04/30/18 05:00 - Medications Medications: Current Medications Albuterol Sulfate (Albuterol 0.083% Inhal Vanesa (2.5 Mg/3 Ml) Ud) 2.5 mg INH RQ4 PRN PRN Reason: Shortness of Breath Last Admin: 04/30/18 04:34 Dose: 2.5 mg Albuterol/Ipratropium (Duoneb 3 Mg/0.5 Mg (3 Ml) Ud) 3 ml INH RQID [facility] Last Admin: 04/27/18 11:57 Dose: 3 ml Budesonide (Pulmicort Respules) 0.25 mg INH RBID [facility] Last Admin: 04/30/18 07:34 Dose: 0.25 mg Clonazepam (Klonopin) 0.5 mg PO DAILY PRN PRN Reason: Anxiety Enalapril Maleate (Vasotec) 10 mg PO DAILY [facility] Last Admin: 04/27/18 10:07 Dose: 10 mg Enoxaparin Sodium (Lovenox) 40 mg SC HS [facility] PRN Reason: Protocol Last Admin: 04/28/18 21:04 Dose: 40 mg Metolazone (Zaroxolyn) 5 mg PO BID [facility] Last Admin: 04/29/18 10:51 Dose: Not Given Ondansetron HCl (Zofran Tab) 4 mg PO Q6 PRN PRN Reason: Nausea/Vomiting - Labs Labs: 04/29/18 05:33 04/30/18 05:11 PT 13.8 Seconds (9.8-13.1) H 04/27/18 04:20 INR 1.2 (0.9-1.2) 04/27/18 04:20 APTT 35.7 Seconds (25.6-37.1) 04/27/18 04:20 Assessment and Plan - Assessment and Plan (Free Text) Assessment: Assessment/Plan: 62 YO male with PMHx of COPD, CHFrEF, HTN, Hx of Bilateral Avascular Necrosis of Femur, Anxiety, Hx of Hodgkin Lymphoma, Complete Heart Block s/p pacemeker 2016 is admitted for CHF exacerbation, with R pleural effusion. CHFrEF, exacerbation -chronic, with cardiomyopathy and valvular disease likely 2/2 to chemotherapy -trops x 3 elevated; with no acute ST changes on EKG, likely due to cardiac strain from chronic conditions and increase work due to R effusion -BNP 55763 -metalazone on hold due to low bp -Pleural effusion drainage -cardiology consulted; follow up recs R pleural effusion -acute on chronic -CT of chest; large right sided effusion and mild atelectasis in right lower middle lobe and to a lesser degree in right upper lobes -O2 via NC to keep O2 > 92 -pulmonary on board; tunnelled catheter in the right allowing periodic drainage at home after discharge. Home hospice. Nephrology consult -IR consulted; tunnel cath insertion -s/p aspira pleural drainage (R); 1.8L yesterday -will drain no more then 2L daily due to flash pulmonary edema, hypotension -cont to monitor HTN -currently hypotensive -HTN meds on hold -pt asymptomatic CKD -stage 3B -acute on chronic, with declining functionality -worsening un/cr 106/2.6 -light hydration 250ml -metalazone on hold -Nephrology consulted; follow up recs Hyperkalemia -K5.8 today -stat EKG -duonab treatment stat -will hold kayexalate for now due to pts conditions, and low bp -cont to monitor Hyponatremia -mild -cont to monitor -250ml NS -replace as needed Nausea -resolved -Zofran PRN COPD -c/w home meds Prophylax -Lovenox sc -PT Code status -pt states that he is DNR/DNI, as noted by Dr. Sterling
[2018-04-30] MEDS ORDERED: Albuterol-Ipratrop 3 mg / 0.5 (3 ml) UD INH STA (08:25)
[2018-04-30] MEDS ORDERED: Sodium Chloride 0.9% 250 ML IV SCH (08:30)
--- NOTE | 2018-04-30 10:59 | RAD ---
HISTORY: Congestion, crackles COMPARISON: 04/27/2018. FINDINGS: LUNGS: The right chest tube terminates in the apex. There is redemonstration of worsening right pleural effusion with loculated fluid along the right lateral wall in the horizontal fissure. There is worsening pulmonary venous congestion. There is worsening moderate left pleural effusion. No pneumothorax apparent. CARDIOVASCULAR: There is a left-sided pacemaker. The cardiomediastinal silhouette cannot be evaluated due to bilateral pleural effusions. OSSEOUS STRUCTURES: No significant abnormalities. VISUALIZED UPPER ABDOMEN: Normal. OTHER FINDINGS: None. IMPRESSION: Worsening pleural effusions, loculated on the right and worsening pulmonary venous congestion
[2018-04-30] MEDS ORDERED: Sod Polystyrene Sulf 15 gm/60 ml Susp PO ONE (11:26)
--- NOTE | 2018-04-30 12:23 | CP.PCM.CON ---
History of Present Illness - History of Present Illness History of Present Illness: Patient is a 62 years of age male I was called to see him for abnormal kidney function for further evaluation. Patient appeared to be dyspneic and not given any history. The history was taken from the medical record. And indicating his medication which has been reviewed. With significant cardiac history and that are not repairable apparently And past medical history pmh of COPD, reduced EF CHF, HTN, Hx of Bilateral Avascular Necrosis of Femur, Anxiety, Hx of Hodgkin Lymphoma, Complete Heart Block s/p pacemeker 11/2016 Review of Systems - Review of Systems Systems not reviewed;Unavailable: Respiratory Distress - Constitutional Constitutional: absent: Chills - EENT Nose/Mouth/Throat: absent: Epistaxis - Cardiovascular Cardiovascular: Dyspnea, Edema, Leg Edema. absent: Acrocyanosis, Chest Pain - Respiratory Respiratory: Cough, Dyspnea. absent: Hemoptysis - Gastrointestinal Gastrointestinal: absent: Abdominal Pain - Neurological Neurological: Confusion. absent: Focal Weakness - Endocrine Endocrine: Fatigue - Hematologic/Lymphatic Hematologic: absent: Easy Bleeding Past Patient History - Infectious Disease Hx of Infectious Diseases: None - Past Medical History & Family History Past Medical History?: Yes - Past Social History Alcohol: None Drugs: Denies - CARDIAC Hx Cardia Arrhythmia: Yes Hx Congestive Heart Failure: Yes Hx Hypertension: Yes Hx Pacemaker: Yes - PULMONARY Hx Asthma: Yes Hx Bronchitis: Yes Hx Pneumonia: Yes (1999) - NEUROLOGICAL Hx Neurological Disorder: No - HEENT Hx HEENT Problems: No - RENAL Hx Chronic Kidney Disease: No - ENDOCRINE/METABOLIC Hx Endocrine Disorders: No - HEMATOLOGICAL/ONCOLOGICAL Hx Human Immunodeficiency Virus (HIV): No - INTEGUMENTARY Hx Dermatological Problems: No - MUSCULOSKELETAL/RHEUMATOLOGICAL Hx Falls: Yes Other/Comment: Avascular necrosis led to right hip replacement - GASTROINTESTINAL Hx Hemorrhoids: Yes - GENITOURINARY/GYNECOLOGICAL Hx Genitourinary Disorders: No - PSYCHIATRIC Hx Anxiety: Yes - SURGICAL HISTORY Hx Orthopedic Surgery: Yes (Right THR) Hx Thyroidectomy: Yes (Left Lobe) Other/Comment: Pacemaker - ANESTHESIA Hx Anesthesia: Yes Hx Anesthesia Reactions: No Hx Malignant Hyperthermia: No Has any member of the family had a problem w/ anesthesia?: No Meds Allergies/Adverse Reactions: Allergies Allergy/AdvReac Type Severity Reaction Status Date / Time No Known Allergies Allergy Verified 04/27/18 04:41 - Medications Medications: Current Medications Albuterol Sulfate (Albuterol 0.083% Inhal Vanesa (2.5 Mg/3 Ml) Ud) 2.5 mg INH RQ4 PRN PRN Reason: Shortness of Breath Last Admin: 04/30/18 04:34 Dose: 2.5 mg Albuterol/Ipratropium (Duoneb 3 Mg/0.5 Mg (3 Ml) Ud) 3 ml INH RQID [facility] Last Admin: 04/27/18 11:57 Dose: 3 ml Budesonide (Pulmicort Respules) 0.25 mg INH RBID [facility] Last Admin: 04/30/18 07:34 Dose: 0.25 mg Clonazepam (Klonopin) 0.5 mg PO DAILY PRN PRN Reason: Anxiety Enalapril Maleate (Vasotec) 10 mg PO DAILY [facility] Last Admin: 04/27/18 10:07 Dose: 10 mg Enoxaparin Sodium (Lovenox) 40 mg SC HS [facility] PRN Reason: Protocol Last Admin: 04/28/18 21:04 Dose: 40 mg Sodium Chloride (Sodium Chloride 0.9%) 250 mls @ 999 mls/hr IV .Q16M [facility] Metolazone (Zaroxolyn) 5 mg PO BID [facility] Last Admin: 04/29/18 10:51 Dose: Not Given Ondansetron HCl (Zofran Tab) 4 mg PO Q6 PRN PRN Reason: Nausea/Vomiting Physical Exam - Constitutional Appears: In Acute Distress - Eye Exam Eye Exam: Conjunctival injection - ENT Exam ENT Exam: Mucous Membranes Moist - Neck Exam Neck exam: Negative for: Lymphadenopathy - Respiratory Exam Respiratory Exam: Rales, NORMAL BREATHING PATTERN - GI/Abdominal Exam GI & Abdominal Exam: Normal Bowel Sounds - Extremities Exam Extremities exam: Positive for: pedal edema - Back Exam Back exam: absent: CVA tenderness (L), CVA tenderness (R) - Neurological Exam Neurological exam: Altered Results - Vital Signs Recent Vital Signs: Last Vital Signs Temp 97.9 F 04/30/18 12:14 Pulse 60 04/30/18 12:14 Resp 18 04/30/18 12:14 BP 90/49 L 04/30/18 12:14 Pulse Ox 94 L 04/30/18 12:14 - Labs Result Diagrams: 04/29/18 05:33 04/30/18 05:11 Labs: Laboratory Results - last 24 hr 06/29/18 05:11 Sodium 129 L Potassium 5.8 H Chloride 93 L Carbon Dioxide 21 L Anion Gap 21 H BUN 106 H* Creatinine 2.6 H Est GFR ( Amer) 30 Est GFR (Non-Af Amer) 25 Random Glucose 117 H Calcium 9.2 Assessment & Plan (1) Acute kidney injury Assessment and Plan: Patient appears to have acute kidney injury perhaps related to cardiorenal syndrome related to congestive heart failure. Hyponatremia with hypovolemia Patient may benefit from Samsca to correct serum sodium Hyperkalemia to give stat Kayexalate dose Hold off KAITLYNN inhibitor Patient will need diuretics because he is is edematous Stat spot urine for sodium osmolality and creatinine. Repeat BMP 8 PM and tomorrow RN and monitor serum sodium not to go up higher than 10 mEq in the next 24 hours. Status: Acute (2) Hyperkalemia Status: Acute (3) Hyponatremia syndrome Status: Acute (4) CHF (congestive heart failure) Status: Acute (5) Pleural effusion Status: Acute Priority: High
[2018-04-30] MEDS ORDERED: Tolvaptan 15 MG TAB PO ONE (12:28)
--- NOTE | 2018-04-30 13:19 | CP.PCM.DIS ---
<Marbella Quigley - Last Filed: 04/30/18 18:16> Provider - Provider Date of Admission: 04/27/18 05:06 Attending physician: Cj Sterling MD Consults: Cardiology: Dr. Pa Pulmonary: Dr. Ruiz Nephrology: Dr. Feliciano IR: Dr. Johnston Time Spent in preparation of Discharge (in minutes): 20 Diagnosis - Discharge Diagnosis (1) CHF (congestive heart failure) Status: Acute (2) Pleural effusion due to congestive heart failure Status: Acute Priority: High Hospital Course - Lab Results Lab Results: Most Recent Lab Values WBC 6.7 K/uL (4.8-10.8) 04/29/18 05:33 RBC 2.68 Mil/uL (4.40-5.90) L 04/29/18 05:33 Hgb 9.9 g/dL (12.0-18.0) L 04/29/18 05:33 Hct 29.6 % (35.0-51.0) L 04/29/18 05:33 MCV 110.4 fl (80.0-94.0) H 04/29/18 05:33 MCH 36.8 pg (27.0-31.0) H 04/29/18 05:33 MCHC 33.4 g/dL (33.0-37.0) 04/29/18 05:33 RDW 13.6 % (11.5-14.5) 04/29/18 05:33 Plt Count 210 K/uL (130-400) 04/29/18 05:33 MPV 8.3 fl (7.2-11.7) 04/29/18 05:33 Neut % (Auto) 82.1 % (50.0-75.0) H 04/29/18 05:33 Lymph % (Auto) 4.9 % (20.0-40.0) L 04/29/18 05:33 [place] % (Auto) 11.8 % (0.0-10.0) H 04/29/18 05:33 Eos % (Auto) 0.4 % (0.0-4.0) 04/29/18 05:33 Baso % (Auto) 0.8 % (0.0-2.0) 04/29/18 05:33 Neut # (Auto) 5.5 K/uL (1.8-7.0) 04/29/18 05:33 Lymph # (Auto) 0.3 K/uL (1.0-4.3) L 04/29/18 05:33 [place] # (Auto) 0.8 K/uL (0.0-0.8) 04/29/18 05:33 Eos # (Auto) 0.0 K/uL (0.0-0.7) 04/29/18 05:33 Baso # (Auto) 0.1 K/uL (0.0-0.2) 04/29/18 05:33 Neutrophils % (Manual) 88 % (42-75) H 04/27/18 04:20 Lymphocytes % (Manual) 6 % (20-50) L 04/27/18 04:20 Monocytes % (Manual) 3 % (0-10) 04/27/18 04:20 Eosinophils % (Manual) 3 % (0-7) 04/27/18 04:20 Platelet Estimate Normal (NORMAL) 04/27/18 04:20 Anisocytosis (manual) Slight 04/27/18 04:20 Macrocytosis (manual) Slight 04/27/18 04:20 PT 13.8 Seconds (9.8-13.1) H 04/27/18 04:20 INR 1.2 (0.9-1.2) 04/27/18 04:20 APTT 35.7 Seconds (25.6-37.1) 04/27/18 04:20 Sodium 129 mmol/l (132-148) L 04/30/18 05:11 Potassium 5.8 MMOL/L (3.6-5.0) H 04/30/18 05:11 Chloride 93 mmol/L (98-107) L 04/30/18 05:11 Carbon Dioxide 21 mmol/L (22-30) L 04/30/18 05:11 Anion Gap 21 (10-20) H 04/30/18 05:11 BUN 106 mg/dl (9-20) H* 04/30/18 05:11 Creatinine 2.6 mg/dl (0.8-1.5) H 04/30/18 05:11 Est GFR ( Amer) 04/30/18 05:11 Est GFR (Non-Af Amer) 04/30/18 05:11 Random Glucose 117 mg/dL (75-110) H 04/30/18 05:11 Calcium 9.2 mg/dL (8.4-10.2) 04/30/18 05:11 Total Bilirubin 1.0 mg/dl (0.2-1.3) 04/27/18 04:20 AST 24 U/L (17-59) 04/27/18 04:20 ALT 29 U/L (21-72) 04/27/18 04:20 Alkaline Phosphatase 114 U/L (38-126) 04/27/18 04:20 Troponin I 0.1370 ng/mL (0.00-0.120) H* 04/27/18 21:31 NT-Pro-B Natriuret Pep 98597 pg/ml (0-900) H 04/27/18 04:20 Total Protein 7.0 G/DL (6.3-8.2) 04/27/18 04:20 Albumin 3.6 g/dL (3.5-5.0) 04/27/18 04:20 Globulin 3.4 gm/dL (2.2-3.9) 04/27/18 04:20 Albumin/Globulin Ratio 1.1 (1.0-2.1) 04/27/18 04:20 - Hospital Course Hospital Course: 62 YO male with PMHx of COPD, CHFrEF, HTN, Hx of Bilateral Avascular Necrosis of Femur, Anxiety, Hx of Hodgkin Lymphoma, Complete Heart Block s/p pacemeker 2016 is admitted for CHF exacerbation, with R pleural effusion. Imaging shows significant R pleural effusion, pulmonary was consulted; pt underwent IR procedure with aspira drainage catheter placement on 04/29/18. Post cath placement, CXR shows decrease quantity of fluid in lung. Pt is slowly declining , he is aware of poor prognosis of his chronic conditions, and at this time has decided to go home with hospice care. Risks, benefits, outcomes were discussed with patient and he understands. Pulmonary agrees with plan for Home Hospice and periodic fluid withdrawal. Will continue Metalazone per nephro and d/c enalapril. Pt will be d/c home with home hospice care, VNS for catheter care and home oxygen. Discharge Exam - Head Exam Head Exam: NORMAL INSPECTION Additional comments: Pt on high flow Congested - Eye Exam Eye Exam: EOMI - Respiratory Exam Respiratory Exam: Rhonchi, Wheezes (b/l ), NORMAL BREATHING PATTERN - Cardiovascular Exam Cardiovascular Exam: REGULAR RHYTHM, +S1, +S2 Additional comments: R Mid-axially catheter in place, draining clear yellow fluid - GI/Abdominal Exam GI & Abdominal Exam: Normal Bowel Sounds. absent: Soft, Tenderness - Exam Exam: absent: Scrotal Swelling (ledezma in place, draining dark urine ) - Extremities Exam Extremities exam: pedal edema (2+ pitting edema up to the knees ) - Neurological Exam Neurological exam: Alert, Oriented x3 - Psychiatric Exam Psychiatric exam: Normal Affect, Normal Mood - Skin Skin Exam: Pallor Discharge Plan - Discharge Medications Prescriptions: metOLazone [Zaroxolyn] 5 mg PO BID #30 tab - Follow Up Plan Condition: GUARDED Disposition: HOSPICE - HOME Instructions: Heart Failure, Adult (DC) Additional Instructions: follow up with primary MD, Customer Service Agent, and Mgmt Consultant 5-7 days. Referrals: Brain Pa MD [Staff Provider] - Darren Ruiz MD [Staff Provider] - Cj Sterling MD [Staff Provider] - <Cj Sterling - Last Filed: 05/03/18 07:19> Provider - Provider Date of Admission: 04/27/18 05:06 Attending physician: Cj Sterling MD Hospital Course - Lab Results Lab Results: Most Recent Lab Values WBC 6.7 K/uL (4.8-10.8) 04/29/18 05:33 RBC 2.68 Mil/uL (4.40-5.90) L 04/29/18 05:33 Hgb 9.9 g/dL (12.0-18.0) L 04/29/18 05:33 Hct 29.6 % (35.0-51.0) L 04/29/18 05:33 MCV 110.4 fl (80.0-94.0) H 04/29/18 05:33 MCH 36.8 pg (27.0-31.0) H 04/29/18 05:33 MCHC 33.4 g/dL (33.0-37.0) 04/29/18 05:33 RDW 13.6 % (11.5-14.5) 04/29/18 05:33 Plt Count 210 K/uL (130-400) 04/29/18 05:33 MPV 8.3 fl (7.2-11.7) 04/29/18 05:33 Neut % (Auto) 82.1 % (50.0-75.0) H 04/29/18 05:33 Lymph % (Auto) 4.9 % (20.0-40.0) L 04/29/18 05:33 [place] % (Auto) 11.8 % (0.0-10.0) H 04/29/18 05:33 Eos % (Auto) 0.4 % (0.0-4.0) 04/29/18 05:33 Baso % (Auto) 0.8 % (0.0-2.0) 04/29/18 05:33 Neut # (Auto) 5.5 K/uL (1.8-7.0) 04/29/18 05:33 Lymph # (Auto) 0.3 K/uL (1.0-4.3) L 04/29/18 05:33 [place] # (Auto) 0.8 K/uL (0.0-0.8) 04/29/18 05:33 Eos # (Auto) 0.0 K/uL (0.0-0.7) 04/29/18 05:33 Baso # (Auto) 0.1 K/uL (0.0-0.2) 04/29/18 05:33 Neutrophils % (Manual) 88 % (42-75) H 04/27/18 04:20 Lymphocytes % (Manual) 6 % (20-50) L 04/27/18 04:20 Monocytes % (Manual) 3 % (0-10) 04/27/18 04:20 Eosinophils % (Manual) 3 % (0-7) 04/27/18 04:20 Platelet Estimate Normal (NORMAL) 04/27/18 04:20 Anisocytosis (manual) Slight 04/27/18 04:20 Macrocytosis (manual) Slight 04/27/18 04:20 PT 13.8 Seconds (9.8-13.1) H 04/27/18 04:20 INR 1.2 (0.9-1.2) 04/27/18 04:20 APTT 35.7 Seconds (25.6-37.1) 04/27/18 04:20 Sodium 129 mmol/l (132-148) L 04/30/18 05:11 Potassium 5.8 MMOL/L (3.6-5.0) H 04/30/18 05:11 Chloride 93 mmol/L (98-107) L 04/30/18 05:11 Carbon Dioxide 21 mmol/L (22-30) L 04/30/18 05:11 Anion Gap 21 (10-20) H 04/30/18 05:11 BUN 106 mg/dl (9-20) H* 04/30/18 05:11 Creatinine 2.6 mg/dl (0.8-1.5) H 04/30/18 05:11 Est GFR ( Amer) 04/30/18 05:11 Est GFR (Non-Af Amer) 04/30/18 05:11 Random Glucose 117 mg/dL (75-110) H 04/30/18 05:11 Calcium 9.2 mg/dL (8.4-10.2) 04/30/18 05:11 Total Bilirubin 1.0 mg/dl (0.2-1.3) 04/27/18 04:20 AST 24 U/L (17-59) 04/27/18 04:20 ALT 29 U/L (21-72) 04/27/18 04:20 Alkaline Phosphatase 114 U/L (38-126) 04/27/18 04:20 Troponin I 0.1370 ng/mL (0.00-0.120) H* 04/27/18 21:31 NT-Pro-B Natriuret Pep 98535 pg/ml (0-900) H 04/27/18 04:20 Total Protein 7.0 G/DL (6.3-8.2) 04/27/18 04:20 Albumin 3.6 g/dL (3.5-5.0) 04/27/18 04:20 Globulin 3.4 gm/dL (2.2-3.9) 04/27/18 04:20 Albumin/Globulin Ratio 1.1 (1.0-2.1) 04/27/18 04:20 Attending/Attestation - Attestation I have personally seen and examined this patient.: Yes I have fully participated in the care of the patient.: Yes I have reviewed all pertinent clinical information, including history, physical exam and plan: Yes
--- NOTE | 2018-04-30 14:02 | RAD ---
HISTORY: s/p 1.8L pleural fluid removal COMPARISON: 04/30/2018 at 9:55 a.m. FINDINGS: LUNGS: There is airspace disease in both lower lobes which may be related to compressive atelectasis. There is moderate pulmonary venous congestion. PLEURA: The right chest tube is stable in position and terminates in the apex. There is interval decrease in size of right pleural effusion with a persistent residual moderate pleural effusion. There is no change in moderate left pleural effusion. No pneumothorax. CARDIOVASCULAR: The cardiomediastinal silhouette is stable. There is stable position of left-sided pacemaker. OSSEOUS STRUCTURES: No significant abnormalities. VISUALIZED UPPER ABDOMEN: Normal. OTHER FINDINGS: None. IMPRESSION: Status post right thoracentesis, no pneumothorax. Persistent residual moderate right pleural effusion. No change in moderate left pleural effusion.
--- NOTE | 2018-04-30 14:18 | CP.PCM.PN ---
Subjective - Date & Time of Evaluation Date of Evaluation: 04/30/18 Time of Evaluation: 14:12 - Subjective Subjective: Seen earlier today. Had PleurEx catheter placed yessterday with removal of about 1.8L fluid total. Had another liter of fluid removed today w/o incident. CXR done afterwards showed decreased quantity of fluid in the right hemithorax. Agree with plan for Home Hospice and periodic fluid withdrawal. Objective - Vital Signs/Intake and Output Vital Signs (last 24 hours): Temp Pulse Resp BP Pulse Ox 97.9 F 60 18 90/49 L 94 L 04/30/18 12:14 04/30/18 12:14 04/30/18 12:14 04/30/18 12:14 04/30/18 12:14 Intake and Output: 04/30/18 04/30/18 11:59 23:59 Output Total 1250 Balance -1250 - Medications Medications: Current Medications Albuterol Sulfate (Albuterol 0.083% Inhal Vanesa (2.5 Mg/3 Ml) Ud) 2.5 mg INH RQ4 PRN PRN Reason: Shortness of Breath Last Admin: 04/30/18 04:34 Dose: 2.5 mg Albuterol/Ipratropium (Duoneb 3 Mg/0.5 Mg (3 Ml) Ud) 3 ml INH RQID [facility] Last Admin: 04/27/18 11:57 Dose: 3 ml Budesonide (Pulmicort Respules) 0.25 mg INH RBID [facility] Last Admin: 04/30/18 07:34 Dose: 0.25 mg Clonazepam (Klonopin) 0.5 mg PO DAILY PRN PRN Reason: Anxiety Enalapril Maleate (Vasotec) 10 mg PO DAILY [facility] Last Admin: 04/27/18 10:07 Dose: 10 mg Enoxaparin Sodium (Lovenox) 40 mg SC HS [facility] PRN Reason: Protocol Last Admin: 04/28/18 21:04 Dose: 40 mg Sodium Chloride (Sodium Chloride 0.9%) 250 mls @ 999 mls/hr IV .Q16M [facility] Metolazone (Zaroxolyn) 5 mg PO BID [facility] Last Admin: 04/29/18 10:51 Dose: Not Given Ondansetron HCl (Zofran Tab) 4 mg PO Q6 PRN PRN Reason: Nausea/Vomiting - Labs Labs: 04/29/18 05:33 04/30/18 05:11 PT 13.8 Seconds (9.8-13.1) H 04/27/18 04:20 INR 1.2 (0.9-1.2) 04/27/18 04:20 APTT 35.7 Seconds (25.6-37.1) 04/27/18 04:20 Assessment and Plan (1) Pleural effusion due to congestive heart failure Status: Acute (2) Atelectasis Status: Acute (3) Pulmonary hypertension Status: Chronic
--- NOTE | 2018-04-30 15:23 | CP.PCM.PCO ---
<Marbella Quigley - Last Filed: 04/30/18 15:21> Assessment & Plan - Assessment and Plan (Free Text) Assessment: 62 YO Male with multiple co-morbidities is admitted for dyspnea with CHF exacerbation with R pleural effusion. -S/p Aspira pleural drainage catheter placed R lung 04/29/18 -catheter on R axillary area; needs to be drained with dressing change 1x every week, Maximum drainage of 1L per session. <Cj Sterling - Last Filed: 05/03/18 07:18> Attending/Attestation - Attestation I have personally seen and examined this patient.: Yes I have fully participated in the care of the patient.: Yes I have reviewed all pertinent clinical information: Yes
[2018-04-30 16:11] VITALS: BP 97/44; PULSE 62; TEMP 98.6; O2SAT 88
[2018-04-30 19:39] VITALS: RESP 19
[2018-04-30] MEDS: metOLazone 5 MG TAB PO SCH (20:01)
--- NOTE | 2018-05-01 12:59 | CARD ---
APPROVED REPORT EKG Measurement Heart [id number] P54 [id number] <Conclusion> Undetermined rhythm Left bundle branch block Abnormal ECG
== END 2018-04-30 20:45 | disposition hospice, home (50) | DRG 291 ==
LOC: H.ER 03:40 → H.ERHOLD 05:06 → H.TEL 06:48
PROVIDERS: ADMIT Family Medicine; ATTEND Family Medicine
PROC: 0W9930Z Drainage of Right Pleural Cavity with Drainage Device, Percutaneous Approach (ICD-10-PCS; principal; 2018-04-29 13:00)
DX: I13.0 Hypertensive heart and chronic kidney disease with heart failure and stage 1 through stage 4 chronic kidney disease, or unspecified chronic kidney disease (principal); I50.23 Acute on chronic systolic (congestive) heart failure; J98.11 Atelectasis; E87.1 Hypo-osmolality and hyponatremia; N17.9 Acute kidney failure, unspecified; J44.1 Chronic obstructive pulmonary disease with (acute) exacerbation; J91.8 Pleural effusion in other conditions classified elsewhere; I42.5 Other restrictive cardiomyopathy; I42.7 Cardiomyopathy due to drug and external agent; Z85.72 Personal history of non-Hodgkin lymphomas; Z95.0 Presence of cardiac pacemaker; Z96.641 Presence of right artificial hip joint; Z85.71 Personal history of Hodgkin lymphoma; Z87.891 Personal history of nicotine dependence; E86.1 Hypovolemia; I27.20 Pulmonary hypertension, unspecified; I25.10 Atherosclerotic heart disease of native coronary artery without angina pectoris; E87.5 Hyperkalemia; F41.9 Anxiety disorder, unspecified; Z66 Do not resuscitate; N18.3 Chronic kidney disease, stage 3 (moderate); T45.1X5A Adverse effect of antineoplastic and immunosuppressive drugs, initial encounter; I35.9 Nonrheumatic aortic valve disorder, unspecified; I95.2 Hypotension due to drugs; T46.4X5A Adverse effect of angiotensin-converting-enzyme inhibitors, initial encounter; T50.2X5A Adverse effect of carbonic-anhydrase inhibitors, benzothiadiazides and other diuretics, initial encounter